=== PATIENT | female | born 1960 | race Caucasian/White ===

== ENCOUNTER 2022-07-13 14:00 | Outpatient (RCR) | payer BC, SELFPAY ==
[2022-07-12 10:08] VITALS: BP 169/78; PULSE 111; RESP 24; TEMP 36.3; BMI 44.0
--- NOTE | 2022-07-12 11:41 | HP.PCM_ITS ---
History of Present Illness Date of Service: 07/12/22 Chief Complaint: Bilateral leg ulcers History of Wound: 61 year old female presents to the wound healing center with ulcers on her right and left legs that started 5 months ago after being hospitalized for pneumonia and COPD exacerbation. She developed worsening edema and her legs have been weeping. She then bumped her right lateral leg and developed an ulcer that she covers during the day with non adherent dressings. She also has several ulcers that are superficial and weep clear drainage due to the amount of edema she is experiencing. She sleeps in a chair due to difficulty breathing. She typically does not elevate her legs. 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 She is being treated with Doxycycline from her PCP due to a cellulitis of her legs. Renewed notes from her PCP who saw her on 07/03/22 for cellulitis, ulcer right leg and shortness of breath. She denies fever, chills, nausea or vomiting. Progress of Wound: Right lateral leg ulcer with significant amount of thick, ch slough. It is painful with erythema surrounding the tissue. She also has superficial ulcers on her right anterior leg and right medial leg and her left posterior-medial leg and left lateral leg that have thick slough present. She has +4 pitting edema bilateral legs. [facility] Medical History (Updated 07/12/22 @ 13:39 by Blank Birmingham [employer]) Bilateral edema of lower extremity COPD (chronic obstructive pulmonary disease) Requires continuous at home supplemental oxygen Ulcer of left lower extremity, limited to breakdown of skin Ulcer of right lower extremity with fat layer exposed Medical History no medical history no medical history Home Medications B6 25 mg-L mefolate 3,500 mcg DFE-mecobalamin 1 mg-ALA 300 mg capsule 1 cap PO DAILY 07/12/22 [History Last Taken Unknown] ammonium lactate 12 % topical cream 1 applic topical DAILY 07/12/22 [History Last Taken Unknown] aspirin 325 mg tablet mg 07/12/22 [History Last Taken Unknown] baclofen 10 mg tablet 10 mg PO TID PRN Anxiety 07/12/22 [History Last Taken Unknown] budesonide-formoterol HFA 160 mcg-4.5 mcg/actuation aerosol inhaler (Symbicort) 2 puff inhalation Q12H 07/12/22 [History Last Taken Unknown] dicyclomine 20 mg tablet 20 mg PO TID 07/12/22 [History Last Taken Unknown] doxycycline hyclate 100 mg capsule 100 mg PO BID 07/12/22 [History Last Taken Unknown] fluticasone fur. 100 mcg-umeclid 62.5 mcg-vilant 25 mcg inhalat.powder (Trelegy Ellipta) 1 inh inhalation DAILY 07/12/22 [History Last Taken Unknown] furosemide 20 mg tablet 20 mg PO DAILY 07/12/22 [History Last Taken Unknown] glucosamine sulf dipot chlr,msm,chond 550 mg-C 30 mg-gonzalez 1 mg capsule (Glucosamine Chondroitin) cap PO DAILY 07/12/22 [History Last Taken Unknown] guaifenesin 1,200 mg tablet, extended release 12 hr (Mucinex) 1,200 mg PO BID 07/12/22 [History Last Taken Unknown] potassium 99 mg tablet mg BID 07/12/22 [History Last Taken Unknown] tiotropium bromide 18 mcg capsule with inhalation device (Spiriva with HandiHaler) 1 cap inhalation DAILY 07/12/22 [History Last Taken Unknown] vit X27-MQ-ixtlhzsmps-GL no.15 500 mcg-400 mcg-10 mg-400 mg capsule cap PO 07/12/22 [History Last Taken Unknown] vit C-chromium picolinate-brindall navarro 10 mg-25 mcg-500 mg capsule cap PO 07/12/22 [History Last Taken Unknown] zinc 50 mg capsule 50 mg PO DAILY 07/12/22 [History Last Taken Unknown] Allergy/AdvReac Type Severity Reaction Status Date / Time No Known Allergies Allergy Verified 07/12/22 10:40 Social History Smoking Status: Former smoker ROS Constitutional Constitutional: Denies fever(s) Eyes Eyes: Reports none ENT HEENT: Reports none Cardiovascular Cardiovascular: Reports dyspnea; Denies chest pain Respiratory/Chest Respiratory/Chest: Reports dyspnea, dyspnea on exertion and other Details: On 5 L home oxygen Gastrointestinal Gastrointestinal: Denies abdominal pain, dyspepsia, nausea or vomiting Musculoskeletal Musculoskeletal: Reports joint stiffness Integumentary Integumentary: Reports skin ulcer Neurologic Neurologic: Reports tingling Psychiatric Psychiatric: Reports abnormal sleep pattern Endocrine Endocrinology: Reports systems reviewed and no addt'l complaints, except as documented Vital Signs Vital Signs Vital Signs: 07/12/22 10:08 Temperature 97.3 F L Temperature Source Temporal Pulse Rate 111 H Respiratory Rate 24 H Blood Pressure 169/78 H Blood Pressure Mean 108 Blood Pressure Source Monitor Oxygen Delivery Method Nasal Cannula Oxygen Flow Rate (L/min) 5 Weight Weight: 248 lb 8.668 oz Body Mass Index (BMI) 44.0 Physical Exam Const alert and oriented x3 General Appearance: cooperative HEENT normocephalic Eyes General Eye: normal appearance of both eyes Neck full ROM Resp Effort and Inspection: able to speak in complete sentences, tachypneic and labored Auscultation: diminished lung sounds bilateral lower Cardio regular rate and regular rhythm GI soft to palpation and non-tender Back/Spine normal ROM Extremity normal capillary refill General Extremity: edema bilateral lower extremity Details: severe Peripheral Pulses: Yes dorsalis pedis pulses present bilateral 2+ Skin Wound Narrative: Right lateral leg ulcer with significant amount of thick, ch slough. It is painful with erythema surrounding the tissue. She also has superficial ulcers on her right anterior leg and right medial leg and her left posterior-medial leg and left lateral leg that have thick slough present. She has +4 pitting edema bilateral legs. Neuro oriented x3 Psych mental status grossly normal, thought process normal and cooperative Debridement Note Debridement Note Wound debrided: lateral leg ulcer (#1) Laterality: Right Wound Grade/Stage: Stage III Type of Debridement: Excisional debridement Anesthesia Used: 4% Lidocaine Solution, 5% Lidocaine Gel and Cetacaine Depth: Down to and including healthy tissue and in the subcutaneous layer Percentage of wound debrided: 100 Instrument Used: 7mm curette Tissue Removed: devitalized tissue and slough Severity: Fat Layer Exposed Amount of bleeding with debridement: Moderate Bleeding Controlled with: Pressure and Compression and gauze Patient tolerated procedure: Patient tolerated procedure well Debridement Free Text: Large amount of slough. The debridement was very painful Post-Debridement Measurements and Additional Note: Post-Debridement Measurements/Treatment WC - Nurse 1 - General Ulcer Assessment Start: 07/12/22 10:04 Freq: Status: Active Protocol: TROY Activity Type Activity Date Activity User E-sign Co-sign Detail Recorded Client Recorded Date Recorded By Document 07/12/22 10:08 DL [id number] 07/12/22 10:37 DL 07/12/22 10:08 WC - Today's Visit Information Type of service Initial Visit Arrival Mode Ambulatory Transfer Assistance None Patient Identification Verified (Name & Yes ) Patient Requires Transmission-Based No Precautions Height and Weight Height 5 ft 3 in Weight 248 lb 8.668 oz Weight in Pounds 248.5 lbs Body Mass Index (BMI) 44.0 BMI Classification Obese BSA - Alana 2.12 Vital Signs Temperature (97.8 F-99.1 F) 97.3 F L Temperature Source Temporal Pulse Rate (60-100) 111 H Pulse Location Monitor Respiratory Rate (12-18) 24 H Respiratory rate source Observation Oxygen Delivery Method Nasal Cannula O2 L/MIN 5 Blood Pressure (90/60-120/80) 169/78 H Blood Pressure Mean 108 Source Monitor Pain Scale: 0-10 Numeric Is Patient Pain Free? Yes Lower Extremity Assessment/ Foot Assessment/ Toe Nail Assessment Left -Posterior Tibial Palpable Yes -Dorsalis Pedis Palpable Yes -Extremity Color Hyperpigmented, Hemosiderin -Hair Growth on Legs No -Hair Growth on Toes No -Temperature of Extremity Warm -Capillary Refill Greater than 3 Seconds -Dependent Rubor No -Blanched when Elevated No -Lipodermatosclerosis No -Other Deformity No -Prior Foot Ulcer No -Charcot Joint No -Prior Amputation No -Thick Yes -Discolored Yes -Deformed Yes -Improper Length & Hygeine Yes Right -Posterior Tibial Palpable Yes -Dorsalis Pedis Palpable Yes -Extremity Color Hyperpigmented, Hemosiderin -Hair Growth on Legs No -Hair Growth on Toes No -Temperature of Extremity Warm -Capillary Refill Greater than 3 Seconds -Dependent Rubor Yes -Blanched when Elevated No -Lipodermatosclerosis No -Other Deformity No -Prior Foot Ulcer No -Charcot Joint No -Prior Amputation No -Thick Yes -Discolored Yes -Deformed Yes -Improper Length & Hygeine Yes Neuropathy Assessment Feet - Top Side and Bottom <Entered> (a) Communication Assessment Preferred language Upper Sorbian Able to Read Yes Able to Write No Right Hearing Abillity Normal Left Hearing Abillity Normal Visual Assistive Devices Glasses Teaching Assessment Preferences Verbal,Written, Demonstration Barriers to Learning None Readiness To Learn Fair Willingness to Engage in Self Management Low Activies Readiness to Engage in Self Management Low Activities Anxiety Level Calm Cooperation Cooperative Interest in Health Problem Asks Questions Does Patient Smoke tobacco or other No substances Smoking Status Former smoker Is Patient Diabetic No Functional Assessment Recent Decline in Ability to Perform Denies Any Declines, Ambulation, Bathing,Lower Body Dressing Culture/Catholic/Product Development Specialist Cultural/Catholic Needs that may affect No Treatment Plan Would you allow our hospital saw grinder to No meet you for the purpose of spiritual/ emotional support? Product Development Specialist to contact place of hoahaoism No Teaching: Wound Center Discharge Instructions -Person Taught Patient *Welcome to the Wound Center -Person Taught Patient (a) 1 - + WC - Nurse 1 - General Ulcer Measurement Start: 07/12/22 10:04 Freq: Status: Active Protocol: Activity Type Activity Date Activity User E-sign Co-sign Detail Recorded Client Recorded Date Recorded By Document 07/12/22 10:08 DL [id number] 07/12/22 10:37 DL 07/12/22 10:08 Wound Center Nurse 1 #4 LLE Lat -Current Size (cm) - Length 10 -Current Size (cm) - Width 6 -Current Size (cm) - Depth 0.1 -Total Square Cm 60 -Photo Taken Yes -Exudate Amt Large -Exudate Type Serous -Wound Margin Distinct, Outline Attached -Granulation Amt None Present (0 %) -Necrosis Amt Large (67-100%) -Necrotic Tissue Type Adherent Slough -Structure Exposed N/A -Texture (Ashley-wound Skin Appearance) Localized Edema ,Scarring -Moisture (Ashley-wound Skin Appearance) Weeping -Color (Ashley-wound Skin Appearance) Erythema, Hemosiderin Staining -Temperature (Ashley-wound Skin No Abnormality Appearance) (Pt Warm) -Tenderness on Palpation (Ashley-wound No Skin Appearance) -Ulcer Cleansing Soap and Water -Foul Odor after Cleansing No -Anesthetic Used 4% Lidocaine Solution #3 LLE MED -Current Size (cm) - Length 11.8 -Current Size (cm) - Width 7.8 -Current Size (cm) - Depth 0.1 -Total Square Cm 92.04 -Photo Taken Yes -Exudate Amt Large -Exudate Type Serosanguineous -Wound Margin Distinct, Outline Attached -Granulation Amt None Present (0 %) -Necrosis Amt Large (67-100%) -Necrotic Tissue Type Adherent Slough -Texture (Ashley-wound Skin Appearance) Localized Edema ,Scarring -Moisture (Ashley-wound Skin Appearance) Weeping -Color (Ashley-wound Skin Appearance) Erythema, Hemosiderin Staining -Temperature (Ashley-wound Skin No Abnormality Appearance) (Pt Warm) -Ulcer Cleansing Soap and Water -Foul Odor after Cleansing No -Anesthetic Used 4% Lidocaine Solution #2 RLE Med -Current Size (cm) - Length 2 -Current Size (cm) - Width 2 -Current Size (cm) - Depth 0.4 -Total Square Cm 4 -Photo Taken Yes -Exudate Amt Large -Exudate Type Serosanguineous -Wound Margin Distinct, Outline Attached -Granulation Amt None Present (0 %) -Necrosis Amt Large (67-100%) -Necrotic Tissue Type Adherent Slough -Texture (Ashley-wound Skin Appearance) Localized Edema ,Scarring -Color (Ashley-wound Skin Appearance) Erythema, Hemosiderin Staining -Temperature (Ashley-wound Skin No Abnormality Appearance) (Pt Warm) -Tenderness on Palpation (Ashley-wound No Skin Appearance) -Ulcer Cleansing Soap and Water -Foul Odor after Cleansing No -Anesthetic Used 4% Lidocaine Solution #1 RLE LAt Cluster -Current Size (cm) - Length 9 -Current Size (cm) - Width 8.5 -Current Size (cm) - Depth 0.6 -Total Square Cm 76.5 -Photo Taken Yes -Exudate Amt Large -Exudate Type Serosanguineous -Wound Margin Thickened -Granulation Amt None Present (0 %) -Necrosis Amt Large (67-100%) -Necrotic Tissue Type Adherent Slough -Structure Exposed N/A -Texture (Ashley-wound Skin Appearance) Localized Edema ,Scarring -Moisture (Ashley-wound Skin Appearance) Weeping -Color (Ashley-wound Skin Appearance) Erythema, Hemosiderin Staining -Temperature (Ashley-wound Skin No Abnormality Appearance) (Pt Warm) -Tenderness on Palpation (Ashley-wound No Skin Appearance) -Ulcer Cleansing Soap and Water -Foul Odor after Cleansing No -Anesthetic Used 4% Lidocaine Solution Right Calf (cm) 54 Right Ankle (cm) 30.5 Left Calf (cm) 53 Left Ankle (cm) 29 WC - Nurse 2 - General Ulcer CM Notes Start: 07/12/22 10:04 Freq: Status: Active Protocol: Activity Type Activity Date Activity User E-sign Co-sign Detail Recorded Client Recorded Date Recorded By Document 07/12/22 11:07 [id number] 07/12/22 11:25 JF 07/12/22 11:07 Wound Center Nurse 2 5-right garcia -Time 11: -Correct Patient Yes -Correct Side, Site, Position Yes -Correct Procedure Yes -Procedure Performed Yes -Type of Procedure Debridement -Clinical Debridement Subcutaneous -Tissue Removed Subcutaneous -Post Debridement (cm) - Length 1.7 -Post Debridement (cm) - Width 1 -Post Debridement (cm) - Depth 0.1 -Total Square (Post) (cm) 1.7 -Area of Debridement (cm) - Length 1.7 -Area of Debridement (cm) - Width 1.0 -Total Square (Area) (cm) 1.70 -Tunneling No -Undermining/Tunneling No -Circular Undermining No -Wound/Ulcer Outcome Not Healed -Ulcer Cleansing Rinsed/ Irrigated with Saline -Foul Odor after Cleansing No -Bioengineered Tissue No -Bleeding Controlled with Pressure -Treatment Response Procedure Tolerated Well -Offloading No -Debridement - Subq, 1st 20sq cm Yes -Debridement, SubQ, ea addt'l 20sq cm 8 or part thereof #4 LLE Lat -Time 11:07 -Correct Patient Yes -Correct Side, Site, Position Yes -Correct Procedure Yes -Procedure Performed Yes -Type of Procedure Debridement -Clinical Debridement Subcutaneous -Tissue Removed Subcutaneous -Post Debridement (cm) - Length 10.0 -Post Debridement (cm) - Width 5.4 -Post Debridement (cm) - Depth 0.1 -Total Square (Post) (cm) 54.00 -Area of Debridement (cm) - Length 10 -Area of Debridement (cm) - Width 5.4 -Total Square (Area) (cm) 54.0 -Tunneling No -Undermining/Tunneling No -Circular Undermining No -Wound/Ulcer Outcome Not Healed -Ulcer Cleansing Rinsed/ Irrigated with Saline -Foul Odor after Cleansing No -Bioengineered Tissue No -Bleeding Controlled with Pressure -Treatment Response Procedure Tolerated Well -Offloading No -Debridement - Subq, 1st 20sq cm No #3 LLE MED -Time 11:08 -Correct Patient Yes -Correct Side, Site, Position Yes -Correct Procedure Yes -Procedure Performed Yes -Type of Procedure Debridement -Clinical Debridement Subcutaneous -Tissue Removed Subcutaneous -Post Debridement (cm) - Length 11.5 -Post Debridement (cm) - Width 7.3 -Post Debridement (cm) - Depth 0.1 -Total Square (Post) (cm) 83.95 -Area of Debridement (cm) - Length 11.5 -Area of Debridement (cm) - Width 7.3 -Total Square (Area) (cm) 83.95 -Tunneling No -Undermining/Tunneling No -Circular Undermining No -Wound/Ulcer Outcome Not Healed -Ulcer Cleansing Rinsed/ Irrigated with Saline -Foul Odor after Cleansing No -Bioengineered Tissue No -Bleeding Controlled with Pressure -Treatment Response Procedure Tolerated Well -Offloading No -Debridement - Subq, 1st 20sq cm No #2 RLE Med -Time 11:08 -Correct Patient Yes -Correct Side, Site, Position Yes -Correct Procedure Yes -Procedure Performed Yes -Type of Procedure Debridement -Clinical Debridement Subcutaneous -Tissue Removed Subcutaneous -Post Debridement (cm) - Length 2.2 -Post Debridement (cm) - Width 1.8 -Post Debridement (cm) - Depth 0.3 -Total Square (Post) (cm) 3.96 -Area of Debridement (cm) - Length 2.2 -Area of Debridement (cm) - Width 1.8 -Total Square (Area) (cm) 3.96 -Tunneling No -Undermining/Tunneling No -Circular Undermining No -Wound/Ulcer Outcome Not Healed -Ulcer Cleansing Rinsed/ Irrigated with Saline -Foul Odor after Cleansing No -Bioengineered Tissue No -Bleeding Controlled with Pressure -Treatment Response Procedure Tolerated Well -Offloading No -Debridement - Subq, 1st 20sq cm No #1 RLE LAt Cluster -Time 11:09 -Correct Patient Yes -Correct Side, Site, Position Yes -Correct Procedure Yes -Procedure Performed Yes -Type of Procedure Debridement -Clinical Debridement Subcutaneous -Tissue Removed Subcutaneous -Post Debridement (cm) - Length 5.5 -Post Debridement (cm) - Width 6.4 -Post Debridement (cm) - Depth 0.7 -Total Square (Post) (cm) 35.20 -Area of Debridement (cm) - Length 5.5 -Area of Debridement (cm) - Width 6.4 -Total Square (Area) (cm) 35.20 -Tunneling No -Undermining/Tunneling No -Circular Undermining No -Wound/Ulcer Outcome Not Healed -Ulcer Cleansing Rinsed/ Irrigated with Saline -Foul Odor after Cleansing No -Bioengineered Tissue No -Bleeding Controlled with Pressure -Treatment Response Procedure Tolerated Well -Offloading No -Debridement - Subq, 1st 20sq cm No Pain Scale: 0-10 Numeric Is Patient Pain Free? Yes Additional Wound Wound debrided: medial leg ulcer (#2) Laterality: Right Wound Grade/Stage: Stage II Type of Debridement: Excisional debridement Anesthesia Used: 4% Lidocaine Solution and 5% Lidocaine Gel Depth: Down to and including healthy tissue and in the subcutaneous layer Percentage of wound debrided: 100 Instrument Used: 7mm curette Tissue Removed: Devitalized tissue and slough Severity: Limited To Skin Breakdown Amount of bleeding with debridement: Mild Bleeding Controlled with: Pressure and Compression and gauze Patient tolerated procedure: Patient tolerated procedure well Additional Wound Wound debrided: anterior leg ulcer (#5) Laterality: Right Wound Grade/Stage: Stage II Type of Debridement: Excisional debridement Anesthesia Used: 4% Lidocaine Solution and 5% Lidocaine Gel Depth: Down to and including healthy tissue and in the subcutaneous layer Percentage of wound debrided: 100 Instrument Used: 7mm curette Tissue Removed: Devitalized tissue and slough Severity: Limited To Skin Breakdown Amount of bleeding with debridement: Mild Bleeding Controlled with: Pressure and Compression and gauze Patient tolerated procedure: Patient tolerated procedure well Additional Wound Wound debrided: Posterior/medial leg ulcer (#3) Laterality: Left Wound Grade/Stage: Stage II Type of Debridement: Excisional debridement Anesthesia Used: 4% Lidocaine Solution and 5% Lidocaine Gel Depth: Down to and including healthy tissue and in the subcutaneous layer Percentage of wound debrided: 100 Instrument Used: 7mm curette Tissue Removed: Devitalized tissue and slough Severity: Limited To Skin Breakdown Amount of bleeding with debridement: Mild Bleeding Controlled with: Pressure and Compression and gauze Patient tolerated procedure: Patient tolerated procedure well Additional Wound Wound debrided: Lateral leg ulcer (#4) Laterality: Left Wound Grade/Stage: Stage II Type of Debridement: Excisional debridement Anesthesia Used: 4% Lidocaine Solution and 5% Lidocaine Gel Depth: Down to and including healthy tissue and in the subcutaneous layer Percentage of wound debrided: 100 Instrument Used: 7mm curette Tissue Removed: Devitalized tissue and slough Severity: Limited To Skin Breakdown Amount of bleeding with debridement: Mild Bleeding Controlled with: Pressure and Compression and gauze Patient tolerated procedure: Patient tolerated procedure well Charges/Coding Visit Charges Office Visits / Consults: 50982 OV L3 New (25 modifier) Procedures Integumentary [id number]: [id number] Eboni subq tissue 20 sq cm/< Add On Codes: 05098 Eboni subq tissue add-on (x8) Assessment/Plan Assessment/Plan (1) Ulcer of right lower extremity with fat layer exposed: CODE(S): L97.912 - Non-pressure chronic ulcer of unspecified part of right lower leg with fat layer exposed (2) Ulcer of left lower extremity, limited to breakdown of skin: CODE(S): L97.921 - Non-pressure chronic ulcer of unspecified part of left lower leg limited to breakdown of skin (3) Bilateral edema of lower extremity: CODE(S): R60.0 - Localized edema (4) COPD (chronic obstructive pulmonary disease): CODE(S): J44.9 - Chronic obstructive pulmonary disease, unspecified (5) Requires continuous at home supplemental oxygen: CODE(S): Z99.81 - Dependence on supplemental oxygen (6) Former smoker: CODE(S): Z87.891 - Personal history of nicotine dependence PLAN: Plan Patient evaluated at the wound healing center today. Wound care - Right lateral ulcer Dakin's 0.25% moistened gauze topped with ABD pad or superabsorber daily. Right anterior leg ulcer, right medial leg ulcer, left posterior/medial leg ulcer and left latera leg ulcer place Silvercel/silver alginate cover with ABD/ super absorber daily after washing all ulcer with soap and water and patting dry. Compression - Single layer tubigrip. Encouraged to elevate legs when sitting. Discussed low sodium diet that is high in protein to help with edema management and wound healing. Encouraged patient not to sleep in chair but if she has to because of her COPD/difficult breathing she needs to be propped up. Encouraged leg elevation. A wound culture was obtained today on the right lateral leg.? A positive culture will necessitate a change in antibiotic therapy. She is currently taking Doxycycline prescribed by her PCP for cellulits. She is on Lasix for her edema as prescribed by either her PCP or her pulonologist. Ordered venous and arterial studies due to the size/number of ulcers and her severe edema. Once we know the results of her vascular studies we should be able to increase her compression. Follow up one week. Greater than 35 minutes spent with patient evaluating, plan of care, reviewing previous charts, placing orders and documenting.
--- NOTE | 2022-07-13 13:30 | ART_ITS ---
Reason For Study: Wound Procedure A bilateral lower extremity continuous wave Doppler with analog waveform analysis,segmental pressures,and ankle brachial indexes without exercise. Left Segmental Pressures Left brachial= 162mmHg. Left posterior tibial artery = 202mmHg. Left dorsalis pedis artery = 176mmHg. Left digit = 110 mmHg. The left dorsalis pedis waveforms are triphasic. The left posterior tibial artery waveforms are triphasic. Right Segmental Pressures Right brachial= 167mmHg. Right posterior tibial artery = 212mmHg. Right dorsalis pedis artery = 194mmHg. Right digit = 126 mmHg. The right dorsalis pedis waveforms are triphasic. The right posterior tibial artery waveforms are triphasic. Indices The right ankle brachial index by the dorsalis pedis is 1.16. The right ankle brachial index by the posterior tibial artery is 1.27. The right digital-brachial index is 0.75. The left ankle brachial index by the dorsalis pedis is 1.05. The left ankle brachial index by the posterior tibial artery is 1.21. The left digital-brachial index is 0.66. VL/Lower Ext Art Exam w/o Exercis Interpretation Summary Triphasic Doppler waveforms are noted at ankle level bilaterally. Pulse-volume recordings appear diminished at digital level on the right, but satisfactory at all other levels bilaterally. Resting ankle-brachial indices are normal bilaterally. The right digital-brachial index is normal. The left digital-brachial index is mildly diminished. Arterial flow appears normal at ankle level bilaterally, and at digital level o n the right. There is evidence of mild arterial occlusive disease at digital level on the left. Ordering Physician: Blank [place] Referring Physician: Oralia Hartman Performed By: Tata Huitron RVT
--- NOTE | 2022-07-13 13:30 | VDLE_ITS ---
Reason For Study: Edema RIGHT LEFT CFV is compressible, spontaneous, phasic, CFV is compressible, spontaneous, phasic, competent and demonstrates normal competent, and demonstrates normal augmentation. augmentation. FV is compressible, spontaneous, phasic, FV is compressible, spontaneous, phasic, competent and demonstrates normal competent and demonstrates normal augmentation. augmentation. POP V is compressible, spontaneous, phasic, POP V is compressible, spontaneous, phasic, competent and demonstrates normal competent and demonstrates normal augmentation. augmentation. T/P Trunk is compressible. T/P Trunk is compressible. PTV is compressible. PTV is compressible. RT PerV is compressible. LT PerV is compressible. SFJ is competent and measures 0.66 x 0.66 cm. SFJ is INCOMPETENT and measures 0.93 x 0.81 GSV proximal thigh measures 0.55 x 0.56 cm. cm. GSV at knee measures 0.46 x 0.44 cm. GSV proximal thigh measures 0.27 x 0.30 cm. GSV INCOMPETENT throughout for greater than GSV at knee measures 0.32 x 0.32 cm. 0.5 seconds. GSV is competent throughout. ASV from junction is INCOPETENT for greater ASV from junction is INCOPETENT for greater than 0.5 seconds and measures 0.65 x 0.61 cm. than 0.5 seconds and measures 0.75 x 0.72 cm. SSV proximal calf is competent and measures SSV proximal calf is competent and measures 0.14 x 0.15 cm. 0.20 x 0.20 cm. Procedure This is a venous duplex using B-mode, color flow and spectral Doppler. Exam performed in department. Patient was scanned in reverse Trendelenburg position during reflux assessment. Technically difficult to visualize bilateral calf veins due to patient body habitus and bandages from mid calf to ankle. A preliminary report was called and/or faxed to . VL/Venous Duplex US - Darinel Extrem Interpretation Summary Deep veins of the lower extremities are bilaterally patent and compressible seg mentally. There is no evidence of deep vein thrombosis on either side. Valvular competence appears in tact within the proximal deep venous systems bilaterally. The great saphenous veins appear bila terally patent and compressible segmentally. The right sapheno-femoral junction is competent . The left sapheno-femoral junction is incompetent . The right great saphenous vein appears segmentally in competent. The left great saphenous vein appears segmentally competent. Small saphenous veins are p atent and competent bilaterally. The right anterior accessory saphenous vein is incompetent. The le ft anterior accessory saphenous vein is incompetent. Ordering Physician: Blank [place] Referring Physician: Oralia Hartman Performed By: Tata Huitron RVT
--- NOTE | 2022-07-14 12:20 | WC ---
Received orders from Blank that patient's wound culture were positive and will call Levaquin into [facility]. Patient is to stop taking Doxycycline since it isn't sensitive to wound culture bacteria. Spoke to Dagoberto, of patient since patient was at work. He wrote down the changes on medications and will let patient know too that she in not to take Levaquin 2 hours before/after taking calcium, Iron and Magnesium. He verbalized understanding.
--- NOTE | 2022-07-17 16:32 | WC ---
Blank called letting me know that patient will need an additional ATB for her anaerobic culture. She called in Flagyl TID for 10 days to [facility]. Patient was made aware of this but concerned about the side effects that are listed for Levaquin that was called in last week for her positive aerobic cultures. She's concerned with the possible breathing issues since she already had difficulty breathing. Also, side effect of seizures. Waiting to hear back from Blank on plan of action.
== END 2022-07-16 23:59 | disposition home or self-care (01) ==
LOC: WC 14:00
PROVIDERS: PCP Family Medicine; Referring Provider Family Medicine; Visit Provider Nurse Practitioner Family
DX: L97.811 Non-pressure chronic ulcer of other part of right lower leg limited to breakdown of skin (principal); L97.821 Non-pressure chronic ulcer of other part of left lower leg limited to breakdown of skin; J44.9 Chronic obstructive pulmonary disease, unspecified; R60.0 Localized edema; L03.115 Cellulitis of right lower limb; L03.116 Cellulitis of left lower limb; Z99.81 Dependence on supplemental oxygen; Z79.51 Long term (current) use of inhaled steroids; Z79.82 Long term (current) use of aspirin; Z87.891 Personal history of nicotine dependence
CPT/HCPCS: 11042; 11045; 87070; 87075; 87077; 87186; 87205; 93923; 93970; 99204; G0463

== ENCOUNTER 2022-08-16 08:30 | Outpatient (RCR) | payer BC, SELFPAY ==
[2022-07-18 00:07] VITALS: BP 169/78; PULSE 111; RESP 24; TEMP 36.3; BMI 44.0
[2022-07-19 08:34] VITALS: BP 164/93; PULSE 117; RESP 18; TEMP 36.4; BMI 44.0
--- NOTE | 2022-07-19 10:50 | PN.PCM_ITS ---
History of Present Illness Date of Service: 07/19/22 Chief Complaint: Bilateral leg ulcers History of Wound: 61 year old female presents to the wound healing center with ulcers on her right and left legs that started 5 months ago after being hospitalized for pneumonia and COPD exacerbation. She developed worsening edema and her legs have been weeping. She then bumped her right lateral leg and developed an ulcer that she covers during the day with non adherent dressings. She also has several ulcers that are superficial and weep clear drainage due to the amount of edema she is experiencing. She sleeps in a chair due to difficulty breathing. She typically does not elevate her legs. 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 She is being treated with Doxycycline from her PCP due to a cellulitis of her legs. Reviewed notes from her PCP who saw her on 07/03/22 for cellulitis, ulcer right leg and shortness of breath. Wound culture obtained on 07/12/22 which was positive for Serratia marcescens and Anaerobic cocci. She has been started on Bactrim and Metronidazole. Arterial studies performed on 07/13/22 - Right CRISTINA - 1.27 and Left CRISTINA - 1.21. Triphasic Doppler waveforms are noted at ankle level bilaterally. Pulse-volume recordings appear diminished at digital level on the right, but satisfactory at all other levels bilaterally. Resting ankle-brachial indices are normal bilaterally. The right digital-brachial index is normal. The left digital-brachial index is mildly diminished. Arterial flow appears normal at ankle level bilaterally, and at digital level on the right. There is evidence of mild arterial occlusive disease at digital level on the left. 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 The right great saphenous vein appears segmentally incompetent. The right anterior accessory saphenous vein is incompetent. The left anterior accessory saphenous vein is incompetent. She denies fever, chills, nausea or vomiting. Progress of Wound: Right lateral leg ulcer is stable. It has thick ch non viable tissue present. It is painful. She also has superficial ulcers on her right anterior leg and right medial leg and her left posterior-medial leg and left lateral leg that have thick slough present. She has +4 pitting edema bilateral legs. Objective Data Objective Data Vital Signs: Vital Signs Temp Pulse Resp BP O2 Del Method O2 Flow Rate 97.5 F L 117 H 18 164/93 H Nasal Cannula 4 07/19/22 08:34 07/19/22 08:34 07/19/22 08:34 07/19/22 08:34 07/19/22 08:34 07/19/22 08:34 Oxygen Flow Rate (L/min) 4 Oxygen Delivery Method Nasal Cannula Weight: 248 lb 8.668 oz Body Mass Index (BMI) 44.0 Charges/Coding Procedures Integumentary 111xxx-113xx: [id number] Eboni subq tissue 20 sq cm/< Add On Codes: 04880 Eboni subq tissue add-on (x10) Debridement Note Debridement Note Wound debrided: lateral leg ulcer (#1) Laterality: Right Wound Grade/Stage: Stage III Type of Debridement: Excisional debridement Anesthesia Used: 4% Lidocaine Solution and 5% Lidocaine Gel Depth: Down to and including healthy tissue and in the subcutaneous layer Percentage of wound debrided: 100 Instrument Used: 7mm curette Tissue Removed: devitalized tissue and slough Severity: Fat Layer Exposed Amount of bleeding with debridement: Mild Bleeding Controlled with: Pressure and Compression and gauze Patient tolerated procedure: Patient tolerated procedure well Debridement Free Text: Moderate amount of thick, ch slough. Post-Debridement Measurements and Additional Note: Post-Debridement Measurements/Treatment - Nurse 1 - General Ulcer Assessment Start: 07/19/22 08:34 Freq: Status: Active Protocol: NINO.VAHE Activity Type Activity Date Activity User E-sign Co-sign Detail Recorded Client Recorded Date Recorded By Document 07/19/22 08:34 [id number] 07/19/22 08:42 07/19/22 08:34 - Today's Visit Information Type of service Follow-up Visit (Physician/[employer]ICLE [employer]PERVISOR ) Arrival Mode Ambulatory Patient Identification Verified (Name & Yes ) Patient Requires Transmission-Based No Precautions Height and Weight Body Mass Index (BMI) 44.0 BMI Classification Obese Vital Signs Temperature (97.8 F-99.1 F) 97.5 F L Temperature Source Temporal Pulse Rate (60-100) 117 H Pulse Location Monitor Respiratory Rate (12-18) 18 Respiratory rate source Observation Oxygen Delivery Method Nasal Cannula O2 L/MIN (L/min) 4 Blood Pressure (90/60-120/80) 164/93 H Blood Pressure Mean (mm Hg) 116 Source Monitor Position Semi-Fowlers Blood Pressure Location Left Arm History Since Last Visit- (Skip if this is Patient's initial visit) Have you changed medications since your No last visit? Any new allergies or adverse reactions No Had a fall/change in ADL's that may No increase risk of falls Signs or symptoms of abuse and/or No neglect since last visit Have you been in the hospital since your No last visit? Has dressing in place as prescribed Yes Has compression in place as prescribed Yes Has offloadiing in place as prescribed N/A Experienced any changes in pain level or No management Left Footwear Regular Shoe Right Footwear Regular Shoe Pain Scale: 0-10 Numeric Is Patient Pain Free? No right leg -Description Burning -Intensity 8 -Duration (hours) Chronic -Pain Behavior Withdrawal from Touch -Pain Aggravating Factors Walking -Alleviating Factors/Interventions Medication -Effectiveness of Alleviating Factor/ Minimally Intervention effective -Comments Aspirin PRN WC - Nurse 1 - General Ulcer Measurement Start: 07/19/22 08:34 Freq: Status: Active Protocol: Activity Type Activity Date Activity User E-sign Co-sign Detail Recorded Client Recorded Date Recorded By Document 07/19/22 08:34 [id number] 07/19/22 08:42 GIN 07/19/22 08:34 Wound Center Nurse 1 5-right garcia -Combined with other wound No -Current Size (cm) - Length 0.1 -Current Size (cm) - Width 0.1 -Current Size (cm) - Depth 0.1 -Total Square Cm 0.01 -Photo Taken No -Epithelialization Large 67-100% -Tunneling No -Undermining/Tunneling No -Circular Undermining No -Exudate Amt Medium -Exudate Type Serosanguineous -Wound Margin Flat & Intact -Granulation Amt Medium (34-66%) -Granulation Quality Red -Slough/Fibrin Yes -Necrosis Amt Small (1-33%) -Necrotic Tissue Type Adherent Slough -Structure Exposed N/A -Texture (Ashley-wound Skin Appearance) Assessed -Moisture (Ashley-wound Skin Appearance) Assessed -Color (Ashley-wound Skin Appearance) Assessed, Hemosiderin Staining -Temperature (Ashley-wound Skin No Abnormality Appearance) (Pt Warm) -Tenderness on Palpation (Ashley-wound No Skin Appearance) -Ulcer Cleansing Wound Cleanser -Foul Odor after Cleansing No -Anesthetic Used 4% Lidocaine Solution #4 LLE Lat -Combined with other wound No -Current Size (cm) - Length 8.5 -Current Size (cm) - Width 5.2 -Current Size (cm) - Depth 0.1 -Total Square Cm 44.20 -Photo Taken No -Epithelialization Small 1-33% -Tunneling No -Undermining/Tunneling No -Circular Undermining No -Exudate Amt Medium -Exudate Type Sanguineous -Wound Margin Flat & Intact -Granulation Amt Medium (34-66%) -Granulation Quality Red -Slough/Fibrin Yes -Necrosis Amt Medium (34-66%) -Necrotic Tissue Type Adherent Slough -Structure Exposed N/A -Texture (Ashley-wound Skin Appearance) Assessed, Localized Edema -Moisture (Ashley-wound Skin Appearance) Assessed -Color (Ashley-wound Skin Appearance) Assessed -Temperature (Ashley-wound Skin No Abnormality Appearance) (Pt Warm) -Tenderness on Palpation (Ashley-wound No Skin Appearance) -Ulcer Cleansing Wound Cleanser -Foul Odor after Cleansing No -Anesthetic Used 4% Lidocaine Solution,5% Lidocaine Gel #3 LLE MED -Combined with other wound No -Current Size (cm) - Length 10.2 -Current Size (cm) - Width 7.5 -Current Size (cm) - Depth 0.1 -Total Square Cm 76.50 -Photo Taken No -Epithelialization Medium 34-66% -Tunneling No -Undermining/Tunneling No -Circular Undermining No -Exudate Amt Medium -Exudate Type Serosanguineous -Wound Margin Flat & Intact -Granulation Amt Medium (34-66%) -Granulation Quality [place] -Slough/Fibrin Yes -Necrosis Amt Medium (34-66%) -Necrotic Tissue Type Adherent Slough -Structure Exposed N/A -Texture (Ashley-wound Skin Appearance) Assessed, Localized Edema -Moisture (Ashley-wound Skin Appearance) Assessed,Dry/ Scaly -Color (Ashley-wound Skin Appearance) Assessed, Hemosiderin Staining -Temperature (Ashley-wound Skin No Abnormality Appearance) (Pt Warm) -Tenderness on Palpation (Ashley-wound No Skin Appearance) -Ulcer Cleansing Wound Cleanser -Foul Odor after Cleansing No -Anesthetic Used 4% Lidocaine Solution #2 RLE Med -Combined with other wound No -Current Size (cm) - Length 2.0 -Current Size (cm) - Width 1.9 -Current Size (cm) - Depth 0.2 -Total Square Cm 3.80 -Photo Taken No -Epithelialization Medium 34-66% -Tunneling No -Undermining/Tunneling No -Circular Undermining No -Exudate Amt Medium -Exudate Type Serosanguineous -Wound Margin Flat & Intact -Granulation Amt Medium (34-66%) -Granulation Quality [place] -Slough/Fibrin Yes -Necrosis Amt Medium (34-66%) -Necrotic Tissue Type Adherent Slough -Structure Exposed N/A -Texture (Ashley-wound Skin Appearance) Assessed, Localized Edema -Moisture (Ashley-wound Skin Appearance) Assessed,Dry/ Scaly -Color (Ashley-wound Skin Appearance) Assessed -Temperature (Ashley-wound Skin No Abnormality Appearance) (Pt Warm) -Tenderness on Palpation (Ashley-wound No Skin Appearance) -Ulcer Cleansing Wound Cleanser -Foul Odor after Cleansing No -Anesthetic Used 4% Lidocaine Solution #1 RLE LAt Cluster -Combined with other wound No -Current Size (cm) - Length 6.0 -Current Size (cm) - Width 7.2 -Current Size (cm) - Depth 0.6 -Total Square Cm 43.20 -Photo Taken No -Epithelialization Medium 34-66% -Tunneling No -Undermining/Tunneling No -Circular Undermining No -Exudate Amt Medium -Exudate Type Serosanguineous -Wound Margin Flat & Intact -Granulation Amt Medium (34-66%) -Granulation Quality Red -Slough/Fibrin Yes -Necrosis Amt Medium (34-66%) -Necrotic Tissue Type Adherent Slough -Structure Exposed N/A -Texture (Ashley-wound Skin Appearance) Assessed, Localized Edema -Moisture (Ashley-wound Skin Appearance) Assessed,Dry/ Scaly -Color (Ashley-wound Skin Appearance) Assessed -Temperature (Ashley-wound Skin No Abnormality Appearance) (Pt Warm) -Tenderness on Palpation (Ashley-wound No Skin Appearance) -Ulcer Cleansing Wound Cleanser -Foul Odor after Cleansing No -Anesthetic Used 4% Lidocaine Solution Lower Limb Edema Present Yes Right Calf (cm) 50.6 Right Ankle (cm) 28.5 Left Calf (cm) 50.2 Left Ankle (cm) 28.4 WC - Nurse 2 - General Ulcer CM Notes Start: 07/19/22 08:34 Freq: Status: Active Protocol: Activity Type Activity Date Activity User E-sign Co-sign Detail Recorded Client Recorded Date Recorded By Document 07/19/22 09:00 GIN [id number] 07/19/22 09:14 GIN 07/19/22 09:00 Wound Center Nurse 2 5-right garcia -Time 09:10 -Correct Patient Yes -Correct Side, Site, Position Yes -Correct Procedure Yes -Procedure Performed Yes -Type of Procedure Debridement -Clinical Debridement Subcutaneous -Tissue Removed Subcutaneous -Post Debridement (cm) - Length 1.5 -Post Debridement (cm) - Width 2.2 -Post Debridement (cm) - Depth 0.1 -Total Square (Post) (cm) 3.30 -Area of Debridement (cm) - Length 1.5 -Area of Debridement (cm) - Width 2.2 -Total Square (Area) (cm) 3.30 -Tunneling No -Undermining/Tunneling No -Circular Undermining No -Wound/Ulcer Outcome Not Healed -Ulcer Cleansing Rinsed/ Irrigated with Saline -Foul Odor after Cleansing No -Bioengineered Tissue No -Bleeding Controlled with Pressure -Treatment Response Procedure Tolerated Well -Offloading No -Debridement - Subq, 1st 20sq cm No #4 LLE Lat -Time 09:00 -Correct Patient Yes -Correct Side, Site, Position Yes -Correct Procedure Yes -Procedure Performed Yes -Type of Procedure Debridement -Clinical Debridement Subcutaneous -Tissue Removed Subcutaneous -Post Debridement (cm) - Length 9.5 -Post Debridement (cm) - Width 5.4 -Post Debridement (cm) - Depth 0.1 -Total Square (Post) (cm) 51.30 -Area of Debridement (cm) - Length 9.5 -Area of Debridement (cm) - Width 5.4 -Total Square (Area) (cm) 51.30 -Tunneling No -Undermining/Tunneling No -Circular Undermining No -Wound/Ulcer Outcome Not Healed -Ulcer Cleansing Rinsed/ Irrigated with Saline -Foul Odor after Cleansing No -Bioengineered Tissue No -Bleeding Controlled with Pressure -Offloading No -Debridement - Subq, 1st 20sq cm No #3 LLE MED -Time 09:01 -Correct Patient Yes -Correct Side, Site, Position Yes -Correct Procedure Yes -Procedure Performed Yes -Type of Procedure Debridement -Clinical Debridement Subcutaneous -Tissue Removed Subcutaneous -Post Debridement (cm) - Length 11.0 -Post Debridement (cm) - Width 7.5 -Post Debridement (cm) - Depth 0.1 -Total Square (Post) (cm) 82.50 -Area of Debridement (cm) - Length 11 -Area of Debridement (cm) - Width 7.5 -Total Square (Area) (cm) 82.5 -Tunneling No -Undermining/Tunneling No -Circular Undermining No -Wound/Ulcer Outcome Not Healed -Ulcer Cleansing Rinsed/ Irrigated with Saline -Foul Odor after Cleansing No -Bioengineered Tissue No -Bleeding Controlled with Pressure -Treatment Response Procedure Tolerated Well -Offloading No -Debridement - Subq, 1st 20sq cm No #2 RLE Med -Time 09:11 -Correct Patient Yes -Correct Side, Site, Position Yes -Correct Procedure Yes -Procedure Performed Yes -Type of Procedure Debridement -Clinical Debridement Subcutaneous -Tissue Removed Subcutaneous -Post Debridement (cm) - Length 2.0 -Post Debridement (cm) - Width 2.0 -Post Debridement (cm) - Depth 0.3 -Total Square (Post) (cm) 4.00 -Area of Debridement (cm) - Length 2.0 -Area of Debridement (cm) - Width 2.0 -Total Square (Area) (cm) 4.00 -Tunneling No -Undermining/Tunneling No -Circular Undermining No -Wound/Ulcer Outcome Not Healed -Ulcer Cleansing Rinsed/ Irrigated with Saline -Foul Odor after Cleansing No -Bioengineered Tissue No -Bleeding Controlled with Pressure -Treatment Response Procedure Tolerated Well -Offloading No -Debridement - Subq, 1st 20sq cm No #1 RLE LAt Cluster -Time 09:11 -Correct Patient Yes -Correct Side, Site, Position Yes -Correct Procedure Yes -Procedure Performed Yes -Type of Procedure Debridement -Clinical Debridement Subcutaneous -Tissue Removed Subcutaneous -Post Debridement (cm) - Length 8.8 -Post Debridement (cm) - Width 7.3 -Post Debridement (cm) - Depth 0.5 -Total Square (Post) (cm) 64.24 -Area of Debridement (cm) - Length 8.8 -Area of Debridement (cm) - Width 7.3 -Total Square (Area) (cm) 64.24 -Tunneling No -Undermining/Tunneling No -Circular Undermining No -Wound/Ulcer Outcome Not Healed -Ulcer Cleansing Rinsed/ Irrigated with Saline -Foul Odor after Cleansing No -Bioengineered Tissue No -Bleeding Controlled with Pressure -Treatment Response Procedure Tolerated Well -Offloading No -Debridement - Subq, 1st 20sq cm Yes -Debridement, SubQ, ea addt'l 20sq cm 10 or part thereof Pain Scale: 0-10 Numeric Is Patient Pain Free? Yes Additional Wound Wound debrided: medial leg ulcer (#2) Laterality: Right Wound Grade/Stage: Stage II Type of Debridement: Excisional debridement Anesthesia Used: 4% Lidocaine Solution and 5% Lidocaine Gel Depth: Down to and including healthy tissue and in the subcutaneous layer Percentage of wound debrided: 100 Instrument Used: 7mm curette Tissue Removed: Devitalized tissue and slough Severity: Limited To Skin Breakdown Amount of bleeding with debridement: Mild Bleeding Controlled with: Pressure and Compression and gauze Patient tolerated procedure: Patient tolerated procedure well Additional Wound Wound debrided: anterior leg ulcer (#5) Laterality: Right Wound Grade/Stage: Stage II Type of Debridement: Excisional debridement Anesthesia Used: 4% Lidocaine Solution and 5% Lidocaine Gel Depth: Down to and including healthy tissue and in the subcutaneous layer Percentage of wound debrided: 100 Instrument Used: 7mm curette Tissue Removed: Devitalized tissue and slough Severity: Limited To Skin Breakdown Amount of bleeding with debridement: Mild Bleeding Controlled with: Pressure and Compression and gauze Patient tolerated procedure: Patient tolerated procedure well Additional Wound Wound debrided: Posterior/medial leg ulcer (#3) Laterality: Left Wound Grade/Stage: Stage II Type of Debridement: Excisional debridement Anesthesia Used: 4% Lidocaine Solution and 5% Lidocaine Gel Depth: Down to and including healthy tissue and in the subcutaneous layer Percentage of wound debrided: 100 Instrument Used: 7mm curette Tissue Removed: Devitalized tissue and slough Severity: Limited To Skin Breakdown Amount of bleeding with debridement: Mild Bleeding Controlled with: Pressure and Compression and gauze Patient tolerated procedure: Patient tolerated procedure well Additional Wound Wound debrided: Lateral leg ulcer (#4) Laterality: Left Wound Grade/Stage: Stage II Type of Debridement: Excisional debridement Anesthesia Used: 4% Lidocaine Solution and 5% Lidocaine Gel Depth: Down to and including healthy tissue and in the subcutaneous layer Percentage of wound debrided: 100 Instrument Used: 7mm curette Tissue Removed: Devitalized tissue and slough Severity: Limited To Skin Breakdown Amount of bleeding with debridement: Mild Bleeding Controlled with: Pressure and Compression and gauze Patient tolerated procedure: Patient tolerated procedure well Assessment/Plan Assessment/Plan (1) Ulcer of right lower extremity with fat layer exposed: CODE(S): L97.912 - Non-pressure chronic ulcer of unspecified part of right lower leg with fat layer exposed (2) Ulcer of left lower extremity, limited to breakdown of skin: CODE(S): L97.921 - Non-pressure chronic ulcer of unspecified part of left lower leg limited to breakdown of skin (3) Bilateral edema of lower extremity: CODE(S): R60.0 - Localized edema (4) COPD (chronic obstructive pulmonary disease): CODE(S): J44.9 - Chronic obstructive pulmonary disease, unspecified (5) Requires continuous at home supplemental oxygen: CODE(S): Z99.81 - Dependence on supplemental oxygen (6) Former smoker: CODE(S): Z87.891 - Personal history of nicotine dependence PLAN: Plan Patient evaluated at the wound healing center today. Wound care - Place Silvercel/silver alginate cover with ABD/ super absorber to all the ulcers after washing the ulcers with soap and water three times per week. Compression - 3M 2 layer wraps that are initially light compression and will gradually increase amount of compression with each wrap change, 3 times per week. Encouraged to elevate legs when sitting. Discussed low sodium diet that is high in protein to help with edema management and wound healing. Encouraged patient not to sleep in chair but if she has to because of her COPD/difficult breathing she needs to be propped up. Encouraged leg elevation. Wound culture obtained on 07/12/22 which was positive for Serratia marcescens and Anaerobic cocci. It is resistant to the Doxycycline her PCP placed her on. Instructed her to stop the Doxycycline. Initially ordered Levaquin but patient read all the side effects and she states her father had a seizure while on Levaquin. Changed Levaquin to Bactrim and then added Metronidazole when the Anaerobic culture came back. She is on Lasix for her edema as prescribed by either her PCP or her accounts receivable collector. Ordered venous and arterial studies due to the size/number of ulcers and her severe edema. Once we know the results of her vascular studies we should be able to increase her compression. Follow up one week.
[2022-07-24 15:25] VITALS: BP 159/60; PULSE 109; RESP 18; TEMP 36.4; BMI 44.0
[2022-07-26 08:40] VITALS: BP 144/74; PULSE 104; RESP 24; TEMP 36.6; BMI 44.0
--- NOTE | 2022-07-26 12:39 | PCM.WC.PN ---
History of Present Illness Date of Service: 07/26/22 Chief Complaint: Bilateral leg ulcers History of Wound: 61 year old female presents to the wound healing center with ulcers on her right and left legs that started 5 months ago after being hospitalized for pneumonia and COPD exacerbation. She developed worsening edema and her legs have been weeping. She then bumped her right lateral leg and developed an ulcer that she covers during the day with non adherent dressings. She also has several ulcers that are superficial and weep clear drainage due to the amount of edema she is experiencing. She sleeps in a chair due to difficulty breathing. She typically does not elevate her legs. 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 She is being treated with Doxycycline from her PCP due to a cellulitis of her legs. Reviewed notes from her PCP who saw her on 07/03/22 for cellulitis, ulcer right leg and shortness of breath. Wound culture obtained on 07/12/22 which was positive for Serratia marcescens and Anaerobic cocci. She has been started on Bactrim and Metronidazole. Arterial studies performed on 07/13/22 - Right CRISTINA - 1.27 and Left CRISTINA - 1.21. Triphasic Doppler waveforms are noted at ankle level bilaterally. Pulse-volume recordings appear diminished at digital level on the right, but satisfactory at all other levels bilaterally. Resting ankle-brachial indices are normal bilaterally. The right digital-brachial index is normal. The left digital-brachial index is mildly diminished. Arterial flow appears normal at ankle level bilaterally, and at digital level on the right. There is evidence of mild arterial occlusive disease at digital level on the left. 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 The right great saphenous vein appears segmentally incompetent. The right anterior accessory saphenous vein is incompetent. The left anterior accessory saphenous vein is incompetent. She denies fever, chills, nausea or vomiting. Progress of Wound: Right anterior leg ulcer is healed. Right lateral leg and right medial leg ulcers are slightly improved. Left medial and left lateral leg ulcers are stable. She continues to have moderate to large amount of drainage. She has very thick, callouses on the entire plantar surface of her feet. She would benefit from seeing a automatic spinning lathe operator for improved foot and nail care. She is tolerating the 3M 2layer wraps and there is mild amount of improvement in her edema. She is tolerating the antibiotics that she was placed on for her positive wound cultures. Objective Data Objective Data Vital Signs: Vital Signs Temp Pulse Resp BP O2 Del Method O2 Flow Rate 98 F 104 H 24 H 144/74 H Nasal Cannula 5 07/26/22 08:40 07/26/22 08:40 07/26/22 08:40 07/26/22 08:40 07/24/22 15:25 07/26/22 08:40 Oxygen Flow Rate (L/min) 5 Oxygen Delivery Method Nasal Cannula Weight: 248 lb 8.668 oz Body Mass Index (BMI) 44.0 Charges/Coding Procedures Integumentary 111xxx-113xx: 19007 Eboni subq tissue 20 sq cm/< Add On Codes: 69575 Eboni subq tissue add-on (x9) Debridement Note Debridement Note Wound debrided: lateral leg ulcer (#1) and medial leg ulcer (#2) Laterality: Right Type of Debridement: Excisional debridement Anesthesia Used: 4% Lidocaine Solution and 5% Lidocaine Gel Depth: Down to and including healthy tissue and in the subcutaneous layer Percentage of wound debrided: 100 Instrument Used: 7mm curette Tissue Removed: devitalized tissue and slough Severity: Fat Layer Exposed Amount of bleeding with debridement: Mild Bleeding Controlled with: Pressure and Compression and gauze Patient tolerated procedure: Patient tolerated procedure well Debridement Free Text: Moderate amount of thick, ch slough. Post-Debridement Measurements and Additional Note: Post-Debridement Measurements/Treatment - Nurse 1 - General Ulcer Assessment Start: 07/19/22 08:34 Freq: Status: Active Protocol: TROY Activity Type Activity Date Activity User E-sign Co-sign Detail Recorded Client Recorded Date Recorded By Document 07/19/22 08:34 [id number] 07/19/22 08:42 Document 07/24/22 15:25 [facility] [id number] 07/24/22 15:28 BM Document 07/26/22 08:40 DL [id number] 07/26/22 08:53 DL 07/19/22 07/24/22 07/26/22 08:34 15:25 08:40 - Today's Visit Information Type of service Follow-up Visit Nurse-only Follow-up Visit (Physician/NURSING HOME ADMISSIONS DIRECTOR Visit (Physician/NURSING HOME ADMISSIONS DIRECTOR ) ) Arrival Mode Ambulatory Ambulatory Ambulatory Transfer Assistance None None Accompanied by Patient Identification Verified (Name & Yes Yes Yes ) Patient Requires Transmission-Based No No No Precautions Height and Weight Body Mass Index (BMI) 44.0 44.0 44.0 BMI Classification Obese Obese Obese Vital Signs Temperature (97.8 F-99.1 F) 97.5 F L 97.5 F L 98 F Temperature Source Temporal Temporal Temporal Pulse Rate (60-100) 117 H 109 H 104 H Pulse Location Monitor Monitor Monitor Respiratory Rate (12-18) 18 18 24 H Respiratory rate source Observation Observation Observation Oxygen Delivery Method Nasal Cannula Nasal Cannula O2 L/MIN (L/min) 4 5 Blood Pressure (90/60-120/80) 164/93 H 159/60 H 144/74 H Blood Pressure Mean (mm Hg) 116 93 97 Source Monitor Monitor Monitor Position Semi-Fowlers Sitting Blood Pressure Location Left Arm Right Forearm History Since Last Visit- (Skip if this is Patient's initial visit) Have you changed medications since your No No last visit? Any new allergies or adverse reactions No No Had a fall/change in ADL's that may No No increase risk of falls Signs or symptoms of abuse and/or No No neglect since last visit Have you been in the hospital since your No No last visit? Has dressing in place as prescribed Yes Yes Has compression in place as prescribed Yes No Has offloadiing in place as prescribed N/A N/A Experienced any changes in pain level or No No management Left Footwear Regular Shoe Regular Shoe Right Footwear Regular Shoe Regular Shoe Pain Scale: 0-10 Numeric Is Patient Pain Free? No Yes Yes right leg -Description Burning -Intensity 8 -Duration (hours) Chronic -Pain Behavior Withdrawal from Touch -Pain Aggravating Factors Walking -Alleviating Factors/Interventions Medication -Effectiveness of Alleviating Factor/ Minimally Intervention effective -Comments Aspirin PRN WC - Nurse 1 - General Ulcer Measurement Start: 07/19/22 08:34 Freq: Status: Active Protocol: Activity Type Activity Date Activity User E-sign Co-sign Detail Recorded Client Recorded Date Recorded By Document 07/19/22 08:34 GIN [id number] 07/19/22 08:42 JF Document 07/24/22 15:25 [facility] [id number] 07/24/22 15:28 BMF Document 07/26/22 08:40 DL [id number] 07/26/22 08:53 DL 07/19/22 07/24/22 07/26/22 08:34 15:25 08:40 Wound Center Nurse 1 5-right garcia -Combined with other wound No -Current Size (cm) - Length 0.1 0.1 -Current Size (cm) - Width 0.1 0.1 -Current Size (cm) - Depth 0.1 0.1 -Total Square Cm 0.01 0.01 -Photo Taken No Yes -Epithelialization Large 67-100% -Tunneling No -Undermining/Tunneling No -Circular Undermining No -Exudate Amt Medium -Exudate Type Serosanguineous -Wound Margin Flat & Intact Thickened -Granulation Amt Medium (34-66%) None Present (0 %) -Granulation Quality Red -Slough/Fibrin Yes -Necrosis Amt Small (1-33%) Small (1-33%) -Necrotic Tissue Type Adherent Slough Eschar -Structure Exposed N/A N/A -Texture (Ashley-wound Skin Appearance) Assessed Scarring -Moisture (Ashley-wound Skin Appearance) Assessed Weeping -Color (Ashley-wound Skin Appearance) Assessed, Hemosiderin Hemosiderin Staining Staining -Temperature (Ashley-wound Skin No Abnormality No Abnormality Appearance) (Pt Warm) (Pt Warm) -Tenderness on Palpation (Ashley-wound No Skin Appearance) -Ulcer Cleansing Wound Cleanser Soap and Water -Foul Odor after Cleansing No No -Anesthetic Used 4% Lidocaine 4% Lidocaine Solution Solution #4 LLE Lat -Combined with other wound No -Current Size (cm) - Length 8.5 9.2 -Current Size (cm) - Width 5.2 4.5 -Current Size (cm) - Depth 0.1 0.1 -Total Square Cm 44.20 41.40 -Photo Taken No Yes -Epithelialization Small 1-33% -Tunneling No -Undermining/Tunneling No -Circular Undermining No -Exudate Amt Medium Large -Exudate Type Sanguineous Serosanguineous -Wound Margin Flat & Intact Distinct, Outline Attached -Granulation Amt Medium (34-66%) Medium (34-66%) -Granulation Quality Red [place] -Slough/Fibrin Yes -Necrosis Amt Medium (34-66%) Medium (34-66%) -Necrotic Tissue Type Adherent Slough Adherent Slough -Structure Exposed N/A N/A -Texture (Ashley-wound Skin Appearance) Assessed, Scarring Localized Edema -Moisture (Ashley-wound Skin Appearance) Assessed Weeping -Color (Ashley-wound Skin Appearance) Assessed Hemosiderin Staining -Temperature (Ashley-wound Skin No Abnormality No Abnormality Appearance) (Pt Warm) (Pt Warm) -Tenderness on Palpation (Ashley-wound No No Skin Appearance) -Ulcer Cleansing Wound Cleanser Soap and Water -Foul Odor after Cleansing No No -Anesthetic Used 4% Lidocaine 4% Lidocaine Solution,5% Solution Lidocaine Gel #3 LLE MED -Combined with other wound No -Current Size (cm) - Length 10.2 10.3 -Current Size (cm) - Width 7.5 6.1 -Current Size (cm) - Depth 0.1 0.1 -Total Square Cm 76.50 62.83 -Photo Taken No Yes -Epithelialization Medium 34-66% -Tunneling No -Undermining/Tunneling No -Circular Undermining No -Exudate Amt Medium Large -Exudate Type Serosanguineous Serosanguineous -Wound Margin Flat & Intact Distinct, Outline Attached -Granulation Amt Medium (34-66%) Medium (34-66%) -Granulation Quality Imlay Imlay -Slough/Fibrin Yes -Necrosis Amt Medium (34-66%) Medium (34-66%) -Necrotic Tissue Type Adherent Slough Adherent Slough -Structure Exposed N/A N/A -Texture (Ashley-wound Skin Appearance) Assessed, Scarring Localized Edema -Moisture (Ashley-wound Skin Appearance) Assessed,Dry/ Weeping Scaly -Color (Ashley-wound Skin Appearance) Assessed, Hemosiderin Hemosiderin Staining Staining -Temperature (Ashley-wound Skin No Abnormality No Abnormality Appearance) (Pt Warm) (Pt Warm) -Tenderness on Palpation (Ashley-wound No No Skin Appearance) -Ulcer Cleansing Wound Cleanser Soap and Water -Foul Odor after Cleansing No No -Anesthetic Used 4% Lidocaine 4% Lidocaine Solution Solution #2 RLE Med -Combined with other wound No -Current Size (cm) - Length 2.0 1.8 -Current Size (cm) - Width 1.9 2 -Current Size (cm) - Depth 0.2 0.2 -Total Square Cm 3.80 3.6 -Photo Taken No Yes -Epithelialization Medium 34-66% -Tunneling No -Undermining/Tunneling No -Circular Undermining No -Exudate Amt Medium Medium -Exudate Type Serosanguineous Serosanguineous -Wound Margin Flat & Intact Distinct, Outline Attached -Granulation Amt Medium (34-66%) Medium (34-66%) -Granulation Quality [place] Red -Slough/Fibrin Yes -Necrosis Amt Medium (34-66%) Medium (34-66%) -Necrotic Tissue Type Adherent Slough Adherent Slough -Structure Exposed N/A N/A -Texture (Ashley-wound Skin Appearance) Assessed, Localized Edema -Moisture (Ashley-wound Skin Appearance) Assessed,Dry/ Maceration, Scaly Weeping -Color (Ashley-wound Skin Appearance) Assessed Hemosiderin Staining -Temperature (Ashley-wound Skin No Abnormality No Abnormality Appearance) (Pt Warm) (Pt Warm) -Tenderness on Palpation (Ashley-wound No No Skin Appearance) -Ulcer Cleansing Wound Cleanser Soap and Water -Foul Odor after Cleansing No No -Anesthetic Used 4% Lidocaine 4% Lidocaine Solution Solution #1 RLE LAt Cluster -Combined with other wound No -Current Size (cm) - Length 6.0 5.8 -Current Size (cm) - Width 7.2 6.8 -Current Size (cm) - Depth 0.6 0.5 -Total Square Cm 43.20 39.44 -Photo Taken No Yes -Epithelialization Medium 34-66% -Tunneling No -Undermining/Tunneling No -Circular Undermining No -Exudate Amt Medium Large -Exudate Type Serosanguineous Serosanguineous -Wound Margin Flat & Intact Distinct, Outline Attached -Granulation Amt Medium (34-66%) Medium (34-66%) -Granulation Quality Red Red -Slough/Fibrin Yes -Necrosis Amt Medium (34-66%) Medium (34-66%) -Necrotic Tissue Type Adherent Slough Adherent Slough -Structure Exposed N/A N/A -Texture (Ashley-wound Skin Appearance) Assessed, Scarring Localized Edema -Moisture (Ashley-wound Skin Appearance) Assessed,Dry/ Maceration, Scaly Weeping -Color (Ashley-wound Skin Appearance) Assessed Hemosiderin Staining -Temperature (Ashley-wound Skin No Abnormality No Abnormality Appearance) (Pt Warm) (Pt Warm) -Tenderness on Palpation (Ashley-wound No No Skin Appearance) -Ulcer Cleansing Wound Cleanser Soap and Water -Foul Odor after Cleansing No No -Anesthetic Used 4% Lidocaine 4% Lidocaine Solution Solution Lower Limb Edema Present Yes Yes Right Calf (cm) 50.6 52.5 47 Right Ankle (cm) 28.5 29.5 28.2 Left Calf (cm) 50.2 53 46 Left Ankle (cm) 28.4 27.9 28.2 WC - Nurse 2 - General Ulcer CM Notes Start: 07/19/22 08:34 Freq: Status: Active Protocol: Activity Type Activity Date Activity User E-sign Co-sign Detail Recorded Client Recorded Date Recorded By Document 07/19/22 09:00 [id number] 07/19/22 09:14 JF Document 07/26/22 09:07 Desktop 07/26/22 09:15 07/19/22 07/26/22 09:00 09:07 Wound Center Nurse 2 5-right garcia -Time 09:10 09:07 -Correct Patient Yes No -Correct Side, Site, Position Yes No -Correct Procedure Yes No -Procedure Performed Yes No -Type of Procedure Debridement -Clinical Debridement Subcutaneous -Tissue Removed Subcutaneous -Post Debridement (cm) - Length 1.5 0 -Post Debridement (cm) - Width 2.2 0 -Post Debridement (cm) - Depth 0.1 0 -Total Square (Post) (cm) 3.30 0 -Area of Debridement (cm) - Length 1.5 0 -Area of Debridement (cm) - Width 2.2 0 -Total Square (Area) (cm) 3.30 0 -Tunneling No No -Undermining/Tunneling No No -Circular Undermining No No -Wound/Ulcer Outcome Not Healed Healed- Epithelialized -Ulcer Cleansing Rinsed/ Rinsed/ Irrigated with Irrigated with Saline Saline -Foul Odor after Cleansing No No -Bioengineered Tissue No No -Bleeding Controlled with Pressure Pressure -Treatment Response Procedure Procedure Tolerated Well Tolerated Well -Offloading No No -Debridement - Subq, 1st 20sq cm No No #4 LLE Lat -Time 09:00 09:07 -Correct Patient Yes Yes -Correct Side, Site, Position Yes Yes -Correct Procedure Yes Yes -Procedure Performed Yes Yes -Type of Procedure Debridement Debridement -Clinical Debridement Subcutaneous Subcutaneous -Tissue Removed Subcutaneous Subcutaneous -Post Debridement (cm) - Length 9.5 9.5 -Post Debridement (cm) - Width 5.4 6.0 -Post Debridement (cm) - Depth 0.1 0.1 -Total Square (Post) (cm) 51.30 57.00 -Area of Debridement (cm) - Length 9.5 9.5 -Area of Debridement (cm) - Width 5.4 6 -Total Square (Area) (cm) 51.30 57.0 -Tunneling No No -Undermining/Tunneling No No -Circular Undermining No No -Wound/Ulcer Outcome Not Healed Not Healed -Ulcer Cleansing Rinsed/ Rinsed/ Irrigated with Irrigated with Saline Saline -Foul Odor after Cleansing No No -Bioengineered Tissue No No -Bleeding Controlled with Pressure Pressure -Treatment Response Procedure Tolerated Well -Offloading No No -Debridement - Subq, 1st 20sq cm No No #3 LLE MED -Time 09:01 09:09 -Correct Patient Yes Yes -Correct Side, Site, Position Yes Yes -Correct Procedure Yes Yes -Procedure Performed Yes Yes -Type of Procedure Debridement Debridement -Clinical Debridement Subcutaneous Subcutaneous -Tissue Removed Subcutaneous Subcutaneous -Post Debridement (cm) - Length 11.0 12 -Post Debridement (cm) - Width 7.5 7 -Post Debridement (cm) - Depth 0.1 0.1 -Total Square (Post) (cm) 82.50 84 -Area of Debridement (cm) - Length 11 12 -Area of Debridement (cm) - Width 7.5 7 -Total Square (Area) (cm) 82.5 84 -Tunneling No No -Undermining/Tunneling No No -Circular Undermining No No -Wound/Ulcer Outcome Not Healed Not Healed -Ulcer Cleansing Rinsed/ Rinsed/ Irrigated with Irrigated with Saline Saline -Foul Odor after Cleansing No No -Bioengineered Tissue No No -Bleeding Controlled with Pressure Pressure -Treatment Response Procedure Procedure Tolerated Well Tolerated Well -Offloading No No -Debridement - Subq, 1st 20sq cm No No #2 RLE Med -Time 09:11 09:09 -Correct Patient Yes Yes -Correct Side, Site, Position Yes Yes -Correct Procedure Yes Yes -Procedure Performed Yes Yes -Type of Procedure Debridement Debridement -Clinical Debridement Subcutaneous Subcutaneous -Tissue Removed Subcutaneous Subcutaneous -Post Debridement (cm) - Length 2.0 2.1 -Post Debridement (cm) - Width 2.0 2 -Post Debridement (cm) - Depth 0.3 0.3 -Total Square (Post) (cm) 4.00 4.2 -Area of Debridement (cm) - Length 2.0 2.1 -Area of Debridement (cm) - Width 2.0 2.0 -Total Square (Area) (cm) 4.00 4.20 -Tunneling No No -Undermining/Tunneling No No -Circular Undermining No No -Wound/Ulcer Outcome Not Healed Not Healed -Ulcer Cleansing Rinsed/ Rinsed/ Irrigated with Irrigated with Saline Saline -Foul Odor after Cleansing No No -Bioengineered Tissue No No -Bleeding Controlled with Pressure Pressure -Treatment Response Procedure Procedure Tolerated Well Tolerated Well -Offloading No No -Debridement - Subq, 1st 20sq cm No No #1 RLE LAt Cluster -Time 09:11 09:10 -Correct Patient Yes Yes -Correct Side, Site, Position Yes Yes -Correct Procedure Yes Yes -Procedure Performed Yes Yes -Type of Procedure Debridement Debridement -Clinical Debridement Subcutaneous Subcutaneous -Tissue Removed Subcutaneous Subcutaneous -Post Debridement (cm) - Length 8.8 5.7 -Post Debridement (cm) - Width 7.3 6.8 -Post Debridement (cm) - Depth 0.5 0.6 -Total Square (Post) (cm) 64.24 38.76 -Area of Debridement (cm) - Length 8.8 5.7 -Area of Debridement (cm) - Width 7.3 6.8 -Total Square (Area) (cm) 64.24 38.76 -Tunneling No No -Undermining/Tunneling No No -Circular Undermining No No -Wound/Ulcer Outcome Not Healed Not Healed -Ulcer Cleansing Rinsed/ Rinsed/ Irrigated with Irrigated with Saline Saline -Foul Odor after Cleansing No No -Bioengineered Tissue No No -Bleeding Controlled with Pressure Pressure -Treatment Response Procedure Procedure Tolerated Well Tolerated Well -Offloading No No -Debridement - Subq, 1st 20sq cm Yes Yes -Debridement, SubQ, ea addt'l 20sq cm 10 9 or part thereof Pain Scale: 0-10 Numeric Is Patient Pain Free? Yes Yes WC - Nurse 3 - General Ulcer D/C NN Start: 07/19/22 08:34 Freq: Status: Active Protocol: Activity Type Activity Date Activity User E-sign Co-sign Detail Recorded Client Recorded Date Recorded By Document 07/19/22 11:51 DL [id number] 07/19/22 11:56 DL Edit Result 07/19/22 11:51 DL (1) [id number] 07/20/22 07:00 PL Document 07/24/22 15:25 BM [id number] 07/24/22 15:28 BMF Document 07/26/22 09:45 DL [id number] 07/26/22 09:47 DL (1) Bilateral - Multi-Layered Wrap Application => Multi-Layer Comp - => Bilat ($) 07/19/22 07/24/22 07/26/22 11:51 15:25 09:45 Wound Care Center Nurse 3 5-right garcia -Ulcer Cleansing Rinsed/ Soap and Water Irrigated with Saline -Foul Odor after Cleansing No No -Primary Dressing Applied Silvercel Optilok 8x12, Silvercel -Other Dressing silvercel -Primary Dressing Covered/Secured with Dry Gauze & Dry Gauze & Roll Gauze, Roll Gauze, Secured with Secured with Tape Tape -Optilok 8x12 4 -Silvercel 1 1 #4 LLE Lat -Ulcer Cleansing Rinsed/ Soap and Water Soap and Water Irrigated with Saline -Foul Odor after Cleansing No No No -Primary Dressing Applied Silvercel, Optilok 8x12, Optilok 6.5x10 Mepilex Border Silvercel -Other Dressing silvercell -Primary Dressing Covered/Secured with Dry Gauze & Dry Gauze & Roll Gauze, Roll Gauze, Secured with Secured with Tape Tape -Mepilex Border 1 -Optilok 6.5x10 1 -Optilok 8x12 0 -Silvercel 1 0 #3 LLE MED -Ulcer Cleansing Rinsed/ Soap and Water Soap and Water Irrigated with Saline -Foul Odor after Cleansing No No No -Primary Dressing Applied Mepilex Border Optilok 8x12, Optilok 6.5x10 Silvercel -Other Dressing SILVERCELL silvercell -Primary Dressing Covered/Secured with Dry Gauze & Dry Gauze & Dry Gauze & Roll Gauze, Roll Gauze, Roll Gauze, Secured with Secured with Secured with Tape Tape Tape -Mepilex Border 1 -Optilok 6.5x10 1 -Optilok 8x12 0 -Silvercel 0 #2 RLE Med -Ulcer Cleansing Rinsed/ Soap and Water Soap and Water Irrigated with Saline -Foul Odor after Cleansing No No No -Primary Dressing Applied Optilok 8x12, Silvercel -Other Dressing SILVERCELL silvercell -Primary Dressing Covered/Secured with Dry Gauze & Dry Gauze & Dry Gauze & Roll Gauze, Roll Gauze, Roll Gauze, Secured with Secured with Secured with Tape Tape Tape -Optilok 8x12 0 -Silvercel 0 #1 RLE LAt Cluster -Ulcer Cleansing Rinsed/ Soap and Water Soap and Water Irrigated with Saline -Foul Odor after Cleansing No No No -Primary Dressing Applied Optilok 6.5x10 Optilok 8x12, Optilok 6.5x10 Silvercel -Other Dressing SILVERCELL silvercell -Primary Dressing Covered/Secured with Dry Gauze & Dry Gauze & Dry Gauze & Roll Gauze, Roll Gauze, Roll Gauze, Secured with Secured with Secured with Tape Tape Tape -Optilok 6.5x10 1 1 -Optilok 8x12 0 -Silvercel 0 Ashley-Wound Care Lotion Bilateral -Multi-Layered Wrap Application Multi-Layer Multi-Layer Multi-Layer Comp - Bilat ($ Comp - Bilat ($ Comp - Bilat ($ ) ) ) Treatment Response Procedure Procedure Procedure Tolerated Well Tolerated Well Tolerated Well Vital Signs Temperature (97.8 F-99.1 F) 97.5 F L Temperature Source Temporal Pulse Rate (60-100) 109 H Pulse Location Monitor Respiratory Rate (12-18) 18 Respiratory rate source Observation Oxygen Delivery Method Nasal Cannula Blood Pressure (90/60-120/80) 159/60 H Blood Pressure Mean (mm Hg) 93 Source Monitor Position Sitting Blood Pressure Location Right Forearm Pain Scale: 0-10 Numeric Is Patient Pain Free? Yes Yes Yes WC - Visit Discharge Discharge Condition Stable Stable Stable Ambulatory Status Ambulatory Ambulatory Ambulatory Transportation Private Auto Private Auto Private Auto Accompanied by [facility] Facility Type Home Health Orders Sent Yes Additional Wound Wound debrided: Posterior/medial leg ulcer (#3) and Lateral leg ulcer (#4) Laterality: Left Type of Debridement: Excisional debridement Anesthesia Used: 4% Lidocaine Solution and 5% Lidocaine Gel Depth: Down to and including healthy tissue and in the subcutaneous layer Percentage of wound debrided: 100 Instrument Used: 7mm curette Tissue Removed: Devitalized tissue and slough Severity: Limited To Skin Breakdown Amount of bleeding with debridement: Mild Bleeding Controlled with: Pressure and Compression and gauze Patient tolerated procedure: Patient tolerated procedure well Assessment/Plan Assessment/Plan (1) Ulcer of right lower extremity with fat layer exposed: CODE(S): L97.912 - Non-pressure chronic ulcer of unspecified part of right lower leg with fat layer exposed (2) Ulcer of left lower extremity, limited to breakdown of skin: CODE(S): L97.921 - Non-pressure chronic ulcer of unspecified part of left lower leg limited to breakdown of skin (3) Bilateral edema of lower extremity: CODE(S): R60.0 - Localized edema (4) COPD (chronic obstructive pulmonary disease): CODE(S): J44.9 - Chronic obstructive pulmonary disease, unspecified (5) Requires continuous at home supplemental oxygen: CODE(S): Z99.81 - Dependence on supplemental oxygen (6) Former smoker: CODE(S): Z87.891 - Personal history of nicotine dependence PLAN: Plan Patient evaluated at the wound healing center today. Wound care - Place Silvercel/silver alginate cover with ABD/ super absorber/Kerlix to all the ulcers after washing the ulcers with soap and water three times per week. Place Lac hytrin lotion to non ulcer areas before wrapping ulcers. Compression - 3M 2 layer wraps that are initially light compression and will gradually increase amount of compression with each wrap change, 3 times per week. Encouraged to elevate legs when sitting. Discussed low sodium diet that is high in protein to help with edema management and wound healing. Encouraged patient not to sleep in chair but if she has to because of her COPD/difficult breathing she needs to be propped up. Encouraged leg elevation. Wound culture obtained on 07/12/22 which was positive for Serratia marcescens and Anaerobic cocci. It is resistant to the Doxycycline her PCP placed her on. Instructed her to stop the Doxycycline. Initially ordered Levaquin but patient read all the side effects and she states her father had a seizure while on Levaquin. Changed Levaquin to Bactrim and then added Metronidazole when the Anaerobic culture came back. 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 Will refer to Dr. Abreu, automatic spinning lathe operator for foot and toe nail care, due to the amount of callousing she has on the plantar surfaces of bilateral feet. Follow up one week.
[2022-07-31 15:36] VITALS: BP 119/80; PULSE 107; RESP 16; TEMP 37.2; BMI 44.0
[2022-08-02 08:33] VITALS: BP 155/85; PULSE 102; RESP 22; TEMP 36.6; BMI 44.0
--- NOTE | 2022-08-02 11:00 | PCM.WC.PN ---
History of Present Illness Date of Service: 08/02/22 Chief Complaint: Bilateral leg ulcers History of Wound: 61 year old female presents to the wound healing center with ulcers on her right and left legs that started 5 months ago after being hospitalized for pneumonia and COPD exacerbation. She developed worsening edema and her legs have been weeping. She then bumped her right lateral leg and developed an ulcer that she covers during the day with non adherent dressings. She also has several ulcers that are superficial and weep clear drainage due to the amount of edema she is experiencing. She sleeps in a chair due to difficulty breathing. She typically does not elevate her legs. 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 She was being treated with Doxycycline from her PCP due to a cellulitis of her legs. Reviewed notes from her PCP who saw her on 07/03/22 for cellulitis, ulcer right leg and shortness of breath. Wound culture obtained on 07/12/22 which was positive for Serratia marcescens and Anaerobic cocci. She has been started on Bactrim and Metronidazole. Arterial studies performed on 07/13/22 - Right CRISTINA - 1.27 and Left CRISTINA - 1.21. Triphasic Doppler waveforms are noted at ankle level bilaterally. Pulse-volume recordings appear diminished at digital level on the right, but satisfactory at all other levels bilaterally. Resting ankle-brachial indices are normal bilaterally. The right digital-brachial index is normal. The left digital-brachial index is mildly diminished. Arterial flow appears normal at ankle level bilaterally, and at digital level on the right. There is evidence of mild arterial occlusive disease at digital level on the left. 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 The right great saphenous vein appears segmentally incompetent. The right anterior accessory saphenous vein is incompetent. The left anterior accessory saphenous vein is incompetent. She denies fever, chills, nausea or vomiting. Progress of Wound: Right lateral leg and right medial leg ulcers are slightly improved. Left medial leg ulcer is healed and left lateral leg ulcer is smaller. She continues to have moderate to large amount of drainage. Her overall lower extremity edema is much improved. She is still +3 pitting edema but she states that she has lost almost 15 lbs since starting the compression wraps. She states that she is able to walk easier with the decrease in her swelling. She is tolerating the 3M 2layer wraps. She is tolerating the antibiotics that she was placed on for her positive wound cultures. Objective Data Objective Data Vital Signs: Vital Signs Temp Pulse Resp BP O2 Del Method O2 Flow Rate 97.8 F 102 H 22 H 155/85 H Room Air 5 08/02/22 08:33 08/02/22 08:33 08/02/22 08:33 08/02/22 08:33 07/31/22 15:36 07/26/22 08:40 Oxygen Flow Rate (L/min) 5 Oxygen Delivery Method Room Air Weight: 248 lb 8.668 oz Body Mass Index (BMI) 44.0 Charges/Coding Procedures Integumentary 111xxx-113xx: [id number] E[place] subq tissue 20 sq cm/< Debridement Note Debridement Note Wound debrided: lateral leg ulcer (#1) and medial leg ulcer (#2) Laterality: Right Type of Debridement: Excisional debridement Anesthesia Used: 4% Lidocaine Solution and 5% Lidocaine Gel Depth: Down to and including healthy tissue and in the subcutaneous layer Percentage of wound debrided: 100 Instrument Used: 7mm curette Tissue Removed: devitalized tissue and slough Severity: Fat Layer Exposed Amount of bleeding with debridement: Mild Bleeding Controlled with: Pressure and Compression and gauze Patient tolerated procedure: Patient tolerated procedure well Debridement Free Text: Moderate amount of thick, ch slough. Post-Debridement Measurements and Additional Note: Post-Debridement Measurements/Treatment NINO - Nurse 1 - General Ulcer Assessment Start: 07/19/22 08:34 Freq: Status: Active Protocol: TROY Activity Type Activity Date Activity User E-sign Co-sign Detail Recorded Client Recorded Date Recorded By Document 07/19/22 08:34 [id number] 07/19/22 08:42 Document 07/24/22 15:25 BMF [id number] 07/24/22 15:28 BM Document 07/26/22 08:40 DL [id number] 07/26/22 08:53 DL Document 07/31/22 15:36 BM [id number] 07/31/22 15:42 BM Document 08/02/22 08:33 DL [id number] 08/02/22 08:43 DL 07/19/22 07/24/22 07/26/22 08:34 15:25 08:40 WC - Today's Visit Information Type of service Follow-up Visit Nurse-only Follow-up Visit (Physician/EVENT PLANNING INTERN Visit (Physician/EVENT PLANNING INTERN ) ) Arrival Mode Ambulatory Ambulatory Ambulatory Transfer Assistance None None Accompanied by Patient Identification Verified (Name & Yes Yes Yes ) Patient Requires Transmission-Based No No No Precautions Height and Weight Body Mass Index (BMI) 44.0 44.0 44.0 BMI Classification Obese Obese Obese Vital Signs Temperature (97.8 F-99.1 F) 97.5 F L 97.5 F L 98 F Temperature Source Temporal Temporal Temporal Pulse Rate (60-100) 117 H 109 H 104 H Pulse Location Monitor Monitor Monitor Respiratory Rate (12-18) 18 18 24 H Respiratory rate source Observation Observation Observation Oxygen Delivery Method Nasal Cannula Nasal Cannula O2 L/MIN (L/min) 4 5 Blood Pressure (90/60-120/80) 164/93 H 159/60 H 144/74 H Blood Pressure Mean (mm Hg) 116 93 97 Source Monitor Monitor Monitor Position Semi-Fowlers Sitting Blood Pressure Location Left Arm Right Forearm History Since Last Visit- (Skip if this is Patient's initial visit) Have you changed medications since your No No last visit? Any new allergies or adverse reactions No No Had a fall/change in ADL's that may No No increase risk of falls Signs or symptoms of abuse and/or No No neglect since last visit Have you been in the hospital since your No No last visit? Has dressing in place as prescribed Yes Yes Has compression in place as prescribed Yes No Has offloadiing in place as prescribed N/A N/A Experienced any changes in pain level or No No management Left Footwear Regular Shoe Regular Shoe Right Footwear Regular Shoe Regular Shoe Pain Scale: 0-10 Numeric Is Patient Pain Free? No Yes Yes right leg -Description Burning -Intensity 8 -Duration (hours) Chronic -Pain Behavior Withdrawal from Touch -Pain Aggravating Factors Walking -Alleviating Factors/Interventions Medication -Effectiveness of Alleviating Factor/ Minimally Intervention effective -Comments Aspirin PRN 07/31/22 08/02/22 15:36 08:33 WC - Today's Visit Information Type of service Nurse-only Follow-up Visit Visit (Physician/EVENT PLANNING INTERN ) Arrival Mode Ambulatory Ambulatory Transfer Assistance None None Accompanied by Patient Identification Verified (Name & Yes Yes ) Patient Requires Transmission-Based No No Precautions Height and Weight Body Mass Index (BMI) 44.0 44.0 BMI Classification Obese Obese Vital Signs Temperature (97.8 F-99.1 F) 98.9 F 97.8 F Temperature Source Temporal Temporal Pulse Rate (60-100) 107 H 102 H Pulse Location Monitor Monitor Respiratory Rate (12-18) 16 22 H Respiratory rate source Observation Observation Oxygen Delivery Method Room Air O2 L/MIN (L/min) Blood Pressure (90/60-120/80) 119/80 155/85 H Blood Pressure Mean (mm Hg) 93 108 Source Monitor Monitor Position Sitting Blood Pressure Location Left Arm History Since Last Visit- (Skip if this is Patient's initial visit) Have you changed medications since your No last visit? Any new allergies or adverse reactions No Had a fall/change in ADL's that may No increase risk of falls Signs or symptoms of abuse and/or No neglect since last visit Have you been in the hospital since your No last visit? Has dressing in place as prescribed Yes Has compression in place as prescribed Yes Has offloadiing in place as prescribed N/A Experienced any changes in pain level or No management Left Footwear Regular Shoe Right Footwear Regular Shoe Pain Scale: 0-10 Numeric Is Patient Pain Free? Yes Yes right leg -Description -Intensity -Duration (hours) -Pain Behavior -Pain Aggravating Factors -Alleviating Factors/Interventions -Effectiveness of Alleviating Factor/ Intervention -Comments WC - Nurse 1 - General Ulcer Measurement Start: 07/19/22 08:34 Freq: Status: Active Protocol: Activity Type Activity Date Activity User E-sign Co-sign Detail Recorded Client Recorded Date Recorded By Document 07/19/22 08:34 [id number] 07/19/22 08:42 JF Document 07/24/22 15:25 BM [id number] 07/24/22 15:28 BM Document 07/26/22 08:40 DL [id number] 07/26/22 08:53 DL Document 07/31/22 15:36 BM [id number] 07/31/22 15:42 [facility] Document 08/02/22 08:33 DL [id number] 08/02/22 08:43 DL 07/19/22 07/24/22 07/26/22 08:34 15:25 08:40 Wound Center Nurse 1 5-right garcia -Combined with other wound No -Current Size (cm) - Length 0.1 0.1 -Current Size (cm) - Width 0.1 0.1 -Current Size (cm) - Depth 0.1 0.1 -Total Square Cm 0.01 0.01 -Photo Taken No Yes -Epithelialization Large 67-100% -Tunneling No -Undermining/Tunneling No -Circular Undermining No -Exudate Amt Medium -Exudate Type Serosanguineous -Wound Margin Flat & Intact Thickened -Granulation Amt Medium (34-66%) None Present (0 %) -Granulation Quality Red -Slough/Fibrin Yes -Necrosis Amt Small (1-33%) Small (1-33%) -Necrotic Tissue Type Adherent Slough Eschar -Structure Exposed N/A N/A -Texture (Ashley-wound Skin Appearance) Assessed Scarring -Moisture (Ashley-wound Skin Appearance) Assessed Weeping -Color (Ashley-wound Skin Appearance) Assessed, Hemosiderin Hemosiderin Staining Staining -Temperature (Ashley-wound Skin No Abnormality No Abnormality Appearance) (Pt Warm) (Pt Warm) -Tenderness on Palpation (Ashley-wound No Skin Appearance) -Ulcer Cleansing Wound Cleanser Soap and Water -Foul Odor after Cleansing No No -Anesthetic Used 4% Lidocaine 4% Lidocaine Solution Solution #3 LLE MED -Combined with other wound No -Current Size (cm) - Length 10.2 10.3 -Current Size (cm) - Width 7.5 6.1 -Current Size (cm) - Depth 0.1 0.1 -Total Square Cm 76.50 62.83 -Photo Taken No Yes -Epithelialization Medium 34-66% -Tunneling No -Undermining/Tunneling No -Circular Undermining No -Exudate Amt Medium Large -Exudate Type Serosanguineous Serosanguineous -Wound Margin Flat & Intact Distinct, Outline Attached -Granulation Amt Medium (34-66%) Medium (34-66%) -Granulation Quality [place] -Slough/Fibrin Yes -Necrosis Amt Medium (34-66%) Medium (34-66%) -Necrotic Tissue Type Adherent Slough Adherent Slough -Structure Exposed N/A N/A -Texture (Ashley-wound Skin Appearance) Assessed, Scarring Localized Edema -Moisture (Ashley-wound Skin Appearance) Assessed,Dry/ Weeping Scaly -Color (Ashley-wound Skin Appearance) Assessed, Hemosiderin Hemosiderin Staining Staining -Temperature (Ashley-wound Skin No Abnormality No Abnormality Appearance) (Pt Warm) (Pt Warm) -Tenderness on Palpation (Ashley-wound No No Skin Appearance) -Ulcer Cleansing Wound Cleanser Soap and Water -Foul Odor after Cleansing No No -Anesthetic Used 4% Lidocaine 4% Lidocaine Solution Solution #4 LLE Lat -Combined with other wound No -Current Size (cm) - Length 8.5 9.2 -Current Size (cm) - Width 5.2 4.5 -Current Size (cm) - Depth 0.1 0.1 -Total Square Cm 44.20 41.40 -Photo Taken No Yes -Epithelialization Small 1-33% -Tunneling No -Undermining/Tunneling No -Circular Undermining No -Exudate Amt Medium Large -Exudate Type Sanguineous Serosanguineous -Wound Margin Flat & Intact Distinct, Outline Attached -Granulation Amt Medium (34-66%) Medium (34-66%) -Granulation Quality [place] -Slough/Fibrin Yes -Necrosis Amt Medium (34-66%) Medium (34-66%) -Necrotic Tissue Type Adherent Slough Adherent Slough -Structure Exposed N/A N/A -Texture (Ashley-wound Skin Appearance) Assessed, Scarring Localized Edema -Moisture (Ashley-wound Skin Appearance) Assessed Weeping -Color (Ashley-wound Skin Appearance) Assessed Hemosiderin Staining -Temperature (Ashley-wound Skin No Abnormality No Abnormality Appearance) (Pt Warm) (Pt Warm) -Tenderness on Palpation (Ashley-wound No No Skin Appearance) -Ulcer Cleansing Wound Cleanser Soap and Water -Foul Odor after Cleansing No No -Anesthetic Used 4% Lidocaine 4% Lidocaine Solution,5% Solution Lidocaine Gel #2 RLE Med -Combined with other wound No -Current Size (cm) - Length 2.0 1.8 -Current Size (cm) - Width 1.9 2 -Current Size (cm) - Depth 0.2 0.2 -Total Square Cm 3.80 3.6 -Photo Taken No Yes -Epithelialization Medium 34-66% -Tunneling No -Undermining/Tunneling No -Circular Undermining No -Exudate Amt Medium Medium -Exudate Type Serosanguineous Serosanguineous -Wound Margin Flat & Intact Distinct, Outline Attached -Granulation Amt Medium (34-66%) Medium (34-66%) -Granulation Quality [place] Red -Slough/Fibrin Yes -Necrosis Amt Medium (34-66%) Medium (34-66%) -Necrotic Tissue Type Adherent Slough Adherent Slough -Structure Exposed N/A N/A -Texture (Ashley-wound Skin Appearance) Assessed, Localized Edema -Moisture (Ashley-wound Skin Appearance) Assessed,Dry/ Maceration, Scaly Weeping -Color (Ashley-wound Skin Appearance) Assessed Hemosiderin Staining -Temperature (Ashley-wound Skin No Abnormality No Abnormality Appearance) (Pt Warm) (Pt Warm) -Tenderness on Palpation (Ashley-wound No No Skin Appearance) -Ulcer Cleansing Wound Cleanser Soap and Water -Foul Odor after Cleansing No No -Anesthetic Used 4% Lidocaine 4% Lidocaine Solution Solution #1 RLE LAt Cluster -Combined with other wound No -Current Size (cm) - Length 6.0 5.8 -Current Size (cm) - Width 7.2 6.8 -Current Size (cm) - Depth 0.6 0.5 -Total Square Cm 43.20 39.44 -Photo Taken No Yes -Epithelialization Medium 34-66% -Tunneling No -Undermining/Tunneling No -Circular Undermining No -Exudate Amt Medium Large -Exudate Type Serosanguineous Serosanguineous -Wound Margin Flat & Intact Distinct, Outline Attached -Granulation Amt Medium (34-66%) Medium (34-66%) -Granulation Quality Red Red -Slough/Fibrin Yes -Necrosis Amt Medium (34-66%) Medium (34-66%) -Necrotic Tissue Type Adherent Slough Adherent Slough -Structure Exposed N/A N/A -Texture (Ashley-wound Skin Appearance) Assessed, Scarring Localized Edema -Moisture (Ashley-wound Skin Appearance) Assessed,Dry/ Maceration, Scaly Weeping -Color (Ashley-wound Skin Appearance) Assessed Hemosiderin Staining -Temperature (Ashley-wound Skin No Abnormality No Abnormality Appearance) (Pt Warm) (Pt Warm) -Tenderness on Palpation (Ashley-wound No No Skin Appearance) -Ulcer Cleansing Wound Cleanser Soap and Water -Foul Odor after Cleansing No No -Anesthetic Used 4% Lidocaine 4% Lidocaine Solution Solution Lower Limb Edema Present Yes Yes Right Calf (cm) 50.6 52.5 47 Right Ankle (cm) 28.5 29.5 28.2 Left Calf (cm) 50.2 53 46 Left Ankle (cm) 28.4 27.9 28.2 07/31/22 08/02/22 15:36 08:33 Wound Center Nurse 1 5-right garcia -Combined with other wound -Current Size (cm) - Length -Current Size (cm) - Width -Current Size (cm) - Depth -Total Square Cm -Photo Taken -Epithelialization -Tunneling -Undermining/Tunneling -Circular Undermining -Exudate Amt -Exudate Type -Wound Margin -Granulation Amt -Granulation Quality -Slough/Fibrin -Necrosis Amt -Necrotic Tissue Type -Structure Exposed -Texture (Ashley-wound Skin Appearance) -Moisture (Ashley-wound Skin Appearance) -Color (Ashley-wound Skin Appearance) -Temperature (Ashley-wound Skin Appearance) -Tenderness on Palpation (Ashley-wound Skin Appearance) -Ulcer Cleansing -Foul Odor after Cleansing -Anesthetic Used #3 LLE MED -Combined with other wound -Current Size (cm) - Length 0.1 -Current Size (cm) - Width 0.1 -Current Size (cm) - Depth 0.1 -Total Square Cm 0.01 -Photo Taken Yes -Epithelialization -Tunneling -Undermining/Tunneling -Circular Undermining -Exudate Amt None Present -Exudate Type -Wound Margin Indistinct, Non -Visible -Granulation Amt Large (67-100%) -Granulation Quality [place] -Slough/Fibrin -Necrosis Amt None Present (0 %) -Necrotic Tissue Type -Structure Exposed N/A -Texture (Ashley-wound Skin Appearance) Scarring -Moisture (Ashley-wound Skin Appearance) Dry/Scaly -Color (Ashley-wound Skin Appearance) Hemosiderin Staining -Temperature (Ashley-wound Skin No Abnormality Appearance) (Pt Warm) -Tenderness on Palpation (Ashley-wound No Skin Appearance) -Ulcer Cleansing Soap and Water -Foul Odor after Cleansing No -Anesthetic Used 4% Lidocaine Solution #4 LLE Lat -Combined with other wound -Current Size (cm) - Length 0.1 -Current Size (cm) - Width 0.1 -Current Size (cm) - Depth 0.1 -Total Square Cm 0.01 -Photo Taken Yes -Epithelialization -Tunneling -Undermining/Tunneling -Circular Undermining -Exudate Amt None Present -Exudate Type -Wound Margin Indistinct, Non -Visible -Granulation Amt Large (67-100%) -Granulation Quality [place] -Slough/Fibrin No -Necrosis Amt None Present (0 %) -Necrotic Tissue Type -Structure Exposed N/A -Texture (Ashley-wound Skin Appearance) Scarring -Moisture (Ashley-wound Skin Appearance) Dry/Scaly -Color (Ashley-wound Skin Appearance) Hemosiderin Staining -Temperature (Ashley-wound Skin No Abnormality Appearance) (Pt Warm) -Tenderness on Palpation (Ashley-wound Yes Skin Appearance) -Ulcer Cleansing Soap and Water -Foul Odor after Cleansing No -Anesthetic Used 4% Lidocaine Solution #2 RLE Med -Combined with other wound -Current Size (cm) - Length 2 -Current Size (cm) - Width 1 -Current Size (cm) - Depth 0.2 -Total Square Cm 2 -Photo Taken Yes -Epithelialization -Tunneling -Undermining/Tunneling -Circular Undermining -Exudate Amt Medium -Exudate Type Serosanguineous -Wound Margin Distinct, Outline Attached -Granulation Amt Medium (34-66%) -Granulation Quality Red -Slough/Fibrin -Necrosis Amt Medium (34-66%) -Necrotic Tissue Type Adherent Slough -Structure Exposed N/A -Texture (Ashley-wound Skin Appearance) Scarring -Moisture (Ashley-wound Skin Appearance) Dry/Scaly -Color (Ashley-wound Skin Appearance) Hemosiderin Staining -Temperature (Ashley-wound Skin No Abnormality Appearance) (Pt Warm) -Tenderness on Palpation (Ashley-wound No Skin Appearance) -Ulcer Cleansing Soap and Water -Foul Odor after Cleansing No -Anesthetic Used 4% Lidocaine Solution #1 RLE LAt Cluster -Combined with other wound -Current Size (cm) - Length 5.6 -Current Size (cm) - Width 3.2 -Current Size (cm) - Depth 0.2 -Total Square Cm 17.92 -Photo Taken Yes -Epithelialization -Tunneling -Undermining/Tunneling -Circular Undermining -Exudate Amt Medium -Exudate Type Serosanguineous -Wound Margin Distinct, Outline Attached -Granulation Amt Medium (34-66%) -Granulation Quality Red -Slough/Fibrin -Necrosis Amt Medium (34-66%) -Necrotic Tissue Type Adherent Slough -Structure Exposed N/A -Texture (Ashley-wound Skin Appearance) Scarring -Moisture (Ashley-wound Skin Appearance) Dry/Scaly -Color (Ashley-wound Skin Appearance) Hemosiderin Staining -Temperature (Ashley-wound Skin No Abnormality Appearance) (Pt Warm) -Tenderness on Palpation (Ashley-wound No Skin Appearance) -Ulcer Cleansing Soap and Water -Foul Odor after Cleansing No -Anesthetic Used 4% Lidocaine Solution Lower Limb Edema Present Yes Right Calf (cm) 46.5 45.6 Right Ankle (cm) 27.7 27.3 Left Calf (cm) 46.5 46 Left Ankle (cm) 29 27.5 WC - Nurse 2 - General Ulcer CM Notes Start: 07/19/22 08:34 Freq: Status: Active Protocol: Activity Type Activity Date Activity User E-sign Co-sign Detail Recorded Client Recorded Date Recorded By Document 07/19/22 09:00 [id number] 07/19/22 09:14 Document 07/26/22 09:07 Desktop 07/26/22 09:15 Document 08/02/22 08:50 [id number] 08/02/22 09:04 07/19/22 07/26/22 08/02/22 09:00 09:07 08:50 Wound Center Nurse 2 5-right garcia -Time 09:10 09:07 -Correct Patient Yes No -Correct Side, Site, Position Yes No -Correct Procedure Yes No -Procedure Performed Yes No -Type of Procedure Debridement -Clinical Debridement Subcutaneous -Tissue Removed Subcutaneous -Post Debridement (cm) - Length 1.5 0 -Post Debridement (cm) - Width 2.2 0 -Post Debridement (cm) - Depth 0.1 0 -Total Square (Post) (cm) 3.30 0 -Area of Debridement (cm) - Length 1.5 0 -Area of Debridement (cm) - Width 2.2 0 -Total Square (Area) (cm) 3.30 0 -Tunneling No No -Undermining/Tunneling No No -Circular Undermining No No -Wound/Ulcer Outcome Not Healed Healed- Epithelialized -Ulcer Cleansing Rinsed/ Rinsed/ Irrigated with Irrigated with Saline Saline -Foul Odor after Cleansing No No -Bioengineered Tissue No No -Bleeding Controlled with Pressure Pressure -Treatment Response Procedure Procedure Tolerated Well Tolerated Well -Offloading No No -Debridement - Subq, 1st 20sq cm No No #3 LLE MED -Time 09:01 09:09 08:51 -Correct Patient Yes Yes No -Correct Side, Site, Position Yes Yes No -Correct Procedure Yes Yes No -Procedure Performed Yes Yes No -Type of Procedure Debridement Debridement -Clinical Debridement Subcutaneous Subcutaneous -Tissue Removed Subcutaneous Subcutaneous -Post Debridement (cm) - Length 11.0 12 0 -Post Debridement (cm) - Width 7.5 7 0 -Post Debridement (cm) - Depth 0.1 0.1 0 -Total Square (Post) (cm) 82.50 84 0 -Area of Debridement (cm) - Length 11 12 0 -Area of Debridement (cm) - Width 7.5 7 0 -Total Square (Area) (cm) 82.5 84 0 -Tunneling No No No -Undermining/Tunneling No No No -Circular Undermining No No No -Wound/Ulcer Outcome Not Healed Not Healed Healed- Epithelialized -Ulcer Cleansing Rinsed/ Rinsed/ Rinsed/ Irrigated with Irrigated with Irrigated with Saline Saline Saline -Foul Odor after Cleansing No No No -Bioengineered Tissue No No No -Bleeding Controlled with Pressure Pressure Pressure -Treatment Response Procedure Procedure Procedure Tolerated Well Tolerated Well Tolerated Well -Offloading No No No -Debridement - Subq, 1st 20sq cm No No No #4 LLE Lat -Time 09:00 09:07 08:50 -Correct Patient Yes Yes Yes -Correct Side, Site, Position Yes Yes Yes -Correct Procedure Yes Yes Yes -Procedure Performed Yes Yes Yes -Type of Procedure Debridement Debridement Debridement -Clinical Debridement Subcutaneous Subcutaneous Subcutaneous -Tissue Removed Subcutaneous Subcutaneous Subcutaneous -Post Debridement (cm) - Length 9.5 9.5 4 -Post Debridement (cm) - Width 5.4 6.0 3 -Post Debridement (cm) - Depth 0.1 0.1 0.1 -Total Square (Post) (cm) 51.30 57.00 12 -Area of Debridement (cm) - Length 9.5 9.5 4 -Area of Debridement (cm) - Width 5.4 6 3 -Total Square (Area) (cm) 51.30 57.0 12 -Tunneling No No No -Undermining/Tunneling No No No -Circular Undermining No No No -Wound/Ulcer Outcome Not Healed Not Healed Not Healed -Ulcer Cleansing Rinsed/ Rinsed/ Rinsed/ Irrigated with Irrigated with Irrigated with Saline Saline Saline -Foul Odor after Cleansing No No No -Bioengineered Tissue No No No -Bleeding Controlled with Pressure Pressure Pressure -Treatment Response Procedure Procedure Tolerated Well Tolerated Well -Offloading No No No -Debridement - Subq, 1st 20sq cm No No No #2 RLE Med -Time : 09:09 08:51 -Correct Patient Yes Yes Yes -Correct Side, Site, Position Yes Yes Yes -Correct Procedure Yes Yes Yes -Procedure Performed Yes Yes Yes -Type of Procedure Debridement Debridement Debridement -Clinical Debridement Subcutaneous Subcutaneous Subcutaneous -Tissue Removed Subcutaneous Subcutaneous Subcutaneous -Post Debridement (cm) - Length 2.0 2.1 2.5 -Post Debridement (cm) - Width 2.0 2 1.8 -Post Debridement (cm) - Depth 0.3 0.3 0.1 -Total Square (Post) (cm) 4.00 4.2 4.50 -Area of Debridement (cm) - Length 2.0 2.1 2.5 -Area of Debridement (cm) - Width 2.0 2.0 1.8 -Total Square (Area) (cm) 4.00 4.20 4.50 -Tunneling No No No -Undermining/Tunneling No No No -Circular Undermining No No No -Wound/Ulcer Outcome Not Healed Not Healed Not Healed -Ulcer Cleansing Rinsed/ Rinsed/ Rinsed/ Irrigated with Irrigated with Irrigated with Saline Saline Saline -Foul Odor after Cleansing No No No -Bioengineered Tissue No No No -Bleeding Controlled with Pressure Pressure Pressure -Treatment Response Procedure Procedure Procedure Tolerated Well Tolerated Well Tolerated Well -Offloading No No No -Debridement - Subq, 1st 20sq cm No No No #1 RLE LAt Cluster -Time 09: 09:10 08:52 -Correct Patient Yes Yes Yes -Correct Side, Site, Position Yes Yes Yes -Correct Procedure Yes Yes Yes -Procedure Performed Yes Yes Yes -Type of Procedure Debridement Debridement Debridement -Clinical Debridement Subcutaneous Subcutaneous Subcutaneous -Tissue Removed Subcutaneous Subcutaneous Subcutaneous -Post Debridement (cm) - Length 8.8 5.7 5.7 -Post Debridement (cm) - Width 7.3 6.8 6.3 -Post Debridement (cm) - Depth 0.5 0.6 0.3 -Total Square (Post) (cm) 64.24 38.76 35.91 -Area of Debridement (cm) - Length 8.8 5.7 5.7 -Area of Debridement (cm) - Width 7.3 6.8 6.3 -Total Square (Area) (cm) 64.24 38.76 35.91 -Tunneling No No No -Undermining/Tunneling No No No -Circular Undermining No No No -Wound/Ulcer Outcome Not Healed Not Healed Not Healed -Ulcer Cleansing Rinsed/ Rinsed/ Rinsed/ Irrigated with Irrigated with Irrigated with Saline Saline Saline -Foul Odor after Cleansing No No No -Bioengineered Tissue No No No -Bleeding Controlled with Pressure Pressure Pressure -Treatment Response Procedure Procedure Procedure Tolerated Well Tolerated Well Tolerated Well -Offloading No No No -Debridement - Subq, 1st 20sq cm Yes Yes Yes -Debridement, SubQ, ea addt'l 20sq cm 10 9 2 or part thereof Pain Scale: 0-10 Numeric Is Patient Pain Free? Yes Yes Yes WC - Nurse 3 - General Ulcer D/C NN Start: 07/19/22 08:34 Freq: Status: Active Protocol: Activity Type Activity Date Activity User E-sign Co-sign Detail Recorded Client Recorded Date Recorded By Document 07/19/22 11:51 DL [id number] 07/19/22 11:56 DL Edit Result 07/19/22 11:51 DL (1) [id number] 07/20/22 07:00 PL Document 07/24/22 15:25 BMF [id number] 07/24/22 15:28 BMF Document 07/26/22 09:45 DL [id number] 07/26/22 09:47 DL Document 07/31/22 15:36 BMF [id number] 07/31/22 15:42 BMF (1) Bilateral - Multi-Layered Wrap Application => Multi-Layer Comp - => Bilat ($) 07/19/22 07/24/22 07/26/22 11:51 15:25 09:45 Wound Care Center Nurse 3 5-right garcia -Ulcer Cleansing Rinsed/ Soap and Water Irrigated with Saline -Foul Odor after Cleansing No No -Primary Dressing Applied Silvercel Optilok 8x12, Silvercel -Other Dressing silvercel -Primary Dressing Covered/Secured with Dry Gauze & Dry Gauze & Roll Gauze, Roll Gauze, Secured with Secured with Tape Tape -Optilok 8x12 4 -Silvercel 1 1 #3 LLE MED -Ulcer Cleansing Rinsed/ Soap and Water Soap and Water Irrigated with Saline -Foul Odor after Cleansing No No No -Primary Dressing Applied Mepilex Border Optilok 8x12, Optilok 6.5x10 Silvercel -Other Dressing SILVERCELL silvercell -Primary Dressing Covered/Secured with Dry Gauze & Dry Gauze & Dry Gauze & Roll Gauze, Roll Gauze, Roll Gauze, Secured with Secured with Secured with Tape Tape Tape -Mepilex Border 1 -Optilok 6.5x10 1 -Optilok 8x12 0 -Silvercel 0 #4 LLE Lat -Ulcer Cleansing Rinsed/ Soap and Water Soap and Water Irrigated with Saline -Foul Odor after Cleansing No No No -Primary Dressing Applied Silvercel, Optilok 8x12, Optilok 6.5x10 Mepilex Border Silvercel -Other Dressing silvercell -Primary Dressing Covered/Secured with Dry Gauze & Dry Gauze & Roll Gauze, Roll Gauze, Secured with Secured with Tape Tape -Mepilex Border 1 -Optilok 6.5x10 1 -Optilok 8x12 0 -Silvercel 1 0 #2 RLE Med -Ulcer Cleansing Rinsed/ Soap and Water Soap and Water Irrigated with Saline -Foul Odor after Cleansing No No No -Primary Dressing Applied Optilok 8x12, Silvercel -Other Dressing SILVERCELL silvercell -Primary Dressing Covered/Secured with Dry Gauze & Dry Gauze & Dry Gauze & Roll Gauze, Roll Gauze, Roll Gauze, Secured with Secured with Secured with Tape Tape Tape -Optilok 6.5x10 -Optilok 8x12 0 -Silvercel 0 #1 RLE LAt Cluster -Ulcer Cleansing Rinsed/ Soap and Water Soap and Water Irrigated with Saline -Foul Odor after Cleansing No No No -Primary Dressing Applied Optilok 6.5x10 Optilok 8x12, Optilok 6.5x10 Silvercel -Other Dressing SILVERCELL silvercell -Primary Dressing Covered/Secured with Dry Gauze & Dry Gauze & Dry Gauze & Roll Gauze, Roll Gauze, Roll Gauze, Secured with Secured with Secured with Tape Tape Tape -Optilok 6.5x10 1 1 -Optilok 8x12 0 -Silvercel 0 Ashley-Wound Care Lotion Bilateral -Multi-Layered Wrap Application Multi-Layer Multi-Layer Multi-Layer Comp - Bilat ($ Comp - Bilat ($ Comp - Bilat ($ ) ) ) -Other Treatment Response Procedure Procedure Procedure Tolerated Well Tolerated Well Tolerated Well Vital Signs Temperature (97.8 F-99.1 F) 97.5 F L Temperature Source Temporal Pulse Rate (60-100) 109 H Pulse Location Monitor Respiratory Rate (12-18) 18 Respiratory rate source Observation Oxygen Delivery Method Nasal Cannula Blood Pressure (90/60-120/80) 159/60 H Blood Pressure Mean (mm Hg) 93 Source Monitor Position Sitting Blood Pressure Location Right Forearm Pain Scale: 0-10 Numeric Is Patient Pain Free? Yes Yes Yes WC - Visit Discharge Discharge Condition Stable Stable Stable Ambulatory Status Ambulatory Ambulatory Ambulatory Transportation Private Auto Private Auto Private Auto Accompanied by [facility] Facility Type Home Health Orders Sent Yes 07/31/22 15:36 Wound Care Center Nurse 3 5-right garcia -Ulcer Cleansing -Foul Odor after Cleansing -Primary Dressing Applied -Other Dressing -Primary Dressing Covered/Secured with -Optilok 8x12 -Silvercel #3 LLE MED -Ulcer Cleansing Soap and Water -Foul Odor after Cleansing No -Primary Dressing Applied Optilok 6.5x10, Silvercel -Other Dressing PER DL MEDICAL SURGICAL TECH -Primary Dressing Covered/Secured with Dry Gauze & Roll Gauze, Secured with Tape -Mepilex Border -Optilok 6.5x10 0 -Optilok 8x12 -Silvercel 0 #4 LLE Lat -Ulcer Cleansing Soap and Water -Foul Odor after Cleansing No -Primary Dressing Applied Optilok 6.5x10, Silvercel -Other Dressing PER DL MEDICAL SURGICAL TECH -Primary Dressing Covered/Secured with Dry Gauze & Roll Gauze, Secured with Tape -Mepilex Border -Optilok 6.5x10 1 -Optilok 8x12 -Silvercel 1 #2 RLE Med -Ulcer Cleansing Soap and Water -Foul Odor after Cleansing No -Primary Dressing Applied Optilok 6.5x10, Silvercel -Other Dressing PER DL MEDICAL SURGICAL TECH -Primary Dressing Covered/Secured with Dry Gauze & Roll Gauze, Secured with Tape -Optilok 6.5x10 1 -Optilok 8x12 -Silvercel 0 #1 RLE LAt Cluster -Ulcer Cleansing Soap and Water -Foul Odor after Cleansing No -Primary Dressing Applied Optilok 6.5x10, Silvercel -Other Dressing PER DL MEDICAL SURGICAL TECH -Primary Dressing Covered/Secured with Dry Gauze & Roll Gauze, Secured with Tape -Optilok 6.5x10 0 -Optilok 8x12 -Silvercel 0 Ashley-Wound Care Bilateral -Multi-Layered Wrap Application Multi-Layer Comp - Bilat ($ ) -Other PER DL MEDICAL SURGICAL TECH Treatment Response Procedure Tolerated Well Vital Signs Temperature (97.8 F-99.1 F) 98.9 F Temperature Source Temporal Pulse Rate (60-100) 107 H Pulse Location Monitor Respiratory Rate (12-18) 16 Respiratory rate source Observation Oxygen Delivery Method Room Air Blood Pressure (90/60-120/80) 119/80 Blood Pressure Mean (mm Hg) 93 Source Monitor Position Sitting Blood Pressure Location Left Arm Pain Scale: 0-10 Numeric Is Patient Pain Free? Yes WC - Visit Discharge Discharge Condition Stable Ambulatory Status Ambulatory Transportation Private Auto Accompanied by Facility Type Orders Sent Additional Wound Wound debrided: Lateral leg ulcer (#4) Laterality: Left Type of Debridement: Excisional debridement Anesthesia Used: 4% Lidocaine Solution and 5% Lidocaine Gel Depth: Down to and including healthy tissue and in the subcutaneous layer Percentage of wound debrided: 100 Instrument Used: 5mm curette Tissue Removed: Devitalized tissue and slough Severity: Limited To Skin Breakdown Amount of bleeding with debridement: Mild Bleeding Controlled with: Pressure and Compression and gauze Patient tolerated procedure: Patient tolerated procedure well Assessment/Plan Assessment/Plan (1) Ulcer of right lower extremity with fat layer exposed: CODE(S): L97.912 - Non-pressure chronic ulcer of unspecified part of right lower leg with fat layer exposed (2) Ulcer of left lower extremity, limited to breakdown of skin: CODE(S): L97.921 - Non-pressure chronic ulcer of unspecified part of left lower leg limited to breakdown of skin (3) Bilateral edema of lower extremity: CODE(S): R60.0 - Localized edema (4) COPD (chronic obstructive pulmonary disease): CODE(S): J44.9 - Chronic obstructive pulmonary disease, unspecified (5) Requires continuous at home supplemental oxygen: CODE(S): Z99.81 - Dependence on supplemental oxygen (6) Former smoker: CODE(S): Z87.891 - Personal history of nicotine dependence PLAN: Plan Patient evaluated at the wound healing center today. Wound care - Place Silvercel/silver alginate cover with ABD/ super absorber/Kerlix to all the ulcers after washing the ulcers with soap and water three times per week. Place Lac hytrin lotion to non ulcer areas before wrapping ulcers. Compression - 3M 2 layer wraps 3 times per week. Encouraged to elevate legs when sitting. Discussed low sodium diet that is high in protein to help with edema management and wound healing. Encouraged patient not to sleep in chair but if she has to because of her COPD/difficult breathing she needs to be propped up. Encouraged leg elevation. Wound culture obtained on 07/12/22 which was positive for Serratia marcescens and Anaerobic cocci. It is resistant to the Doxycycline her PCP placed her on. Instructed her to stop the Doxycycline. Initially ordered Levaquin but patient read all the side effects and she states her father had a seizure while on Levaquin. Changed Levaquin to Bactrim and then added Metronidazole when the Anaerobic culture came back. 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 Referred to Dr. Abreu, linting machine operator for foot and toe nail care, due to the amount of callousing she has on the plantar surfaces of bilateral feet. Follow up one week.
[2022-08-07 16:20] VITALS: BP 132/59; PULSE 69; TEMP 36.2; BMI 44.0
[2022-08-09 08:43] VITALS: BP 160/92; PULSE 67; TEMP 35.9; BMI 44.0
--- NOTE | 2022-08-09 09:45 | PN.PCM_ITS ---
History of Present Illness Date of Service: 08/09/22 Chief Complaint: Bilateral leg ulcers History of Wound: 61 year old female presents to the wound healing center with ulcers on her right and left legs that started 5 months ago after being hospitalized for pneumonia and COPD exacerbation. She developed worsening edema and her legs have been weeping. She then bumped her right lateral leg and developed an ulcer that she covers during the day with non adherent dressings. She also has several ulcers that are superficial and weep clear drainage due to the amount of edema she is experiencing. She sleeps in a chair due to difficulty breathing. She typically does not elevate her legs. 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 She was being treated with Doxycycline from her PCP due to a cellulitis of her legs. Reviewed notes from her PCP who saw her on 07/03/22 for cellulitis, ulcer right leg and shortness of breath. Wound culture obtained on 07/12/22 which was positive for Serratia marcescens and Anaerobic cocci. She has been started on Bactrim and Metronidazole. Arterial studies performed on 07/13/22 - Right CRISTINA - 1.27 and Left CRISTINA - 1.21. Triphasic Doppler waveforms are noted at ankle level bilaterally. Pulse-volume recordings appear diminished at digital level on the right, but satisfactory at all other levels bilaterally. Resting ankle-brachial indices are normal bilaterally. The right digital-brachial index is normal. The left digital-brachial index is mildly diminished. Arterial flow appears normal at ankle level bilaterally, and at digital level on the right. There is evidence of mild arterial occlusive disease at digital level on the left. 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 The right great saphenous vein appears segmentally incompetent. The right anterior accessory saphenous vein is incompetent. The left anterior accessory saphenous vein is incompetent. She denies fever, chills, nausea or vomiting. Progress of Wound: Right lateral leg and right medial leg ulcers have improved. Left medial leg ulcer remains healed and left lateral leg ulcer is healed this week. She has an excoriated area on her right lateral ankle and her left medial ankle where the 3 M 2 layer wraps are rubbing against her skin. She continues to have moderate to large amount of drainage. Her overall lower extremity edema/lymphedema is improv ing. She is still +3 pitting edema but she states that she is walking better since her edema/lymphedema is improving. She is tolerating the 3M 2layer wraps. She is tolerating the antibiotics that she was placed on for her positive wound cultures. She would benefit from compression hose that she could wear on a daily basis. She has lymphedema/edema of her bilateral lower extremities and now that she is having good compression on her lower legs, she is getting increased swelling in her thighs. Objective Data Objective Data Vital Signs: Vital Signs Temp Pulse Resp BP O2 Del Method O2 Flow Rate 96.7 F L 67 22 H 160/92 H Room Air 5 08/09/22 08:43 08/09/22 08:43 08/02/22 08:33 08/09/22 08:43 07/31/22 15:36 07/26/22 08:40 Oxygen Flow Rate (L/min) 5 Oxygen Delivery Method Room Air Weight: 248 lb 8.668 oz Body Mass Index (BMI) 44.0 Charges/Coding Procedures Integumentary 111xxx-113xx: 32913 Eboni subq tissue 20 sq cm/< Add On Codes: 05388 Eboni subq tissue add-on Debridement Note Debridement Note Wound debrided: lateral leg ulcer (#1) and medial leg ulcer (#2) Laterality: Right Type of Debridement: Excisional debridement Anesthesia Used: 4% Lidocaine Solution and 5% Lidocaine Gel Depth: Down to and including healthy tissue and in the subcutaneous layer Percentage of wound debrided: 100 Instrument Used: 7mm curette Tissue Removed: devitalized tissue and slough Severity: Fat Layer Exposed Amount of bleeding with debridement: Mild Bleeding Controlled with: Pressure and Compression and gauze Patient tolerated procedure: Patient tolerated procedure well Debridement Free Text: Moderate amount of thick, ch slough on the lateral leg ulcer. Post-Debridement Measurements and Additional Note: Post-Debridement Measurements/Treatment NINO - Nurse 1 - General Ulcer Assessment Start: 07/19/22 08:34 Freq: Status: Active Protocol: TROY Activity Type Activity Date Activity User E-sign Co-sign Detail Recorded Client Recorded Date Recorded By Document 07/19/22 08:34 GIN [id number] 07/19/22 08:42 JF Document 07/24/22 15:25 [facility] [id number] 07/24/22 15:28 BMF Document 07/26/22 08:40 DL [id number] 07/26/22 08:53 DL Document 07/31/22 15:36 BMF [id number] 07/31/22 15:42 BMF Document 08/02/22 08:33 DL [id number] 08/02/22 08:43 DL Document 08/07/22 16:20 AK [id number] 08/07/22 16:23 AK Document 08/09/22 08:43 AK [id number] 08/09/22 08:48 AK 07/19/22 07/24/22 07/26/22 08:34 15:25 08:40 WC - Today's Visit Information Type of service Follow-up Visit Nurse-only Follow-up Visit (Physician/CORE WINDING OPERATOR Visit (Physician/CORE WINDING OPERATOR ) ) Arrival Mode Ambulatory Ambulatory Ambulatory Transfer Assistance None None Accompanied by Patient Identification Verified (Name & Yes Yes Yes ) Patient Requires Transmission-Based No No No Precautions Height and Weight Body Mass Index (BMI) 44.0 44.0 44.0 BMI Classification Obese Obese Obese Vital Signs Temperature (97.8 F-99.1 F) 97.5 F L 97.5 F L 98 F Temperature Source Temporal Temporal Temporal Pulse Rate (60-100) 117 H 109 H 104 H Pulse Location Monitor Monitor Monitor Respiratory Rate (12-18) 18 18 24 H Respiratory rate source Observation Observation Observation Oxygen Delivery Method Nasal Cannula Nasal Cannula O2 L/MIN (L/min) 4 5 Blood Pressure (90/60-120/80) 164/93 H 159/60 H 144/74 H Blood Pressure Mean (mm Hg) 116 93 97 Source Monitor Monitor Monitor Position Semi-Fowlers Sitting Blood Pressure Location Left Arm Right Forearm History Since Last Visit- (Skip if this is Patient's initial visit) Have you changed medications since your No No last visit? Any new allergies or adverse reactions No No Had a fall/change in ADL's that may No No increase risk of falls Signs or symptoms of abuse and/or No No neglect since last visit Have you been in the hospital since your No No last visit? Has dressing in place as prescribed Yes Yes Has compression in place as prescribed Yes No Has offloadiing in place as prescribed N/A N/A Experienced any changes in pain level or No No management Left Footwear Regular Shoe Regular Shoe Right Footwear Regular Shoe Regular Shoe Pain Scale: 0-10 Numeric Is Patient Pain Free? No Yes Yes right leg -Description Burning -Intensity 8 -Duration (hours) Chronic -Pain Behavior Withdrawal from Touch -Pain Aggravating Factors Walking -Alleviating Factors/Interventions Medication -Effectiveness of Alleviating Factor/ Minimally Intervention effective -Comments Aspirin PRN 07/31/22 08/02/22 08/07/22 15:36 08:33 16:20 WC - Today's Visit Information Type of service Nurse-only Follow-up Visit Nurse-only Visit (Physician/CORE WINDING OPERATOR Visit ) Arrival Mode Ambulatory Ambulatory Ambulatory Transfer Assistance None None Accompanied by Patient Identification Verified (Name & Yes Yes Yes ) Patient Requires Transmission-Based No No No Precautions Height and Weight Body Mass Index (BMI) 44.0 44.0 44.0 BMI Classification Obese Obese Obese Vital Signs Temperature (97.8 F-99.1 F) 98.9 F 97.8 F 97.1 F L Temperature Source Temporal Temporal Temporal Pulse Rate (60-100) 107 H 102 H 69 Pulse Location Monitor Monitor Monitor Respiratory Rate (12-18) 16 22 H Respiratory rate source Observation Observation Oxygen Delivery Method Room Air O2 L/MIN (L/min) Blood Pressure (90/60-120/80) 119/80 155/85 H 132/59 H Blood Pressure Mean (mm Hg) 93 108 83 Source Monitor Monitor Monitor Position Sitting Blood Pressure Location Left Arm History Since Last Visit- (Skip if this is Patient's initial visit) Have you changed medications since your No No last visit? Any new allergies or adverse reactions No No Had a fall/change in ADL's that may No No increase risk of falls Signs or symptoms of abuse and/or No No neglect since last visit Have you been in the hospital since your No No last visit? Has dressing in place as prescribed Yes Yes Has compression in place as prescribed Yes Yes Has offloadiing in place as prescribed N/A N/A Experienced any changes in pain level or No No management Left Footwear Regular Shoe Regular Shoe Right Footwear Regular Shoe Regular Shoe Pain Scale: 0-10 Numeric Is Patient Pain Free? Yes Yes Yes right leg -Description -Intensity -Duration (hours) -Pain Behavior -Pain Aggravating Factors -Alleviating Factors/Interventions -Effectiveness of Alleviating Factor/ Intervention -Comments 08/09/22 08:43 - Today's Visit Information Type of service Follow-up Visit (Physician/CORE WINDING OPERATOR ) Arrival Mode Ambulatory Transfer Assistance Accompanied by Patient Identification Verified (Name & Yes ) Patient Requires Transmission-Based No Precautions Height and Weight Body Mass Index (BMI) 44.0 BMI Classification Obese Vital Signs Temperature (97.8 F-99.1 F) 96.7 F L Temperature Source Temporal Pulse Rate (60-100) 67 Pulse Location Monitor Respiratory Rate (12-18) Respiratory rate source Oxygen Delivery Method O2 L/MIN (L/min) Blood Pressure (90/60-120/80) 160/92 H Blood Pressure Mean (mm Hg) 114 Source Monitor Position Blood Pressure Location History Since Last Visit- (Skip if this is Patient's initial visit) Have you changed medications since your No last visit? Any new allergies or adverse reactions No Had a fall/change in ADL's that may No increase risk of falls Signs or symptoms of abuse and/or No neglect since last visit Have you been in the hospital since your No last visit? Has dressing in place as prescribed Yes Has compression in place as prescribed Yes Has offloadiing in place as prescribed N/A Experienced any changes in pain level or No management Left Footwear Regular Shoe Right Footwear Regular Shoe Pain Scale: 0-10 Numeric Is Patient Pain Free? Yes right leg -Description -Intensity -Duration (hours) -Pain Behavior -Pain Aggravating Factors -Alleviating Factors/Interventions -Effectiveness of Alleviating Factor/ Intervention -Comments - Nurse 1 - General Ulcer Measurement Start: 07/19/22 08:34 Freq: Status: Active Protocol: Activity Type Activity Date Activity User E-sign Co-sign Detail Recorded Client Recorded Date Recorded By Document 07/19/22 08:34 [id number] 07/19/22 08:42 JF Document 07/24/22 15:25 BM [id number] 07/24/22 15:28 BM Document 07/26/22 08:40 DL [id number] 07/26/22 08:53 DL Document 07/31/22 15:36 [facility] [id number] 07/31/22 15:42 [facility] Document 08/02/22 08:33 DL [id number] 08/02/22 08:43 DL Document 08/09/22 08:43 AK [id number] 08/09/22 08:48 AK 07/19/22 07/24/22 07/26/22 08:34 15:25 08:40 Wound Center Nurse 1 5-right garcia -Combined with other wound No -Current Size (cm) - Length 0.1 0.1 -Current Size (cm) - Width 0.1 0.1 -Current Size (cm) - Depth 0.1 0.1 -Total Square Cm 0.01 0.01 -Photo Taken No Yes -Epithelialization Large 67-100% -Tunneling No -Undermining/Tunneling No -Circular Undermining No -Exudate Amt Medium -Exudate Type Serosanguineous -Wound Margin Flat & Intact Thickened -Granulation Amt Medium (34-66%) None Present (0 %) -Granulation Quality Red -Slough/Fibrin Yes -Necrosis Amt Small (1-33%) Small (1-33%) -Necrotic Tissue Type Adherent Slough Eschar -Structure Exposed N/A N/A -Texture (Ashley-wound Skin Appearance) Assessed Scarring -Moisture (Ashley-wound Skin Appearance) Assessed Weeping -Color (Ashley-wound Skin Appearance) Assessed, Hemosiderin Hemosiderin Staining Staining -Temperature (Ashley-wound Skin No Abnormality No Abnormality Appearance) (Pt Warm) (Pt Warm) -Tenderness on Palpation (Ashley-wound No Skin Appearance) -Ulcer Cleansing Wound Cleanser Soap and Water -Foul Odor after Cleansing No No -Anesthetic Used 4% Lidocaine 4% Lidocaine Solution Solution #4 LLE -Combined with other wound No -Current Size (cm) - Length 8.5 9.2 -Current Size (cm) - Width 5.2 4.5 -Current Size (cm) - Depth 0.1 0.1 -Total Square Cm 44.20 41.40 -Photo Taken No Yes -Epithelialization Small 1-33% -Tunneling No -Undermining/Tunneling No -Circular Undermining No -Change in Wound Grade/Stage -Exudate Amt Medium Large -Exudate Type Sanguineous Serosanguineous -Wound Margin Flat & Intact Distinct, Outline Attached -Granulation Amt Medium (34-66%) Medium (34-66%) -Granulation Quality Red [place] -Slough/Fibrin Yes -Necrosis Amt Medium (34-66%) Medium (34-66%) -Necrotic Tissue Type Adherent Slough Adherent Slough -Structure Exposed N/A N/A -Texture (Ashley-wound Skin Appearance) Assessed, Scarring Localized Edema -Moisture (Ashley-wound Skin Appearance) Assessed Weeping -Color (Ashley-wound Skin Appearance) Assessed Hemosiderin Staining -Temperature (Ashley-wound Skin No Abnormality No Abnormality Appearance) (Pt Warm) (Pt Warm) -Tenderness on Palpation (Ashley-wound No No Skin Appearance) -Ulcer Cleansing Wound Cleanser Soap and Water -Foul Odor after Cleansing No No -Anesthetic Used 4% Lidocaine 4% Lidocaine Solution,5% Solution Lidocaine Gel #3 LLE MED -Combined with other wound No -Current Size (cm) - Length 10.2 10.3 -Current Size (cm) - Width 7.5 6.1 -Current Size (cm) - Depth 0.1 0.1 -Total Square Cm 76.50 62.83 -Photo Taken No Yes -Epithelialization Medium 34-66% -Tunneling No -Undermining/Tunneling No -Circular Undermining No -Exudate Amt Medium Large -Exudate Type Serosanguineous Serosanguineous -Wound Margin Flat & Intact Distinct, Outline Attached -Granulation Amt Medium (34-66%) Medium (34-66%) -Granulation Quality [place] -Slough/Fibrin Yes -Necrosis Amt Medium (34-66%) Medium (34-66%) -Necrotic Tissue Type Adherent Slough Adherent Slough -Structure Exposed N/A N/A -Texture (Ashley-wound Skin Appearance) Assessed, Scarring Localized Edema -Moisture (Ashley-wound Skin Appearance) Assessed,Dry/ Weeping Scaly -Color (Ashley-wound Skin Appearance) Assessed, Hemosiderin Hemosiderin Staining Staining -Temperature (Ashley-wound Skin No Abnormality No Abnormality Appearance) (Pt Warm) (Pt Warm) -Tenderness on Palpation (Ashley-wound No No Skin Appearance) -Ulcer Cleansing Wound Cleanser Soap and Water -Foul Odor after Cleansing No No -Anesthetic Used 4% Lidocaine 4% Lidocaine Solution Solution #2 RLE Med -Combined with other wound No -Current Size (cm) - Length 2.0 1.8 -Current Size (cm) - Width 1.9 2 -Current Size (cm) - Depth 0.2 0.2 -Total Square Cm 3.80 3.6 -Photo Taken No Yes -Epithelialization Medium 34-66% -Tunneling No -Undermining/Tunneling No -Circular Undermining No -Change in Wound Grade/Stage -Exudate Amt Medium Medium -Exudate Type Serosanguineous Serosanguineous -Wound Margin Flat & Intact Distinct, Outline Attached -Granulation Amt Medium (34-66%) Medium (34-66%) -Granulation Quality [place] Red -Slough/Fibrin Yes -Necrosis Amt Medium (34-66%) Medium (34-66%) -Necrotic Tissue Type Adherent Slough Adherent Slough -Structure Exposed N/A N/A -Texture (Ashley-wound Skin Appearance) Assessed, Localized Edema -Moisture (Ashley-wound Skin Appearance) Assessed,Dry/ Maceration, Scaly Weeping -Color (Ashley-wound Skin Appearance) Assessed Hemosiderin Staining -Temperature (Ashley-wound Skin No Abnormality No Abnormality Appearance) (Pt Warm) (Pt Warm) -Tenderness on Palpation (Ashley-wound No No Skin Appearance) -Ulcer Cleansing Wound Cleanser Soap and Water -Foul Odor after Cleansing No No -Anesthetic Used 4% Lidocaine 4% Lidocaine Solution Solution #1 RLE LAt Cluster -Combined with other wound No -Current Size (cm) - Length 6.0 5.8 -Current Size (cm) - Width 7.2 6.8 -Current Size (cm) - Depth 0.6 0.5 -Total Square Cm 43.20 39.44 -Photo Taken No Yes -Epithelialization Medium 34-66% -Tunneling No -Undermining/Tunneling No -Circular Undermining No -Change in Wound Grade/Stage -Exudate Amt Medium Large -Exudate Type Serosanguineous Serosanguineous -Wound Margin Flat & Intact Distinct, Outline Attached -Granulation Amt Medium (34-66%) Medium (34-66%) -Granulation Quality Red Red -Slough/Fibrin Yes -Necrosis Amt Medium (34-66%) Medium (34-66%) -Necrotic Tissue Type Adherent Slough Adherent Slough -Structure Exposed N/A N/A -Texture (Ashley-wound Skin Appearance) Assessed, Scarring Localized Edema -Moisture (Ashley-wound Skin Appearance) Assessed,Dry/ Maceration, Scaly Weeping -Color (Ashley-wound Skin Appearance) Assessed Hemosiderin Staining -Temperature (Ashley-wound Skin No Abnormality No Abnormality Appearance) (Pt Warm) (Pt Warm) -Tenderness on Palpation (Ashley-wound No No Skin Appearance) -Ulcer Cleansing Wound Cleanser Soap and Water -Foul Odor after Cleansing No No -Anesthetic Used 4% Lidocaine 4% Lidocaine Solution Solution Lower Limb Edema Present Yes Yes Right Calf (cm) 50.6 52.5 47 Right Ankle (cm) 28.5 29.5 28.2 Left Calf (cm) 50.2 53 46 Left Ankle (cm) 28.4 27.9 28.2 07/31/22 08/02/22 08/09/22 15:36 08:33 08:43 Wound Center Nurse 1 5-right garcia -Combined with other wound -Current Size (cm) - Length -Current Size (cm) - Width -Current Size (cm) - Depth -Total Square Cm -Photo Taken -Epithelialization -Tunneling -Undermining/Tunneling -Circular Undermining -Exudate Amt -Exudate Type -Wound Margin -Granulation Amt -Granulation Quality -Slough/Fibrin -Necrosis Amt -Necrotic Tissue Type -Structure Exposed -Texture (Ashley-wound Skin Appearance) -Moisture (Ashley-wound Skin Appearance) -Color (Ashley-wound Skin Appearance) -Temperature (Ashley-wound Skin Appearance) -Tenderness on Palpation (Ashley-wound Skin Appearance) -Ulcer Cleansing -Foul Odor after Cleansing -Anesthetic Used #4 LLE -Combined with other wound No -Current Size (cm) - Length 0.1 2.4 -Current Size (cm) - Width 0.1 1.5 -Current Size (cm) - Depth 0.1 0.1 -Total Square Cm 0.01 3.60 -Photo Taken Yes No -Epithelialization -Tunneling No -Undermining/Tunneling No -Circular Undermining No -Change in Wound Grade/Stage No -Exudate Amt None Present Medium -Exudate Type Serosanguineous -Wound Margin Indistinct, Non Distinct, -Visible Outline Attached -Granulation Amt Large (67-100%) Large (67-100%) -Granulation Quality [place] -Slough/Fibrin No No -Necrosis Amt None Present (0 None Present (0 %) %) -Necrotic Tissue Type -Structure Exposed N/A N/A -Texture (Ashley-wound Skin Appearance) Scarring No Abnormality, Assessed -Moisture (Ashley-wound Skin Appearance) Dry/Scaly Assessed, Maceration -Color (Ashley-wound Skin Appearance) Hemosiderin No Abnormality, Staining Assessed -Temperature (Ashley-wound Skin No Abnormality No Abnormality Appearance) (Pt Warm) (Pt Warm) -Tenderness on Palpation (Ashley-wound Yes No Skin Appearance) -Ulcer Cleansing Soap and Water Soap and Water -Foul Odor after Cleansing No No -Anesthetic Used 4% Lidocaine 4% Lidocaine Solution Solution #3 LLE MED -Combined with other wound -Current Size (cm) - Length 0.1 -Current Size (cm) - Width 0.1 -Current Size (cm) - Depth 0.1 -Total Square Cm 0.01 -Photo Taken Yes -Epithelialization -Tunneling -Undermining/Tunneling -Circular Undermining -Exudate Amt None Present -Exudate Type -Wound Margin Indistinct, Non -Visible -Granulation Amt Large (67-100%) -Granulation Quality [place] -Slough/Fibrin -Necrosis Amt None Present (0 %) -Necrotic Tissue Type -Structure Exposed N/A -Texture (Ashley-wound Skin Appearance) Scarring -Moisture (Ashley-wound Skin Appearance) Dry/Scaly -Color (Ashley-wound Skin Appearance) Hemosiderin Staining -Temperature (Ashley-wound Skin No Abnormality Appearance) (Pt Warm) -Tenderness on Palpation (Ashley-wound No Skin Appearance) -Ulcer Cleansing Soap and Water -Foul Odor after Cleansing No -Anesthetic Used 4% Lidocaine Solution #2 RLE Med -Combined with other wound No -Current Size (cm) - Length 2 1.8 -Current Size (cm) - Width 1 1.2 -Current Size (cm) - Depth 0.2 0.1 -Total Square Cm 2 2.16 -Photo Taken Yes No -Epithelialization -Tunneling No -Undermining/Tunneling No -Circular Undermining No -Change in Wound Grade/Stage No -Exudate Amt Medium None Present -Exudate Type Serosanguineous -Wound Margin Distinct, Distinct, Outline Outline Attached Attached -Granulation Amt Medium (34-66%) None Present (0 %) -Granulation Quality Red N/A -Slough/Fibrin Yes -Necrosis Amt Medium (34-66%) Large (67-100%) -Necrotic Tissue Type Adherent Slough Adherent Slough -Structure Exposed N/A N/A -Texture (Ashley-wound Skin Appearance) Scarring No Abnormality, Assessed -Moisture (Ashley-wound Skin Appearance) Dry/Scaly No Abnormality, Assessed -Color (Ashley-wound Skin Appearance) Hemosiderin No Abnormality, Staining Assessed -Temperature (Ashley-wound Skin No Abnormality No Abnormality Appearance) (Pt Warm) (Pt Warm) -Tenderness on Palpation (Ashley-wound No No Skin Appearance) -Ulcer Cleansing Soap and Water Soap and Water -Foul Odor after Cleansing No No -Anesthetic Used 4% Lidocaine 4% Lidocaine Solution Solution,5% Lidocaine Gel #1 RLE LAt Cluster -Combined with other wound No -Current Size (cm) - Length 5.6 5.3 -Current Size (cm) - Width 3.2 5.8 -Current Size (cm) - Depth 0.2 0.1 -Total Square Cm 17.92 30.74 -Photo Taken Yes No -Epithelialization -Tunneling No -Undermining/Tunneling No -Circular Undermining No -Change in Wound Grade/Stage No -Exudate Amt Medium Medium -Exudate Type Serosanguineous Serosanguineous -Wound Margin Distinct, Distinct, Outline Outline Attached Attached -Granulation Amt Medium (34-66%) None Present (0 %) -Granulation Quality Red N/A -Slough/Fibrin Yes -Necrosis Amt Medium (34-66%) Large (67-100%) -Necrotic Tissue Type Adherent Slough Adherent Slough -Structure Exposed N/A N/A -Texture (Ashley-wound Skin Appearance) Scarring Assessed, Excoriation -Moisture (Ashley-wound Skin Appearance) Dry/Scaly Assessed, Maceration, Weeping -Color (Ashley-wound Skin Appearance) Hemosiderin No Abnormality, Staining Assessed -Temperature (Ashley-wound Skin No Abnormality No Abnormality Appearance) (Pt Warm) (Pt Warm) -Tenderness on Palpation (Ashley-wound No No Skin Appearance) -Ulcer Cleansing Soap and Water Soap and Water -Foul Odor after Cleansing No No -Anesthetic Used 4% Lidocaine 4% Lidocaine Solution Solution Lower Limb Edema Present Yes Right Calf (cm) 46.5 45.6 48 Right Ankle (cm) 27.7 27.3 28 Left Calf (cm) 46.5 46 46 Left Ankle (cm) 29 27.5 29 WC - Nurse 2 - General Ulcer CM Notes Start: 07/19/22 08:34 Freq: Status: Active Protocol: Activity Type Activity Date Activity User E-sign Co-sign Detail Recorded Client Recorded Date Recorded By Document 07/19/22 09:00 [id number] 07/19/22 09:14 Document 07/26/22 09:07 Desktop 07/26/22 09:15 Document 08/02/22 08:50 [id number] 08/02/22 09:04 Document 08/09/22 08:50 [id number] 08/09/22 08:59 07/19/22 07/26/22 08/02/22 09:00 09:07 08:50 Wound Center Nurse 2 5-right garcia -Time 09:10 09:07 -Correct Patient Yes No -Correct Side, Site, Position Yes No -Correct Procedure Yes No -Procedure Performed Yes No -Type of Procedure Debridement -Clinical Debridement Subcutaneous -Tissue Removed Subcutaneous -Post Debridement (cm) - Length 1.5 0 -Post Debridement (cm) - Width 2.2 0 -Post Debridement (cm) - Depth 0.1 0 -Total Square (Post) (cm) 3.30 0 -Area of Debridement (cm) - Length 1.5 0 -Area of Debridement (cm) - Width 2.2 0 -Total Square (Area) (cm) 3.30 0 -Tunneling No No -Undermining/Tunneling No No -Circular Undermining No No -Wound/Ulcer Outcome Not Healed Healed- Epithelialized -Ulcer Cleansing Rinsed/ Rinsed/ Irrigated with Irrigated with Saline Saline -Foul Odor after Cleansing No No -Bioengineered Tissue No No -Bleeding Controlled with Pressure Pressure -Treatment Response Procedure Procedure Tolerated Well Tolerated Well -Offloading No No -Debridement - Subq, 1st 20sq cm No No #4 LLE -Time 09:00 09:07 08:50 -Correct Patient Yes Yes Yes -Correct Side, Site, Position Yes Yes Yes -Correct Procedure Yes Yes Yes -Procedure Performed Yes Yes Yes -Type of Procedure Debridement Debridement Debridement -Clinical Debridement Subcutaneous Subcutaneous Subcutaneous -Tissue Removed Subcutaneous Subcutaneous Subcutaneous -Post Debridement (cm) - Length 9.5 9.5 4 -Post Debridement (cm) - Width 5.4 6.0 3 -Post Debridement (cm) - Depth 0.1 0.1 0.1 -Total Square (Post) (cm) 51.30 57.00 12 -Area of Debridement (cm) - Length 9.5 9.5 4 -Area of Debridement (cm) - Width 5.4 6 3 -Total Square (Area) (cm) 51.30 57.0 12 -Tunneling No No No -Undermining/Tunneling No No No -Circular Undermining No No No -Wound/Ulcer Outcome Not Healed Not Healed Not Healed -Ulcer Cleansing Rinsed/ Rinsed/ Rinsed/ Irrigated with Irrigated with Irrigated with Saline Saline Saline -Foul Odor after Cleansing No No No -Bioengineered Tissue No No No -Bleeding Controlled with Pressure Pressure Pressure -Treatment Response Procedure Procedure Tolerated Well Tolerated Well -Offloading No No No -Debridement - Subq, 1st 20sq cm No No No #3 LLE MED -Time 09: 09:09 08:51 -Correct Patient Yes Yes No -Correct Side, Site, Position Yes Yes No -Correct Procedure Yes Yes No -Procedure Performed Yes Yes No -Type of Procedure Debridement Debridement -Clinical Debridement Subcutaneous Subcutaneous -Tissue Removed Subcutaneous Subcutaneous -Post Debridement (cm) - Length 11.0 12 0 -Post Debridement (cm) - Width 7.5 7 0 -Post Debridement (cm) - Depth 0.1 0.1 0 -Total Square (Post) (cm) 82.50 84 0 -Area of Debridement (cm) - Length 11 12 0 -Area of Debridement (cm) - Width 7.5 7 0 -Total Square (Area) (cm) 82.5 84 0 -Tunneling No No No -Undermining/Tunneling No No No -Circular Undermining No No No -Wound/Ulcer Outcome Not Healed Not Healed Healed- Epithelialized -Ulcer Cleansing Rinsed/ Rinsed/ Rinsed/ Irrigated with Irrigated with Irrigated with Saline Saline Saline -Foul Odor after Cleansing No No No -Bioengineered Tissue No No No -Bleeding Controlled with Pressure Pressure Pressure -Treatment Response Procedure Procedure Procedure Tolerated Well Tolerated Well Tolerated Well -Offloading No No No -Debridement - Subq, 1st 20sq cm No No No #2 RLE Med -Time 09: 09:09 08:51 -Correct Patient Yes Yes Yes -Correct Side, Site, Position Yes Yes Yes -Correct Procedure Yes Yes Yes -Procedure Performed Yes Yes Yes -Type of Procedure Debridement Debridement Debridement -Clinical Debridement Subcutaneous Subcutaneous Subcutaneous -Tissue Removed Subcutaneous Subcutaneous Subcutaneous -Post Debridement (cm) - Length 2.0 2.1 2.5 -Post Debridement (cm) - Width 2.0 2 1.8 -Post Debridement (cm) - Depth 0.3 0.3 0.1 -Total Square (Post) (cm) 4.00 4.2 4.50 -Area of Debridement (cm) - Length 2.0 2.1 2.5 -Area of Debridement (cm) - Width 2.0 2.0 1.8 -Total Square (Area) (cm) 4.00 4.20 4.50 -Tunneling No No No -Undermining/Tunneling No No No -Circular Undermining No No No -Wound/Ulcer Outcome Not Healed Not Healed Not Healed -Ulcer Cleansing Rinsed/ Rinsed/ Rinsed/ Irrigated with Irrigated with Irrigated with Saline Saline Saline -Foul Odor after Cleansing No No No -Bioengineered Tissue No No No -Bleeding Controlled with Pressure Pressure Pressure -Treatment Response Procedure Procedure Procedure Tolerated Well Tolerated Well Tolerated Well -Offloading No No No -Debridement - Subq, 1st 20sq cm No No No #1 RLE LAt Cluster -Time 09:11 09:10 08:52 -Correct Patient Yes Yes Yes -Correct Side, Site, Position Yes Yes Yes -Correct Procedure Yes Yes Yes -Procedure Performed Yes Yes Yes -Type of Procedure Debridement Debridement Debridement -Clinical Debridement Subcutaneous Subcutaneous Subcutaneous -Tissue Removed Subcutaneous Subcutaneous Subcutaneous -Post Debridement (cm) - Length 8.8 5.7 5.7 -Post Debridement (cm) - Width 7.3 6.8 6.3 -Post Debridement (cm) - Depth 0.5 0.6 0.3 -Total Square (Post) (cm) 64.24 38.76 35.91 -Area of Debridement (cm) - Length 8.8 5.7 5.7 -Area of Debridement (cm) - Width 7.3 6.8 6.3 -Total Square (Area) (cm) 64.24 38.76 35.91 -Tunneling No No No -Undermining/Tunneling No No No -Circular Undermining No No No -Wound/Ulcer Outcome Not Healed Not Healed Not Healed -Ulcer Cleansing Rinsed/ Rinsed/ Rinsed/ Irrigated with Irrigated with Irrigated with Saline Saline Saline -Foul Odor after Cleansing No No No -Bioengineered Tissue No No No -Bleeding Controlled with Pressure Pressure Pressure -Treatment Response Procedure Procedure Procedure Tolerated Well Tolerated Well Tolerated Well -Offloading No No No -Debridement - Subq, 1st 20sq cm Yes Yes Yes -Debridement, SubQ, ea addt'l 20sq cm 10 9 2 or part thereof Pain Scale: 0-10 Numeric Is Patient Pain Free? Yes Yes Yes 08/09/22 08:50 Wound Center Nurse 2 5-right garcia -Time -Correct Patient -Correct Side, Site, Position -Correct Procedure -Procedure Performed -Type of Procedure -Clinical Debridement -Tissue Removed -Post Debridement (cm) - Length -Post Debridement (cm) - Width -Post Debridement (cm) - Depth -Total Square (Post) (cm) -Area of Debridement (cm) - Length -Area of Debridement (cm) - Width -Total Square (Area) (cm) -Tunneling -Undermining/Tunneling -Circular Undermining -Wound/Ulcer Outcome -Ulcer Cleansing -Foul Odor after Cleansing -Bioengineered Tissue -Bleeding Controlled with -Treatment Response -Offloading -Debridement - Subq, 20sq cm #4 LLE -Time 08:51 -Correct Patient No -Correct Side, Site, Position No -Correct Procedure No -Procedure Performed No -Type of Procedure -Clinical Debridement -Tissue Removed -Post Debridement (cm) - Length 0 -Post Debridement (cm) - Width 0 -Post Debridement (cm) - Depth 0 -Total Square (Post) (cm) 0 -Area of Debridement (cm) - Length 0 -Area of Debridement (cm) - Width 0 -Total Square (Area) (cm) 0 -Tunneling -Undermining/Tunneling -Circular Undermining -Wound/Ulcer Outcome Healed- Epithelialized -Ulcer Cleansing -Foul Odor after Cleansing -Bioengineered Tissue -Bleeding Controlled with -Treatment Response -Offloading -Debridement - Subq, 1st 20sq cm #3 LLE MED -Time -Correct Patient -Correct Side, Site, Position -Correct Procedure -Procedure Performed -Type of Procedure -Clinical Debridement -Tissue Removed -Post Debridement (cm) - Length -Post Debridement (cm) - Width -Post Debridement (cm) - Depth -Total Square (Post) (cm) -Area of Debridement (cm) - Length -Area of Debridement (cm) - Width -Total Square (Area) (cm) -Tunneling -Undermining/Tunneling -Circular Undermining -Wound/Ulcer Outcome -Ulcer Cleansing -Foul Odor after Cleansing -Bioengineered Tissue -Bleeding Controlled with -Treatment Response -Offloading -Debridement - Subq, 1st 20sq cm #2 RLE Med -Time 08:55 -Correct Patient Yes -Correct Side, Site, Position Yes -Correct Procedure Yes -Procedure Performed Yes -Type of Procedure Debridement -Clinical Debridement Subcutaneous -Tissue Removed Subcutaneous -Post Debridement (cm) - Length 1.3 -Post Debridement (cm) - Width 1.2 -Post Debridement (cm) - Depth 0.1 -Total Square (Post) (cm) 1.56 -Area of Debridement (cm) - Length 1.3 -Area of Debridement (cm) - Width 1.2 -Total Square (Area) (cm) 1.56 -Tunneling No -Undermining/Tunneling No -Circular Undermining No -Wound/Ulcer Outcome Not Healed -Ulcer Cleansing Rinsed/ Irrigated with Saline -Foul Odor after Cleansing No -Bioengineered Tissue No -Bleeding Controlled with Pressure -Treatment Response Procedure Tolerated Well -Offloading No -Debridement - Subq, 1st 20sq cm No #1 RLE LAt Cluster -Time 08:52 -Correct Patient Yes -Correct Side, Site, Position Yes -Correct Procedure Yes -Procedure Performed Yes -Type of Procedure Debridement -Clinical Debridement Subcutaneous -Tissue Removed Subcutaneous -Post Debridement (cm) - Length 5.6 -Post Debridement (cm) - Width 6.3 -Post Debridement (cm) - Depth 0.2 -Total Square (Post) (cm) 35.28 -Area of Debridement (cm) - Length 5.6 -Area of Debridement (cm) - Width 6.3 -Total Square (Area) (cm) 35.28 -Tunneling No -Undermining/Tunneling No -Circular Undermining No -Wound/Ulcer Outcome Not Healed -Ulcer Cleansing Rinsed/ Irrigated with Saline -Foul Odor after Cleansing No -Bioengineered Tissue No -Bleeding Controlled with Pressure -Treatment Response Procedure Tolerated Well -Offloading No -Debridement - Subq, 1st 20sq cm Yes -Debridement, SubQ, ea addt'l 20sq cm 1 or part thereof Pain Scale: 0-10 Numeric Is Patient Pain Free? Yes WC - Nurse 3 - General Ulcer D/C NN Start: 07/19/22 08:34 Freq: Status: Active Protocol: Activity Type Activity Date Activity User E-sign Co-sign Detail Recorded Client Recorded Date Recorded By Document 07/19/22 11:51 DL [id number] 07/19/22 11:56 DL Edit Result 07/19/22 11:51 DL (1) [id number] 07/20/22 07:00 PL Document 07/24/22 15:25 BMF [id number] 07/24/22 15:28 BMF Document 07/26/22 09:45 DL [id number] 07/26/22 09:47 DL Document 07/31/22 15:36 BMF [id number] 07/31/22 15:42 BMF Document 08/02/22 11:24 DL [id number] 08/02/22 11:25 DL Document 08/07/22 16:20 AK [id number] 08/07/22 16:23 AK Document 08/09/22 09:24 DL [id number] 08/09/22 09:26 DL (1) Bilateral - Multi-Layered Wrap Application => Multi-Layer Comp - => Bilat ($) 07/19/22 07/24/22 07/26/22 11:51 15:25 09:45 Wound Care Center Nurse 3 5-right garcia -Ulcer Cleansing Rinsed/ Soap and Water Irrigated with Saline -Foul Odor after Cleansing No No -Primary Dressing Applied Silvercel Optilok 8x12, Silvercel -Other Dressing silvercel -Primary Dressing Covered/Secured with Dry Gauze & Dry Gauze & Roll Gauze, Roll Gauze, Secured with Secured with Tape Tape -Optilok 8x12 4 -Silvercel 1 1 #4 LLE -Ulcer Cleansing Rinsed/ Soap and Water Soap and Water Irrigated with Saline -Foul Odor after Cleansing No No No -Negative Pressure Wound Therapy -Primary Dressing Applied Silvercel, Optilok 8x12, Optilok 6.5x10 Mepilex Border Silvercel -Other Dressing silvercell -Primary Dressing Covered/Secured with Dry Gauze & Dry Gauze & Roll Gauze, Roll Gauze, Secured with Secured with Tape Tape -Mepilex Border 1 -Optilok 6.5x10 1 -Optilok 8x12 0 -Silvercel 1 0 #3 LLE MED -Ulcer Cleansing Rinsed/ Soap and Water Soap and Water Irrigated with Saline -Foul Odor after Cleansing No No No -Primary Dressing Applied Mepilex Border Optilok 8x12, Optilok 6.5x10 Silvercel -Other Dressing SILVERCELL silvercell -Primary Dressing Covered/Secured with Dry Gauze & Dry Gauze & Dry Gauze & Roll Gauze, Roll Gauze, Roll Gauze, Secured with Secured with Secured with Tape Tape Tape -Mepilex Border 1 -Optilok 6.5x10 1 -Optilok 8x12 0 -Silvercel 0 #2 RLE Med -Ulcer Cleansing Rinsed/ Soap and Water Soap and Water Irrigated with Saline -Foul Odor after Cleansing No No No -Negative Pressure Wound Therapy -Primary Dressing Applied Optilok 8x12, Silvercel -Other Dressing SILVERCELL silvercell -Primary Dressing Covered/Secured with Dry Gauze & Dry Gauze & Dry Gauze & Roll Gauze, Roll Gauze, Roll Gauze, Secured with Secured with Secured with Tape Tape Tape -Other Covering -Optilok 6.5x10 -Optilok 8x12 0 -Silvercel 0 #1 RLE LAt Cluster -Ulcer Cleansing Rinsed/ Soap and Water Soap and Water Irrigated with Saline -Foul Odor after Cleansing No No No -Negative Pressure Wound Therapy -Primary Dressing Applied Optilok 6.5x10 Optilok 8x12, Optilok 6.5x10 Silvercel -Other Dressing SILVERCELL silvercell -Primary Dressing Covered/Secured with Dry Gauze & Dry Gauze & Dry Gauze & Roll Gauze, Roll Gauze, Roll Gauze, Secured with Secured with Secured with Tape Tape Tape -Other Covering -Optilok 6.5x10 1 1 -Optilok 8x12 0 -Silvercel 0 Ashley-Wound Care Lotion Bilateral -Multi-Layered Wrap Application Multi-Layer Multi-Layer Multi-Layer Comp - Bilat ($ Comp - Bilat ($ Comp - Bilat ($ ) ) ) -Other Treatment Response Procedure Procedure Procedure Tolerated Well Tolerated Well Tolerated Well Vital Signs Temperature (97.8 F-99.1 F) 97.5 F L Temperature Source Temporal Pulse Rate (60-100) 109 H Pulse Location Monitor Respiratory Rate (12-18) 18 Respiratory rate source Observation Oxygen Delivery Method Nasal Cannula Blood Pressure (90/60-120/80) 159/60 H Blood Pressure Mean (mm Hg) 93 Source Monitor Position Sitting Blood Pressure Location Right Forearm Pain Scale: 0-10 Numeric Is Patient Pain Free? Yes Yes Yes WC - Visit Discharge Discharge Condition Stable Stable Stable Ambulatory Status Ambulatory Ambulatory Ambulatory Transportation Private Auto Private Auto Private Auto Accompanied by fabrizio Medication Reconcilliation completed & provided to patient/care provider Clinical Summary of Care Provided Facility Type Home Health Orders Sent Yes 07/31/22 08/02/22 08/07/22 15:36 11:24 16:20 Wound Care Center Nurse 3 5-right garcia -Ulcer Cleansing -Foul Odor after Cleansing -Primary Dressing Applied -Other Dressing -Primary Dressing Covered/Secured with -Optilok 8x12 -Silvercel #4 LLE -Ulcer Cleansing Soap and Water Soap and Water Soap and Water -Foul Odor after Cleansing No No No -Negative Pressure Wound Therapy N/A -Primary Dressing Applied Optilok 6.5x10, Optilok 6.5x10, Silvercel Silvercel -Other Dressing PER DL RN CLINICAL APPEALS silvercel -Primary Dressing Covered/Secured with Dry Gauze & Dry Gauze,Dry Roll Gauze, Gauze & Roll Secured with Gauze Tape -Mepilex Border -Optilok 6.5x10 1 1 -Optilok 8x12 -Silvercel 1 0 #3 LLE MED -Ulcer Cleansing Soap and Water -Foul Odor after Cleansing No -Primary Dressing Applied Optilok 6.5x10, Silvercel -Other Dressing PER DL RN CLINICAL APPEALS -Primary Dressing Covered/Secured with Dry Gauze & Roll Gauze, Secured with Tape -Mepilex Border -Optilok 6.5x10 0 -Optilok 8x12 -Silvercel 0 #2 RLE Med -Ulcer Cleansing Soap and Water Soap and Water Soap and Water -Foul Odor after Cleansing No No No -Negative Pressure Wound Therapy N/A -Primary Dressing Applied Optilok 6.5x10, Silvercel -Other Dressing PER DL RN CLINICAL APPEALS silvercell silvercel -Primary Dressing Covered/Secured with Dry Gauze & Dry Gauze & Roll Gauze, Roll Gauze, Secured with Secured with Tape Tape -Other Covering ABD -Optilok 6.5x10 1 -Optilok 8x12 -Silvercel 0 #1 RLE LAt Cluster -Ulcer Cleansing Soap and Water Soap and Water Soap and Water -Foul Odor after Cleansing No No No -Negative Pressure Wound Therapy N/A -Primary Dressing Applied Optilok 6.5x10, Silvercel -Other Dressing PER DL RN CLINICAL APPEALS silvercell silvercel -Primary Dressing Covered/Secured with Dry Gauze & Dry Gauze & Dry Gauze & Roll Gauze, Roll Gauze, Roll Gauze, Secured with Secured with Secured with Tape Tape Tape -Other Covering ABD -Optilok 6.5x10 0 -Optilok 8x12 -Silvercel 0 Ashley-Wound Care Bilateral -Multi-Layered Wrap Application Multi-Layer Multi-Layer Multi-Layer Comp - Bilat ($ Comp - Bilat ($ Comp - Bilat ($ ) ) ) -Other PER DL RN CLINICAL APPEALS Treatment Response Procedure Procedure Tolerated Well Tolerated Well Vital Signs Temperature (97.8 F-99.1 F) 98.9 F 97.1 F L Temperature Source Temporal Temporal Pulse Rate (60-100) 107 H 69 Pulse Location Monitor Monitor Respiratory Rate (12-18) 16 Respiratory rate source Observation Oxygen Delivery Method Room Air Blood Pressure (90/60-120/80) 119/80 132/59 H Blood Pressure Mean (mm Hg) 93 83 Source Monitor Monitor Position Sitting Blood Pressure Location Left Arm Pain Scale: 0-10 Numeric Is Patient Pain Free? Yes Yes Yes WC - Visit Discharge Discharge Condition Stable Stable Stable Ambulatory Status Ambulatory Ambulatory Ambulatory Transportation Private Auto Private Auto Private Auto Accompanied by Medication Reconcilliation completed & Yes provided to patient/care provider Clinical Summary of Care Provided Yes Facility Type Orders Sent 08/09/22 09:24 Wound Care Center Nurse 3 5-right garcia -Ulcer Cleansing -Foul Odor after Cleansing -Primary Dressing Applied -Other Dressing -Primary Dressing Covered/Secured with -Optilok 8x12 -Silvercel #4 LLE -Ulcer Cleansing -Foul Odor after Cleansing -Negative Pressure Wound Therapy -Primary Dressing Applied -Other Dressing -Primary Dressing Covered/Secured with -Mepilex Border -Optilok 6.5x10 -Optilok 8x12 -Silvercel #3 LLE MED -Ulcer Cleansing -Foul Odor after Cleansing -Primary Dressing Applied -Other Dressing -Primary Dressing Covered/Secured with -Mepilex Border -Optilok 6.5x10 -Optilok 8x12 -Silvercel #2 RLE Med -Ulcer Cleansing Rinsed/ Irrigated with Saline -Foul Odor after Cleansing No -Negative Pressure Wound Therapy -Primary Dressing Applied -Other Dressing silvercell -Primary Dressing Covered/Secured with Dry Gauze, Secured with Tape -Other Covering -Optilok 6.5x10 -Optilok 8x12 -Silvercel #1 RLE LAt Cluster -Ulcer Cleansing Rinsed/ Irrigated with Saline -Foul Odor after Cleansing No -Negative Pressure Wound Therapy -Primary Dressing Applied Optilok 6.5x10 -Other Dressing silvercell -Primary Dressing Covered/Secured with Dry Gauze & Roll Gauze, Secured with Tape -Other Covering -Optilok 6.5x10 1 -Optilok 8x12 -Silvercel Ashley-Wound Care Bilateral -Multi-Layered Wrap Application Multi-Layer Comp - Bilat ($ ) -Other Treatment Response Procedure Tolerated Well Vital Signs Temperature (97.8 F-99.1 F) Temperature Source Pulse Rate (60-100) Pulse Location Respiratory Rate (12-18) Respiratory rate source Oxygen Delivery Method Blood Pressure (90/60-120/80) Blood Pressure Mean (mm Hg) Source Position Blood Pressure Location Pain Scale: 0-10 Numeric Is Patient Pain Free? Yes WC - Visit Discharge Discharge Condition Stable Ambulatory Status Ambulatory Transportation Private Auto Accompanied by Medication Reconcilliation completed & provided to patient/care provider Clinical Summary of Care Provided Facility Type Orders Sent Assessment/Plan Assessment/Plan (1) Ulcer of right lower extremity with fat layer exposed: CODE(S): L97.912 - Non-pressure chronic ulcer of unspecified part of right lower leg with fat layer exposed (2) Ulcer of left lower extremity, limited to breakdown of skin: CODE(S): L97.921 - Non-pressure chronic ulcer of unspecified part of left lower leg limited to breakdown of skin (3) Bilateral edema of lower extremity: CODE(S): R60.0 - Localized edema (4) Lymphedema of both lower extremities: CODE(S): I89.0 - Lymphedema, not elsewhere classified (5) COPD (chronic obstructive pulmonary disease): CODE(S): J44.9 - Chronic obstructive pulmonary disease, unspecified (6) Requires continuous at home supplemental oxygen: CODE(S): Z99.81 - Dependence on supplemental oxygen (7) Former smoker: CODE(S): Z87.891 - Personal history of nicotine dependence PLAN: Plan Patient evaluated at the wound healing center today. Wound care - Place Silvercel/silver alginate cover with ABD/ super absorber/Kerlix to all the ulcers after washing the ulcers with soap and water at the time of the 3M [address]. [address] extra padding over the excoriated area on her left medial ankle and her right lateral ankle. Place Lac hytrin lotion to non ulcer areas before wrapping ulcers. Compression - 3M 2 layer wraps. She isn't able to have her wraps changed before her next visit due to the holiday and staffing issues. She will try to leave her 3M 2 layer wraps on until next week. IF the wraps start to drop due to getting too loose, will have her remove the 3M 2layer wraps and apply a double tubigrip with YAZMIN wrap for compression until she can have the 3M wraps put back on. Encouraged to elevate legs when sitting. Discussed low sodium diet that is high in protein to help with edema management and wound healing. She would benefit from home compression stockings to help with her lymphedema/edema of her bilateral lower extremities. Now that she is consistently wearing good compression, her thighs are starting to get more edematous. If she gets approved for the compression pumps, I would start her slowly due to her significant COPD history. Encouraged patient not to sleep in chair but if she has to because of her COPD/difficult breathing she needs to be propped up. Encouraged leg elevation. Wound culture obtained on 07/12/22 which was positive for Serratia marcescens and Anaerobic cocci. It is resistant to the Doxycycline her PCP placed her on. Instructed her to stop the Doxycycline. Initially ordered Levaquin but patient read all the side effects and she states her father had a seizure while on Levaquin. Changed Levaquin to Bactrim and then added Metronidazole when the Anaerobic culture came back. She is on Lasix for her edema as prescribed by either her PCP or her pulmonologi st. Referred to Dr. Abreu, bridge ironworker helper for foot and toe nail care, due to the amount of callousing she has on the plantar surfaces of bilateral feet. Follow up one week.
[2022-08-16 08:38] VITALS: BP 157/79; PULSE 95; RESP 22; TEMP 36.4; BMI 44.0
--- NOTE | 2022-08-16 10:24 | PCM.WC.PN ---
History of Present Illness Date of Service: 08/16/22 Chief Complaint: Bilateral leg ulcers History of Wound: 61 year old female presents to the wound healing center with ulcers on her right and left legs that started 5 months ago after being hospitalized for pneumonia and COPD exacerbation. She developed worsening edema and her legs have been weeping. She then bumped her right lateral leg and developed an ulcer that she covers during the day with non adherent dressings. She also has several ulcers that are superficial and weep clear drainage due to the amount of edema she is experiencing. She sleeps in a chair due to difficulty breathing. She typically does not elevate her legs. 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 She was being treated with Doxycycline from her PCP due to a cellulitis of her legs. Reviewed notes from her PCP who saw her on 07/03/22 for cellulitis, ulcer right leg and shortness of breath. Wound culture obtained on 07/12/22 which was positive for Serratia marcescens and Anaerobic cocci. She has been started on Bactrim and Metronidazole. Arterial studies performed on 07/13/22 - Right CRISTINA - 1.27 and Left CRISTINA - 1.21. Triphasic Doppler waveforms are noted at ankle level bilaterally. Pulse-volume recordings appear diminished at digital level on the right, but satisfactory at all other levels bilaterally. Resting ankle-brachial indices are normal bilaterally. The right digital-brachial index is normal. The left digital-brachial index is mildly diminished. Arterial flow appears normal at ankle level bilaterally, and at digital level on the right. There is evidence of mild arterial occlusive disease at digital level on the left. 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 The right great saphenous vein appears segmentally incompetent. The right anterior accessory saphenous vein is incompetent. The left anterior accessory saphenous vein is incompetent. She denies fever, chills, nausea or vomiting. Progress of Wound: Right lateral leg and right medial leg ulcers have improved. She has an excoriated area on her right lateral ankle and her left medial ankle where the 3 M 2 layer wraps are rubbing against her skin. She continues to have moderate to large amount of drainage. Her overall lower extremity edema/lymphedema is improving. She has +3 pitting edema but she states that she is walking better since her edema/lymphedema is improving. She is tolerating the 3M 2layer wraps. She is tolerating the antibiotics that she was placed on for her positive wound cultures. She would benefit from compression hose that she could wear on a daily basis. She would also benefit from home compression pumps to help with her lymphedema. She has lymphedema/edema of her bilateral lower extremities and now that she is having good compression on her lower legs, she is getting increased swelling in her thighs. Objective Data Objective Data Vital Signs: Vital Signs Temp Pulse Resp BP O2 Del Method O2 Flow Rate 97.5 F L 95 22 H 157/79 H Room Air 5 08/16/22 08:38 08/16/22 08:38 08/16/22 08:38 08/16/22 08:38 07/31/22 15:36 07/26/22 08:40 Oxygen Flow Rate (L/min) 5 Oxygen Delivery Method Room Air Weight: 248 lb 8.668 oz Body Mass Index (BMI) 44.0 Charges/Coding Procedures Integumentary 111xxx-113xx: 50440 Eboni subq tissue 20 sq cm/< Add On Codes: 16287 Eboni subq tissue add-on Debridement Note Debridement Note Wound debrided: lateral leg ulcer (#1) and medial leg ulcer (#2) Laterality: Right Type of Debridement: Excisional debridement Anesthesia Used: 4% Lidocaine Solution and 5% Lidocaine Gel Depth: Down to and including healthy tissue and in the subcutaneous layer Percentage of wound debrided: 100 Instrument Used: 7mm curette Tissue Removed: devitalized tissue and slough Severity: Fat Layer Exposed Amount of bleeding with debridement: Mild Bleeding Controlled with: Pressure and Compression and gauze Patient tolerated procedure: Patient tolerated procedure well Debridement Free Text: Moderate amount of thick, ch slough on the lateral leg ulcer. Post-Debridement Measurements and Additional Note: Post-Debridement Measurements/Treatment - Nurse 1 - General Ulcer Assessment Start: 07/19/22 08:34 Freq: Status: Active Protocol: TROY Activity Type Activity Date Activity User E-sign Co-sign Detail Recorded Client Recorded Date Recorded By Document 07/19/22 08:34 [id number] 07/19/22 08:42 Document 07/24/22 15:25 [facility] [id number] 07/24/22 15:28 BMF Document 07/26/22 08:40 DL [id number] 07/26/22 08:53 DL Document 07/31/22 15:36 BMF [id number] 07/31/22 15:42 BMF Document 08/02/22 08:33 DL [id number] 08/02/22 08:43 DL Document 08/07/22 16:20 AK [id number] 08/07/22 16:23 AK Document 08/09/22 08:43 AK [id number] 08/09/22 08:48 AK Document 08/16/22 08:38 DL [id number] 08/16/22 08:47 DL 07/19/22 07/24/22 07/26/22 08:34 15:25 08:40 WC - Today's Visit Information Type of service Follow-up Visit Nurse-only Follow-up Visit (Physician/CYCLE LIAISON Visit (Physician/CYCLE LIAISON ) ) Arrival Mode Ambulatory Ambulatory Ambulatory Transfer Assistance None None Accompanied by Patient Identification Verified (Name & Yes Yes Yes ) Patient Requires Transmission-Based No No No Precautions Height and Weight Body Mass Index (BMI) 44.0 44.0 44.0 BMI Classification Obese Obese Obese Vital Signs Temperature (97.8 F-99.1 F) 97.5 F L 97.5 F L 98 F Temperature Source Temporal Temporal Temporal Pulse Rate (60-100) 117 H 109 H 104 H Pulse Location Monitor Monitor Monitor Respiratory Rate (12-18) 18 18 24 H Respiratory rate source Observation Observation Observation Oxygen Delivery Method Nasal Cannula Nasal Cannula O2 L/MIN (L/min) 4 5 Blood Pressure (90/60-120/80) 164/93 H 159/60 H 144/74 H Blood Pressure Mean (mm Hg) 116 93 97 Source Monitor Monitor Monitor Position Semi-Fowlers Sitting Blood Pressure Location Left Arm Right Forearm History Since Last Visit- (Skip if this is Patient's initial visit) Have you changed medications since your No No last visit? Any new allergies or adverse reactions No No Had a fall/change in ADL's that may No No increase risk of falls Signs or symptoms of abuse and/or No No neglect since last visit Have you been in the hospital since your No No last visit? Has dressing in place as prescribed Yes Yes Has compression in place as prescribed Yes No Has offloadiing in place as prescribed N/A N/A Experienced any changes in pain level or No No management Left Footwear Regular Shoe Regular Shoe Right Footwear Regular Shoe Regular Shoe Pain Scale: 0-10 Numeric Is Patient Pain Free? No Yes Yes right leg -Description Burning -Intensity 8 -Duration (hours) Chronic -Pain Behavior Withdrawal from Touch -Pain Aggravating Factors Walking -Alleviating Factors/Interventions Medication -Effectiveness of Alleviating Factor/ Minimally Intervention effective -Comments Aspirin PRN 07/31/22 08/02/22 08/07/22 15:36 08:33 16:20 WC - Today's Visit Information Type of service Nurse-only Follow-up Visit Nurse-only Visit (Physician/CYCLE LIAISON Visit ) Arrival Mode Ambulatory Ambulatory Ambulatory Transfer Assistance None None Accompanied by Patient Identification Verified (Name & Yes Yes Yes ) Patient Requires Transmission-Based No No No Precautions Height and Weight Body Mass Index (BMI) 44.0 44.0 44.0 BMI Classification Obese Obese Obese Vital Signs Temperature (97.8 F-99.1 F) 98.9 F 97.8 F 97.1 F L Temperature Source Temporal Temporal Temporal Pulse Rate (60-100) 107 H 102 H 69 Pulse Location Monitor Monitor Monitor Respiratory Rate (12-18) 16 22 H Respiratory rate source Observation Observation Oxygen Delivery Method Room Air O2 L/MIN (L/min) Blood Pressure (90/60-120/80) 119/80 155/85 H 132/59 H Blood Pressure Mean (mm Hg) 93 108 83 Source Monitor Monitor Monitor Position Sitting Blood Pressure Location Left Arm History Since Last Visit- (Skip if this is Patient's initial visit) Have you changed medications since your No No last visit? Any new allergies or adverse reactions No No Had a fall/change in ADL's that may No No increase risk of falls Signs or symptoms of abuse and/or No No neglect since last visit Have you been in the hospital since your No No last visit? Has dressing in place as prescribed Yes Yes Has compression in place as prescribed Yes Yes Has offloadiing in place as prescribed N/A N/A Experienced any changes in pain level or No No management Left Footwear Regular Shoe Regular Shoe Right Footwear Regular Shoe Regular Shoe Pain Scale: 0-10 Numeric Is Patient Pain Free? Yes Yes Yes right leg -Description -Intensity -Duration (hours) -Pain Behavior -Pain Aggravating Factors -Alleviating Factors/Interventions -Effectiveness of Alleviating Factor/ Intervention -Comments 08/09/22 08/16/22 08:43 08:38 - Today's Visit Information Type of service Follow-up Visit Follow-up Visit (Physician/CYCLE LIAISON (Physician/CYCLE LIAISON ) ) Arrival Mode Ambulatory Ambulatory Transfer Assistance None Accompanied by Patient Identification Verified (Name & Yes Yes ) Patient Requires Transmission-Based No No Precautions Height and Weight Body Mass Index (BMI) 44.0 44.0 BMI Classification Obese Obese Vital Signs Temperature (97.8 F-99.1 F) 96.7 F L 97.5 F L Temperature Source Temporal Temporal Pulse Rate (60-100) 67 95 Pulse Location Monitor Monitor Respiratory Rate (12-18) 22 H Respiratory rate source Observation Oxygen Delivery Method O2 L/MIN (L/min) Blood Pressure (90/60-120/80) 160/92 H 157/79 H Blood Pressure Mean (mm Hg) 114 105 Source Monitor Monitor Position Blood Pressure Location History Since Last Visit- (Skip if this is Patient's initial visit) Have you changed medications since your No No last visit? Any new allergies or adverse reactions No No Had a fall/change in ADL's that may No No increase risk of falls Signs or symptoms of abuse and/or No No neglect since last visit Have you been in the hospital since your No No last visit? Has dressing in place as prescribed Yes Yes Has compression in place as prescribed Yes Yes Has offloadiing in place as prescribed N/A N/A Experienced any changes in pain level or No No management Left Footwear Regular Shoe Right Footwear Regular Shoe Pain Scale: 0-10 Numeric Is Patient Pain Free? Yes Yes right leg -Description -Intensity -Duration (hours) -Pain Behavior -Pain Aggravating Factors -Alleviating Factors/Interventions -Effectiveness of Alleviating Factor/ Intervention -Comments - Nurse 1 - General Ulcer Measurement Start: 07/19/22 08:34 Freq: Status: Active Protocol: Activity Type Activity Date Activity User E-sign Co-sign Detail Recorded Client Recorded Date Recorded By Document 07/19/22 08:34 [id number] 07/19/22 08:42 Document 07/24/22 15:25 [facility] [id number] 07/24/22 15:28 BMF Document 07/26/22 08:40 DL [id number] 07/26/22 08:53 DL Document 07/31/22 15:36 [facility] [id number] 07/31/22 15:42 [facility] Document 08/02/22 08:33 DL [id number] 08/02/22 08:43 DL Document 08/09/22 08:43 AK [id number] 08/09/22 08:48 AK Document 08/16/22 08:38 DL [id number] 08/16/22 08:47 DL 07/19/22 07/24/22 07/26/22 08:34 15:25 08:40 Wound Center Nurse 1 5-right garcia -Combined with other wound No -Current Size (cm) - Length 0.1 0.1 -Current Size (cm) - Width 0.1 0.1 -Current Size (cm) - Depth 0.1 0.1 -Total Square Cm 0.01 0.01 -Photo Taken No Yes -Epithelialization Large 67-100% -Tunneling No -Undermining/Tunneling No -Circular Undermining No -Exudate Amt Medium -Exudate Type Serosanguineous -Wound Margin Flat & Intact Thickened -Granulation Amt Medium (34-66%) None Present (0 %) -Granulation Quality Red -Slough/Fibrin Yes -Necrosis Amt Small (1-33%) Small (1-33%) -Necrotic Tissue Type Adherent Slough Eschar -Structure Exposed N/A N/A -Texture (Ashley-wound Skin Appearance) Assessed Scarring -Moisture (Ashley-wound Skin Appearance) Assessed Weeping -Color (Ashley-wound Skin Appearance) Assessed, Hemosiderin Hemosiderin Staining Staining -Temperature (Ashley-wound Skin No Abnormality No Abnormality Appearance) (Pt Warm) (Pt Warm) -Tenderness on Palpation (Ashley-wound No Skin Appearance) -Ulcer Cleansing Wound Cleanser Soap and Water -Foul Odor after Cleansing No No -Anesthetic Used 4% Lidocaine 4% Lidocaine Solution Solution #4 LLE -Combined with other wound No -Current Size (cm) - Length 8.5 9.2 -Current Size (cm) - Width 5.2 4.5 -Current Size (cm) - Depth 0.1 0.1 -Total Square Cm 44.20 41.40 -Photo Taken No Yes -Epithelialization Small 1-33% -Tunneling No -Undermining/Tunneling No -Circular Undermining No -Change in Wound Grade/Stage -Exudate Amt Medium Large -Exudate Type Sanguineous Serosanguineous -Wound Margin Flat & Intact Distinct, Outline Attached -Granulation Amt Medium (34-66%) Medium (34-66%) -Granulation Quality Red [place] -Slough/Fibrin Yes -Necrosis Amt Medium (34-66%) Medium (34-66%) -Necrotic Tissue Type Adherent Slough Adherent Slough -Structure Exposed N/A N/A -Texture (Ashley-wound Skin Appearance) Assessed, Scarring Localized Edema -Moisture (Ashley-wound Skin Appearance) Assessed Weeping -Color (Ashley-wound Skin Appearance) Assessed Hemosiderin Staining -Temperature (Ashley-wound Skin No Abnormality No Abnormality Appearance) (Pt Warm) (Pt Warm) -Tenderness on Palpation (Ashley-wound No No Skin Appearance) -Ulcer Cleansing Wound Cleanser Soap and Water -Foul Odor after Cleansing No No -Anesthetic Used 4% Lidocaine 4% Lidocaine Solution,5% Solution Lidocaine Gel #3 LLE MED -Combined with other wound No -Current Size (cm) - Length 10.2 10.3 -Current Size (cm) - Width 7.5 6.1 -Current Size (cm) - Depth 0.1 0.1 -Total Square Cm 76.50 62.83 -Photo Taken No Yes -Epithelialization Medium 34-66% -Tunneling No -Undermining/Tunneling No -Circular Undermining No -Exudate Amt Medium Large -Exudate Type Serosanguineous Serosanguineous -Wound Margin Flat & Intact Distinct, Outline Attached -Granulation Amt Medium (34-66%) Medium (34-66%) -Granulation Quality [place] -Slough/Fibrin Yes -Necrosis Amt Medium (34-66%) Medium (34-66%) -Necrotic Tissue Type Adherent Slough Adherent Slough -Structure Exposed N/A N/A -Texture (Ashley-wound Skin Appearance) Assessed, Scarring Localized Edema -Moisture (Ashley-wound Skin Appearance) Assessed,Dry/ Weeping Scaly -Color (Ashley-wound Skin Appearance) Assessed, Hemosiderin Hemosiderin Staining Staining -Temperature (Ashley-wound Skin No Abnormality No Abnormality Appearance) (Pt Warm) (Pt Warm) -Tenderness on Palpation (Ashley-wound No No Skin Appearance) -Ulcer Cleansing Wound Cleanser Soap and Water -Foul Odor after Cleansing No No -Anesthetic Used 4% Lidocaine 4% Lidocaine Solution Solution #2 RLE Med -Combined with other wound No -Current Size (cm) - Length 2.0 1.8 -Current Size (cm) - Width 1.9 2 -Current Size (cm) - Depth 0.2 0.2 -Total Square Cm 3.80 3.6 -Photo Taken No Yes -Epithelialization Medium 34-66% -Tunneling No -Undermining/Tunneling No -Circular Undermining No -Change in Wound Grade/Stage -Exudate Amt Medium Medium -Exudate Type Serosanguineous Serosanguineous -Wound Margin Flat & Intact Distinct, Outline Attached -Granulation Amt Medium (34-66%) Medium (34-66%) -Granulation Quality [place] Red -Slough/Fibrin Yes -Necrosis Amt Medium (34-66%) Medium (34-66%) -Necrotic Tissue Type Adherent Slough Adherent Slough -Structure Exposed N/A N/A -Texture (Ashley-wound Skin Appearance) Assessed, Localized Edema -Moisture (Ashley-wound Skin Appearance) Assessed,Dry/ Maceration, Scaly Weeping -Color (Ashley-wound Skin Appearance) Assessed Hemosiderin Staining -Temperature (Ashley-wound Skin No Abnormality No Abnormality Appearance) (Pt Warm) (Pt Warm) -Tenderness on Palpation (Ashley-wound No No Skin Appearance) -Ulcer Cleansing Wound Cleanser Soap and Water -Foul Odor after Cleansing No No -Anesthetic Used 4% Lidocaine 4% Lidocaine Solution Solution #1 RLE LAt Cluster -Combined with other wound No -Current Size (cm) - Length 6.0 5.8 -Current Size (cm) - Width 7.2 6.8 -Current Size (cm) - Depth 0.6 0.5 -Total Square Cm 43.20 39.44 -Photo Taken No Yes -Epithelialization Medium 34-66% -Tunneling No -Undermining/Tunneling No -Circular Undermining No -Change in Wound Grade/Stage -Exudate Amt Medium Large -Exudate Type Serosanguineous Serosanguineous -Wound Margin Flat & Intact Distinct, Outline Attached -Granulation Amt Medium (34-66%) Medium (34-66%) -Granulation Quality Red Red -Slough/Fibrin Yes -Necrosis Amt Medium (34-66%) Medium (34-66%) -Necrotic Tissue Type Adherent Slough Adherent Slough -Structure Exposed N/A N/A -Texture (Ashley-wound Skin Appearance) Assessed, Scarring Localized Edema -Moisture (Ashley-wound Skin Appearance) Assessed,Dry/ Maceration, Scaly Weeping -Color (Ashley-wound Skin Appearance) Assessed Hemosiderin Staining -Temperature (Ashley-wound Skin No Abnormality No Abnormality Appearance) (Pt Warm) (Pt Warm) -Tenderness on Palpation (Ashley-wound No No Skin Appearance) -Ulcer Cleansing Wound Cleanser Soap and Water -Foul Odor after Cleansing No No -Anesthetic Used 4% Lidocaine 4% Lidocaine Solution Solution Lower Limb Edema Present Yes Yes Right Calf (cm) 50.6 52.5 47 Right Ankle (cm) 28.5 29.5 28.2 Left Calf (cm) 50.2 53 46 Left Ankle (cm) 28.4 27.9 28.2 07/31/22 08/02/22 08/09/22 15:36 08:33 08:43 Wound Center Nurse 1 5-right garcia -Combined with other wound -Current Size (cm) - Length -Current Size (cm) - Width -Current Size (cm) - Depth -Total Square Cm -Photo Taken -Epithelialization -Tunneling -Undermining/Tunneling -Circular Undermining -Exudate Amt -Exudate Type -Wound Margin -Granulation Amt -Granulation Quality -Slough/Fibrin -Necrosis Amt -Necrotic Tissue Type -Structure Exposed -Texture (Ashley-wound Skin Appearance) -Moisture (Ashley-wound Skin Appearance) -Color (Ashley-wound Skin Appearance) -Temperature (Ashley-wound Skin Appearance) -Tenderness on Palpation (Ashley-wound Skin Appearance) -Ulcer Cleansing -Foul Odor after Cleansing -Anesthetic Used #4 LLE -Combined with other wound No -Current Size (cm) - Length 0.1 2.4 -Current Size (cm) - Width 0.1 1.5 -Current Size (cm) - Depth 0.1 0.1 -Total Square Cm 0.01 3.60 -Photo Taken Yes No -Epithelialization -Tunneling No -Undermining/Tunneling No -Circular Undermining No -Change in Wound Grade/Stage No -Exudate Amt None Present Medium -Exudate Type Serosanguineous -Wound Margin Indistinct, Non Distinct, -Visible Outline Attached -Granulation Amt Large (67-100%) Large (67-100%) -Granulation Quality [place] -Slough/Fibrin No No -Necrosis Amt None Present (0 None Present (0 %) %) -Necrotic Tissue Type -Structure Exposed N/A N/A -Texture (Ashley-wound Skin Appearance) Scarring No Abnormality, Assessed -Moisture (Ashley-wound Skin Appearance) Dry/Scaly Assessed, Maceration -Color (Ashley-wound Skin Appearance) Hemosiderin No Abnormality, Staining Assessed -Temperature (Ashley-wound Skin No Abnormality No Abnormality Appearance) (Pt Warm) (Pt Warm) -Tenderness on Palpation (Ashley-wound Yes No Skin Appearance) -Ulcer Cleansing Soap and Water Soap and Water -Foul Odor after Cleansing No No -Anesthetic Used 4% Lidocaine 4% Lidocaine Solution Solution #3 LLE MED -Combined with other wound -Current Size (cm) - Length 0.1 -Current Size (cm) - Width 0.1 -Current Size (cm) - Depth 0.1 -Total Square Cm 0.01 -Photo Taken Yes -Epithelialization -Tunneling -Undermining/Tunneling -Circular Undermining -Exudate Amt None Present -Exudate Type -Wound Margin Indistinct, Non -Visible -Granulation Amt Large (67-100%) -Granulation Quality [place] -Slough/Fibrin -Necrosis Amt None Present (0 %) -Necrotic Tissue Type -Structure Exposed N/A -Texture (Ashley-wound Skin Appearance) Scarring -Moisture (Ashley-wound Skin Appearance) Dry/Scaly -Color (Ashley-wound Skin Appearance) Hemosiderin Staining -Temperature (Ashley-wound Skin No Abnormality Appearance) (Pt Warm) -Tenderness on Palpation (Ashley-wound No Skin Appearance) -Ulcer Cleansing Soap and Water -Foul Odor after Cleansing No -Anesthetic Used 4% Lidocaine Solution #2 RLE Med -Combined with other wound No -Current Size (cm) - Length 2 1.8 -Current Size (cm) - Width 1 1.2 -Current Size (cm) - Depth 0.2 0.1 -Total Square Cm 2 2.16 -Photo Taken Yes No -Epithelialization -Tunneling No -Undermining/Tunneling No -Circular Undermining No -Change in Wound Grade/Stage No -Exudate Amt Medium None Present -Exudate Type Serosanguineous -Wound Margin Distinct, Distinct, Outline Outline Attached Attached -Granulation Amt Medium (34-66%) None Present (0 %) -Granulation Quality Red N/A -Slough/Fibrin Yes -Necrosis Amt Medium (34-66%) Large (67-100%) -Necrotic Tissue Type Adherent Slough Adherent Slough -Structure Exposed N/A N/A -Texture (Ashley-wound Skin Appearance) Scarring No Abnormality, Assessed -Moisture (Ashley-wound Skin Appearance) Dry/Scaly No Abnormality, Assessed -Color (Ashley-wound Skin Appearance) Hemosiderin No Abnormality, Staining Assessed -Temperature (Ashley-wound Skin No Abnormality No Abnormality Appearance) (Pt Warm) (Pt Warm) -Tenderness on Palpation (Ashley-wound No No Skin Appearance) -Ulcer Cleansing Soap and Water Soap and Water -Foul Odor after Cleansing No No -Anesthetic Used 4% Lidocaine 4% Lidocaine Solution Solution,5% Lidocaine Gel #1 RLE LAt Cluster -Combined with other wound No -Current Size (cm) - Length 5.6 5.3 -Current Size (cm) - Width 3.2 5.8 -Current Size (cm) - Depth 0.2 0.1 -Total Square Cm 17.92 30.74 -Photo Taken Yes No -Epithelialization -Tunneling No -Undermining/Tunneling No -Circular Undermining No -Change in Wound Grade/Stage No -Exudate Amt Medium Medium -Exudate Type Serosanguineous Serosanguineous -Wound Margin Distinct, Distinct, Outline Outline Attached Attached -Granulation Amt Medium (34-66%) None Present (0 %) -Granulation Quality Red N/A -Slough/Fibrin Yes -Necrosis Amt Medium (34-66%) Large (67-100%) -Necrotic Tissue Type Adherent Slough Adherent Slough -Structure Exposed N/A N/A -Texture (Ashley-wound Skin Appearance) Scarring Assessed, Excoriation -Moisture (Ashley-wound Skin Appearance) Dry/Scaly Assessed, Maceration, Weeping -Color (Ashley-wound Skin Appearance) Hemosiderin No Abnormality, Staining Assessed -Temperature (Ashley-wound Skin No Abnormality No Abnormality Appearance) (Pt Warm) (Pt Warm) -Tenderness on Palpation (Ashley-wound No No Skin Appearance) -Ulcer Cleansing Soap and Water Soap and Water -Foul Odor after Cleansing No No -Anesthetic Used 4% Lidocaine 4% Lidocaine Solution Solution Lower Limb Edema Present Yes Right Calf (cm) 46.5 45.6 48 Right Ankle (cm) 27.7 27.3 28 Left Calf (cm) 46.5 46 46 Left Ankle (cm) 29 27.5 29 08/16/22 08:38 Wound Center Nurse 1 5-right garcia -Combined with other wound -Current Size (cm) - Length -Current Size (cm) - Width -Current Size (cm) - Depth -Total Square Cm -Photo Taken -Epithelialization -Tunneling -Undermining/Tunneling -Circular Undermining -Exudate Amt -Exudate Type -Wound Margin -Granulation Amt -Granulation Quality -Slough/Fibrin -Necrosis Amt -Necrotic Tissue Type -Structure Exposed -Texture (Ashley-wound Skin Appearance) -Moisture (Ashley-wound Skin Appearance) -Color (Ashley-wound Skin Appearance) -Temperature (Ashley-wound Skin Appearance) -Tenderness on Palpation (Ashley-wound Skin Appearance) -Ulcer Cleansing -Foul Odor after Cleansing -Anesthetic Used #4 LLE -Combined with other wound -Current Size (cm) - Length -Current Size (cm) - Width -Current Size (cm) - Depth -Total Square Cm -Photo Taken -Epithelialization -Tunneling -Undermining/Tunneling -Circular Undermining -Change in Wound Grade/Stage -Exudate Amt -Exudate Type -Wound Margin -Granulation Amt -Granulation Quality -Slough/Fibrin -Necrosis Amt -Necrotic Tissue Type -Structure Exposed -Texture (Ashley-wound Skin Appearance) -Moisture (Ashley-wound Skin Appearance) -Color (Ashley-wound Skin Appearance) -Temperature (Ashley-wound Skin Appearance) -Tenderness on Palpation (Ashley-wound Skin Appearance) -Ulcer Cleansing -Foul Odor after Cleansing -Anesthetic Used #3 LLE MED -Combined with other wound -Current Size (cm) - Length -Current Size (cm) - Width -Current Size (cm) - Depth -Total Square Cm -Photo Taken -Epithelialization -Tunneling -Undermining/Tunneling -Circular Undermining -Exudate Amt -Exudate Type -Wound Margin -Granulation Amt -Granulation Quality -Slough/Fibrin -Necrosis Amt -Necrotic Tissue Type -Structure Exposed -Texture (Ashley-wound Skin Appearance) -Moisture (Ashley-wound Skin Appearance) -Color (Ashley-wound Skin Appearance) -Temperature (Ashley-wound Skin Appearance) -Tenderness on Palpation (Ashley-wound Skin Appearance) -Ulcer Cleansing -Foul Odor after Cleansing -Anesthetic Used #2 RLE Med -Combined with other wound -Current Size (cm) - Length 0.5 -Current Size (cm) - Width 0.5 -Current Size (cm) - Depth 0.1 -Total Square Cm 0.25 -Photo Taken No -Epithelialization -Tunneling -Undermining/Tunneling -Circular Undermining -Change in Wound Grade/Stage -Exudate Amt Medium -Exudate Type Serosanguineous -Wound Margin Distinct, Outline Attached -Granulation Amt Small (1-33%) -Granulation Quality Red -Slough/Fibrin -Necrosis Amt Small (1-33%) -Necrotic Tissue Type Adherent Slough -Structure Exposed N/A -Texture (Ashley-wound Skin Appearance) Scarring -Moisture (Ashley-wound Skin Appearance) Dry/Scaly -Color (Ashley-wound Skin Appearance) Hemosiderin Staining -Temperature (Ashley-wound Skin No Abnormality Appearance) (Pt Warm) -Tenderness on Palpation (Ashley-wound No Skin Appearance) -Ulcer Cleansing Soap and Water -Foul Odor after Cleansing No -Anesthetic Used 5% Lidocaine Gel #1 RLE LAt Cluster -Combined with other wound -Current Size (cm) - Length 5 -Current Size (cm) - Width 5.8 -Current Size (cm) - Depth 0.2 -Total Square Cm 29.0 -Photo Taken No -Epithelialization -Tunneling -Undermining/Tunneling -Circular Undermining -Change in Wound Grade/Stage -Exudate Amt Medium -Exudate Type Serosanguineous -Wound Margin Distinct, Outline Attached -Granulation Amt Large (67-100%) -Granulation Quality Red -Slough/Fibrin -Necrosis Amt Small (1-33%) -Necrotic Tissue Type Adherent Slough -Structure Exposed -Texture (Ashley-wound Skin Appearance) Scarring -Moisture (Ashley-wound Skin Appearance) Dry/Scaly -Color (Ashley-wound Skin Appearance) Hemosiderin Staining -Temperature (Ashley-wound Skin No Abnormality Appearance) (Pt Warm) -Tenderness on Palpation (Ashley-wound No Skin Appearance) -Ulcer Cleansing Soap and Water -Foul Odor after Cleansing No -Anesthetic Used 4% Lidocaine Solution Lower Limb Edema Present Right Calf (cm) 43 Right Ankle (cm) 27 Left Calf (cm) 42 Left Ankle (cm) 26.5 WC - Nurse 2 - General Ulcer CM Notes Start: 07/19/22 08:34 Freq: Status: Active Protocol: Activity Type Activity Date Activity User E-sign Co-sign Detail Recorded Client Recorded Date Recorded By Document 07/19/22 09:00 [id number] 07/19/22 09:14 Document 07/26/22 09:07 Desktop 07/26/22 09:15 Document 08/02/22 08:50 [id number] 08/02/22 09:04 Document 08/09/22 08:50 [id number] 08/09/22 08:59 Document 08/16/22 08:55 [id number] 08/16/22 08:58 07/19/22 07/26/22 08/02/22 09:00 09:07 08:50 Wound Center Nurse 2 5-right garcia -Time 09:10 09:07 -Correct Patient Yes No -Correct Side, Site, Position Yes No -Correct Procedure Yes No -Procedure Performed Yes No -Type of Procedure Debridement -Clinical Debridement Subcutaneous -Tissue Removed Subcutaneous -Post Debridement (cm) - Length 1.5 0 -Post Debridement (cm) - Width 2.2 0 -Post Debridement (cm) - Depth 0.1 0 -Total Square (Post) (cm) 3.30 0 -Area of Debridement (cm) - Length 1.5 0 -Area of Debridement (cm) - Width 2.2 0 -Total Square (Area) (cm) 3.30 0 -Tunneling No No -Undermining/Tunneling No No -Circular Undermining No No -Wound/Ulcer Outcome Not Healed Healed- Epithelialized -Ulcer Cleansing Rinsed/ Rinsed/ Irrigated with Irrigated with Saline Saline -Foul Odor after Cleansing No No -Bioengineered Tissue No No -Bleeding Controlled with Pressure Pressure -Treatment Response Procedure Procedure Tolerated Well Tolerated Well -Offloading No No -Debridement - Subq, 1st 20sq cm No No #4 LLE -Time 09:00 09:07 08:50 -Correct Patient Yes Yes Yes -Correct Side, Site, Position Yes Yes Yes -Correct Procedure Yes Yes Yes -Procedure Performed Yes Yes Yes -Type of Procedure Debridement Debridement Debridement -Clinical Debridement Subcutaneous Subcutaneous Subcutaneous -Tissue Removed Subcutaneous Subcutaneous Subcutaneous -Post Debridement (cm) - Length 9.5 9.5 4 -Post Debridement (cm) - Width 5.4 6.0 3 -Post Debridement (cm) - Depth 0.1 0.1 0.1 -Total Square (Post) (cm) 51.30 57.00 12 -Area of Debridement (cm) - Length 9.5 9.5 4 -Area of Debridement (cm) - Width 5.4 6 3 -Total Square (Area) (cm) 51.30 57.0 12 -Tunneling No No No -Undermining/Tunneling No No No -Circular Undermining No No No -Wound/Ulcer Outcome Not Healed Not Healed Not Healed -Ulcer Cleansing Rinsed/ Rinsed/ Rinsed/ Irrigated with Irrigated with Irrigated with Saline Saline Saline -Foul Odor after Cleansing No No No -Bioengineered Tissue No No No -Bleeding Controlled with Pressure Pressure Pressure -Treatment Response Procedure Procedure Tolerated Well Tolerated Well -Offloading No No No -Debridement - Subq, 1st 20sq cm No No No #3 LLE MED -Time 09:01 09:09 08:51 -Correct Patient Yes Yes No -Correct Side, Site, Position Yes Yes No -Correct Procedure Yes Yes No -Procedure Performed Yes Yes No -Type of Procedure Debridement Debridement -Clinical Debridement Subcutaneous Subcutaneous -Tissue Removed Subcutaneous Subcutaneous -Post Debridement (cm) - Length 11.0 12 0 -Post Debridement (cm) - Width 7.5 7 0 -Post Debridement (cm) - Depth 0.1 0.1 0 -Total Square (Post) (cm) 82.50 84 0 -Area of Debridement (cm) - Length 11 12 0 -Area of Debridement (cm) - Width 7.5 7 0 -Total Square (Area) (cm) 82.5 84 0 -Tunneling No No No -Undermining/Tunneling No No No -Circular Undermining No No No -Wound/Ulcer Outcome Not Healed Not Healed Healed- Epithelialized -Ulcer Cleansing Rinsed/ Rinsed/ Rinsed/ Irrigated with Irrigated with Irrigated with Saline Saline Saline -Foul Odor after Cleansing No No No -Bioengineered Tissue No No No -Bleeding Controlled with Pressure Pressure Pressure -Treatment Response Procedure Procedure Procedure Tolerated Well Tolerated Well Tolerated Well -Offloading No No No -Debridement - Subq, 1st 20sq cm No No No #2 RLE Med -Time : 09:09 08:51 -Correct Patient Yes Yes Yes -Correct Side, Site, Position Yes Yes Yes -Correct Procedure Yes Yes Yes -Procedure Performed Yes Yes Yes -Type of Procedure Debridement Debridement Debridement -Clinical Debridement Subcutaneous Subcutaneous Subcutaneous -Tissue Removed Subcutaneous Subcutaneous Subcutaneous -Post Debridement (cm) - Length 2.0 2.1 2.5 -Post Debridement (cm) - Width 2.0 2 1.8 -Post Debridement (cm) - Depth 0.3 0.3 0.1 -Total Square (Post) (cm) 4.00 4.2 4.50 -Area of Debridement (cm) - Length 2.0 2.1 2.5 -Area of Debridement (cm) - Width 2.0 2.0 1.8 -Total Square (Area) (cm) 4.00 4.20 4.50 -Tunneling No No No -Undermining/Tunneling No No No -Circular Undermining No No No -Wound/Ulcer Outcome Not Healed Not Healed Not Healed -Ulcer Cleansing Rinsed/ Rinsed/ Rinsed/ Irrigated with Irrigated with Irrigated with Saline Saline Saline -Foul Odor after Cleansing No No No -Bioengineered Tissue No No No -Bleeding Controlled with Pressure Pressure Pressure -Treatment Response Procedure Procedure Procedure Tolerated Well Tolerated Well Tolerated Well -Offloading No No No -Debridement - Subq, 1st 20sq cm No No No #1 RLE [facility] Cluster -Time : 09:10 08:52 -Correct Patient Yes Yes Yes -Correct Side, Site, Position Yes Yes Yes -Correct Procedure Yes Yes Yes -Procedure Performed Yes Yes Yes -Type of Procedure Debridement Debridement Debridement -Clinical Debridement Subcutaneous Subcutaneous Subcutaneous -Tissue Removed Subcutaneous Subcutaneous Subcutaneous -Post Debridement (cm) - Length 8.8 5.7 5.7 -Post Debridement (cm) - Width 7.3 6.8 6.3 -Post Debridement (cm) - Depth 0.5 0.6 0.3 -Total Square (Post) (cm) 64.24 38.76 35.91 -Area of Debridement (cm) - Length 8.8 5.7 5.7 -Area of Debridement (cm) - Width 7.3 6.8 6.3 -Total Square (Area) (cm) 64.24 38.76 35.91 -Tunneling No No No -Undermining/Tunneling No No No -Circular Undermining No No No -Wound/Ulcer Outcome Not Healed Not Healed Not Healed -Ulcer Cleansing Rinsed/ Rinsed/ Rinsed/ Irrigated with Irrigated with Irrigated with Saline Saline Saline -Foul Odor after Cleansing No No No -Bioengineered Tissue No No No -Bleeding Controlled with Pressure Pressure Pressure -Treatment Response Procedure Procedure Procedure Tolerated Well Tolerated Well Tolerated Well -Offloading No No No -Debridement - Subq, 1st 20sq cm Yes Yes Yes -Debridement, SubQ, ea addt'l 20sq cm 10 9 2 or part thereof Pain Scale: 0-10 Numeric Is Patient Pain Free? Yes Yes Yes 08/09/22 08/16/22 08:50 08:55 Wound Center Nurse 2 5-right garcia -Time -Correct Patient -Correct Side, Site, Position -Correct Procedure -Procedure Performed -Type of Procedure -Clinical Debridement -Tissue Removed -Post Debridement (cm) - Length -Post Debridement (cm) - Width -Post Debridement (cm) - Depth -Total Square (Post) (cm) -Area of Debridement (cm) - Length -Area of Debridement (cm) - Width -Total Square (Area) (cm) -Tunneling -Undermining/Tunneling -Circular Undermining -Wound/Ulcer Outcome -Ulcer Cleansing -Foul Odor after Cleansing -Bioengineered Tissue -Bleeding Controlled with -Treatment Response -Offloading -Debridement - Subq, 1st 20sq cm #4 LLE -Time 08:51 -Correct Patient No -Correct Side, Site, Position No -Correct Procedure No -Procedure Performed No -Type of Procedure -Clinical Debridement -Tissue Removed -Post Debridement (cm) - Length 0 -Post Debridement (cm) - Width 0 -Post Debridement (cm) - Depth 0 -Total Square (Post) (cm) 0 -Area of Debridement (cm) - Length 0 -Area of Debridement (cm) - Width 0 -Total Square (Area) (cm) 0 -Tunneling -Undermining/Tunneling -Circular Undermining -Wound/Ulcer Outcome Healed- Epithelialized -Ulcer Cleansing -Foul Odor after Cleansing -Bioengineered Tissue -Bleeding Controlled with -Treatment Response -Offloading -Debridement - Subq, 1st 20sq cm #3 LLE MED -Time -Correct Patient -Correct Side, Site, Position -Correct Procedure -Procedure Performed -Type of Procedure -Clinical Debridement -Tissue Removed -Post Debridement (cm) - Length -Post Debridement (cm) - Width -Post Debridement (cm) - Depth -Total Square (Post) (cm) -Area of Debridement (cm) - Length -Area of Debridement (cm) - Width -Total Square (Area) (cm) -Tunneling -Undermining/Tunneling -Circular Undermining -Wound/Ulcer Outcome -Ulcer Cleansing -Foul Odor after Cleansing -Bioengineered Tissue -Bleeding Controlled with -Treatment Response -Offloading -Debridement - Subq, 20sq cm #2 RLE Med -Time 08:55 08:55 -Correct Patient Yes Yes -Correct Side, Site, Position Yes Yes -Correct Procedure Yes Yes -Procedure Performed Yes Yes -Type of Procedure Debridement Debridement -Clinical Debridement Subcutaneous Subcutaneous -Tissue Removed Subcutaneous Subcutaneous -Post Debridement (cm) - Length 1.3 1.3 -Post Debridement (cm) - Width 1.2 1.0 -Post Debridement (cm) - Depth 0.1 0.1 -Total Square (Post) (cm) 1.56 1.30 -Area of Debridement (cm) - Length 1.3 1.3 -Area of Debridement (cm) - Width 1.2 1.0 -Total Square (Area) (cm) 1.56 1.30 -Tunneling No No -Undermining/Tunneling No No -Circular Undermining No No -Wound/Ulcer Outcome Not Healed Not Healed -Ulcer Cleansing Rinsed/ Rinsed/ Irrigated with Irrigated with Saline Saline -Foul Odor after Cleansing No No -Bioengineered Tissue No No -Bleeding Controlled with Pressure Pressure -Treatment Response Procedure Procedure Tolerated Well Tolerated Well -Offloading No No -Debridement - Subq, 1st 20sq cm No No #1 RLE LAt Cluster -Time 08:52 08:56 -Correct Patient Yes Yes -Correct Side, Site, Position Yes Yes -Correct Procedure Yes Yes -Procedure Performed Yes Yes -Type of Procedure Debridement Debridement -Clinical Debridement Subcutaneous Subcutaneous -Tissue Removed Subcutaneous Subcutaneous -Post Debridement (cm) - Length 5.6 5.3 -Post Debridement (cm) - Width 6.3 5.5 -Post Debridement (cm) - Depth 0.2 0.2 -Total Square (Post) (cm) 35.28 29.15 -Area of Debridement (cm) - Length 5.6 5.3 -Area of Debridement (cm) - Width 6.3 5.5 -Total Square (Area) (cm) 35.28 29.15 -Tunneling No No -Undermining/Tunneling No No -Circular Undermining No No -Wound/Ulcer Outcome Not Healed Not Healed -Ulcer Cleansing Rinsed/ Rinsed/ Irrigated with Irrigated with Saline Saline -Foul Odor after Cleansing No No -Bioengineered Tissue No No -Bleeding Controlled with Pressure Pressure -Treatment Response Procedure Procedure Tolerated Well Tolerated Well -Offloading No No -Debridement - Subq, 1st 20sq cm Yes Yes -Debridement, SubQ, ea addt'l 20sq cm 1 1 or part thereof Pain Scale: 0-10 Numeric Is Patient Pain Free? Yes Yes WC - Nurse 3 - General Ulcer D/C NN Start: 07/19/22 08:34 Freq: Status: Active Protocol: Activity Type Activity Date Activity User E-sign Co-sign Detail Recorded Client Recorded Date Recorded By Document 07/19/22 11:51 DL [id number] 07/19/22 11:56 DL Edit Result 07/19/22 11:51 DL (1) [id number] 07/20/22 07:00 PL Document 07/24/22 15:25 [facility] [id number] 07/24/22 15:28 [facility] Document 07/26/22 09:45 DL [id number] 07/26/22 09:47 DL Document 07/31/22 15:36 [facility] [id number] 07/31/22 15:42 [facility] Document 08/02/22 11:24 DL [id number] 08/02/22 11:25 DL Document 08/07/22 16:20 AK [id number] 08/07/22 16:23 [place] Document 08/09/22 09:24 DL [id number] 08/09/22 09:26 DL Document 08/16/22 09:10 DL [id number] 08/16/22 09:12 DL (1) Bilateral - Multi-Layered Wrap Application => Multi-Layer Comp - => Bilat ($) 07/19/22 07/24/22 07/26/22 11:51 15:25 09:45 Wound Care Center Nurse 3 5-right garcia -Ulcer Cleansing Rinsed/ Soap and Water Irrigated with Saline -Foul Odor after Cleansing No No -Primary Dressing Applied Silvercel Optilok 8x12, Silvercel -Other Dressing silvercel -Primary Dressing Covered/Secured with Dry Gauze & Dry Gauze & Roll Gauze, Roll Gauze, Secured with Secured with Tape Tape -Optilok 8x12 4 -Silvercel 1 1 #4 LLE -Ulcer Cleansing Rinsed/ Soap and Water Soap and Water Irrigated with Saline -Foul Odor after Cleansing No No No -Negative Pressure Wound Therapy -Primary Dressing Applied Silvercel, Optilok 8x12, Optilok 6.5x10 Mepilex Border Silvercel -Other Dressing silvercell -Primary Dressing Covered/Secured with Dry Gauze & Dry Gauze & Roll Gauze, Roll Gauze, Secured with Secured with Tape Tape -Mepilex Border 1 -Optilok 6.5x10 1 -Optilok 8x12 0 -Silvercel 1 0 #3 LLE MED -Ulcer Cleansing Rinsed/ Soap and Water Soap and Water Irrigated with Saline -Foul Odor after Cleansing No No No -Primary Dressing Applied Mepilex Border Optilok 8x12, Optilok 6.5x10 Silvercel -Other Dressing SILVERCELL silvercell -Primary Dressing Covered/Secured with Dry Gauze & Dry Gauze & Dry Gauze & Roll Gauze, Roll Gauze, Roll Gauze, Secured with Secured with Secured with Tape Tape Tape -Mepilex Border 1 -Optilok 6.5x10 1 -Optilok 8x12 0 -Silvercel 0 #2 RLE Med -Ulcer Cleansing Rinsed/ Soap and Water Soap and Water Irrigated with Saline -Foul Odor after Cleansing No No No -Negative Pressure Wound Therapy -Primary Dressing Applied Optilok 8x12, Silvercel -Other Dressing SILVERCELL silvercell -Primary Dressing Covered/Secured with Dry Gauze & Dry Gauze & Dry Gauze & Roll Gauze, Roll Gauze, Roll Gauze, Secured with Secured with Secured with Tape Tape Tape -Other Covering -Optilok 6.5x10 -Optilok 8x12 0 -Silvercel 0 #1 RLE LAt Cluster -Ulcer Cleansing Rinsed/ Soap and Water Soap and Water Irrigated with Saline -Foul Odor after Cleansing No No No -Negative Pressure Wound Therapy -Primary Dressing Applied Optilok 6.5x10 Optilok 8x12, Optilok 6.5x10 Silvercel -Other Dressing SILVERCELL silvercell -Primary Dressing Covered/Secured with Dry Gauze & Dry Gauze & Dry Gauze & Roll Gauze, Roll Gauze, Roll Gauze, Secured with Secured with Secured with Tape Tape Tape -Other Covering -Optilok 6.5x10 1 1 -Optilok 8x12 0 -Silvercel 0 Ashley-Wound Care Lotion Bilateral -Multi-Layered Wrap Application Multi-Layer Multi-Layer Multi-Layer Comp - Bilat ($ Comp - Bilat ($ Comp - Bilat ($ ) ) ) -Other Treatment Response Procedure Procedure Procedure Tolerated Well Tolerated Well Tolerated Well Vital Signs Temperature (97.8 F-99.1 F) 97.5 F L Temperature Source Temporal Pulse Rate (60-100) 109 H Pulse Location Monitor Respiratory Rate (12-18) 18 Respiratory rate source Observation Oxygen Delivery Method Nasal Cannula Blood Pressure (90/60-120/80) 159/60 H Blood Pressure Mean (mm Hg) 93 Source Monitor Position Sitting Blood Pressure Location Right Forearm Pain Scale: 0-10 Numeric Is Patient Pain Free? Yes Yes Yes WC - Visit Discharge Discharge Condition Stable Stable Stable Ambulatory Status Ambulatory Ambulatory Ambulatory Transportation Private Auto Private Auto Private Auto Accompanied by fabrizio Medication Reconcilliation completed & provided to patient/care provider Clinical Summary of Care Provided Facility Type Home Health Orders Sent Yes 07/31/22 08/02/22 08/07/22 15:36 11:24 16:20 Wound Care Center Nurse 3 5-right garcia -Ulcer Cleansing -Foul Odor after Cleansing -Primary Dressing Applied -Other Dressing -Primary Dressing Covered/Secured with -Optilok 8x12 -Silvercel #4 LLE -Ulcer Cleansing Soap and Water Soap and Water Soap and Water -Foul Odor after Cleansing No No No -Negative Pressure Wound Therapy N/A -Primary Dressing Applied Optilok 6.5x10, Optilok 6.5x10, Silvercel Silvercel -Other Dressing PER DL SAS ANALYST silvercel -Primary Dressing Covered/Secured with Dry Gauze & Dry Gauze,Dry Roll Gauze, Gauze & Roll Secured with Gauze Tape -Mepilex Border -Optilok 6.5x10 1 1 -Optilok 8x12 -Silvercel 1 0 #3 LLE MED -Ulcer Cleansing Soap and Water -Foul Odor after Cleansing No -Primary Dressing Applied Optilok 6.5x10, Silvercel -Other Dressing PER DL SAS ANALYST -Primary Dressing Covered/Secured with Dry Gauze & Roll Gauze, Secured with Tape -Mepilex Border -Optilok 6.5x10 0 -Optilok 8x12 -Silvercel 0 #2 RLE Med -Ulcer Cleansing Soap and Water Soap and Water Soap and Water -Foul Odor after Cleansing No No No -Negative Pressure Wound Therapy N/A -Primary Dressing Applied Optilok 6.5x10, Silvercel -Other Dressing PER DL SAS ANALYST silvercell silvercel -Primary Dressing Covered/Secured with Dry Gauze & Dry Gauze & Roll Gauze, Roll Gauze, Secured with Secured with Tape Tape -Other Covering ABD -Optilok 6.5x10 1 -Optilok 8x12 -Silvercel 0 #1 RLE LAt Cluster -Ulcer Cleansing Soap and Water Soap and Water Soap and Water -Foul Odor after Cleansing No No No -Negative Pressure Wound Therapy N/A -Primary Dressing Applied Optilok 6.5x10, Silvercel -Other Dressing PER DL SAS ANALYST silvercell silvercel -Primary Dressing Covered/Secured with Dry Gauze & Dry Gauze & Dry Gauze & Roll Gauze, Roll Gauze, Roll Gauze, Secured with Secured with Secured with Tape Tape Tape -Other Covering ABD -Optilok 6.5x10 0 -Optilok 8x12 -Silvercel 0 Ashley-Wound Care Bilateral -Multi-Layered Wrap Application Multi-Layer Multi-Layer Multi-Layer Comp - Bilat ($ Comp - Bilat ($ Comp - Bilat ($ ) ) ) -Other PER DL SAS ANALYST Treatment Response Procedure Procedure Tolerated Well Tolerated Well Vital Signs Temperature (97.8 F-99.1 F) 98.9 F 97.1 F L Temperature Source Temporal Temporal Pulse Rate (60-100) 107 H 69 Pulse Location Monitor Monitor Respiratory Rate (12-18) 16 Respiratory rate source Observation Oxygen Delivery Method Room Air Blood Pressure (90/60-120/80) 119/80 132/59 H Blood Pressure Mean (mm Hg) 93 83 Source Monitor Monitor Position Sitting Blood Pressure Location Left Arm Pain Scale: 0-10 Numeric Is Patient Pain Free? Yes Yes Yes WC - Visit Discharge Discharge Condition Stable Stable Stable Ambulatory Status Ambulatory Ambulatory Ambulatory Transportation Private Auto Private Auto Private Auto Accompanied by Medication Reconcilliation completed & Yes provided to patient/care provider Clinical Summary of Care Provided Yes Facility Type Orders Sent 08/09/22 08/16/22 09:24 09:10 Wound Care Center Nurse 3 5-right garcia -Ulcer Cleansing -Foul Odor after Cleansing -Primary Dressing Applied -Other Dressing -Primary Dressing Covered/Secured with -Optilok 8x12 -Silvercel #4 LLE -Ulcer Cleansing -Foul Odor after Cleansing -Negative Pressure Wound Therapy -Primary Dressing Applied -Other Dressing -Primary Dressing Covered/Secured with -Mepilex Border -Optilok 6.5x10 -Optilok 8x12 -Silvercel #3 LLE MED -Ulcer Cleansing -Foul Odor after Cleansing -Primary Dressing Applied -Other Dressing -Primary Dressing Covered/Secured with -Mepilex Border -Optilok 6.5x10 -Optilok 8x12 -Silvercel #2 RLE Med -Ulcer Cleansing Rinsed/ Rinsed/ Irrigated with Irrigated with Saline Saline -Foul Odor after Cleansing No No -Negative Pressure Wound Therapy -Primary Dressing Applied -Other Dressing silvercell ABD/ silvercell -Primary Dressing Covered/Secured with Dry Gauze, Dry Gauze & Secured with Roll Gauze, Tape Secured with Tape -Other Covering -Optilok 6.5x10 -Optilok 8x12 -Silvercel #1 RLE LAt Cluster -Ulcer Cleansing Rinsed/ Soap and Water Irrigated with Saline -Foul Odor after Cleansing No No -Negative Pressure Wound Therapy -Primary Dressing Applied Optilok 6.5x10 -Other Dressing silvercell silvercell/ABD -Primary Dressing Covered/Secured with Dry Gauze & Dry Gauze & Roll Gauze, Roll Gauze, Secured with Secured with Tape Tape -Other Covering -Optilok 6.5x10 1 -Optilok 8x12 -Silvercel Ashley-Wound Care Bilateral -Multi-Layered Wrap Application Multi-Layer Multi-Layer Comp - Bilat ($ Comp - Bilat ($ ) ) -Other Treatment Response Procedure Tolerated Well Vital Signs Temperature (97.8 F-99.1 F) Temperature Source Pulse Rate (60-100) Pulse Location Respiratory Rate (12-18) Respiratory rate source Oxygen Delivery Method Blood Pressure (90/60-120/80) Blood Pressure Mean (mm Hg) Source Position Blood Pressure Location Pain Scale: 0-10 Numeric Is Patient Pain Free? Yes Yes WC - Visit Discharge Discharge Condition Stable Stable Ambulatory Status Ambulatory Ambulatory Transportation Private Auto Private Auto Accompanied by Medication Reconcilliation completed & provided to patient/care provider Clinical Summary of Care Provided Facility Type Orders Sent Assessment/Plan Assessment/Plan (1) Ulcer of right lower extremity with fat layer exposed: CODE(S): L97.912 - Non-pressure chronic ulcer of unspecified part of right lower leg with fat layer exposed (2) Ulcer of left lower extremity, limited to breakdown of skin: CODE(S): L97.921 - Non-pressure chronic ulcer of unspecified part of left lower leg limited to breakdown of skin (3) Bilateral edema of lower extremity: CODE(S): R60.0 - Localized edema (4) Lymphedema of both lower extremities: CODE(S): I89.0 - Lymphedema, not elsewhere classified (5) COPD (chronic obstructive pulmonary disease): CODE(S): J44.9 - Chronic obstructive pulmonary disease, unspecified (6) Requires continuous at home supplemental oxygen: CODE(S): Z99.81 - Dependence on supplemental oxygen (7) Former smoker: CODE(S): Z87.891 - Personal history of nicotine dependence PLAN: Plan Patient evaluated at the wound healing center today. Wound care - Place Silvercel/silver alginate cover with ABD/ super absorber/Kerlix to all the ulcers after washing the ulcers with soap and water at the time of the 3M [address] extra padding over the excoriated area on her left medial ankle and her right lateral ankle. Place Lac hytrin lotion to non ulcer areas before wrapping ulcers. Compression - 3M 2 layer wraps. She will come in for a nurse's visit next Sunday to have the 3M 2 layer wraps applied. Encouraged to elevate legs when sitting. Discussed low sodium diet that is high in protein to help with edema management and wound healing. She would benefit from home compression stockings to help with her lymphedema/edema of her bilateral lower extremities. Now that she is consistently wearing good compression, her thighs are starting to get more edematous. If she gets approved for the compression pumps, I would start her slowly due to her significant COPD history. Encouraged patient not to sleep in chair but if she has to because of her COPD/difficult breathing she needs to be propped up. Encouraged leg elevation. Wound culture obtained on 07/12/22 which was positive for Serratia marcescens and Anaerobic cocci. It is resistant to the Doxycycline her PCP placed her on. Instructed her to stop the Doxycycline. Initially ordered Levaquin but patient read all the side effects and she states her father had a seizure while on Levaquin. Changed Levaquin to Bactrim and then added Metronidazole when the Anaerobic culture came back. She is on Lasix for her edema as prescribed by either her PCP or her engagement manager. Referred to Dr. Abreu, linen folder for foot and toe nail care, due to the amount of callousing she has on the plantar surfaces of bilateral feet. Follow up Sunday for a nurse's visit to have her compression wraps changed. Follow up one week to see me.
== END 2022-08-16 23:59 | disposition home or self-care (01) ==
LOC: WC 08:30
PROVIDERS: PCP Family Medicine; Referring Provider Family Medicine; Visit Provider Nurse Practitioner Family
DX: L97.812 Non-pressure chronic ulcer of other part of right lower leg with fat layer exposed (principal); L97.821 Non-pressure chronic ulcer of other part of left lower leg limited to breakdown of skin; J44.9 Chronic obstructive pulmonary disease, unspecified; L03.115 Cellulitis of right lower limb; L03.116 Cellulitis of left lower limb; I89.0 Lymphedema, not elsewhere classified; R60.0 Localized edema; Z99.81 Dependence on supplemental oxygen; Z79.82 Long term (current) use of aspirin; Z79.899 Other long term (current) drug therapy; Z87.891 Personal history of nicotine dependence
CPT/HCPCS: 11042; 11045; 29581

== ENCOUNTER 2022-09-13 08:30 | Outpatient (RCR) | payer BC, SELFPAY ==
[2022-08-17 00:43] VITALS: BP 157/79; PULSE 95; RESP 22; TEMP 36.4; BMI 44.0
[2022-08-21 15:53] VITALS: BP 157/78; PULSE 102; RESP 18; TEMP 36.6; BMI 44.0
[2022-08-23 08:29] VITALS: BP 173/79; PULSE 93; RESP 24; TEMP 36.5; BMI 44.0
--- NOTE | 2022-08-23 12:12 | PCM.WC.PN ---
History of Present Illness Date of Service: 08/23/22 Chief Complaint: Bilateral leg ulcers History of Wound: 62 year old female presents to the wound healing center with ulcers on her right and left legs that started 5 months ago after being hospitalized for pneumonia and COPD exacerbation. She developed worsening edema and her legs have been weeping. She then bumped her right lateral leg and developed an ulcer that she covers during the day with non adherent dressings. She also has several ulcers that are superficial and weep clear drainage due to the amount of edema she is experiencing. She sleeps in a chair due to difficulty breathing. She typically does not elevate her legs. 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 She was being treated with Doxycycline from her PCP due to a cellulitis of her legs. Reviewed notes from her PCP who saw her on 07/03/22 for cellulitis, ulcer right leg and shortness of breath. Wound culture obtained on 07/12/22 which was positive for Serratia marcescens and Anaerobic cocci. She has been started on Bactrim and Metronidazole. Arterial studies performed on 07/13/22 - Right CRISTINA - 1.27 and Left CRISTINA - 1.21. Triphasic Doppler waveforms are noted at ankle level bilaterally. Pulse-volume recordings appear diminished at digital level on the right, but satisfactory at all other levels bilaterally. Resting ankle-brachial indices are normal bilaterally. The right digital-brachial index is normal. The left digital-brachial index is mildly diminished. Arterial flow appears normal at ankle level bilaterally, and at digital level on the right. There is evidence of mild arterial occlusive disease at digital level on the left. 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 The right great saphenous vein appears segmentally incompetent. The right anterior accessory saphenous vein is incompetent. The left anterior accessory saphenous vein is incompetent. She denies fever, chills, nausea or vomiting. Progress of Wound: Right lateral leg and right medial leg ulcers have improved. She has an excoriated area on her right lateral ankle and her left medial ankle where the 3 M 2 layer wraps are rubbing against her skin. Her overall lower extremity edema/lymphedema is improving using the 3M 2 layer wraps. She states her legs have never been this thin, even when she was in her 20's. She states that she feels like she can walk easier because her legs are less heavy. The thick skin plaques are improving on the bottom of her feet with her using the Lac-hytrin lotion. Objective Data Objective Data Vital Signs: Vital Signs Temp Pulse Resp BP O2 Flow Rate 97.7 F L 93 24 H 173/79 H 5 08/23/22 08:29 08/23/22 08:29 08/23/22 08:29 08/23/22 08:29 08/17/22 00:43 Oxygen Flow Rate (L/min) 5 Weight: 248 lb 8.668 oz Body Mass Index (BMI) 44.0 Charges/Coding Procedures Integumentary 111xxx-113xx: 39537 Eboni subq tissue 20 sq cm/< Add On Codes: 59914 Eboni subq tissue add-on Debridement Note Debridement Note Wound debrided: lateral leg ulcer (#1) and medial leg ulcer (#2) Laterality: Right Type of Debridement: Excisional debridement Anesthesia Used: 4% Lidocaine Solution and 5% Lidocaine Gel Depth: Down to and including healthy tissue and in the subcutaneous layer Percentage of wound debrided: 100 Instrument Used: 7mm curette Tissue Removed: devitalized tissue and slough Severity: Fat Layer Exposed Amount of bleeding with debridement: Mild Bleeding Controlled with: Pressure and Compression and gauze Patient tolerated procedure: Patient tolerated procedure well Debridement Free Text: Moderate amount of thick, ch slough on the lateral leg ulcer. Post-Debridement Measurements and Additional Note: Post-Debridement Measurements/Treatment - Nurse 1 - General Ulcer Assessment Start: 08/21/22 15:53 Freq: Status: Active Protocol: TROY Activity Type Activity Date Activity User E-sign Co-sign Detail Recorded Client Recorded Date Recorded By Document 08/21/22 15:53 DL [id number] 08/21/22 15:56 DL Document 08/23/22 08:29 DL [id number] 08/23/22 08:35 DL 08/21/22 08/23/22 15:53 08:29 - Today's Visit Information Type of service Nurse-only Follow-up Visit Visit (Physician/[facility] [employer]ORER ) Arrival Mode Ambulatory Ambulatory Transfer Assistance None None Patient Identification Verified (Name & Yes Yes ) Patient Requires Transmission-Based No No Precautions Height and Weight Body Mass Index (BMI) 44.0 44.0 BMI Classification Obese Obese Vital Signs Temperature (97.8 F-99.1 F) 97.9 F 97.7 F L Temperature Source Temporal Temporal Pulse Rate (60-100) 102 H 93 Pulse Location Monitor Monitor Respiratory Rate (12-18) 18 24 H Respiratory rate source Observation Observation Blood Pressure (90/60-120/80) 157/78 H 173/79 H Blood Pressure Mean (mm Hg) 104 110 Source Monitor Monitor History Since Last Visit- (Skip if this is Patient's initial visit) Have you changed medications since your No No last visit? Any new allergies or adverse reactions No No Had a fall/change in ADL's that may No No increase risk of falls Signs or symptoms of abuse and/or No No neglect since last visit Have you been in the hospital since your No No last visit? Has dressing in place as prescribed Yes No Has compression in place as prescribed Yes No Has offloadiing in place as prescribed N/A N/A Experienced any changes in pain level or No No management Pain Scale: 0-10 Numeric Is Patient Pain Free? Yes Yes WC - Nurse 1 - General Ulcer Measurement Start: 08/21/22 15:53 Freq: Status: Active Protocol: Activity Type Activity Date Activity User E-sign Co-sign Detail Recorded Client Recorded Date Recorded By Document 08/21/22 15:53 DL [id number] 08/21/22 15:56 DL Document 08/23/22 08:29 [id number] 08/23/22 08:35 DL 08/21/22 08/23/22 15:53 08:29 Wound Center Nurse 1 #2 RLE Med -Current Size (cm) - Length 0.1 -Current Size (cm) - Width 0.1 -Current Size (cm) - Depth 0.1 -Total Square Cm 0.01 -Photo Taken Yes -Exudate Amt Medium None Present -Exudate Type Serosanguineous -Wound Margin Distinct, Flat & Intact Outline Attached -Granulation Amt Large (67-100%) -Granulation Quality Polk -Necrosis Amt None Present (0 %) -Structure Exposed N/A N/A -Texture (Ashley-wound Skin Appearance) Scarring Scarring -Moisture (Ashley-wound Skin Appearance) No Abnormality Dry/Scaly -Color (Ashley-wound Skin Appearance) Hemosiderin Hemosiderin Staining Staining -Temperature (Ashley-wound Skin No Abnormality No Abnormality Appearance) (Pt Warm) (Pt Warm) -Tenderness on Palpation (Ashley-wound No Skin Appearance) -Ulcer Cleansing Soap and Water Soap and Water -Foul Odor after Cleansing No No -Anesthetic Used 5% Lidocaine Gel #1 RLE LAt Cluster -Current Size (cm) - Length 4.8 -Current Size (cm) - Width 5 -Current Size (cm) - Depth 0.1 -Total Square Cm 24.0 -Photo Taken Yes -Exudate Amt Medium Medium -Exudate Type Serosanguineous Serosanguineous -Wound Margin Distinct, Distinct, Outline Outline Attached Attached -Granulation Amt Large (67-100%) -Granulation Quality Red -Necrosis Amt Small (1-33%) -Necrotic Tissue Type Adherent Slough -Structure Exposed N/A N/A -Texture (Ashley-wound Skin Appearance) Scarring Scarring -Moisture (Ashley-wound Skin Appearance) No Abnormality Dry/Scaly -Color (Ashley-wound Skin Appearance) Hemosiderin Hemosiderin Staining Staining -Temperature (Ashley-wound Skin No Abnormality No Abnormality Appearance) (Pt Warm) (Pt Warm) -Tenderness on Palpation (Ashley-wound No No Skin Appearance) -Ulcer Cleansing Soap and Water Soap and Water -Foul Odor after Cleansing No No -Anesthetic Used 5% Lidocaine Gel Right Calf (cm) 47.1 45 Right Ankle (cm) 26.9 27.5 Left Calf (cm) 43.9 46.5 Left Ankle (cm) 25.8 26.5 WC - Nurse 2 - General Ulcer CM Notes Start: 08/21/22 15:53 Freq: Status: Active Protocol: Activity Type Activity Date Activity User E-sign Co-sign Detail Recorded Client Recorded Date Recorded By Document 08/23/22 08:49 GIN [id number] 08/23/22 08:52 GIN 08/23/22 08:49 Wound Center Nurse 2 #2 RLE Med -Time 08:49 -Correct Patient Yes -Correct Side, Site, Position Yes -Correct Procedure Yes -Procedure Performed Yes -Type of Procedure Debridement -Clinical Debridement Subcutaneous -Tissue Removed Subcutaneous -Post Debridement (cm) - Length 0.4 -Post Debridement (cm) - Width 0.5 -Post Debridement (cm) - Depth 0.1 -Total Square (Post) (cm) 0.20 -Area of Debridement (cm) - Length 0.4 -Area of Debridement (cm) - Width 0.5 -Total Square (Area) (cm) 0.20 -Tunneling No -Undermining/Tunneling No -Circular Undermining No -Wound/Ulcer Outcome Not Healed -Ulcer Cleansing Rinsed/ Irrigated with Saline -Foul Odor after Cleansing No -Bioengineered Tissue No -Bleeding Controlled with Pressure -Treatment Response Procedure Tolerated Well -Offloading No -Debridement - Subq, 1st 20sq cm No #1 RLE LAt Cluster -Time 08:50 -Correct Patient Yes -Correct Side, Site, Position Yes -Correct Procedure Yes -Procedure Performed Yes -Type of Procedure Debridement -Clinical Debridement Subcutaneous -Tissue Removed Subcutaneous -Post Debridement (cm) - Length 5.0 -Post Debridement (cm) - Width 5.6 -Post Debridement (cm) - Depth 0.2 -Total Square (Post) (cm) 28.00 -Area of Debridement (cm) - Length 5.0 -Area of Debridement (cm) - Width 5.6 -Total Square (Area) (cm) 28.00 -Tunneling No -Undermining/Tunneling No -Circular Undermining No -Wound/Ulcer Outcome Not Healed -Ulcer Cleansing Rinsed/ Irrigated with Saline -Foul Odor after Cleansing No -Bioengineered Tissue No -Bleeding Controlled with Pressure -Treatment Response Procedure Tolerated Well -Offloading No -Debridement - Subq, 1st 20sq cm Yes -Debridement, SubQ, ea addt'l 20sq cm 1 or part thereof Pain Scale: 0-10 Numeric Is Patient Pain Free? Yes WC - Nurse 3 - General Ulcer D/C NN Start: 08/21/22 15:53 Freq: Status: Active Protocol: Activity Type Activity Date Activity User E-sign Co-sign Detail Recorded Client Recorded Date Recorded By Document 08/21/22 15:56 DL [id number] 08/21/22 15:59 DL Document 08/23/22 09:29 RB [id number] 08/23/22 09:32 RB 08/21/22 08/23/22 15:56 09:29 Wound Care Center Nurse 3 #2 RLE Med -Ulcer Cleansing Soap and Water Rinsed/ Irrigated with Saline -Foul Odor after Cleansing No -Primary Dressing Applied Optilok 6.5x10, Silvercel -Other Dressing silvercell -Primary Dressing Covered/Secured with Dry Gauze & Dry Gauze & Roll Gauze Roll Gauze, Secured with Tape -Optilok 6.5x10 1 -Silvercel 1 #1 RLE LAt Cluster -Ulcer Cleansing Soap and Water -Foul Odor after Cleansing No -Other Dressing silvercell silvrcell -Primary Dressing Covered/Secured with Dry Gauze Other/Comment pt own lachydrin to bilat LE mason -Multi-Layered Wrap Application Multi-Layer Multi-Layer Comp - Bilat ($ Comp - Bilat ($ ) ) Treatment Response Procedure Procedure Tolerated Well Tolerated Well Pain Scale: 0-10 Numeric Is Patient Pain Free? Yes Yes WC - Visit Discharge Discharge Condition Stable Stable Ambulatory Status Ambulatory Ambulatory Transportation Private Auto Private Auto Medication Reconcilliation completed & No provided to patient/care provider Clinical Summary of Care Provided Yes Notes: Dressing applied per Dennis Pabon today in clinic Assessment/Plan Assessment/Plan (1) Ulcer of right lower extremity with fat layer exposed: CODE(S): L97.912 - Non-pressure chronic ulcer of unspecified part of right lower leg with fat layer exposed (2) Ulcer of left lower extremity, limited to breakdown of skin: CODE(S): L97.921 - Non-pressure chronic ulcer of unspecified part of left lower leg limited to breakdown of skin (3) Bilateral edema of lower extremity: CODE(S): R60.0 - Localized edema (4) Lymphedema of both lower extremities: CODE(S): I89.0 - Lymphedema, not elsewhere classified (5) COPD (chronic obstructive pulmonary disease): CODE(S): J44.9 - Chronic obstructive pulmonary disease, unspecified (6) Requires continuous at home supplemental oxygen: CODE(S): Z99.81 - Dependence on supplemental oxygen (7) Former smoker: CODE(S): Z87.891 - Personal history of nicotine dependence PLAN: Plan Patient evaluated at the wound healing center today. Wound care - Place Silvercel/silver alginate cover with ABD/ super absorber/Kerlix to all the ulcers after washing the ulcers with soap and water at the time of the 3M [address]. [address] extra padding over the excoriated area on her left medial ankle and her right lateral ankle. Place Lac hytrin lotion to non ulcer areas before wrapping ulcers. Compression - 3M 2 layer wraps. She will come in for a nurse's visit next Sunday to have the 3M 2 layer wraps applied. Encouraged to elevate legs when sitting. Will order circaid compression stockings for her to use once we stop using the 3M 2 layer wraps. Discussed low sodium diet that is high in protein to help with edema management and wound healing. She would benefit from home compression stockings to help with her lymphedema/edema of her bilateral lower extremities. Now that she is consistently wearing good compression, her thighs are starting to get more edematous. If she gets approved for the compression pumps, I would start her slowly due to her significant COPD history. Encouraged increase activity/walking as tolerated to help with edema/lymphedema, along with foot pumping while sitting. Encouraged patient not to sleep in chair but if she has to because of her COPD/difficult breathing she needs to be propped up. Encouraged leg elevation. Wound culture obtained on 07/12/22 which was positive for Serratia marcescens and Anaerobic cocci. It is resistant to the Doxycycline her PCP placed her on. Instructed her to stop the Doxycycline. Initially ordered Levaquin but patient read all the side effects and she states her father had a seizure while on Levaquin. Changed Levaquin to Bactrim and then added Metronidazole when the Anaerobic culture came back. She has completed the antibiotics. 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 Referred to Dr. Abreu, electronic integrated systems mechanic for foot and toe nail care, due to the amount of callousing she has on the plantar surfaces of bilateral feet. Follow up Sunday for a nurse's visit to have her compression wraps changed. Follow up one week to see me.
--- NOTE | 2022-08-30 09:41 | PCM.WC.PN ---
History of Present Illness Date of Service: 08/30/22 Chief Complaint: Bilateral leg ulcers History of Wound: 62 year old female presents to the wound healing center with ulcers on her right and left legs that started 5 months ago after being hospitalized for pneumonia and COPD exacerbation. She developed worsening edema and her legs have been weeping. She then bumped her right lateral leg and developed an ulcer that she covers during the day with non adherent dressings. She also has several ulcers that are superficial and weep clear drainage due to the amount of edema she is experiencing. She sleeps in a chair due to difficulty breathing. She typically does not elevate her legs. 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 She was being treated with Doxycycline from her PCP due to a cellulitis of her legs. Reviewed notes from her PCP who saw her on 07/03/22 for cellulitis, ulcer right leg and shortness of breath. Wound culture obtained on 07/12/22 which was positive for Serratia marcescens and Anaerobic cocci. She has been started on Bactrim and Metronidazole. Arterial studies performed on 07/13/22 - Right CRISTINA - 1.27 and Left CRISTINA - 1.21. Triphasic Doppler waveforms are noted at ankle level bilaterally. Pulse-volume recordings appear diminished at digital level on the right, but satisfactory at all other levels bilaterally. Resting ankle-brachial indices are normal bilaterally. The right digital-brachial index is normal. The left digital-brachial index is mildly diminished. Arterial flow appears normal at ankle level bilaterally, and at digital level on the right. There is evidence of mild arterial occlusive disease at digital level on the left. 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 The right great saphenous vein appears segmentally incompetent. The right anterior accessory saphenous vein is incompetent. The left anterior accessory saphenous vein is incompetent. She denies fever, chills, nausea or vomiting. Progress of Wound: Right medial leg ulcer is healed today. The right lateral leg ulcer is smaller and starting to have several skin islands forming in the center of the ulcer. She has an excoriated area on her right lateral ankle and her left medial ankle where the 3 M 2 layer wraps are rubbing against her skin. Her overall lower extremity edema/lymphedema is improving using the 3M 2 layer wraps. She has received her Circaid compression stockings but only bought one. The thick skin plaques are improving on the bottom of her feet with her using the Lac-hytrin lotion. Objective Data Objective Data Vital Signs: Vital Signs Temp Pulse Resp BP O2 Flow Rate 97.7 F L 93 24 H 173/79 H 5 08/23/22 08:29 08/23/22 08:29 08/23/22 08:29 08/23/22 08:29 08/17/22 00:43 Oxygen Flow Rate (L/min) 5 Weight: 248 lb 8.668 oz Body Mass Index (BMI) 44.0 Charges/Coding Procedures Integumentary 111xxx-113xx: 82599 Eboni subq tissue 20 sq cm/< Add On Codes: 89953 Eboni subq tissue add-on Debridement Note Debridement Note Wound debrided: lateral leg ulcer (#1) Laterality: Right Type of Debridement: Excisional debridement Anesthesia Used: 4% Lidocaine Solution and 5% Lidocaine Gel Depth: Down to and including healthy tissue and in the subcutaneous layer Percentage of wound debrided: 100 Instrument Used: 7mm curette Tissue Removed: devitalized tissue and slough Severity: Fat Layer Exposed Amount of bleeding with debridement: Mild Bleeding Controlled with: Pressure and Compression and gauze Patient tolerated procedure: Patient tolerated procedure well Post-Debridement Measurements and Additional Note: Post-Debridement Measurements/Treatment - Nurse 1 - General Ulcer Assessment Start: 08/21/22 15:53 Freq: Status: Active Protocol: NINO.VAHE Activity Type Activity Date Activity User E-sign Co-sign Detail Recorded Client Recorded Date Recorded By Document 08/21/22 15:53 DL [id number] 08/21/22 15:56 DL Document 08/23/22 08:29 DL [id number] 08/23/22 08:35 DL 08/21/22 08/23/22 15:53 08:29 - Today's Visit Information Type of service Nurse-only Follow-up Visit Visit (Physician/BI DEVELOPER ) Arrival Mode Ambulatory Ambulatory Transfer Assistance None None Patient Identification Verified (Name & Yes Yes ) Patient Requires Transmission-Based No No Precautions Height and Weight Body Mass Index (BMI) 44.0 44.0 BMI Classification Obese Obese Vital Signs Temperature (97.8 F-99.1 F) 97.9 F 97.7 F L Temperature Source Temporal Temporal Pulse Rate (60-100) 102 H 93 Pulse Location Monitor Monitor Respiratory Rate (12-18) 18 24 H Respiratory rate source Observation Observation Blood Pressure (90/60-120/80) 157/78 H 173/79 H Blood Pressure Mean (mm Hg) 104 110 Source Monitor Monitor History Since Last Visit- (Skip if this is Patient's initial visit) Have you changed medications since your No No last visit? Any new allergies or adverse reactions No No Had a fall/change in ADL's that may No No increase risk of falls Signs or symptoms of abuse and/or No No neglect since last visit Have you been in the hospital since your No No last visit? Has dressing in place as prescribed Yes No Has compression in place as prescribed Yes No Has offloadiing in place as prescribed N/A N/A Experienced any changes in pain level or No No management Pain Scale: 0-10 Numeric Is Patient Pain Free? Yes Yes WC - Nurse 1 - General Ulcer Measurement Start: 08/21/22 15:53 Freq: Status: Active Protocol: Activity Type Activity Date Activity User E-sign Co-sign Detail Recorded Client Recorded Date Recorded By Document 08/21/22 15:53 DL [id number] 08/21/22 15:56 DL Document 08/23/22 08:29 DL [id number] 08/23/22 08:35 DL 08/21/22 08/23/22 15:53 08:29 Wound Center Nurse 1 #2 RLE Med -Current Size (cm) - Length 0.1 -Current Size (cm) - Width 0.1 -Current Size (cm) - Depth 0.1 -Total Square Cm 0.01 -Photo Taken Yes -Exudate Amt Medium None Present -Exudate Type Serosanguineous -Wound Margin Distinct, Flat & Intact Outline Attached -Granulation Amt Large (67-100%) -Granulation Quality [place] -Necrosis Amt None Present (0 %) -Structure Exposed N/A N/A -Texture (Ashley-wound Skin Appearance) Scarring Scarring -Moisture (Ashley-wound Skin Appearance) No Abnormality Dry/Scaly -Color (Ashley-wound Skin Appearance) Hemosiderin Hemosiderin Staining Staining -Temperature (Ashley-wound Skin No Abnormality No Abnormality Appearance) (Pt Warm) (Pt Warm) -Tenderness on Palpation (Ashley-wound No Skin Appearance) -Ulcer Cleansing Soap and Water Soap and Water -Foul Odor after Cleansing No No -Anesthetic Used 5% Lidocaine Gel #1 RLE LAt Cluster -Current Size (cm) - Length 4.8 -Current Size (cm) - Width 5 -Current Size (cm) - Depth 0.1 -Total Square Cm 24.0 -Photo Taken Yes -Exudate Amt Medium Medium -Exudate Type Serosanguineous Serosanguineous -Wound Margin Distinct, Distinct, Outline Outline Attached Attached -Granulation Amt Large (67-100%) -Granulation Quality Red -Necrosis Amt Small (1-33%) -Necrotic Tissue Type Adherent Slough -Structure Exposed N/A N/A -Texture (Ashley-wound Skin Appearance) Scarring Scarring -Moisture (Ashley-wound Skin Appearance) No Abnormality Dry/Scaly -Color (Ashley-wound Skin Appearance) Hemosiderin Hemosiderin Staining Staining -Temperature (Ashley-wound Skin No Abnormality No Abnormality Appearance) (Pt Warm) (Pt Warm) -Tenderness on Palpation (Ashley-wound No No Skin Appearance) -Ulcer Cleansing Soap and Water Soap and Water -Foul Odor after Cleansing No No -Anesthetic Used 5% Lidocaine Gel Right Calf (cm) 47.1 45 Right Ankle (cm) 26.9 27.5 Left Calf (cm) 43.9 46.5 Left Ankle (cm) 25.8 26.5 WC - Nurse 2 - General Ulcer CM Notes Start: 08/21/22 15:53 Freq: Status: Active Protocol: Activity Type Activity Date Activity User E-sign Co-sign Detail Recorded Client Recorded Date Recorded By Document 08/23/22 08:49 [id number] 08/23/22 08:52 Document 08/30/22 08:57 [id number] 08/30/22 09:02 08/23/22 08/30/22 08:49 08:57 Wound Center Nurse 2 #2 RLE Med -Time 08:49 -Correct Patient Yes No -Correct Side, Site, Position Yes No -Correct Procedure Yes No -Procedure Performed Yes No -Type of Procedure Debridement -Clinical Debridement Subcutaneous -Tissue Removed Subcutaneous -Post Debridement (cm) - Length 0.4 -Post Debridement (cm) - Width 0.5 -Post Debridement (cm) - Depth 0.1 -Total Square (Post) (cm) 0.20 -Area of Debridement (cm) - Length 0.4 -Area of Debridement (cm) - Width 0.5 -Total Square (Area) (cm) 0.20 -Tunneling No -Undermining/Tunneling No -Circular Undermining No -Wound/Ulcer Outcome Not Healed Healed- Epithelialized -Ulcer Cleansing Rinsed/ Irrigated with Saline -Foul Odor after Cleansing No -Bioengineered Tissue No -Bleeding Controlled with Pressure -Treatment Response Procedure Tolerated Well -Offloading No -Debridement - Subq, 1st 20sq cm No #1 RLE LAt Cluster -Time 08:50 08:58 -Correct Patient Yes Yes -Correct Side, Site, Position Yes Yes -Correct Procedure Yes Yes -Procedure Performed Yes Yes -Type of Procedure Debridement Debridement -Clinical Debridement Subcutaneous Subcutaneous -Tissue Removed Subcutaneous Subcutaneous -Post Debridement (cm) - Length 5.0 4.5 -Post Debridement (cm) - Width 5.6 4.8 -Post Debridement (cm) - Depth 0.2 0.1 -Total Square (Post) (cm) 28.00 21.60 -Area of Debridement (cm) - Length 5.0 4.5 -Area of Debridement (cm) - Width 5.6 4.8 -Total Square (Area) (cm) 28.00 21.60 -Tunneling No No -Undermining/Tunneling No No -Circular Undermining No No -Wound/Ulcer Outcome Not Healed Not Healed -Ulcer Cleansing Rinsed/ Rinsed/ Irrigated with Irrigated with Saline Saline -Foul Odor after Cleansing No No -Bioengineered Tissue No No -Bleeding Controlled with Pressure Pressure -Treatment Response Procedure Procedure Tolerated Well Tolerated Well -Offloading No No -Debridement - Subq, 1st 20sq cm Yes Yes -Debridement, SubQ, ea addt'l 20sq cm 1 1 or part thereof Pain Scale: 0-10 Numeric Is Patient Pain Free? Yes Yes WC - Nurse 3 - General Ulcer D/C NN Start: 08/21/22 15:53 Freq: Status: Active Protocol: Activity Type Activity Date Activity User E-sign Co-sign Detail Recorded Client Recorded Date Recorded By Document 08/21/22 15:56 DL [id number] 08/21/22 15:59 DL Document 08/23/22 09:29 RB [id number] 08/23/22 09:32 RB 08/21/22 08/23/22 15:56 09:29 Wound Care Center Nurse 3 #2 RLE Med -Ulcer Cleansing Soap and Water Rinsed/ Irrigated with Saline -Foul Odor after Cleansing No -Primary Dressing Applied Optilok 6.5x10, Silvercel -Other Dressing silvercell -Primary Dressing Covered/Secured with Dry Gauze & Dry Gauze & Roll Gauze Roll Gauze, Secured with Tape -Optilok 6.5x10 1 -Silvercel 1 #1 RLE LAt Cluster -Ulcer Cleansing Soap and Water -Foul Odor after Cleansing No -Other Dressing silvercell silvrcell -Primary Dressing Covered/Secured with Dry Gauze Other/Comment pt own lachydrin to bilat LE mason -Multi-Layered Wrap Application Multi-Layer Multi-Layer Comp - Bilat ($ Comp - Bilat ($ ) ) Treatment Response Procedure Procedure Tolerated Well Tolerated Well Pain Scale: 0-10 Numeric Is Patient Pain Free? Yes Yes WC - Visit Discharge Discharge Condition Stable Stable Ambulatory Status Ambulatory Ambulatory Transportation Private Auto Private Auto Medication Reconcilliation completed & No provided to patient/care provider Clinical Summary of Care Provided Yes Notes: Dressing applied per Dennis Pabon today in clinic Assessment/Plan Assessment/Plan (1) Ulcer of right lower extremity with fat layer exposed: CODE(S): L97.912 - Non-pressure chronic ulcer of unspecified part of right lower leg with fat layer exposed (2) Ulcer of left lower extremity, limited to breakdown of skin: CODE(S): L97.921 - Non-pressure chronic ulcer of unspecified part of left lower leg limited to breakdown of skin (3) Bilateral edema of lower extremity: CODE(S): R60.0 - Localized edema (4) Lymphedema of both lower extremities: CODE(S): I89.0 - Lymphedema, not elsewhere classified (5) COPD (chronic obstructive pulmonary disease): CODE(S): J44.9 - Chronic obstructive pulmonary disease, unspecified (6) Requires continuous at home supplemental oxygen: CODE(S): Z99.81 - Dependence on supplemental oxygen (7) Former smoker: CODE(S): Z87.891 - Personal history of nicotine dependence PLAN: Plan Patient evaluated at the wound healing center today. Wound care - Place Silvercel/silver alginate cover with ABD/ super absorber to the ulcer after washing the ulcers with soap and water at the time of the 3M [address]. [address] extra padding over the excoriated area on her left medial ankle and her right lateral ankle. Hopefully not using the 3 M 2layer wraps will help with the the ankle excoriated areas. Place Lac hytrin lotion to non ulcer areas before applying compression. She would benefit from an advanced wound healing product such as Epifix, to help expedite her wound healing progress. Will apply for insurance approval for application of Epifix. Compression - Circaid compression stockings to bilateral lower legs (since she only brought one in, will educate her and her how to place it and will place her left leg in double tubigrip with YAZMIN wrap until she can get the Circaid on the left leg). Discussed low sodium diet that is high in protein to help with edema management and wound healing. She has been approved for home compression pumps, she is waiting to receive them and be instructed on them. Encouraged increase activity/walking as tolerated to help with edema/lymphedema, along with foot pumping while sitting. Encouraged patient not to sleep in chair but if she has to because of her COPD/difficult breathing she needs to be propped up. Encouraged leg elevation. Wound culture obtained on 07/12/22 which was positive for Serratia marcescens and Anaerobic cocci. It is resistant to the Doxycycline her PCP placed her on. Instructed her to stop the Doxycycline. Initially ordered Levaquin but patient read all the side effects and she states her father had a seizure while on Levaquin. Changed Levaquin to Bactrim and then added Metronidazole when the Anaerobic culture came back. She has completed the antibiotics. Referred to Dr. Abreu, athletic trainer for foot and toe nail care, due to the amount of callousing she has on the plantar surfaces of bilateral feet. Her work schedule is changing at the beginning of September and she is going to need a Sunday appointment so she doesn't miss work. Follow up one week.
[2022-08-30 10:12] VITALS: BP 155/83; PULSE 95; TEMP 36.3; BMI 44.0
[2022-09-06 08:49] VITALS: BP 172/94; PULSE 99; TEMP 36.2; BMI 44.0
--- NOTE | 2022-09-06 09:29 | PCM.WC.PN ---
History of Present Illness Date of Service: 09/06/22 Chief Complaint: Bilateral leg ulcers History of Wound: 62 year old female presents to the wound healing center with ulcers on her right and left legs that started 5 months ago after being hospitalized for pneumonia and COPD exacerbation. She developed worsening edema and her legs have been weeping. She then bumped her right lateral leg and developed an ulcer that she covers during the day with non adherent dressings. She also has several ulcers that are superficial and weep clear drainage due to the amount of edema she is experiencing. She sleeps in a chair due to difficulty breathing. She typically does not elevate her legs. 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 She was being treated with Doxycycline from her PCP due to a cellulitis of her legs. Reviewed notes from her PCP who saw her on 07/03/22 for cellulitis, ulcer right leg and shortness of breath. Wound culture obtained on 07/12/22 which was positive for Serratia marcescens and Anaerobic cocci. She has been started on Bactrim and Metronidazole. Arterial studies performed on 07/13/22 - Right CRISTINA - 1.27 and Left CRISTINA - 1.21. Triphasic Doppler waveforms are noted at ankle level bilaterally. Pulse-volume recordings appear diminished at digital level on the right, but satisfactory at all other levels bilaterally. Resting ankle-brachial indices are normal bilaterally. The right digital-brachial index is normal. The left digital-brachial index is mildly diminished. Arterial flow appears normal at ankle level bilaterally, and at digital level on the right. There is evidence of mild arterial occlusive disease at digital level on the left. 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 The right great saphenous vein appears segmentally incompetent. The right anterior accessory saphenous vein is incompetent. The left anterior accessory saphenous vein is incompetent. She denies fever, chills, nausea or vomiting. Progress of Wound: Right lateral leg ulcer is smaller and starting to have several skin islands forming in the center of the ulcer. She has received her Circaid compression stockings and is tolerating them well. . The thick skin plaques are improving on the bottom of her feet with her using the Lac-hytrin lotion. Objective Data Objective Data Vital Signs: Vital Signs Temp Pulse Resp BP O2 Flow Rate 97.2 F L 99 24 H 172/94 H 5 09/06/22 08:49 09/06/22 08:49 08/23/22 08:29 09/06/22 08:49 08/17/22 00:43 Oxygen Flow Rate (L/min) 5 Weight: 248 lb 8.668 oz Body Mass Index (BMI) 44.0 Charges/Coding Procedures Integumentary 111xxx-113xx: 79020 Eboni subq tissue 20 sq cm/< Debridement Note Debridement Note Wound debrided: lateral leg ulcer (#1) Laterality: Right Type of Debridement: Excisional debridement Anesthesia Used: 4% Lidocaine Solution and 5% Lidocaine Gel Depth: Down to and including healthy tissue and in the subcutaneous layer Percentage of wound debrided: 100 Instrument Used: 5mm curette Tissue Removed: devitalized tissue and slough Severity: Fat Layer Exposed Amount of bleeding with debridement: Mild Bleeding Controlled with: Pressure and Compression and gauze Patient tolerated procedure: Patient tolerated procedure well Post-Debridement Measurements and Additional Note: Post-Debridement Measurements/Treatment - Nurse 1 - General Ulcer Assessment Start: 08/21/22 15:53 Freq: Status: Active Protocol: TROY Activity Type Activity Date Activity User E-sign Co-sign Detail Recorded Client Recorded Date Recorded By Document 08/21/22 15:53 DL [id number] 08/21/22 15:56 DL Document 08/23/22 08:29 DL [id number] 08/23/22 08:35 DL Document 08/30/22 10:12 UT [id number] 08/30/22 10:14 AK Document 09/06/22 08:49 AK [id number] 09/06/22 08:51 AK 08/21/22 08/23/22 08/30/22 15:53 08:29 10:12 - Today's Visit Information Type of service Nurse-only Follow-up Visit Follow-up Visit Visit (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/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 (Physician/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 ) ) Arrival Mode Ambulatory Ambulatory Ambulatory Transfer Assistance None None Patient Identification Verified (Name & Yes Yes Yes ) Patient Requires Transmission-Based No No No Precautions Safety Precautions Height and Weight Body Mass Index (BMI) 44.0 44.0 44.0 BMI Classification Obese Obese Obese Vital Signs Temperature (97.8 F-99.1 F) 97.9 F 97.7 F L 97.4 F L Temperature Source Temporal Temporal Temporal Pulse Rate (60-100) 102 H 93 95 Pulse Location Monitor Monitor Monitor Respiratory Rate (12-18) 18 24 H Respiratory rate source Observation Observation Blood Pressure (90/60-120/80) 157/78 H 173/79 H 155/83 H Blood Pressure Mean (mm Hg) 104 110 107 Source Monitor Monitor Monitor History Since Last Visit- (Skip if this is Patient's initial visit) Have you changed medications since your No No No last visit? Any new allergies or adverse reactions No No No Had a fall/change in ADL's that may No No No increase risk of falls Signs or symptoms of abuse and/or No No No neglect since last visit Have you been in the hospital since your No No No last visit? Has dressing in place as prescribed Yes No Yes Has compression in place as prescribed Yes No Yes Has offloadiing in place as prescribed N/A N/A N/A Experienced any changes in pain level or No No No management Left Footwear Regular Shoe Right Footwear Regular Shoe Pain Scale: 0-10 Numeric Is Patient Pain Free? Yes Yes Yes 09/06/22 08:49 WC - Today's Visit Information Type of service Follow-up Visit (Physician/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 ) Arrival Mode Ambulatory Transfer Assistance Patient Identification Verified (Name & Yes ) Patient Requires Transmission-Based No Precautions Safety Precautions NA Height and Weight Body Mass Index (BMI) 44.0 BMI Classification Obese Vital Signs Temperature (97.8 F-99.1 F) 97.2 F L Temperature Source Temporal Pulse Rate (60-100) 99 Pulse Location Monitor Respiratory Rate (12-18) Respiratory rate source Blood Pressure (90/60-120/80) 172/94 H Blood Pressure Mean (mm Hg) 120 Source Monitor History Since Last Visit- (Skip if this is Patient's initial visit) Have you changed medications since your No last visit? Any new allergies or adverse reactions No Had a fall/change in ADL's that may No increase risk of falls Signs or symptoms of abuse and/or No neglect since last visit Have you been in the hospital since your No last visit? Has dressing in place as prescribed Yes Has compression in place as prescribed N/A Has offloadiing in place as prescribed N/A Experienced any changes in pain level or No management Left Footwear Regular Shoe Right Footwear Regular Shoe Pain Scale: 0-10 Numeric Is Patient Pain Free? Yes WC - Nurse 1 - General Ulcer Measurement Start: 08/21/22 15:53 Freq: Status: Active Protocol: Activity Type Activity Date Activity User E-sign Co-sign Detail Recorded Client Recorded Date Recorded By Document 08/21/22 15:53 DL [id number] 08/21/22 15:56 DL Document 08/23/22 08:29 DL [id number] 08/23/22 08:35 DL Document 08/30/22 10:12 AK [id number] 08/30/22 10:14 AK Document 09/06/22 08:49 AK [id number] 09/06/22 08:51 AK 08/21/22 08/23/22 08/30/22 15:53 08:29 10:12 Wound Center Nurse 1 #2 RLE Med -Current Size (cm) - Length 0.1 -Current Size (cm) - Width 0.1 -Current Size (cm) - Depth 0.1 -Total Square Cm 0.01 -Photo Taken Yes -Exudate Amt Medium None Present -Exudate Type Serosanguineous -Wound Margin Distinct, Flat & Intact Outline Attached -Granulation Amt Large (67-100%) -Granulation Quality [place] -Necrosis Amt None Present (0 %) -Structure Exposed N/A N/A -Texture (Ashley-wound Skin Appearance) Scarring Scarring -Moisture (Ashley-wound Skin Appearance) No Abnormality Dry/Scaly -Color (Ashley-wound Skin Appearance) Hemosiderin Hemosiderin Staining Staining -Temperature (Ashley-wound Skin No Abnormality No Abnormality Appearance) (Pt Warm) (Pt Warm) -Tenderness on Palpation (Ashley-wound No Skin Appearance) -Ulcer Cleansing Soap and Water Soap and Water -Foul Odor after Cleansing No No -Anesthetic Used 5% Lidocaine Gel #1 RLE LAt Cluster -Combined with other wound -Current Size (cm) - Length 4.8 -Current Size (cm) - Width 5 -Current Size (cm) - Depth 0.1 -Total Square Cm 24.0 -Photo Taken Yes No -Tunneling No -Undermining/Tunneling No -Circular Undermining No -Change in Wound Grade/Stage No -Exudate Amt Medium Medium Medium -Exudate Type Serosanguineous Serosanguineous Serosanguineous -Wound Margin Distinct, Distinct, Distinct, Outline Outline Outline Attached Attached Attached -Granulation Amt Large (67-100%) Large (67-100%) -Granulation Quality Red Red -Slough/Fibrin No -Necrosis Amt Small (1-33%) None Present (0 %) -Necrotic Tissue Type Adherent Slough -Structure Exposed N/A N/A N/A -Texture (Ashley-wound Skin Appearance) Scarring Scarring No Abnormality, Assessed -Moisture (Ashley-wound Skin Appearance) No Abnormality Dry/Scaly No Abnormality, Assessed -Color (Ashley-wound Skin Appearance) Hemosiderin Hemosiderin No Abnormality, Staining Staining Assessed -Temperature (Ashley-wound Skin No Abnormality No Abnormality No Abnormality Appearance) (Pt Warm) (Pt Warm) (Pt Warm) -Tenderness on Palpation (Ashley-wound No No No Skin Appearance) -Ulcer Cleansing Soap and Water Soap and Water Rinsed/ Irrigated with Saline -Foul Odor after Cleansing No No No -Anesthetic Used 5% Lidocaine 4% Lidocaine Gel Solution Right Calf (cm) 47.1 45 Right Ankle (cm) 26.9 27.5 Left Calf (cm) 43.9 46.5 Left Ankle (cm) 25.8 26.5 09/06/22 08:49 Wound Center Nurse 1 #2 RLE Med -Current Size (cm) - Length -Current Size (cm) - Width -Current Size (cm) - Depth -Total Square Cm -Photo Taken -Exudate Amt -Exudate Type -Wound Margin -Granulation Amt -Granulation Quality -Necrosis Amt -Structure Exposed -Texture (Ashley-wound Skin Appearance) -Moisture (Ashley-wound Skin Appearance) -Color (Ashley-wound Skin Appearance) -Temperature (Ashley-wound Skin Appearance) -Tenderness on Palpation (Ashley-wound Skin Appearance) -Ulcer Cleansing -Foul Odor after Cleansing -Anesthetic Used #1 RLE LAt Cluster -Combined with other wound No -Current Size (cm) - Length 4.1 -Current Size (cm) - Width 4.3 -Current Size (cm) - Depth 0.5 -Total Square Cm 17.63 -Photo Taken Yes -Tunneling No -Undermining/Tunneling No -Circular Undermining No -Change in Wound Grade/Stage No -Exudate Amt Medium -Exudate Type Serosanguineous -Wound Margin Distinct, Outline Attached -Granulation Amt Medium (34-66%) -Granulation Quality [place] -Slough/Fibrin Yes -Necrosis Amt Medium (34-66%) -Necrotic Tissue Type Adherent Slough -Structure Exposed N/A -Texture (Ashley-wound Skin Appearance) No Abnormality, Assessed -Moisture (Ashley-wound Skin Appearance) No Abnormality, Assessed -Color (Ashley-wound Skin Appearance) Assessed, Hemosiderin Staining -Temperature (Ashley-wound Skin No Abnormality Appearance) (Pt Warm) -Tenderness on Palpation (Ashley-wound No Skin Appearance) -Ulcer Cleansing Rinsed/ Irrigated with Saline -Foul Odor after Cleansing No -Anesthetic Used 5% Lidocaine Gel Right Calf (cm) 48 Right Ankle (cm) 28.7 Left Calf (cm) 46 Left Ankle (cm) 26.5 WC - Nurse 2 - General Ulcer CM Notes Start: 08/21/22 15:53 Freq: Status: Active Protocol: Activity Type Activity Date Activity User E-sign Co-sign Detail Recorded Client Recorded Date Recorded By Document 08/23/22 08:49 [id number] 08/23/22 08:52 Document 08/30/22 08:57 [id number] 08/30/22 09:02 08/23/22 08/30/22 08:49 08:57 Wound Center Nurse 2 #2 RLE Med -Time 08:49 -Correct Patient Yes No -Correct Side, Site, Position Yes No -Correct Procedure Yes No -Procedure Performed Yes No -Type of Procedure Debridement -Clinical Debridement Subcutaneous -Tissue Removed Subcutaneous -Post Debridement (cm) - Length 0.4 -Post Debridement (cm) - Width 0.5 -Post Debridement (cm) - Depth 0.1 -Total Square (Post) (cm) 0.20 -Area of Debridement (cm) - Length 0.4 -Area of Debridement (cm) - Width 0.5 -Total Square (Area) (cm) 0.20 -Tunneling No -Undermining/Tunneling No -Circular Undermining No -Wound/Ulcer Outcome Not Healed Healed- Epithelialized -Ulcer Cleansing Rinsed/ Irrigated with Saline -Foul Odor after Cleansing No -Bioengineered Tissue No -Bleeding Controlled with Pressure -Treatment Response Procedure Tolerated Well -Offloading No -Debridement - Subq, 1st 20sq cm No #1 RLE LAt Cluster -Time 08:50 08:58 -Correct Patient Yes Yes -Correct Side, Site, Position Yes Yes -Correct Procedure Yes Yes -Procedure Performed Yes Yes -Type of Procedure Debridement Debridement -Clinical Debridement Subcutaneous Subcutaneous -Tissue Removed Subcutaneous Subcutaneous -Post Debridement (cm) - Length 5.0 4.5 -Post Debridement (cm) - Width 5.6 4.8 -Post Debridement (cm) - Depth 0.2 0.1 -Total Square (Post) (cm) 28.00 21.60 -Area of Debridement (cm) - Length 5.0 4.5 -Area of Debridement (cm) - Width 5.6 4.8 -Total Square (Area) (cm) 28.00 21.60 -Tunneling No No -Undermining/Tunneling No No -Circular Undermining No No -Wound/Ulcer Outcome Not Healed Not Healed -Ulcer Cleansing Rinsed/ Rinsed/ Irrigated with Irrigated with Saline Saline -Foul Odor after Cleansing No No -Bioengineered Tissue No No -Bleeding Controlled with Pressure Pressure -Treatment Response Procedure Procedure Tolerated Well Tolerated Well -Offloading No No -Debridement - Subq, 1st 20sq cm Yes Yes -Debridement, SubQ, ea addt'l 20sq cm 1 1 or part thereof Pain Scale: 0-10 Numeric Is Patient Pain Free? Yes Yes WC - Nurse 3 - General Ulcer D/C NN Start: 08/21/22 15:53 Freq: Status: Active Protocol: Activity Type Activity Date Activity User E-sign Co-sign Detail Recorded Client Recorded Date Recorded By Document 08/21/22 15:56 DL [id number] 08/21/22 15:59 DL Document 08/23/22 09:29 RB [id number] 08/23/22 09:32 RB Document 08/30/22 10:14 AK [id number] 08/30/22 10:15 AK Document 09/06/22 09:13 AK [id number] 09/06/22 09:14 AK 08/21/22 08/23/22 08/30/22 15:56 09:29 10:14 Wound Care Center Nurse 3 #2 RLE Med -Ulcer Cleansing Soap and Water Rinsed/ Irrigated with Saline -Foul Odor after Cleansing No -Primary Dressing Applied Optilok 6.5x10, Silvercel -Other Dressing silvercell -Primary Dressing Covered/Secured with Dry Gauze & Dry Gauze & Roll Gauze Roll Gauze, Secured with Tape -Optilok 6.5x10 1 -Silvercel 1 #1 RLE LAt Cluster -Ulcer Cleansing Soap and Water Rinsed/ Irrigated with Saline -Foul Odor after Cleansing No No -Negative Pressure Wound Therapy N/A -Other Dressing silvercell silvrcell own silvercel- circaid- hydralactin -Primary Dressing Covered/Secured with Dry Gauze Dry Gauze & Roll Gauze, Secured with Tape Other/Comment pt own lachydrin to bilat LE Left -Lotion applied to leg before Yes compression wrap -Compression Wrap Dwayne Wrap -Tubular Bandage Double Layer -Size of Tubigrip Used Size E -Size E ($) 2 mason -Multi-Layered Wrap Application Multi-Layer Multi-Layer Comp - Bilat ($ Comp - Bilat ($ ) ) Treatment Response Procedure Procedure Tolerated Well Tolerated Well Pain Scale: 0-10 Numeric Is Patient Pain Free? Yes Yes Yes WC - Visit Discharge Discharge Condition Stable Stable Stable Ambulatory Status Ambulatory Ambulatory Ambulatory Transportation Private Auto Private Auto Private Auto Accompanied by Medication Reconcilliation completed & No Yes provided to patient/care provider Clinical Summary of Care Provided Yes Yes Notes: Dressing applied per Dennis Pabon today in clinic 09/06/22 09:13 Wound Care Center Nurse 3 #2 RLE Med -Ulcer Cleansing -Foul Odor after Cleansing -Primary Dressing Applied -Other Dressing -Primary Dressing Covered/Secured with -Optilok 6.5x10 -Silvercel #1 RLE LAt Cluster -Ulcer Cleansing Rinsed/ Irrigated with Saline -Foul Odor after Cleansing No -Negative Pressure Wound Therapy N/A -Other Dressing own silvercell and own tubi and circaid -Primary Dressing Covered/Secured with Dry Gauze & Roll Gauze, Secured with Tape Other/Comment Left -Lotion applied to leg before compression wrap -Compression Wrap -Tubular Bandage -Size of Tubigrip Used -Size E ($) mason -Multi-Layered Wrap Application Treatment Response Pain Scale: 0-10 Numeric Is Patient Pain Free? Yes WC - Visit Discharge Discharge Condition Stable Ambulatory Status Ambulatory Transportation Private Auto Accompanied by Medication Reconcilliation completed & Yes provided to patient/care provider Clinical Summary of Care Provided Yes Notes: Assessment/Plan Assessment/Plan (1) Ulcer of right lower extremity with fat layer exposed: CODE(S): L97.912 - Non-pressure chronic ulcer of unspecified part of right lower leg with fat layer exposed (2) Ulcer of left lower extremity, limited to breakdown of skin: CODE(S): L97.921 - Non-pressure chronic ulcer of unspecified part of left lower leg limited to breakdown of skin (3) Bilateral edema of lower extremity: CODE(S): R60.0 - Localized edema (4) Lymphedema of both lower extremities: CODE(S): I89.0 - Lymphedema, not elsewhere classified (5) COPD (chronic obstructive pulmonary disease): CODE(S): J44.9 - Chronic obstructive pulmonary disease, unspecified (6) Requires continuous at home supplemental oxygen: CODE(S): Z99.81 - Dependence on supplemental oxygen (7) Former smoker: CODE(S): Z87.891 - Personal history of nicotine dependence PLAN: Plan Patient evaluated at the wound healing center today. Wound care - Place Silvercel/silver alginate cover with ABD/ super absorber daily to the ulcer after washing the ulcer with soap and water. Place Lac hytrin lotion to non ulcer areas before applying compression. She would benefit from an advanced wound healing product such as Epifix, to help expedite her wound healing progress. Will apply for insurance approval for application of Epifix. Compression - Circaid compression stockings to bilateral lower legs. Discussed low sodium diet that is high in protein to help with edema management and wound healing. She has been approved for home compression pumps, and is has started to use them an hour per day. Encouraged increase activity/walking as tolerated to help with edema/lymphedema, along with foot pumping while sitting. Encouraged patient not to sleep in chair but if she has to because of her COPD/difficult breathing she needs to be propped up. Encouraged leg elevation. Wound culture obtained on 07/12/22 which was positive for Serratia marcescens and Anaerobic cocci. It is resistant to the Doxycycline her PCP placed her on. Instructed her to stop the Doxycycline. Initially ordered Levaquin but patient read all the side effects and she states her father had a seizure while on Levaquin. Changed Levaquin to Bactrim and then added Metronidazole when the Anaerobic culture came back. She has completed the antibiotics. Referred to Dr. Abreu, warehouse packer for foot and toe nail care, due to the amount of callousing she has on the plantar surfaces of bilateral feet. Her work schedule is changing at the beginning of September and she is going to need a Sunday appointment so she doesn't miss work. Follow up one week.
[2022-09-13 08:35] VITALS: BP 167/89; PULSE 108; RESP 22; TEMP 36.6; BMI 44.0
--- NOTE | 2022-09-13 09:41 | PCM.WC.PN ---
History of Present Illness Date of Service: 09/13/22 Chief Complaint: Bilateral leg ulcers History of Wound: 62 year old female presents to the wound healing center with ulcers on her right and left legs that started 5 months ago after being hospitalized for pneumonia and COPD exacerbation. She developed worsening edema and her legs have been weeping. She then bumped her right lateral leg and developed an ulcer that she covers during the day with non adherent dressings. She also has several ulcers that are superficial and weep clear drainage due to the amount of edema she is experiencing. She sleeps in a chair due to difficulty breathing. She typically does not elevate her legs. 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 She was being treated with Doxycycline from her PCP due to a cellulitis of her legs. Reviewed notes from her PCP who saw her on 07/03/22 for cellulitis, ulcer right leg and shortness of breath. Wound culture obtained on 07/12/22 which was positive for Serratia marcescens and Anaerobic cocci. She has been started on Bactrim and Metronidazole. Arterial studies performed on 07/13/22 - Right CRISTINA - 1.27 and Left CRISTINA - 1.21. Triphasic Doppler waveforms are noted at ankle level bilaterally. Pulse-volume recordings appear diminished at digital level on the right, but satisfactory at all other levels bilaterally. Resting ankle-brachial indices are normal bilaterally. The right digital-brachial index is normal. The left digital-brachial index is mildly diminished. Arterial flow appears normal at ankle level bilaterally, and at digital level on the right. There is evidence of mild arterial occlusive disease at digital level on the left. 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 The right great saphenous vein appears segmentally incompetent. The right anterior accessory saphenous vein is incompetent. The left anterior accessory saphenous vein is incompetent. She denies fever, chills, nausea or vomiting. Progress of Wound: Right lateral leg ulcer is smaller and starting to have several skin islands forming in the center of the ulcer. She has received her Circaid compression stockings and is tolerating them well. She is tolerating her compression pumps at home also. The edema on her legs bilaterally have improved as has the dried skin. The thick skin plaques are improving on the bottom of her feet with her using the Lac-hytrin lotion. She has been approved for Epifix and her first application was applied today. Objective Data Objective Data Vital Signs: Vital Signs Temp Pulse Resp BP O2 Flow Rate 98 F 108 H 22 H 167/89 H 5 09/13/22 08:35 09/13/22 08:35 09/13/22 08:35 09/13/22 08:35 08/17/22 00:43 Oxygen Flow Rate (L/min) 5 Weight: 248 lb 8.668 oz Body Mass Index (BMI) 44.0 Charges/Coding Procedures Integumentary 150xxx-152xx: [id number] Skin sub graft trnk/arm/leg Debridement Note Debridement Note Wound debrided: lateral leg ulcer (#1) Laterality: Right Type of Debridement: Excisional debridement Anesthesia Used: 4% Lidocaine Solution and 5% Lidocaine Gel Depth: Down to and including healthy tissue and in the subcutaneous layer Percentage of wound debrided: 100 Instrument Used: 5mm curette Tissue Removed: devitalized tissue and slough Severity: Fat Layer Exposed Amount of bleeding with debridement: Mild Bleeding Controlled with: Pressure and Compression and gauze Patient tolerated procedure: Patient tolerated procedure well Post-Debridement Measurements and Additional Note: Post-Debridement Measurements/Treatment - Nurse 1 - General Ulcer Assessment Start: 08/21/22 15:53 Freq: Status: Active Protocol: TROY Activity Type Activity Date Activity User E-sign Co-sign Detail Recorded Client Recorded Date Recorded By Document 08/21/22 15:53 DL [id number] 08/21/22 15:56 DL Document 08/23/22 08:29 DL [id number] 08/23/22 08:35 DL Document 08/30/22 10:12 AK [id number] 08/30/22 10:14 AK Document 09/06/22 08:49 AK [id number] 09/06/22 08:51 AK Document 09/13/22 08:35 DL [id number] 09/13/22 08:37 DL 08/21/22 08/23/22 08/30/22 15:53 08:29 10:12 - Today's Visit Information Type of service Nurse-only Follow-up Visit Follow-up Visit Visit (Physician/YOUTH DEVELOPMENT SPECIALIST (Physician/YOUTH DEVELOPMENT SPECIALIST ) ) Arrival Mode Ambulatory Ambulatory Ambulatory Transfer Assistance None None Patient Identification Verified (Name & Yes Yes Yes ) Patient Requires Transmission-Based No No No Precautions Safety Precautions Height and Weight Body Mass Index (BMI) 44.0 44.0 44.0 BMI Classification Obese Obese Obese Vital Signs Temperature (97.8 F-99.1 F) 97.9 F 97.7 F L 97.4 F L Temperature Source Temporal Temporal Temporal Pulse Rate (60-100) 102 H 93 95 Pulse Location Monitor Monitor Monitor Respiratory Rate (12-18) 18 24 H Respiratory rate source Observation Observation Blood Pressure (90/60-120/80) 157/78 H 173/79 H 155/83 H Blood Pressure Mean (mm Hg) 104 110 107 Source Monitor Monitor Monitor History Since Last Visit- (Skip if this is Patient's initial visit) Have you changed medications since your No No No last visit? Any new allergies or adverse reactions No No No Had a fall/change in ADL's that may No No No increase risk of falls Signs or symptoms of abuse and/or No No No neglect since last visit Have you been in the hospital since your No No No last visit? Has dressing in place as prescribed Yes No Yes Has compression in place as prescribed Yes No Yes Has offloadiing in place as prescribed N/A N/A N/A Experienced any changes in pain level or No No No management Left Footwear Regular Shoe Right Footwear Regular Shoe Pain Scale: 0-10 Numeric Is Patient Pain Free? Yes Yes Yes 09/06/22 09/13/22 08:49 08:35 WC - Today's Visit Information Type of service Follow-up Visit Follow-up Visit (Physician/YOUTH DEVELOPMENT SPECIALIST (Physician/YOUTH DEVELOPMENT SPECIALIST ) ) Arrival Mode Ambulatory Ambulatory Transfer Assistance None Patient Identification Verified (Name & Yes Yes ) Patient Requires Transmission-Based No No Precautions Safety Precautions NA Height and Weight Body Mass Index (BMI) 44.0 44.0 BMI Classification Obese Obese Vital Signs Temperature (97.8 F-99.1 F) 97.2 F L 98 F Temperature Source Temporal Temporal Pulse Rate (60-100) 99 108 H Pulse Location Monitor Monitor Respiratory Rate (12-18) 22 H Respiratory rate source Observation Blood Pressure (90/60-120/80) 172/94 H 167/89 H Blood Pressure Mean (mm Hg) 120 115 Source Monitor Monitor History Since Last Visit- (Skip if this is Patient's initial visit) Have you changed medications since your No No last visit? Any new allergies or adverse reactions No No Had a fall/change in ADL's that may No No increase risk of falls Signs or symptoms of abuse and/or No No neglect since last visit Have you been in the hospital since your No No last visit? Has dressing in place as prescribed Yes Yes Has compression in place as prescribed N/A Yes Has offloadiing in place as prescribed N/A N/A Experienced any changes in pain level or No No management Left Footwear Regular Shoe Right Footwear Regular Shoe Pain Scale: 0-10 Numeric Is Patient Pain Free? Yes Yes WC - Nurse 1 - General Ulcer Measurement Start: 08/21/22 15:53 Freq: Status: Active Protocol: Activity Type Activity Date Activity User E-sign Co-sign Detail Recorded Client Recorded Date Recorded By Document 08/21/22 15:53 DL [id number] 08/21/22 15:56 DL Document 08/23/22 08:29 DL [id number] 08/23/22 08:35 DL Document 08/30/22 10:12 AK [id number] 08/30/22 10:14 AK Document 09/06/22 08:49 AK [id number] 09/06/22 08:51 AK Document 09/13/22 08:35 DL [id number] 09/13/22 08:37 DL 08/21/22 08/23/22 08/30/22 15:53 08:29 10:12 Wound Center Nurse 1 #2 RLE Med -Current Size (cm) - Length 0.1 -Current Size (cm) - Width 0.1 -Current Size (cm) - Depth 0.1 -Total Square Cm 0.01 -Photo Taken Yes -Exudate Amt Medium None Present -Exudate Type Serosanguineous -Wound Margin Distinct, Flat & Intact Outline Attached -Granulation Amt Large (67-100%) -Granulation Quality [place] -Necrosis Amt None Present (0 %) -Structure Exposed N/A N/A -Texture (Ashley-wound Skin Appearance) Scarring Scarring -Moisture (Ashley-wound Skin Appearance) No Abnormality Dry/Scaly -Color (Ashley-wound Skin Appearance) Hemosiderin Hemosiderin Staining Staining -Temperature (Ashley-wound Skin No Abnormality No Abnormality Appearance) (Pt Warm) (Pt Warm) -Tenderness on Palpation (Ashley-wound No Skin Appearance) -Ulcer Cleansing Soap and Water Soap and Water -Foul Odor after Cleansing No No -Anesthetic Used 5% Lidocaine Gel #1 RLE LAt Cluster -Combined with other wound -Current Size (cm) - Length 4.8 -Current Size (cm) - Width 5 -Current Size (cm) - Depth 0.1 -Total Square Cm 24.0 -Photo Taken Yes No -Tunneling No -Undermining/Tunneling No -Circular Undermining No -Change in Wound Grade/Stage No -Exudate Amt Medium Medium Medium -Exudate Type Serosanguineous Serosanguineous Serosanguineous -Wound Margin Distinct, Distinct, Distinct, Outline Outline Outline Attached Attached Attached -Granulation Amt Large (67-100%) Large (67-100%) -Granulation Quality Red Red -Slough/Fibrin No -Necrosis Amt Small (1-33%) None Present (0 %) -Necrotic Tissue Type Adherent Slough -Structure Exposed N/A N/A N/A -Texture (Ashley-wound Skin Appearance) Scarring Scarring No Abnormality, Assessed -Moisture (Ashley-wound Skin Appearance) No Abnormality Dry/Scaly No Abnormality, Assessed -Color (Ashley-wound Skin Appearance) Hemosiderin Hemosiderin No Abnormality, Staining Staining Assessed -Temperature (Ashley-wound Skin No Abnormality No Abnormality No Abnormality Appearance) (Pt Warm) (Pt Warm) (Pt Warm) -Tenderness on Palpation (Ashley-wound No No No Skin Appearance) -Ulcer Cleansing Soap and Water Soap and Water Rinsed/ Irrigated with Saline -Foul Odor after Cleansing No No No -Anesthetic Used 5% Lidocaine 4% Lidocaine Gel Solution Right Calf (cm) 47.1 45 Right Ankle (cm) 26.9 27.5 Left Calf (cm) 43.9 46.5 Left Ankle (cm) 25.8 26.5 09/06/22 09/13/22 08:49 08:35 Wound Center Nurse 1 #2 RLE Med -Current Size (cm) - Length -Current Size (cm) - Width -Current Size (cm) - Depth -Total Square Cm -Photo Taken -Exudate Amt -Exudate Type -Wound Margin -Granulation Amt -Granulation Quality -Necrosis Amt -Structure Exposed -Texture (Ashley-wound Skin Appearance) -Moisture (Ashley-wound Skin Appearance) -Color (Ashley-wound Skin Appearance) -Temperature (Ashley-wound Skin Appearance) -Tenderness on Palpation (Ashley-wound Skin Appearance) -Ulcer Cleansing -Foul Odor after Cleansing -Anesthetic Used #1 RLE LAt Cluster -Combined with other wound No -Current Size (cm) - Length 4.1 3.5 -Current Size (cm) - Width 4.3 3.7 -Current Size (cm) - Depth 0.5 0.1 -Total Square Cm 17.63 12.95 -Photo Taken Yes -Tunneling No -Undermining/Tunneling No -Circular Undermining No -Change in Wound Grade/Stage No -Exudate Amt Medium Small -Exudate Type Serosanguineous Serosanguineous -Wound Margin Distinct, Distinct, Outline Outline Attached Attached -Granulation Amt Medium (34-66%) Large (67-100%) -Granulation Quality [place] Red -Slough/Fibrin Yes -Necrosis Amt Medium (34-66%) Small (1-33%) -Necrotic Tissue Type Adherent Slough Adherent Slough -Structure Exposed N/A N/A -Texture (Ashley-wound Skin Appearance) No Abnormality, Scarring Assessed -Moisture (Ashley-wound Skin Appearance) No Abnormality, No Abnormality Assessed -Color (Ashley-wound Skin Appearance) Assessed, Hemosiderin Hemosiderin Staining Staining -Temperature (Ashley-wound Skin No Abnormality No Abnormality Appearance) (Pt Warm) (Pt Warm) -Tenderness on Palpation (Ashley-wound No Yes Skin Appearance) -Ulcer Cleansing Rinsed/ Soap and Water Irrigated with Saline -Foul Odor after Cleansing No No -Anesthetic Used 5% Lidocaine 5% Lidocaine Gel Gel Right Calf (cm) 48 446.7 Right Ankle (cm) 28.7 27.5 Left Calf (cm) 46 Left Ankle (cm) 26.5 WC - Nurse 2 - General Ulcer CM Notes Start: 08/21/22 15:53 Freq: Status: Active Protocol: Activity Type Activity Date Activity User E-sign Co-sign Detail Recorded Client Recorded Date Recorded By Document 08/23/22 08:49 GIN [id number] 08/23/22 08:52 GIN Document 08/30/22 08:57 GIN [id number] 08/30/22 09:02 JF Document 09/06/22 10:15 PL [id number] 09/06/22 10:16 PL Document 09/13/22 08:49 [id number] 09/13/22 08:56 08/23/22 08/30/22 09/06/22 08:49 08:57 10:15 Wound Center Nurse 2 #2 [facility] Med -Time 08:49 -Correct Patient Yes No -Correct Side, Site, Position Yes No -Correct Procedure Yes No -Procedure Performed Yes No -Type of Procedure Debridement -Clinical Debridement Subcutaneous -Tissue Removed Subcutaneous -Post Debridement (cm) - Length 0.4 -Post Debridement (cm) - Width 0.5 -Post Debridement (cm) - Depth 0.1 -Total Square (Post) (cm) 0.20 -Area of Debridement (cm) - Length 0.4 -Area of Debridement (cm) - Width 0.5 -Total Square (Area) (cm) 0.20 -Tunneling No -Undermining/Tunneling No -Circular Undermining No -Wound/Ulcer Outcome Not Healed Healed- Epithelialized -Ulcer Cleansing Rinsed/ Irrigated with Saline -Foul Odor after Cleansing No -Bioengineered Tissue No -Bleeding Controlled with Pressure -Treatment Response Procedure Tolerated Well -Offloading No -Debridement - Subq, 1st 20sq cm No #1 RLE LAt Cluster -Time 08:50 08:58 08:55 -Correct Patient Yes Yes Yes -Correct Side, Site, Position Yes Yes Yes -Correct Procedure Yes Yes Yes -Procedure Performed Yes Yes Yes -Type of Procedure Debridement Debridement Debridement -Clinical Debridement Subcutaneous Subcutaneous Subcutaneous -Tissue Removed Subcutaneous Subcutaneous Subcutaneous -Post Debridement (cm) - Length 5.0 4.5 4.3 -Post Debridement (cm) - Width 5.6 4.8 4.1 -Post Debridement (cm) - Depth 0.2 0.1 0.2 -Total Square (Post) (cm) 28.00 21.60 17.63 -Area of Debridement (cm) - Length 5.0 4.5 4.3 -Area of Debridement (cm) - Width 5.6 4.8 4.1 -Total Square (Area) (cm) 28.00 21.60 17.63 -Tunneling No No No -Undermining/Tunneling No No No -Circular Undermining No No No -Wound/Ulcer Outcome Not Healed Not Healed Not Healed -Ulcer Cleansing Rinsed/ Rinsed/ Rinsed/ Irrigated with Irrigated with Irrigated with Saline Saline Saline -Foul Odor after Cleansing No No No -Bioengineered Tissue No No No -Type of Bioengineered Tissue -Expiration Date -Product Lot Number -Percent Used -Lot number of Saline Used -Bleeding Controlled with Pressure Pressure Pressure -Treatment Response Procedure Procedure Procedure Tolerated Well Tolerated Well Tolerated Well -Offloading No No -Debridement - Subq, 1st 20sq cm Yes Yes Yes -Debridement, SubQ, ea addt'l 20sq cm 1 1 or part thereof -Apply Skin Sub - 1st 25 sq cm - Legs -Epifix Mesh (per sq cm) Pain Scale: 0-10 Numeric Is Patient Pain Free? Yes Yes Yes 09/13/22 08:49 Wound Center Nurse 2 #2 RLE Med -Time -Correct Patient -Correct Side, Site, Position -Correct Procedure -Procedure Performed -Type of Procedure -Clinical Debridement -Tissue Removed -Post Debridement (cm) - Length -Post Debridement (cm) - Width -Post Debridement (cm) - Depth -Total Square (Post) (cm) -Area of Debridement (cm) - Length -Area of Debridement (cm) - Width -Total Square (Area) (cm) -Tunneling -Undermining/Tunneling -Circular Undermining -Wound/Ulcer Outcome -Ulcer Cleansing -Foul Odor after Cleansing -Bioengineered Tissue -Bleeding Controlled with -Treatment Response -Offloading -Debridement - Subq, 1st 20sq cm #1 RLE LAt Cluster -Time 08:49 -Correct Patient Yes -Correct Side, Site, Position Yes -Correct Procedure Yes -Procedure Performed Yes -Type of Procedure Debridement -Clinical Debridement Subcutaneous -Tissue Removed Subcutaneous -Post Debridement (cm) - Length 4.0 -Post Debridement (cm) - Width 4.7 -Post Debridement (cm) - Depth 0.1 -Total Square (Post) (cm) 18.80 -Area of Debridement (cm) - Length 4.0 -Area of Debridement (cm) - Width 4.7 -Total Square (Area) (cm) 18.80 -Tunneling No -Undermining/Tunneling No -Circular Undermining No -Wound/Ulcer Outcome Not Healed -Ulcer Cleansing Rinsed/ Irrigated with Saline -Foul Odor after Cleansing No -Bioengineered Tissue Yes -Type of Bioengineered Tissue Epifix Mesh -Expiration Date 06/18/27 -Product Lot Number [id number] -Percent Used 100 -Lot number of Saline Used [id number] -Bleeding Controlled with Pressure -Treatment Response Procedure Tolerated Well -Offloading No -Debridement - Subq, 1st 20sq cm No -Debridement, SubQ, ea addt'l 20sq cm or part thereof -Apply Skin Sub - 1st 25 sq cm - Legs 1 -Epifix Mesh (per sq cm) 11 Pain Scale: 0-10 Numeric Is Patient Pain Free? Yes WC - Nurse 3 - General Ulcer D/C NN Start: 08/21/22 15:53 Freq: Status: Active Protocol: Activity Type Activity Date Activity User E-sign Co-sign Detail Recorded Client Recorded Date Recorded By Document 08/21/22 15:56 DL [id number] 08/21/22 15:59 DL Document 08/23/22 09:29 RB [id number] 08/23/22 09:32 RB Document 08/30/22 10:14 AK [id number] 08/30/22 10:15 AK Document 09/06/22 09:13 AK [id number] 09/06/22 09:14 AK Document 09/13/22 09:05 DL [id number] 09/13/22 09:12 DL 08/21/22 08/23/22 08/30/22 15:56 09:29 10:14 Wound Care Center Nurse 3 #2 RLE Med -Ulcer Cleansing Soap and Water Rinsed/ Irrigated with Saline -Foul Odor after Cleansing No -Primary Dressing Applied Optilok 6.5x10, Silvercel -Other Dressing silvercell -Primary Dressing Covered/Secured with Dry Gauze & Dry Gauze & Roll Gauze Roll Gauze, Secured with Tape -Optilok 6.5x10 1 -Silvercel 1 #1 RLE LAt Cluster -Ulcer Cleansing Soap and Water Rinsed/ Irrigated with Saline -Foul Odor after Cleansing No No -Negative Pressure Wound Therapy N/A -Primary Dressing Applied -Other Dressing silvercell silvrcell own silvercel- circaid- hydralactin -Primary Dressing Covered/Secured with Dry Gauze Dry Gauze & Roll Gauze, Secured with Tape -Mepilex Border Other/Comment pt own lachydrin to bilat LE Left -Lotion applied to leg before Yes compression wrap -Compression Wrap Dwayne Wrap -Tubular Bandage Double Layer -Size of Tubigrip Used Size E -Size E ($) 2 mason -Multi-Layered Wrap Application Multi-Layer Multi-Layer Comp - Bilat ($ Comp - Bilat ($ ) ) -Other Treatment Response Procedure Procedure Tolerated Well Tolerated Well Pain Scale: 0-10 Numeric Is Patient Pain Free? Yes Yes Yes WC - Visit Discharge Discharge Condition Stable Stable Stable Ambulatory Status Ambulatory Ambulatory Ambulatory Transportation Private Auto Private Auto Private Auto Accompanied by Medication Reconcilliation completed & No Yes provided to patient/care provider Clinical Summary of Care Provided Yes Yes Notes: Dressing applied per Dennis Pabon today in clinic 09/06/22 09/13/22 09:13 09:05 Wound Care Center Nurse 3 #2 RLE Med -Ulcer Cleansing -Foul Odor after Cleansing -Primary Dressing Applied -Other Dressing -Primary Dressing Covered/Secured with -Optilok 6.5x10 -Silvercel #1 RLE LAt Cluster -Ulcer Cleansing Rinsed/ Not Cleansed Irrigated with Saline -Foul Odor after Cleansing No -Negative Pressure Wound Therapy N/A -Primary Dressing Applied Mepilex Border -Other Dressing own silvercell epimesh and own tubi and circaid -Primary Dressing Covered/Secured with Dry Gauze & Dry Gauze Roll Gauze, Secured with Tape -Mepilex Border 1 Other/Comment Left -Lotion applied to leg before compression wrap -Compression Wrap -Tubular Bandage -Size of Tubigrip Used -Size E ($) mason -Multi-Layered Wrap Application -Other circaids Treatment Response Procedure Tolerated Well Pain Scale: 0-10 Numeric Is Patient Pain Free? Yes Yes WC - Visit Discharge Discharge Condition Stable Stable Ambulatory Status Ambulatory Ambulatory,Cane Transportation Private Auto Private Auto Accompanied by Medication Reconcilliation completed & Yes provided to patient/care provider Clinical Summary of Care Provided Yes Notes: Assessment/Plan Assessment/Plan (1) Ulcer of right lower extremity with fat layer exposed: CODE(S): L97.912 - Non-pressure chronic ulcer of unspecified part of right lower leg with fat layer exposed (2) Ulcer of left lower extremity, limited to breakdown of skin: CODE(S): L97.921 - Non-pressure chronic ulcer of unspecified part of left lower leg limited to breakdown of skin (3) Bilateral edema of lower extremity: CODE(S): R60.0 - Localized edema (4) Lymphedema of both lower extremities: CODE(S): I89.0 - Lymphedema, not elsewhere classified (5) COPD (chronic obstructive pulmonary disease): CODE(S): J44.9 - Chronic obstructive pulmonary disease, unspecified (6) Requires continuous at home supplemental oxygen: CODE(S): Z99.81 - Dependence on supplemental oxygen (7) Former smoker: CODE(S): Z87.891 - Personal history of nicotine dependence PLAN: Plan Patient evaluated at the wound healing center today. Wound care - Epifix #1 placed today. 100% of the product was used, skin prep was used around the ashley wound and a wound veil was placed with steri strips to keep in place. Topped with Willis SAP dressing. She was instructed to not get the ulcer wet. She may change the outer dressing as needed, depending on how much drainage she experiences. Place Lac hytrin lotion to non ulcer areas before applying compression. Compression - Circaid compression stockings to bilateral lower legs. Discussed low sodium diet that is high in protein to help with edema management and wound healing. She has been approved for home compression pumps, and is has started to use them an hour per day. Instructed her that she does not need to remove her Circaid stockings before using the compression pumps. Encouraged increase activity/walking as tolerated to help with edema/lymphedema, along with foot pumping while sitting. Encouraged patient not to sleep in chair but if she has to because of her COPD/difficult breathing she needs to be propped up. Encouraged leg elevation. Wound culture obtained on 07/12/22 which was positive for Serratia marcescens and Anaerobic cocci. It is resistant to the Doxycycline her PCP placed her on. Instructed her to stop the Doxycycline. Initially ordered Levaquin but patient read all the side effects and she states her father had a seizure while on Levaquin. Changed Levaquin to Bactrim and then added Metronidazole when the Anaerobic culture came back. She has completed the antibiotics. Referred to Dr. Abreu, lathe hand for foot and toe nail care, due to the amount of callousing she has on the plantar surfaces of bilateral feet. Her work schedule is changing at the beginning of September and she is going to need a Sunday appointment so she doesn't miss work. Follow up one week.
== END 2022-09-15 23:59 | disposition home or self-care (01) ==
LOC: WC 08:30
PROVIDERS: PCP Family Medicine; Referring Provider Family Medicine; Visit Provider Nurse Practitioner Family
DX: L97.812 Non-pressure chronic ulcer of other part of right lower leg with fat layer exposed (principal); J44.9 Chronic obstructive pulmonary disease, unspecified; R60.0 Localized edema; I89.0 Lymphedema, not elsewhere classified; Z99.81 Dependence on supplemental oxygen; Z87.891 Personal history of nicotine dependence; Z79.82 Long term (current) use of aspirin; Z79.899 Other long term (current) drug therapy
CPT/HCPCS: 11042; 11045; 15271; 29581; Q4186

== ENCOUNTER 2022-10-11 08:30 | Outpatient (RCR) | payer BC, SELFPAY ==
[2022-09-16 01:28] VITALS: BP 167/89; PULSE 108; RESP 22; TEMP 36.6; BMI 44.0
[2022-09-20 08:32] VITALS: RESP 18; TEMP 36.2; BMI 44.0
[2022-09-20 08:46] VITALS: BP 150/72; PULSE 98; RESP 18; TEMP 36.2; BMI 44.0
--- NOTE | 2022-09-20 09:15 | PCM.WC.PN ---
History of Present Illness Date of Service: 09/20/22 Chief Complaint: Right leg ulcer History of Wound: 62 year old female presents to the wound healing center with ulcers on her right and left legs that started 5 months ago after being hospitalized for pneumonia and COPD exacerbation. She developed worsening edema and her legs have been weeping. She then bumped her right lateral leg and developed an ulcer that she covers during the day with non adherent dressings. She also has several ulcers that are superficial and weep clear drainage due to the amount of edema she is experiencing. She sleeps in a chair due to difficulty breathing. She typically does not elevate her legs. 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 She was being treated with Doxycycline from her PCP due to a cellulitis of her legs. Reviewed notes from her PCP who saw her on 07/03/22 for cellulitis, ulcer right leg and shortness of breath. Wound culture obtained on 07/12/22 which was positive for Serratia marcescens and Anaerobic cocci. She has been started on Bactrim and Metronidazole. Arterial studies performed on 07/13/22 - Right CRISTINA - 1.27 and Left CRISTINA - 1.21. Triphasic Doppler waveforms are noted at ankle level bilaterally. Pulse-volume recordings appear diminished at digital level on the right, but satisfactory at all other levels bilaterally. Resting ankle-brachial indices are normal bilaterally. The right digital-brachial index is normal. The left digital-brachial index is mildly diminished. Arterial flow appears normal at ankle level bilaterally, and at digital level on the right. There is evidence of mild arterial occlusive disease at digital level on the left. 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 The right great saphenous vein appears segmentally incompetent. The right anterior accessory saphenous vein is incompetent. The left anterior accessory saphenous vein is incompetent. She denies fever, chills, nausea or vomiting. Progress of Wound: Right lateral leg ulcer is smaller and starting to have several skin islands forming in the center of the ulcer. She is consistently wearing her Circaid compression stockings. . She is tolerating her compression pumps at home also. The edema on her legs bilaterally have improved as has the dried skin. The thick skin plaques are improving on the bottom of her feet with her using the Lac-hytrin lotion. She has been approved for Epifix and her second application was applied today. Objective Data Objective Data Vital Signs: Vital Signs Temp Pulse Resp BP O2 Del Method O2 Flow Rate 97.1 F L 98 18 150/72 H Nasal Cannula 5 09/20/22 08:46 09/20/22 08:46 09/20/22 08:46 09/20/22 08:46 09/20/22 08:46 09/16/22 01:28 Oxygen Flow Rate (L/min) 5 Oxygen Delivery Method Nasal Cannula Weight: 248 lb 8.668 oz Body Mass Index (BMI) 44.0 Charges/Coding Procedures Integumentary 150xxx-152xx: 92742 Skin sub graft trnk/arm/leg Debridement Note Debridement Note Wound debrided: lateral leg ulcer (#1) Laterality: Right Type of Debridement: Excisional debridement Anesthesia Used: 4% Lidocaine Solution and 5% Lidocaine Gel Depth: Down to and including healthy tissue and in the subcutaneous layer Percentage of wound debrided: 100 Instrument Used: 7mm curette Tissue Removed: devitalized tissue and slough Severity: Fat Layer Exposed Amount of bleeding with debridement: Mild Bleeding Controlled with: Pressure and Compression and gauze Patient tolerated procedure: Patient tolerated procedure well Post-Debridement Measurements and Additional Note: Post-Debridement Measurements/Treatment - Nurse 1 - General Ulcer Assessment Start: 09/20/22 08:32 Freq: Status: Active Protocol: TROY Activity Type Activity Date Activity User E-sign Co-sign Detail Recorded Client Recorded Date Recorded By Document 09/20/22 08:32 [id number] 09/20/22 08:44 Document 09/20/22 08:46 [id number] 09/20/22 08:48 KW 09/20/22 09/20/22 08:32 08:46 - Today's Visit Information Type of service Follow-up Visit Follow-up Visit (Physician/KRAFT DIGESTER OPERATOR (Physician/KRAFT DIGESTER OPERATOR ) ) Arrival Mode Ambulatory Ambulatory Accompanied by Patient Identification Verified (Name & Yes Yes ) Patient Requires Transmission-Based No Precautions Safety Precautions NA Height and Weight Body Mass Index (BMI) 44.0 44.0 BMI Classification Obese Obese Vital Signs Temperature (97.8 F-99.1 F) 97.1 F L 97.1 F L Temperature Source Temporal Temporal Pulse Rate (60-100) 98 Pulse Location Monitor Monitor Respiratory Rate (12-18) 18 18 Respiratory rate source Observation Observation Oxygen Delivery Method Nasal Cannula Nasal Cannula Blood Pressure (90/60-120/80) 150/72 H Blood Pressure Mean (mm Hg) 98 Source Monitor Monitor Position Sitting Sitting Blood Pressure Location Right Arm Right Arm History Since Last Visit- (Skip if this is Patient's initial visit) Have you changed medications since your No No last visit? Any new allergies or adverse reactions No No Had a fall/change in ADL's that may No No increase risk of falls Signs or symptoms of abuse and/or No No neglect since last visit Have you been in the hospital since your No No last visit? Has dressing in place as prescribed Yes Yes Has compression in place as prescribed Yes Yes Has offloadiing in place as prescribed N/A No Experienced any changes in pain level or No No management Left Footwear Regular Shoe Regular Shoe Right Footwear Regular Shoe Regular Shoe Pain Scale: 0-10 Numeric Is Patient Pain Free? Yes Yes - Nurse 1 - General Ulcer Measurement Start: 09/20/22 08:32 Freq: Status: Active Protocol: Activity Type Activity Date Activity User E-sign Co-sign Detail Recorded Client Recorded Date Recorded By Document 09/20/22 08:32 [id number] 09/20/22 08:44 KW Document 09/20/22 08:46 [id number] 09/20/22 08:48 KW 09/20/22 09/20/22 08:32 08:46 Wound Center Nurse 1 #1 RLE LAt Cluster -Combined with other wound No -Current Size (cm) - Length 9.8 9.8 -Current Size (cm) - Width 4.6 4.5 -Current Size (cm) - Depth 0.1 0.1 -Total Square Cm 45.08 44.10 -Photo Taken No No -Epithelialization Medium 34-66% Medium 34-66% -Tunneling No No -Undermining/Tunneling No No -Circular Undermining No No -Exudate Amt Small Small -Exudate Type Serosanguineous Serosanguineous -Wound Margin Distinct, Distinct, Outline Outline Attached Attached -Granulation Amt Medium (34-66%) Medium (34-66%) -Granulation Quality Red Red -Slough/Fibrin Yes Yes -Necrosis Amt Small (1-33%) Small (1-33%) -Necrotic Tissue Type Adherent Slough Adherent Slough -Texture (Ashley-wound Skin Appearance) Assessed Assessed -Moisture (Ashley-wound Skin Appearance) Assessed,Dry/ Assessed,Dry/ Scaly Scaly -Color (Ashley-wound Skin Appearance) Assessed, Assessed, Erythema Erythema -Temperature (Ashley-wound Skin No Abnormality No Abnormality Appearance) (Pt Warm) (Pt Warm) -Ulcer Cleansing Soap and Water Soap and Water -Foul Odor after Cleansing No -Anesthetic Used 5% Lidocaine 5% Lidocaine Gel Gel Lower Limb Edema Present Yes Yes Right Calf (cm) 47.1 47.1 Right Ankle (cm) 28 28 WC - Nurse 2 - General Ulcer CM Notes Start: 09/20/22 08:32 Freq: Status: Active Protocol: Activity Type Activity Date Activity User E-sign Co-sign Detail Recorded Client Recorded Date Recorded By Document 09/20/22 09:01 GIN [id number] 09/20/22 09:05 GIN 09/20/22 09:01 Wound Center Nurse 2 #1 RLE LAt Cluster -Time 09:01 -Correct Patient Yes -Correct Side, Site, Position Yes -Correct Procedure Yes -Procedure Performed Yes -Type of Procedure Debridement -Clinical Debridement Subcutaneous -Tissue Removed Subcutaneous -Post Debridement (cm) - Length 2.8 -Post Debridement (cm) - Width 4.0 -Post Debridement (cm) - Depth 0.1 -Total Square (Post) (cm) 11.20 -Area of Debridement (cm) - Length 2.8 -Area of Debridement (cm) - Width 4.0 -Total Square (Area) (cm) 11.20 -Tunneling No -Undermining/Tunneling No -Circular Undermining No -Wound/Ulcer Outcome Not Healed -Ulcer Cleansing Rinsed/ Irrigated with Saline -Foul Odor after Cleansing No -Bioengineered Tissue Yes -Type of Bioengineered Tissue Epifix Mesh -Expiration Date 06/18/27 -Product Lot Number [id number] -Percent Used 100 -Lot number of Saline Used [id number] -Bleeding Controlled with Pressure -Treatment Response Procedure Tolerated Well -Offloading No -Debridement - Subq, 1st 20sq cm No -Apply Skin Sub - 1st 25 sq cm - Legs 1 -Epifix Mesh (per sq cm) 11 Pain Scale: 0-10 Numeric Is Patient Pain Free? Yes Assessment/Plan Assessment/Plan (1) Ulcer of right lower extremity with fat layer exposed: CODE(S): L97.912 - Non-pressure chronic ulcer of unspecified part of right lower leg with fat layer exposed (2) Ulcer of left lower extremity, limited to breakdown of skin: CODE(S): L97.921 - Non-pressure chronic ulcer of unspecified part of left lower leg limited to breakdown of skin (3) Bilateral edema of lower extremity: CODE(S): R60.0 - Localized edema (4) Lymphedema of both lower extremities: CODE(S): I89.0 - Lymphedema, not elsewhere classified (5) COPD (chronic obstructive pulmonary disease): CODE(S): J44.9 - Chronic obstructive pulmonary disease, unspecified (6) Requires continuous at home supplemental oxygen: CODE(S): Z99.81 - Dependence on supplemental oxygen (7) Former smoker: CODE(S): Z87.891 - Personal history of nicotine dependence PLAN: Plan Patient evaluated at the wound healing center today. Wound care - Epifix #2 placed today. 100% of the product was used, skin prep was used around the ashley wound and a wound veil was placed with steri strips to keep in place. Collagen hydrogel placed and then topped with ABD pad. She was instructed to not get the ulcer wet. She may change the outer dressing as needed, depending on how much drainage she experiences. Place Lac hytrin lotion to non ulcer areas before applying compression. Compression - Circaid compression stockings to bilateral lower legs. Discussed low sodium diet that is high in protein to help with edema management and wound healing. She has been approved for home compression pumps, and is has started to use them an hour per day. Instructed her that she does not need to remove her Circaid stockings before using the compression pumps. Encouraged increase activity/walking as tolerated to help with edema/lymphedema, along with foot pumping while sitting. Encouraged patient not to sleep in chair but if she has to because of her COPD/difficult breathing she needs to be propped up. Encouraged leg elevation. Wound culture obtained on 07/12/22 which was positive for Serratia marcescens and Anaerobic cocci. It is resistant to the Doxycycline her PCP placed her on. Instructed her to stop the Doxycycline. Initially ordered Levaquin but patient read all the side effects and she states her father had a seizure while on Levaquin. Changed Levaquin to Bactrim and then added Metronidazole when the Anaerobic culture came back. She has completed the antibiotics. Referred to Dr. Abreu, vehicle safety inspector for foot and toe nail care, due to the amount of callousing she has on the plantar surfaces of bilateral feet. Her work schedule is changing at the beginning of September and she is going to need a Sunday appointment so she doesn't miss work. Follow up one week.
[2022-09-27 08:26] VITALS: BP 164/76; PULSE 94; RESP 18; TEMP 36.6; BMI 44.0
--- NOTE | 2022-09-27 10:41 | PCM.WC.PN ---
History of Present Illness Date of Service: 09/27/22 Chief Complaint: Right leg ulcer History of Wound: 62 year old female presents to the wound healing center with ulcers on her right and left legs that started 5 months ago after being hospitalized for pneumonia and COPD exacerbation. She developed worsening edema and her legs have been weeping. She then bumped her right lateral leg and developed an ulcer that she covers during the day with non adherent dressings. She also has several ulcers that are superficial and weep clear drainage due to the amount of edema she is experiencing. She sleeps in a chair due to difficulty breathing. She typically does not elevate her legs. 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 She was being treated with Doxycycline from her PCP due to a cellulitis of her legs. Reviewed notes from her PCP who saw her on 07/03/22 for cellulitis, ulcer right leg and shortness of breath. Wound culture obtained on 07/12/22 which was positive for Serratia marcescens and Anaerobic cocci. She has been started on Bactrim and Metronidazole. Arterial studies performed on 07/13/22 - Right CRISTINA - 1.27 and Left CRISTINA - 1.21. Triphasic Doppler waveforms are noted at ankle level bilaterally. Pulse-volume recordings appear diminished at digital level on the right, but satisfactory at all other levels bilaterally. Resting ankle-brachial indices are normal bilaterally. The right digital-brachial index is normal. The left digital-brachial index is mildly diminished. Arterial flow appears normal at ankle level bilaterally, and at digital level on the right. There is evidence of mild arterial occlusive disease at digital level on the left. 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 The right great saphenous vein appears segmentally incompetent. The right anterior accessory saphenous vein is incompetent. The left anterior accessory saphenous vein is incompetent. She denies fever, chills, nausea or vomiting. Progress of Wound: Right lateral leg ulcer is smaller and now a cluster due to the skin islands forming in the center of the ulcer. She is consistently wearing her Circaid compression stockings. . She is tolerating her compression pumps at home also. The edema on her legs bilaterally have improved as has the dried skin. The thick skin plaques are improving on the bottom of her feet with her using the Lac-hytrin lotion. She has been approved for Epifix and her third application was applied today. Objective Data Objective Data Vital Signs: Vital Signs Temp Pulse Resp BP O2 Del Method O2 Flow Rate 97.8 F 94 18 164/76 H Nasal Cannula 5 09/27/22 08:26 09/27/22 08:26 09/27/22 08:26 09/27/22 08:26 09/20/22 08:46 09/16/22 01:28 Oxygen Flow Rate (L/min) 5 Oxygen Delivery Method Nasal Cannula Weight: 248 lb 8.668 oz Body Mass Index (BMI) 44.0 Charges/Coding Procedures Integumentary 150xxx-152xx: 90969 Skin sub graft trnk/arm/leg Debridement Note Debridement Note Wound debrided: lateral leg ulcer (#1) Laterality: Right Type of Debridement: Excisional debridement Anesthesia Used: 4% Lidocaine Solution and 5% Lidocaine Gel Depth: Down to and including healthy tissue and in the subcutaneous layer Percentage of wound debrided: 100 Instrument Used: 5mm curette Tissue Removed: devitalized tissue and slough Severity: Fat Layer Exposed Amount of bleeding with debridement: Mild Bleeding Controlled with: Pressure and Compression and gauze Patient tolerated procedure: Patient tolerated procedure well Post-Debridement Measurements and Additional Note: Post-Debridement Measurements/Treatment - Nurse 1 - General Ulcer Assessment Start: 09/20/22 08:32 Freq: Status: Active Protocol: TROY Activity Type Activity Date Activity User E-sign Co-sign Detail Recorded Client Recorded Date Recorded By Document 09/20/22 08:32 KW [id number] 09/20/22 08:44 KW Document 09/20/22 08:46 KW [id number] 09/20/22 08:48 KW Document 09/27/22 08:26 [address] [id number] 09/27/22 08:33 PL 09/20/22 09/20/22 09/27/22 08:32 08:46 08:26 - Today's Visit Information Type of service Follow-up Visit Follow-up Visit Follow-up Visit (Physician/MENTAL HEALTH SPECIALIST (Physician/MENTAL HEALTH SPECIALIST (Physician/MENTAL HEALTH SPECIALIST ) ) ) Arrival Mode Ambulatory Ambulatory Ambulatory Transfer Assistance None Accompanied by Patient Identification Verified (Name & Yes Yes Yes ) Patient Requires Transmission-Based No No Precautions Safety Precautions NA Height and Weight Body Mass Index (BMI) 44.0 44.0 44.0 BMI Classification Obese Obese Obese Vital Signs Temperature (97.8 F-99.1 F) 97.1 F L 97.1 F L 97.8 F Temperature Source Temporal Temporal Temporal Pulse Rate (60-100) 98 94 Pulse Location Monitor Monitor Respiratory Rate (12-18) 18 18 18 Respiratory rate source Observation Observation Oxygen Delivery Method Nasal Cannula Nasal Cannula Blood Pressure (90/60-120/80) 150/72 H 164/76 H Blood Pressure Mean (mm Hg) 98 105 Source Monitor Monitor Position Sitting Sitting Blood Pressure Location Right Arm Right Arm History Since Last Visit- (Skip if this is Patient's initial visit) Have you changed medications since your No No No last visit? Any new allergies or adverse reactions No No No Had a fall/change in ADL's that may No No No increase risk of falls Signs or symptoms of abuse and/or No No No neglect since last visit Have you been in the hospital since your No No No last visit? Has dressing in place as prescribed Yes Yes Yes Has compression in place as prescribed Yes Yes N/A Has offloadiing in place as prescribed N/A No N/A Experienced any changes in pain level or No No management Left Footwear Regular Shoe Regular Shoe Right Footwear Regular Shoe Regular Shoe Pain Scale: 0-10 Numeric Is Patient Pain Free? Yes Yes Yes WC - Nurse 1 - General Ulcer Measurement Start: 09/20/22 08:32 Freq: Status: Active Protocol: Activity Type Activity Date Activity User E-sign Co-sign Detail Recorded Client Recorded Date Recorded By Document 09/20/22 08:32 [id number] 09/20/22 08:44 KW Document 09/20/22 08:46 [id number] 09/20/22 08:48 KW 09/20/22 09/20/22 08:32 08:46 Wound Center Nurse 1 #1 RLE LAt Cluster -Combined with other wound No -Current Size (cm) - Length 9.8 9.8 -Current Size (cm) - Width 4.6 4.5 -Current Size (cm) - Depth 0.1 0.1 -Total Square Cm 45.08 44.10 -Photo Taken No No -Epithelialization Medium 34-66% Medium 34-66% -Tunneling No No -Undermining/Tunneling No No -Circular Undermining No No -Exudate Amt Small Small -Exudate Type Serosanguineous Serosanguineous -Wound Margin Distinct, Distinct, Outline Outline Attached Attached -Granulation Amt Medium (34-66%) Medium (34-66%) -Granulation Quality Red Red -Slough/Fibrin Yes Yes -Necrosis Amt Small (1-33%) Small (1-33%) -Necrotic Tissue Type Adherent Slough Adherent Slough -Texture (Fredo-wound Skin Appearance) Assessed Assessed -Moisture (Fredo-wound Skin Appearance) Assessed,Dry/ Assessed,Dry/ Scaly Scaly -Color (Fredo-wound Skin Appearance) Assessed, Assessed, Erythema Erythema -Temperature (Fredo-wound Skin No Abnormality No Abnormality Appearance) (Pt Warm) (Pt Warm) -Ulcer Cleansing Soap and Water Soap and Water -Foul Odor after Cleansing No -Anesthetic Used 5% Lidocaine 5% Lidocaine Gel Gel Lower Limb Edema Present Yes Yes Right Calf (cm) 47.1 47.1 Right Ankle (cm) 28 28 - Nurse 2 - General Ulcer CM Notes Start: 09/20/22 08:32 Freq: Status: Active Protocol: Activity Type Activity Date Activity User E-sign Co-sign Detail Recorded Client Recorded Date Recorded By Document 09/20/22 09:01 [id number] 09/20/22 09:05 Document 09/27/22 08:44 [id number] 09/27/22 08:52 09/20/22 09/27/22 09:01 08:44 Wound Center Nurse [address] [facility] Cluster -Time 09:01 08:44 -Correct Patient Yes Yes -Correct Side, Site, Position Yes Yes -Correct Procedure Yes Yes -Procedure Performed Yes Yes -Type of Procedure Debridement Debridement -Clinical Debridement Subcutaneous Subcutaneous -Tissue Removed Subcutaneous Subcutaneous -Post Debridement (cm) - Length 2.8 2.5 -Post Debridement (cm) - Width 4.0 2.5 -Post Debridement (cm) - Depth 0.1 0.1 -Total Square (Post) (cm) 11.20 6.25 -Area of Debridement (cm) - Length 2.8 2.5 -Area of Debridement (cm) - Width 4.0 2.5 -Total Square (Area) (cm) 11.20 6.25 -Tunneling No No -Undermining/Tunneling No No -Circular Undermining No No -Wound/Ulcer Outcome Not Healed Not Healed -Ulcer Cleansing Rinsed/ Rinsed/ Irrigated with Irrigated with Saline Saline -Foul Odor after Cleansing No No -Bioengineered Tissue Yes Yes -Type of Bioengineered Tissue Epifix Mesh Epifix -Expiration Date 06/18/27 01/17/27 -Product Lot Number [id number] -Percent Used 100 100 -Lot number of Saline Used [id number] -Bleeding Controlled with Pressure Pressure -Treatment Response Procedure Procedure Tolerated Well Tolerated Well -Offloading No No -Debridement - Subq, 1st 20sq cm No No -Apply Skin Sub - 1st 25 sq cm - Legs 1 1 -Epifix (per sq cm) 4 -Epifix Mesh (per sq cm) 11 Pain Scale: 0-10 Numeric Is Patient Pain Free? Yes Yes - Nurse 3 - General Ulcer D/C NN Start: 09/20/22 08:32 Freq: Status: Active Protocol: Activity Type Activity Date Activity User E-sign Co-sign Detail Recorded Client Recorded Date Recorded By Document 09/20/22 11:18 [id number] 09/20/22 11:19 Document 09/27/22 08:52 [id number] 09/27/22 08:53 09/20/22 09/27/22 11:18 08:52 Wound Care Center Nurse 3 #1 RLE LAt Cluster -Ulcer Cleansing Rinsed/ Rinsed/ Irrigated with Irrigated with Saline Saline -Foul Odor after Cleansing No No -Primary Dressing Applied Mepilex Border -Primary Dressing Covered/Secured with Dry Gauze & Roll Gauze, Secured with Tape -Mepilex Border 1 Right -Stockings Yes: circaid Pain Scale: 0-10 Numeric Is Patient Pain Free? Yes Yes - Visit Discharge Discharge Condition Stable Stable Ambulatory Status Ambulatory,Cane Ambulatory Transportation Private Auto Private Auto Medication Reconcilliation completed & Yes Yes provided to patient/care provider Clinical Summary of Care Provided Yes Yes Assessment/Plan Assessment/Plan (1) Ulcer of right lower extremity with fat layer exposed: CODE(S): L97.912 - Non-pressure chronic ulcer of unspecified part of right lower leg with fat layer exposed (2) Ulcer of left lower extremity, limited to breakdown of skin: CODE(S): L97.921 - Non-pressure chronic ulcer of unspecified part of left lower leg limited to breakdown of skin (3) Bilateral edema of lower extremity: CODE(S): R60.0 - Localized edema (4) Lymphedema of both lower extremities: CODE(S): I89.0 - Lymphedema, not elsewhere classified (5) COPD (chronic obstructive pulmonary disease): CODE(S): J44.9 - Chronic obstructive pulmonary disease, unspecified (6) Requires continuous at home supplemental oxygen: CODE(S): Z99.81 - Dependence on supplemental oxygen (7) Former smoker: CODE(S): Z87.891 - Personal history of nicotine dependence PLAN: Plan Patient evaluated at the wound healing center today. Wound care - Epifix #3 placed today. 100% of the product was used, skin prep was used around the fredo wound and a wound veil was placed with steri strips to keep in place. Collagen hydrogel placed and then topped with Mepilex. She was instructed to not get the ulcer wet. She may change the outer dressing as needed, depending on how much drainage she experiences. Place Lac hytrin lotion to non ulcer areas before applying compression. Compression - Circaid compression stockings to bilateral lower legs. Discussed low sodium diet that is high in protein to help with edema management and wound healing. She has been approved for home compression pumps, and is has started to use them an hour per day. Instructed her that she does not need to remove her Circaid stockings before using the compression pumps. Encouraged increase activity/walking as tolerated to help with edema/lymphedema, along with foot pumping while sitting. Encouraged patient not to sleep in chair but if she has to because of her COPD/difficult breathing she needs to be propped up. Encouraged leg elevation. Wound culture obtained on 07/12/22 which was positive for Serratia marcescens and Anaerobic cocci. It is resistant to the Doxycycline her PCP placed her on. Instructed her to stop the Doxycycline. Initially ordered Levaquin but patient read all the side effects and she states her father had a seizure while on Levaquin. Changed Levaquin to Bactrim and then added Metronidazole when the Anaerobic culture came back. She has completed the antibiotics. Referred to Dr. Abreu, regulatory auditor for foot and toe nail care, due to the amount of callousing she has on the plantar surfaces of bilateral feet. Follow up one week.
[2022-10-04 08:42] VITALS: BP 161/84; PULSE 98; RESP 22; TEMP 36.3; BMI 44.0
--- NOTE | 2022-10-04 09:34 | PCM.WC.HP ---
History of Present Illness Date of Service: 10/04/22 Chief Complaint: Right leg ulcer History of Wound: 62 year old female presents to the wound healing center with ulcers on her right and left legs that started 5 months ago after being hospitalized for pneumonia and COPD exacerbation. She developed worsening edema and her legs have been weeping. She then bumped her right lateral leg and developed an ulcer that she covers during the day with non adherent dressings. She also has several ulcers that are superficial and weep clear drainage due to the amount of edema she is experiencing. She sleeps in a chair due to difficulty breathing. She typically does not elevate her legs. 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 She was being treated with Doxycycline from her PCP due to a cellulitis of her legs. Reviewed notes from her PCP who saw her on 07/03/22 for cellulitis, ulcer right leg and shortness of breath. Wound culture obtained on 07/12/22 which was positive for Serratia marcescens and Anaerobic cocci. She has been started on Bactrim and Metronidazole. Arterial studies performed on 07/13/22 - Right CRISTINA - 1.27 and Left CRISTINA - 1.21. Triphasic Doppler waveforms are noted at ankle level bilaterally. Pulse-volume recordings appear diminished at digital level on the right, but satisfactory at all other levels bilaterally. Resting ankle-brachial indices are normal bilaterally. The right digital-brachial index is normal. The left digital-brachial index is mildly diminished. Arterial flow appears normal at ankle level bilaterally, and at digital level on the right. There is evidence of mild arterial occlusive disease at digital level on the left. 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 The right great saphenous vein appears segmentally incompetent. The right anterior accessory saphenous vein is incompetent. The left anterior accessory saphenous vein is incompetent. She denies fever, chills, nausea or vomiting. Progress of Wound: Right lateral leg ulcer is larger this week. She states that she did not need to change the dressing this week, so it could be related to the fact that the Dale SAP dressing kept too much moisture on the wound bed. She is consistently wearing her Circaid compression stockings. She is tolerating her compression pumps at home also. The edema on her legs bilaterally has improved with compression and is now stable. She has been approved for Epifix and her fourth application was applied today. [facility] Medical History (Updated 08/10/22 @ 22:33 by Blank Birmingham QUANTITATIVE MANAGER, QUANTITATIVE MANAGER-C) Bilateral edema of lower extremity COPD (chronic obstructive pulmonary disease) Requires continuous at home supplemental oxygen Ulcer of left lower extremity, limited to breakdown of skin Ulcer of right lower extremity with fat layer exposed Medical History no medical history Home Medications B6 25 mg-L mefolate 3,500 mcg DFE-mecobalamin 1 mg-ALA 300 mg capsule 1 cap PO DAILY 07/12/22 [History Last Taken Unknown] ammonium lactate 12 % topical cream 1 applic topical DAILY 07/12/22 [History Last Taken Unknown] aspirin 325 mg tablet mg 07/12/22 [History Last Taken Unknown] baclofen 10 mg tablet 10 mg PO TID PRN Anxiety 07/12/22 [History Last Taken Unknown] budesonide-formoterol HFA 160 mcg-4.5 mcg/actuation aerosol inhaler (Symbicort) 2 puff inhalation Q12H 07/12/22 [History Last Taken Unknown] dicyclomine 20 mg tablet 20 mg PO TID 07/12/22 [History Last Taken Unknown] doxycycline hyclate 100 mg capsule 100 mg PO BID 07/12/22 [History Last Taken Unknown] fluticasone fur. 100 mcg-umeclid 62.5 mcg-vilant 25 mcg inhalat.powder (Trelegy Ellipta) 1 inh inhalation DAILY 07/12/22 [History Last Taken Unknown] furosemide 20 mg tablet 20 mg PO DAILY 07/12/22 [History Last Taken Unknown] glucosamine sulf dipot chlr,msm,chond 550 mg-C 30 mg-gonzalez 1 mg capsule (Glucosamine Chondroitin) cap PO DAILY 07/12/22 [History Last Taken Unknown] guaifenesin 1,200 mg tablet, extended release 12 hr (Mucinex) 1,200 mg PO BID 07/12/22 [History Last Taken Unknown] potassium 99 mg tablet mg BID 07/12/22 [History Last Taken Unknown] tiotropium bromide 18 mcg capsule with inhalation device (Spiriva with HandiHaler) 1 cap inhalation DAILY 07/12/22 [History Last Taken Unknown] vit [id number]-WA no.15 500 mcg-400 mcg-10 mg-400 mg capsule cap PO 07/12/22 [History Last Taken Unknown] vit C-chromium picolinate-brindall navarro 10 mg-25 mcg-500 mg capsule cap PO 07/12/22 [History Last Taken Unknown] zinc 50 mg capsule 50 mg PO DAILY 07/12/22 [History Last Taken Unknown] levofloxacin 500 mg tablet 500 mg PO DAILY 14 days #14 tabs 07/14/22 [Rx Last Taken Unknown] metronidazole 500 mg tablet 500 mg PO TID 10 days #30 tabs 07/17/22 [Rx Last Taken Unknown] Allergy/AdvReac Type Severity Reaction Status Date / Time No Known Allergies Allergy Verified 07/12/22 10:40 Social History (Reviewed 07/12/22 @ 13:30 by Blank Birmingham QUANTITATIVE MANAGER, QUANTITATIVE MANAGER-C) Smoking Status: Former smoker Vital Signs Vital Signs Vital Signs: 10/04/22 08:42 Temperature 97.4 F L Temperature Source Temporal Pulse Rate 98 Respiratory Rate 22 H Blood Pressure 161/84 H Blood Pressure Mean 109 Blood Pressure Source Monitor Weight Weight: 248 lb 8.668 oz Body Mass Index (BMI) 44.0 Debridement Note Debridement Note Wound debrided: lateral leg ulcer (#1) Laterality: Right Type of Debridement: Excisional debridement Anesthesia Used: 4% Lidocaine Solution and 5% Lidocaine Gel Depth: Down to and including healthy tissue and in the subcutaneous layer Percentage of wound debrided: 100 Instrument Used: 5mm curette Tissue Removed: devitalized tissue and slough Severity: Fat Layer Exposed Amount of bleeding with debridement: Mild Bleeding Controlled with: Pressure and Compression and gauze Patient tolerated procedure: Patient tolerated procedure well Post-Debridement Measurements and Additional Note: Post-Debridement Measurements/Treatment WC - Nurse 1 - General Ulcer Assessment Start: 09/20/22 08:32 Freq: Status: Active Protocol: RTOY Activity Type Activity Date Activity User E-sign Co-sign Detail Recorded Client Recorded Date Recorded By Document 09/20/22 08:32 KW [id number] 09/20/22 08:44 KW Document 09/20/22 08:46 KW [id number] 09/20/22 08:48 KW Document 09/27/22 08:26 PL [id number] 09/27/22 08:33 PL Document 10/04/22 08:42 DL [id number] 10/04/22 08:45 DL 09/20/22 09/20/22 09/27/22 08:32 08:46 08:26 WC - Today's Visit Information Type of service Follow-up Visit Follow-up Visit Follow-up Visit (Physician/TIRE MOUNTER (Physician/TIRE MOUNTER (Physician/TIRE MOUNTER ) ) ) Arrival Mode Ambulatory Ambulatory Ambulatory Transfer Assistance None Accompanied by Patient Identification Verified (Name & Yes Yes Yes ) Patient Requires Transmission-Based No No Precautions Safety Precautions NA Height and Weight Body Mass Index (BMI) 44.0 44.0 44.0 BMI Classification Obese Obese Obese Vital Signs Temperature (97.8 F-99.1 F) 97.1 F L 97.1 F L 97.8 F Temperature Source Temporal Temporal Temporal Pulse Rate (60-100) 98 94 Pulse Location Monitor Monitor Respiratory Rate (12-18) 18 18 18 Respiratory rate source Observation Observation Oxygen Delivery Method Nasal Cannula Nasal Cannula Blood Pressure (90/60-120/80) 150/72 H 164/76 H Blood Pressure Mean 98 105 Source Monitor Monitor Position Sitting Sitting Blood Pressure Location Right Arm Right Arm History Since Last Visit- (Skip if this is Patient's initial visit) Have you changed medications since your No No No last visit? Any new allergies or adverse reactions No No No Had a fall/change in ADL's that may No No No increase risk of falls Signs or symptoms of abuse and/or No No No neglect since last visit Have you been in the hospital since your No No No last visit? Has dressing in place as prescribed Yes Yes Yes Has compression in place as prescribed Yes Yes N/A Has offloadiing in place as prescribed N/A No N/A Experienced any changes in pain level or No No management Left Footwear Regular Shoe Regular Shoe Right Footwear Regular Shoe Regular Shoe Pain Scale: 0-10 Numeric Is Patient Pain Free? Yes Yes Yes 10/04/22 08:42 WC - Today's Visit Information Type of service Follow-up Visit (Physician/TIRE MOUNTER ) Arrival Mode Ambulatory Transfer Assistance None Accompanied by Patient Identification Verified (Name & Yes ) Patient Requires Transmission-Based No Precautions Safety Precautions Height and Weight Body Mass Index (BMI) 44.0 BMI Classification Obese Vital Signs Temperature (97.8 F-99.1 F) 97.4 F L Temperature Source Temporal Pulse Rate (60-100) 98 Pulse Location Monitor Respiratory Rate (12-18) 22 H Respiratory rate source Observation Oxygen Delivery Method Blood Pressure (90/60-120/80) 161/84 H Blood Pressure Mean 109 Source Monitor Position Blood Pressure Location History Since Last Visit- (Skip if this is Patient's initial visit) Have you changed medications since your No last visit? Any new allergies or adverse reactions No Had a fall/change in ADL's that may No increase risk of falls Signs or symptoms of abuse and/or No neglect since last visit Have you been in the hospital since your No last visit? Has dressing in place as prescribed No Has compression in place as prescribed No Has offloadiing in place as prescribed N/A Experienced any changes in pain level or No management Left Footwear Right Footwear Pain Scale: 0-10 Numeric Is Patient Pain Free? Yes WC - Nurse 1 - General Ulcer Measurement Start: 09/20/22 08:32 Freq: Status: Active Protocol: Activity Type Activity Date Activity User E-sign Co-sign Detail Recorded Client Recorded Date Recorded By Document 09/20/22 08:32 KW [id number] 09/20/22 08:44 KW Document 09/20/22 08:46 KW [id number] 09/20/22 08:48 KW Document 10/04/22 08:42 DL [id number] 10/04/22 08:45 DL 09/20/22 09/20/22 10/04/22 08:32 08:46 08:42 Wound Center Nurse 1 #1 RLE LAt Cluster -Combined with other wound No -Current Size (cm) - Length 9.8 9.8 3.6 -Current Size (cm) - Width 4.6 4.5 3.6 -Current Size (cm) - Depth 0.1 0.1 0.1 -Total Square Cm 45.08 44.10 12.96 -Photo Taken No No -Epithelialization Medium 34-66% Medium 34-66% -Tunneling No No -Undermining/Tunneling No No -Circular Undermining No No -Exudate Amt Small Small Medium -Exudate Type Serosanguineous Serosanguineous Serosanguineous -Wound Margin Distinct, Distinct, Distinct, Outline Outline Outline Attached Attached Attached -Granulation Amt Medium (34-66%) Medium (34-66%) Medium (34-66%) -Granulation Quality Red Red Red -Slough/Fibrin Yes Yes -Necrosis Amt Small (1-33%) Small (1-33%) Medium (34-66%) -Necrotic Tissue Type Adherent Slough Adherent Slough Adherent Slough -Structure Exposed N/A -Texture (Ashley-wound Skin Appearance) Assessed Assessed Scarring -Moisture (Ashley-wound Skin Appearance) Assessed,Dry/ Assessed,Dry/ Dry/Scaly Scaly Scaly -Color (Ashley-wound Skin Appearance) Assessed, Assessed, Hemosiderin Erythema Erythema Staining -Temperature (Ashley-wound Skin No Abnormality No Abnormality No Abnormality Appearance) (Pt Warm) (Pt Warm) (Pt Warm) -Tenderness on Palpation (Ashley-wound No Skin Appearance) -Ulcer Cleansing Soap and Water Soap and Water Soap and Water -Foul Odor after Cleansing No No -Anesthetic Used 5% Lidocaine 5% Lidocaine 5% Lidocaine Gel Gel Gel Lower Limb Edema Present Yes Yes Right Calf (cm) 47.1 47.1 45.5 Right Ankle (cm) 28 28 27 Left Calf (cm) 45 Left Ankle (cm) 26.8 WC - Nurse 2 - General Ulcer CM Notes Start: 09/20/22 08:32 Freq: Status: Active Protocol: Activity Type Activity Date Activity User E-sign Co-sign Detail Recorded Client Recorded Date Recorded By Document 09/20/22 09:01 [id number] 09/20/22 09:05 Document 09/27/22 08:44 [id number] 09/27/22 08:52 Document 10/04/22 08:55 [id number] 10/04/22 08:59 09/20/22 09/27/22 10/04/22 09:01 08:44 08:55 Wound Center Nurse 2 #1 RLE LAt Cluster -Time 09:01 08:44 08:55 -Correct Patient Yes Yes Yes -Correct Side, Site, Position Yes Yes Yes -Correct Procedure Yes Yes Yes -Procedure Performed Yes Yes Yes -Type of Procedure Debridement Debridement Debridement -Clinical Debridement Subcutaneous Subcutaneous Subcutaneous -Tissue Removed Subcutaneous Subcutaneous Subcutaneous -Post Debridement (cm) - Length 2.8 2.5 4 -Post Debridement (cm) - Width 4.0 2.5 4 -Post Debridement (cm) - Depth 0.1 0.1 0.2 -Total Square (Post) (cm) 11.20 6.25 16 -Area of Debridement (cm) - Length 2.8 2.5 4 -Area of Debridement (cm) - Width 4.0 2.5 4 -Total Square (Area) (cm) 11.20 6.25 16 -Tunneling No No No -Undermining/Tunneling No No No -Circular Undermining No No No -Wound/Ulcer Outcome Not Healed Not Healed Not Healed -Ulcer Cleansing Rinsed/ Rinsed/ Rinsed/ Irrigated with Irrigated with Irrigated with Saline Saline Saline -Foul Odor after Cleansing No No No -Bioengineered Tissue Yes Yes Yes -Type of Bioengineered Tissue Epifix Mesh Epifix Epifix Mesh -Expiration Date 06/18/27 01/17/27 06/18/27 -Product Lot Number [id number] -Percent Used 100 100 100 -Lot number of Saline Used [id number] -Bleeding Controlled with Pressure Pressure Pressure -Treatment Response Procedure Procedure Procedure Tolerated Well Tolerated Well Tolerated Well -Offloading No No No -Debridement - Subq, 1st 20sq cm No No No -Apply Skin Sub - 1st 25 sq cm - Legs 1 1 1 -Epifix (per sq cm) 4 -Epifix Mesh (per sq cm) 11 11 Pain Scale: 0-10 Numeric Is Patient Pain Free? Yes Yes Yes WC - Nurse 3 - General Ulcer D/C NN Start: 09/20/22 08:32 Freq: Status: Active Protocol: Activity Type Activity Date Activity User E-sign Co-sign Detail Recorded Client Recorded Date Recorded By Document 09/20/22 11:18 [id number] 09/20/22 11:19 Document 09/27/22 08:52 JF [id number] 09/27/22 08:53 Document 10/04/22 09:27 PL [id number] 10/04/22 09:28 PL 09/20/22 09/27/22 10/04/22 11:18 08:52 09:27 Wound Care Center Nurse 3 #1 RLE LAt Cluster -Ulcer Cleansing Rinsed/ Rinsed/ Irrigated with Irrigated with Saline Saline -Foul Odor after Cleansing No No -Primary Dressing Applied Mepilex Border -Primary Dressing Covered/Secured with Dry Gauze & Dry Gauze & Roll Gauze, Roll Gauze, Secured with Secured with Tape Tape -Mepilex Border 1 Bilateral -Tubular Bandage Single Layer -Size of Tubigrip Used Size F -Size F ($) 2 Right -Stockings Yes: circaid Pain Scale: 0-10 Numeric Is Patient Pain Free? Yes Yes Yes WC - Visit Discharge Discharge Condition Stable Stable Ambulatory Status Ambulatory,Cane Ambulatory Transportation Private Auto Private Auto Medication Reconcilliation completed & Yes Yes provided to patient/care provider Clinical Summary of Care Provided Yes Yes Charges/Coding Procedures Integumentary [id number]: [id number] Skin sub graft trnk/arm/leg Assessment/Plan Assessment/Plan (1) Ulcer of right lower extremity with fat layer exposed: CODE(S): L97.912 - Non-pressure chronic ulcer of unspecified part of right lower leg with fat layer exposed (2) Ulcer of left lower extremity, limited to breakdown of skin: CODE(S): L97.921 - Non-pressure chronic ulcer of unspecified part of left lower leg limited to breakdown of skin (3) Bilateral edema of lower extremity: CODE(S): R60.0 - Localized edema (4) Lymphedema of both lower extremities: CODE(S): I89.0 - Lymphedema, not elsewhere classified (5) COPD (chronic obstructive pulmonary disease): CODE(S): J44.9 - Chronic obstructive pulmonary disease, unspecified (6) Requires continuous at home supplemental oxygen: CODE(S): Z99.81 - Dependence on supplemental oxygen (7) Former smoker: CODE(S): Z87.891 - Personal history of nicotine dependence PLAN: Plan Patient evaluated at the wound healing center today. Wound care - Epifix #4 placed today. 100% of the 4 x 4 mesh product was used, skin prep was used around the ashley wound and a wound veil was placed with steri strips to keep in place. Collagen hydrogel placed and then topped with gauze. She was instructed to not get the ulcer wet. She may change the outer dressing as needed, depending on how much drainage she experiences. Place Lac hytrin lotion to non ulcer areas before applying compression. Compression - Circaid compression stockings to bilateral lower legs. Discussed low sodium diet that is high in protein to help with edema management and wound healing. She has been approved for home compression pumps, and is has started to use them an hour per day. Instructed her that she does not need to remove her Circaid stockings before using the compression pumps. Encouraged increase activity/walking as tolerated to help with edema/lymphedema, along with foot pumping while sitting. Encouraged patient not to sleep in chair but if she has to because of her COPD/difficult breathing she needs to be propped up. Encouraged leg elevation. Wound culture obtained on 07/12/22 which was positive for Serratia marcescens and Anaerobic cocci. It is resistant to the Doxycycline her PCP placed her on. Instructed her to stop the Doxycycline. Initially ordered Levaquin but patient read all the side effects and she states her father had a seizure while on Levaquin. Changed Levaquin to Bactrim and then added Metronidazole when the Anaerobic culture came back. She has completed the antibiotics. Referred to Dr. Abreu, software test analyst for foot and toe nail care, due to the amount of callousing she has on the plantar surfaces of bilateral feet. Follow up one week.
[2022-10-11 08:33] VITALS: BP 152/91; PULSE 93; TEMP 36.5; BMI 44.0
--- NOTE | 2022-10-11 09:37 | PCM.WC.PN ---
History of Present Illness Date of Service: 10/11/22 Chief Complaint: Right leg ulcer History of Wound: 62 year old female presents to the wound healing center with ulcers on her right and left legs that started 5 months ago after being hospitalized for pneumonia and COPD exacerbation. She developed worsening edema and her legs have been weeping. She then bumped her right lateral leg and developed an ulcer that she covers during the day with non adherent dressings. She also has several ulcers that are superficial and weep clear drainage due to the amount of edema she is experiencing. She sleeps in a chair due to difficulty breathing. She typically does not elevate her legs. 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 She was being treated with Doxycycline from her PCP due to a cellulitis of her legs. Reviewed notes from her PCP who saw her on 07/03/22 for cellulitis, ulcer right leg and shortness of breath. Wound culture obtained on 07/12/22 which was positive for Serratia marcescens and Anaerobic cocci. She has been started on Bactrim and Metronidazole. Arterial studies performed on 07/13/22 - Right CRISTINA - 1.27 and Left CRISTNIA - 1.21. Triphasic Doppler waveforms are noted at ankle level bilaterally. Pulse-volume recordings appear diminished at digital level on the right, but satisfactory at all other levels bilaterally. Resting ankle-brachial indices are normal bilaterally. The right digital-brachial index is normal. The left digital-brachial index is mildly diminished. Arterial flow appears normal at ankle level bilaterally, and at digital level on the right. There is evidence of mild arterial occlusive disease at digital level on the left. 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 The right great saphenous vein appears segmentally incompetent. The right anterior accessory saphenous vein is incompetent. The left anterior accessory saphenous vein is incompetent. She denies fever, chills, nausea or vomiting. Progress of Wound: Right lateral leg ulcer is smaller. She is consistently wearing her Circaid compression stockings. She states that she has not worn her compression pumps this past week since it has been so hot outside. She has more edema this week than previously. She has been approved for Epifix and her fifth application was applied today. Objective Data Objective Data Vital Signs: Vital Signs Temp Pulse Resp BP O2 Del Method O2 Flow Rate 97.7 F L 93 22 H 152/91 H Nasal Cannula 5 10/11/22 08:33 10/11/22 08:33 10/04/22 08:42 10/11/22 08:33 10/11/22 08:33 09/16/22 01:28 Oxygen Flow Rate (L/min) 5 Oxygen Delivery Method Nasal Cannula Weight: 248 lb 8.668 oz Body Mass Index (BMI) 44.0 Charges/Coding Procedures Integumentary 150xxx-152xx: [id number] Skin sub graft trnk/arm/leg Debridement Note Debridement Note Wound debrided: lateral leg ulcer (#1) Laterality: Right Type of Debridement: Excisional debridement Anesthesia Used: 4% Lidocaine Solution and 5% Lidocaine Gel Depth: Down to and including healthy tissue and in the subcutaneous layer Percentage of wound debrided: 100 Instrument Used: 5mm curette Tissue Removed: devitalized tissue and slough Severity: Fat Layer Exposed Amount of bleeding with debridement: Mild Bleeding Controlled with: Pressure and Compression and gauze Patient tolerated procedure: Patient tolerated procedure well Post-Debridement Measurements and Additional Note: Post-Debridement Measurements/Treatment - Nurse 1 - General Ulcer Assessment Start: 09/20/22 08:32 Freq: Status: Active Protocol: TROY Activity Type Activity Date Activity User E-sign Co-sign Detail Recorded Client Recorded Date Recorded By Document 09/20/22 08:32 KW [id number] 09/20/22 08:44 KW Document 09/20/22 08:46 KW [id number] 09/20/22 08:48 KW Document 09/27/22 08:[address] [id number] 09/27/22 08:33 PL Document 10/04/22 08:42 DL [id number] 10/04/22 08:45 DL Document 10/11/22 08:33 BM [id number] 10/11/22 08:36 BMF 09/20/22 09/20/22 09/27/22 08:32 08:46 08:26 - Today's Visit Information Type of service Follow-up Visit Follow-up Visit Follow-up Visit (Physician/CAGE SUPERVISOR (Physician/CAGE SUPERVISOR (Physician/CAGE SUPERVISOR ) ) ) Arrival Mode Ambulatory Ambulatory Ambulatory Transfer Assistance None Accompanied by Patient Identification Verified (Name & Yes Yes Yes ) Patient Requires Transmission-Based No No Precautions Safety Precautions NA Height and Weight Body Mass Index (BMI) 44.0 44.0 44.0 BMI Classification Obese Obese Obese Vital Signs Temperature (97.8 F-99.1 F) 97.1 F L 97.1 F L 97.8 F Temperature Source Temporal Temporal Temporal Pulse Rate (60-100) 98 94 Pulse Location Monitor Monitor Respiratory Rate (12-18) 18 18 18 Respiratory rate source Observation Observation Oxygen Delivery Method Nasal Cannula Nasal Cannula Blood Pressure (90/60-120/80) 150/72 H 164/76 H Blood Pressure Mean (mm Hg) 98 105 Source Monitor Monitor Position Sitting Sitting Blood Pressure Location Right Arm Right Arm History Since Last Visit- (Skip if this is Patient's initial visit) Have you changed medications since your No No No last visit? Any new allergies or adverse reactions No No No Had a fall/change in ADL's that may No No No increase risk of falls Signs or symptoms of abuse and/or No No No neglect since last visit Have you been in the hospital since your No No No last visit? Has dressing in place as prescribed Yes Yes Yes Has compression in place as prescribed Yes Yes N/A Has offloadiing in place as prescribed N/A No N/A Experienced any changes in pain level or No No management Left Footwear Regular Shoe Regular Shoe Right Footwear Regular Shoe Regular Shoe Pain Scale: 0-10 Numeric Is Patient Pain Free? Yes Yes Yes 10/04/22 10/11/22 08:42 08:33 WC - Today's Visit Information Type of service Follow-up Visit Follow-up Visit (Physician/CAGE SUPERVISOR (Physician/CAGE SUPERVISOR ) ) Arrival Mode Ambulatory Ambulatory Transfer Assistance None None Accompanied by Patient Identification Verified (Name & Yes Yes ) Patient Requires Transmission-Based No No Precautions Safety Precautions Height and Weight Body Mass Index (BMI) 44.0 44.0 BMI Classification Obese Obese Vital Signs Temperature (97.8 F-99.1 F) 97.4 F L 97.7 F L Temperature Source Temporal Temporal Pulse Rate (60-100) 98 93 Pulse Location Monitor Monitor Respiratory Rate (12-18) 22 H Respiratory rate source Observation Observation Oxygen Delivery Method Nasal Cannula Blood Pressure (90/60-120/80) 161/84 H 152/91 H Blood Pressure Mean (mm Hg) 109 111 Source Monitor Monitor Position Sitting Blood Pressure Location Left Arm History Since Last Visit- (Skip if this is Patient's initial visit) Have you changed medications since your No No last visit? Any new allergies or adverse reactions No No Had a fall/change in ADL's that may No No increase risk of falls Signs or symptoms of abuse and/or No No neglect since last visit Have you been in the hospital since your No No last visit? Has dressing in place as prescribed No Yes Has compression in place as prescribed No Yes Has offloadiing in place as prescribed N/A N/A Experienced any changes in pain level or No No management Left Footwear Regular Shoe Right Footwear Regular Shoe Pain Scale: 0-10 Numeric Is Patient Pain Free? Yes Yes WC - Nurse 1 - General Ulcer Measurement Start: 09/20/22 08:32 Freq: Status: Active Protocol: Activity Type Activity Date Activity User E-sign Co-sign Detail Recorded Client Recorded Date Recorded By Document 09/20/22 08:32 KW [id number] 09/20/22 08:44 KW Document 09/20/22 08:46 KW [id number] 09/20/22 08:48 KW Document 10/04/22 08:42 DL [id number] 10/04/22 08:45 DL Document 10/11/22 08:33 BMF [id number] 10/11/22 08:36 BMF 09/20/22 09/20/22 10/04/22 08:32 08:46 08:42 Wound Center Nurse 1 #1 RLE LAt Cluster -Combined with other wound No -Current Size (cm) - Length 9.8 9.8 3.6 -Current Size (cm) - Width 4.6 4.5 3.6 -Current Size (cm) - Depth 0.1 0.1 0.1 -Total Square Cm 45.08 44.10 12.96 -Photo Taken No No -Epithelialization Medium 34-66% Medium 34-66% -Tunneling No No -Undermining/Tunneling No No -Circular Undermining No No -Exudate Amt Small Small Medium -Exudate Type Serosanguineous Serosanguineous Serosanguineous -Wound Margin Distinct, Distinct, Distinct, Outline Outline Outline Attached Attached Attached -Granulation Amt Medium (34-66%) Medium (34-66%) Medium (34-66%) -Granulation Quality Red Red Red -Slough/Fibrin Yes Yes -Necrosis Amt Small (1-33%) Small (1-33%) Medium (34-66%) -Necrotic Tissue Type Adherent Slough Adherent Slough Adherent Slough -Structure Exposed N/A -Texture (Fredo-wound Skin Appearance) Assessed Assessed Scarring -Moisture (Fredo-wound Skin Appearance) Assessed,Dry/ Assessed,Dry/ Dry/Scaly Scaly Scaly -Color (Fredo-wound Skin Appearance) Assessed, Assessed, Hemosiderin Erythema Erythema Staining -Temperature (Fredo-wound Skin No Abnormality No Abnormality No Abnormality Appearance) (Pt Warm) (Pt Warm) (Pt Warm) -Tenderness on Palpation (Fredo-wound No Skin Appearance) -Ulcer Cleansing Soap and Water Soap and Water Soap and Water -Foul Odor after Cleansing No No -Anesthetic Used 5% Lidocaine 5% Lidocaine 5% Lidocaine Gel Gel Gel Lower Limb Edema Present Yes Yes Right Calf (cm) 47.1 47.1 45.5 Right Ankle (cm) 28 28 27 Left Calf (cm) 45 Left Ankle (cm) 26.8 10/11/22 08:33 Wound Center Nurse 1 #1 RLE LAt Cluster -Combined with other wound No -Current Size (cm) - Length 2.5 -Current Size (cm) - Width 2.8 -Current Size (cm) - Depth 0.1 -Total Square Cm 7.00 -Photo Taken No -Epithelialization Small 1-33% -Tunneling No -Undermining/Tunneling No -Circular Undermining No -Exudate Amt -Exudate Type Serosanguineous -Wound Margin Flat & Intact -Granulation Amt Medium (34-66%) -Granulation Quality Red -Slough/Fibrin Yes -Necrosis Amt Medium (34-66%) -Necrotic Tissue Type Adherent Slough -Structure Exposed -Texture (Fredo-wound Skin Appearance) Assessed, Scarring -Moisture (Fredo-wound Skin Appearance) Assessed,Dry/ Scaly -Color (Fredo-wound Skin Appearance) Assessed -Temperature (Fredo-wound Skin No Abnormality Appearance) (Pt Warm) -Tenderness on Palpation (Fredo-wound No Skin Appearance) -Ulcer Cleansing Rinsed/ Irrigated with Saline -Foul Odor after Cleansing No -Anesthetic Used 5% Lidocaine Gel Lower Limb Edema Present Yes Right Calf (cm) Right Ankle (cm) Left Calf (cm) Left Ankle (cm) WC - Nurse 2 - General Ulcer CM Notes Start: 09/20/22 08:32 Freq: Status: Active Protocol: Activity Type Activity Date Activity User E-sign Co-sign Detail Recorded Client Recorded Date Recorded By Document 09/20/22 09:01 [id number] 09/20/22 09:05 Document 09/27/22 08:44 [id number] 09/27/22 08:52 Document 10/04/22 08:55 [id number] 10/04/22 08:59 09/20/22 09/27/22 10/04/22 09:01 08:44 08:55 Wound Center Nurse 2 #1 E LAt Cluster -Time 09:01 08:44 08:55 -Correct Patient Yes Yes Yes -Correct Side, Site, Position Yes Yes Yes -Correct Procedure Yes Yes Yes -Procedure Performed Yes Yes Yes -Type of Procedure Debridement Debridement Debridement -Clinical Debridement Subcutaneous Subcutaneous Subcutaneous -Tissue Removed Subcutaneous Subcutaneous Subcutaneous -Post Debridement (cm) - Length 2.8 2.5 4 -Post Debridement (cm) - Width 4.0 2.5 4 -Post Debridement (cm) - Depth 0.1 0.1 0.2 -Total Square (Post) (cm) 11.20 6.25 16 -Area of Debridement (cm) - Length 2.8 2.5 4 -Area of Debridement (cm) - Width 4.0 2.5 4 -Total Square (Area) (cm) 11.20 6.25 16 -Tunneling No No No -Undermining/Tunneling No No No -Circular Undermining No No No -Wound/Ulcer Outcome Not Healed Not Healed Not Healed -Ulcer Cleansing Rinsed/ Rinsed/ Rinsed/ Irrigated with Irrigated with Irrigated with Saline Saline Saline -Foul Odor after Cleansing No No No -Bioengineered Tissue Yes Yes Yes -Type of Bioengineered Tissue Epifix Mesh Epifix Epifix Mesh -Expiration Date 06/18/27 01/17/27 06/18/27 -Product Lot Number [id number] -Percent Used 100 100 100 -Lot number of Saline Used [id number] -Bleeding Controlled with Pressure Pressure Pressure -Treatment Response Procedure Procedure Procedure Tolerated Well Tolerated Well Tolerated Well -Offloading No No No -Debridement - Subq, 1st 20sq cm No No No -Apply Skin Sub - 1st 25 sq cm - Legs 1 1 1 -Epifix (per sq cm) 4 -Epifix Mesh (per sq cm) 11 11 Pain Scale: 0-10 Numeric Is Patient Pain Free? Yes Yes Yes - Nurse 3 - General Ulcer D/C NN Start: 09/20/22 08:32 Freq: Status: Active Protocol: Activity Type Activity Date Activity User E-sign Co-sign Detail Recorded Client Recorded Date Recorded By Document 09/20/22 11:18 [id number] 09/20/22 11:19 Document 09/27/22 08:52 JF [id number] 09/27/22 08:53 JF Document 10/04/22 09:27 PL [id number] 10/04/22 09:28 PL Document 10/11/22 09:10 DL [id number] 10/11/22 09:11 DL 09/20/22 09/27/22 10/04/22 11:18 08:52 09:27 Wound Care Center Nurse 3 #1 RLE LAt Cluster -Ulcer Cleansing Rinsed/ Rinsed/ Irrigated with Irrigated with Saline Saline -Foul Odor after Cleansing No No -Primary Dressing Applied Mepilex Border -Other Dressing -Primary Dressing Covered/Secured with Dry Gauze & Dry Gauze & Roll Gauze, Roll Gauze, Secured with Secured with Tape Tape -Other Covering -Mepilex Border 1 Bilateral -Tubular Bandage Single Layer -Size of Tubigrip Used Size F -Size F ($) 2 -Stockings Right -Stockings Yes: circaid Treatment Response Pain Scale: 0-10 Numeric Is Patient Pain Free? Yes Yes Yes - Visit Discharge Discharge Condition Stable Stable Ambulatory Status Ambulatory,Cane Ambulatory Transportation Private Auto Private Auto Medication Reconcilliation completed & Yes Yes provided to patient/care provider Clinical Summary of Care Provided Yes Yes 10/11/22 09:10 Wound Care Center Nurse 3 #1 RLE LAt Cluster -Ulcer Cleansing Not Cleansed -Foul Odor after Cleansing -Primary Dressing Applied -Other Dressing Epimesh -Primary Dressing Covered/Secured with Dry Gauze & Roll Gauze, Secured with Tape -Other Covering Circ Aids -Mepilex Border Bilateral -Tubular Bandage -Size of Tubigrip Used -Size F ($) -Stockings Yes Right -Stockings Treatment Response Procedure Tolerated Well Pain Scale: 0-10 Numeric Is Patient Pain Free? Yes WC - Visit Discharge Discharge Condition Stable Ambulatory Status Ambulatory Transportation Private Auto Medication Reconcilliation completed & provided to patient/care provider Clinical Summary of Care Provided Assessment/Plan Assessment/Plan (1) Ulcer of right lower extremity with fat layer exposed: CODE(S): L97.912 - Non-pressure chronic ulcer of unspecified part of right lower leg with fat layer exposed (2) Ulcer of left lower extremity, limited to breakdown of skin: CODE(S): L97.921 - Non-pressure chronic ulcer of unspecified part of left lower leg limited to breakdown of skin (3) Bilateral edema of lower extremity: CODE(S): R60.0 - Localized edema (4) Lymphedema of both lower extremities: CODE(S): I89.0 - Lymphedema, not elsewhere classified (5) COPD (chronic obstructive pulmonary disease): CODE(S): J44.9 - Chronic obstructive pulmonary disease, unspecified (6) Requires continuous at home supplemental oxygen: CODE(S): Z99.81 - Dependence on supplemental oxygen (7) Former smoker: CODE(S): Z87.891 - Personal history of nicotine dependence PLAN: Plan Patient evaluated at the wound healing center today. Wound care - Epifix #5 placed today. 100% of the 4 x 4 mesh product was used, skin prep was used around the fredo wound and a wound veil was placed with steri strips to keep in place. Collagen hydrogel placed and then topped with gauze. She was instructed to not get the ulcer wet. She may change the outer dressing as needed, depending on how much drainage she experiences. Place Lac hytrin lotion to non ulcer areas before applying compression. Compression - Circaid compression stockings to bilateral lower legs. Discussed low sodium diet that is high in protein to help with edema management and wound healing. Stressed the importance of using her home compression pumps at least for an hour per day, may use twice daily. Instructed her that she does not need to remove her Circaid stockings before using the compression pumps. Encouraged increase activity/walking as tolerated to help with edema/lymphedema, along with foot pumping while sitting. Encouraged patient not to sleep in chair but if she has to because of her COPD/difficult breathing she needs to be propped up. Encouraged leg elevation. Wound culture obtained on 07/12/22 which was positive for Serratia marcescens and Anaerobic cocci. It is resistant to the Doxycycline her PCP placed her on. Instructed her to stop the Doxycycline. Initially ordered Levaquin but patient read all the side effects and she states her father had a seizure while on Levaquin. Changed Levaquin to Bactrim and then added Metronidazole when the Anaerobic culture came back. She has completed the antibiotics. Referred to Dr. Abreu, metallurgical engineer for foot and toe nail care, due to the amount of callousing she has on the plantar surfaces of bilateral feet. Follow up one week.
== END 2022-10-16 23:59 | disposition home or self-care (01) ==
LOC: WC 08:30
PROVIDERS: PCP Family Medicine; Referring Provider Family Medicine; Visit Provider Nurse Practitioner Family
DX: L97.812 Non-pressure chronic ulcer of other part of right lower leg with fat layer exposed (principal); L97.921 Non-pressure chronic ulcer of unspecified part of left lower leg limited to breakdown of skin; J44.9 Chronic obstructive pulmonary disease, unspecified; R60.0 Localized edema; L84 Corns and callosities; Z79.51 Long term (current) use of inhaled steroids; I89.0 Lymphedema, not elsewhere classified; Z99.81 Dependence on supplemental oxygen; Z79.899 Other long term (current) drug therapy; Z87.891 Personal history of nicotine dependence
CPT/HCPCS: 15271; Q4186

== ENCOUNTER 2022-11-15 08:30 | Outpatient (RCR) | payer BC, SELFPAY ==
[2022-10-17 00:19] VITALS: BP 152/91; PULSE 93; RESP 22; TEMP 36.5; BMI 44.0
[2022-10-18 08:33] VITALS: BP 160/55; PULSE 88; RESP 22; TEMP 36.6; BMI 44.0
--- NOTE | 2022-10-18 09:55 | PCM.WC.PN ---
History of Present Illness Date of Service: 10/18/22 Chief Complaint: Right leg ulcer History of Wound: 62 year old female presents to the wound healing center with ulcers on her right and left legs that started 5 months ago after being hospitalized for pneumonia and COPD exacerbation. She developed worsening edema and her legs have been weeping. She then bumped her right lateral leg and developed an ulcer that she covers during the day with non adherent dressings. She also has several ulcers that are superficial and weep clear drainage due to the amount of edema she is experiencing. She sleeps in a chair due to difficulty breathing. She typically does not elevate her legs. 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 She was being treated with Doxycycline from her PCP due to a cellulitis of her legs. Reviewed notes from her PCP who saw her on 07/03/22 for cellulitis, ulcer right leg and shortness of breath. Wound culture obtained on 07/12/22 which was positive for Serratia marcescens and Anaerobic cocci. She has been started on Bactrim and Metronidazole. Arterial studies performed on 07/13/22 - Right CRISTINA - 1.27 and Left CRISTINA - 1.21. Triphasic Doppler waveforms are noted at ankle level bilaterally. Pulse-volume recordings appear diminished at digital level on the right, but satisfactory at all other levels bilaterally. Resting ankle-brachial indices are normal bilaterally. The right digital-brachial index is normal. The left digital-brachial index is mildly diminished. Arterial flow appears normal at ankle level bilaterally, and at digital level on the right. There is evidence of mild arterial occlusive disease at digital level on the left. 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 The right great saphenous vein appears segmentally incompetent. The right anterior accessory saphenous vein is incompetent. The left anterior accessory saphenous vein is incompetent. She denies fever, chills, nausea or vomiting. Progress of Wound: Right lateral leg ulcer is smaller. She is consistently wearing her Circaid compression stockings. She is wearing her compression pumps over the weekend. Edema is stable. She has been approved for Epifix and her 6th application was applied today. Objective Data Objective Data Vital Signs: Vital Signs Temp Pulse Resp BP O2 Del Method O2 Flow Rate 98 F 88 22 H 160/55 H Nasal Cannula 5 10/18/22 08:33 08/02/23 08:33 10/18/22 08:33 10/18/22 08:33 10/18/22 08:33 10/18/22 08:33 Oxygen Flow Rate (L/min) 5 Oxygen Delivery Method Nasal Cannula Weight: 248 lb 8.668 oz Body Mass Index (BMI) 44.0 Charges/Coding Procedures Integumentary 150xxx-152xx: 06146 Skin sub graft trnk/arm/leg Debridement Note Debridement Note Wound debrided: lateral leg ulcer (#1) Laterality: Right Type of Debridement: Excisional debridement Anesthesia Used: 4% Lidocaine Solution and 5% Lidocaine Gel Depth: Down to and including healthy tissue and in the subcutaneous layer Percentage of wound debrided: 100 Instrument Used: 5mm curette Tissue Removed: devitalized tissue and slough Severity: Fat Layer Exposed Amount of bleeding with debridement: Mild Bleeding Controlled with: Pressure and Compression and gauze Patient tolerated procedure: Patient tolerated procedure well Post-Debridement Measurements and Additional Note: Post-Debridement Measurements/Treatment - Nurse 1 - General Ulcer Assessment Start: 10/18/22 08:33 Freq: Status: Active Protocol: WC.LOWEXT Activity Type Activity Date Activity User E-sign Co-sign Detail Recorded Client Recorded Date Recorded By Document 10/18/22 08:33 DL [id number] 10/18/22 08:41 DL 10/18/22 08:33 - Today's Visit Information Type of service Follow-up Visit (Physician/DRIVER'S LICENSE REVIEWING OFFICER ) Arrival Mode Ambulatory Transfer Assistance None Patient Identification Verified (Name & Yes ) Patient Requires Transmission-Based No Precautions Height and Weight Body Mass Index (BMI) 44.0 BMI Classification Obese Vital Signs Temperature (97.8 F-99.1 F) 98 F Temperature Source Temporal Pulse Rate (60-100) 88 Pulse Location Monitor Respiratory Rate (12-18) 22 H Respiratory rate source Observation Oxygen Delivery Method Nasal Cannula O2 L/MIN (L/min) 5 Blood Pressure (90/60-120/80) 160/55 H Blood Pressure Mean (mm Hg) 90 Source Monitor History Since Last Visit- (Skip if this is Patient's initial visit) Have you changed medications since your No last visit? Any new allergies or adverse reactions No Had a fall/change in ADL's that may No increase risk of falls Signs or symptoms of abuse and/or No neglect since last visit Have you been in the hospital since your No last visit? Has dressing in place as prescribed Yes Has compression in place as prescribed Yes Has offloadiing in place as prescribed N/A Experienced any changes in pain level or No management Pain Scale: 0-10 Numeric Is Patient Pain Free? Yes NINO - Nurse 1 - General Ulcer Measurement Start: 10/18/22 08:33 Freq: Status: Active Protocol: Activity Type Activity Date Activity User E-sign Co-sign Detail Recorded Client Recorded Date Recorded By Document 10/18/22 08:33 DL [id number] 10/18/22 08:41 DL 10/18/22 08:33 Wound Center Nurse 1 #1 RLE LAt Cluster -Current Size (cm) - Length 2 -Current Size (cm) - Width 2.8 -Current Size (cm) - Depth 0.1 -Total Square Cm 5.6 -Photo Taken Yes -Exudate Amt Small -Exudate Type Serosanguineous -Wound Margin Distinct, Outline Attached -Granulation Amt Large (67-100%) -Granulation Quality Red -Necrosis Amt Small (1-33%) -Necrotic Tissue Type Adherent Slough -Structure Exposed N/A -Texture (Fredo-wound Skin Appearance) Scarring -Moisture (Fredo-wound Skin Appearance) Dry/Scaly -Color (Fredo-wound Skin Appearance) No Abnormality -Temperature (Fredo-wound Skin No Abnormality Appearance) (Pt Warm) -Ulcer Cleansing Soap and Water -Foul Odor after Cleansing No -Anesthetic Used 5% Lidocaine Gel Right Calf (cm) 45.6 Right Ankle (cm) 26.3 - Nurse 3 - General Ulcer D/C NN Start: 10/18/22 08:33 Freq: Status: Active Protocol: Activity Type Activity Date Activity User E-sign Co-sign Detail Recorded Client Recorded Date Recorded By Document 10/18/22 09:10 DL [id number] 10/18/22 09:11 DL 10/18/22 09:10 Wound Care Center Nurse 3 #1 RLE LAt Cluster -Foul Odor after Cleansing No -Primary Dressing Covered/Secured with Dry Gauze & Roll Gauze, Secured with Tape Right -Tubular Bandage Single Layer -Size of Tubigrip Used Size E -Size E ($) 1 -Other Circ Aid Treatment Response Procedure Tolerated Well Pain Scale: 0-10 Numeric Is Patient Pain Free? Yes WC - Visit Discharge Discharge Condition Stable Ambulatory Status Ambulatory Transportation Private Auto Facility Type Home Health Orders Sent Yes Assessment/Plan Assessment/Plan (1) Ulcer of right lower extremity with fat layer exposed: CODE(S): L97.912 - Non-pressure chronic ulcer of unspecified part of right lower leg with fat layer exposed (2) Ulcer of left lower extremity, limited to breakdown of skin: CODE(S): L97.921 - Non-pressure chronic ulcer of unspecified part of left lower leg limited to breakdown of skin (3) Bilateral edema of lower extremity: CODE(S): R60.0 - Localized edema (4) Lymphedema of both lower extremities: CODE(S): I89.0 - Lymphedema, not elsewhere classified (5) COPD (chronic obstructive pulmonary disease): CODE(S): J44.9 - Chronic obstructive pulmonary disease, unspecified (6) Requires continuous at home supplemental oxygen: CODE(S): Z99.81 - Dependence on supplemental oxygen (7) Former smoker: CODE(S): Z87.891 - Personal history of nicotine dependence PLAN: Plan Patient evaluated at the wound healing center today. Wound care - Epifix #6 placed today. 100% of the 4 x 4 mesh product was used, skin prep was used around the fredo wound and a wound veil was placed with steri strips to keep in place. Collagen hydrogel placed and then topped with gauze. She was instructed to not get the ulcer wet. She may change the outer dressing as needed, depending on how much drainage she experiences. Place Lac hytrin lotion to non ulcer areas before applying compression. Compression - Circaid compression stockings to bilateral lower legs. Discussed low sodium diet that is high in protein to help with edema management and wound healing. Stressed the importance of using her home compression pumps at least for an hour per day, may use twice daily. Instructed her that she does not need to remove her Circaid stockings before using the compression pumps. Encouraged increase activity/walking as tolerated to help with edema/lymphedema, along with foot pumping while sitting. Encouraged patient not to sleep in chair but if she has to because of her COPD/difficult breathing she needs to be propped up. Encouraged leg elevation. Wound culture obtained on 07/12/22 which was positive for Serratia marcescens and Anaerobic cocci. It is resistant to the Doxycycline her PCP placed her on. Instructed her to stop the Doxycycline. Initially ordered Levaquin but patient read all the side effects and she states her father had a seizure while on Levaquin. Changed Levaquin to Bactrim and then added Metronidazole when the Anaerobic culture came back. She has completed the antibiotics. Follow up one week.
[2022-10-25 08:35] VITALS: BP 155/97; PULSE 99; RESP 20; TEMP 36.6; BMI 44.0
--- NOTE | 2022-10-25 09:17 | PCM.WC.PN ---
History of Present Illness Date of Service: 10/25/22 Chief Complaint: Right leg ulcer History of Wound: 62 year old female presents to the wound healing center with ulcers on her right and left legs that started 5 months ago after being hospitalized for pneumonia and COPD exacerbation. She developed worsening edema and her legs have been weeping. She then bumped her right lateral leg and developed an ulcer that she covers during the day with non adherent dressings. She also has several ulcers that are superficial and weep clear drainage due to the amount of edema she is experiencing. She sleeps in a chair due to difficulty breathing. She typically does not elevate her legs. 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 She was being treated with Doxycycline from her PCP due to a cellulitis of her legs. Reviewed notes from her PCP who saw her on 07/03/22 for cellulitis, ulcer right leg and shortness of breath. Wound culture obtained on 07/12/22 which was positive for Serratia marcescens and Anaerobic cocci. She has been started on Bactrim and Metronidazole. Arterial studies performed on 07/13/22 - Right CRISTINA - 1.27 and Left CRISTINA - 1.21. Triphasic Doppler waveforms are noted at ankle level bilaterally. Pulse-volume recordings appear diminished at digital level on the right, but satisfactory at all other levels bilaterally. Resting ankle-brachial indices are normal bilaterally. The right digital-brachial index is normal. The left digital-brachial index is mildly diminished. Arterial flow appears normal at ankle level bilaterally, and at digital level on the right. There is evidence of mild arterial occlusive disease at digital level on the left. 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 The right great saphenous vein appears segmentally incompetent. The right anterior accessory saphenous vein is incompetent. The left anterior accessory saphenous vein is incompetent. She denies fever, chills, nausea or vomiting. Progress of Wound: Right lateral leg ulcer is smaller. She is consistently wearing her Circaid compression stockings. She is wearing her compression pumps several times a week. Edema is stable. She has been approved for Epifix and her 7 th application was applied today. Objective Data Objective Data Vital Signs: Vital Signs Temp Pulse Resp BP O2 Del Method O2 Flow Rate 97.8 F 99 20 H 155/97 H Nasal Cannula 5 10/25/22 08:35 10/25/22 08:35 10/25/22 08:35 10/25/22 08:35 10/18/22 08:33 10/18/22 08:33 Oxygen Flow Rate (L/min) 5 Oxygen Delivery Method Nasal Cannula Weight: 248 lb 8.668 oz Body Mass Index (BMI) 44.0 Charges/Coding Procedures Integumentary 150xxx-152xx: 24385 Skin sub graft trnk/arm/leg Debridement Note Debridement Note Wound debrided: lateral leg ulcer (#1) Laterality: Right Type of Debridement: Excisional debridement Anesthesia Used: 4% Lidocaine Solution and 5% Lidocaine Gel Depth: Down to and including healthy tissue and in the subcutaneous layer Percentage of wound debrided: 100 Instrument Used: 5mm curette Tissue Removed: devitalized tissue and slough Severity: Fat Layer Exposed Amount of bleeding with debridement: Mild Bleeding Controlled with: Pressure and Compression and gauze Patient tolerated procedure: Patient tolerated procedure well Post-Debridement Measurements and Additional Note: Post-Debridement Measurements/Treatment - Nurse 1 - General Ulcer Assessment Start: 10/18/22 08:33 Freq: Status: Active Protocol: NINO.VAHE Activity Type Activity Date Activity User E-sign Co-sign Detail Recorded Client Recorded Date Recorded By Document 10/18/22 08:33 DL [id number] 10/18/22 08:41 DL Document 10/25/22 08:35 PL [id number] 10/25/22 08:38 PL 10/18/22 10/25/22 08:33 08:35 - Today's Visit Information Type of service Follow-up Visit Follow-up Visit (Physician/DIRECTOR OF RADIO SERVICES (Physician/DIRECTOR OF RADIO SERVICES ) ) Arrival Mode Ambulatory Ambulatory Transfer Assistance None None Patient Identification Verified (Name & Yes Yes ) Patient Requires Transmission-Based No No Precautions Safety Precautions NA Height and Weight Body Mass Index (BMI) 44.0 44.0 BMI Classification Obese Obese Vital Signs Temperature (97.8 F-99.1 F) 98 F 97.8 F Temperature Source Temporal Temporal Pulse Rate (60-100) 88 99 Pulse Location Monitor Respiratory Rate (12-18) 22 H 20 H Respiratory rate source Observation Oxygen Delivery Method Nasal Cannula O2 L/MIN (L/min) 5 Blood Pressure (90/60-120/80) 160/55 H 155/97 H Blood Pressure Mean (mm Hg) 90 116 Source Monitor History Since Last Visit- (Skip if this is Patient's initial visit) Have you changed medications since your No No last visit? Any new allergies or adverse reactions No No Had a fall/change in ADL's that may No No increase risk of falls Signs or symptoms of abuse and/or No No neglect since last visit Have you been in the hospital since your No No last visit? Has dressing in place as prescribed Yes No Has compression in place as prescribed Yes No Has offloadiing in place as prescribed N/A N/A Experienced any changes in pain level or No No management Pain Scale: 0-10 Numeric Is Patient Pain Free? Yes Yes WC - Nurse 1 - General Ulcer Measurement Start: 10/18/22 08:33 Freq: Status: Active Protocol: Activity Type Activity Date Activity User E-sign Co-sign Detail Recorded Client Recorded Date Recorded By Document 10/18/22 08:33 DL [id number] 10/18/22 08:41 DL 10/18/22 08:33 Wound Center Nurse 1 #1 RLE LAt Cluster -Current Size (cm) - Length 2 -Current Size (cm) - Width 2.8 -Current Size (cm) - Depth 0.1 -Total Square Cm 5.6 -Photo Taken Yes -Exudate Amt Small -Exudate Type Serosanguineous -Wound Margin Distinct, Outline Attached -Granulation Amt Large (67-100%) -Granulation Quality Red -Necrosis Amt Small (1-33%) -Necrotic Tissue Type Adherent Slough -Structure Exposed N/A -Texture (Ashley-wound Skin Appearance) Scarring -Moisture (Ashley-wound Skin Appearance) Dry/Scaly -Color (Ashley-wound Skin Appearance) No Abnormality -Temperature (Ashley-wound Skin No Abnormality Appearance) (Pt Warm) -Ulcer Cleansing Soap and Water -Foul Odor after Cleansing No -Anesthetic Used 5% Lidocaine Gel Right Calf (cm) 45.6 Right Ankle (cm) 26.3 WC - Nurse 2 - General Ulcer CM Notes Start: 10/18/22 08:33 Freq: Status: Active Protocol: Activity Type Activity Date Activity User E-sign Co-sign Detail Recorded Client Recorded Date Recorded By Document 10/18/22 10:12 PL [id number] 10/18/22 10:18 PL Document 10/25/22 08:54 [id number] 10/25/22 08:56 JF 10/18/22 10/25/22 10:12 08:54 Wound Center Nurse [address] [facility] Cluster -Time 08:50 08:54 -Correct Patient Yes Yes -Correct Side, Site, Position Yes Yes -Correct Procedure Yes Yes -Procedure Performed Yes Yes -Type of Procedure Debridement Debridement -Clinical Debridement Subcutaneous Subcutaneous -Tissue Removed Subcutaneous Subcutaneous -Post Debridement (cm) - Length 2.4 2.2 -Post Debridement (cm) - Width 2.7 2.8 -Post Debridement (cm) - Depth 0.1 0.1 -Total Square (Post) (cm) 6.48 6.16 -Area of Debridement (cm) - Length 2.4 2.2 -Area of Debridement (cm) - Width 2.7 2.8 -Total Square (Area) (cm) 6.48 6.16 -Tunneling No No -Undermining/Tunneling No No -Circular Undermining No No -Wound/Ulcer Outcome Not Healed Not Healed -Ulcer Cleansing Rinsed/ Rinsed/ Irrigated with Irrigated with Saline Saline -Foul Odor after Cleansing No -Bioengineered Tissue Yes Yes -Type of Bioengineered Tissue Epifix Mesh Epifix -Expiration Date 06/18/27 06/18/27 -Product Lot Number [id number] -Percent Used 100 100 -Lot number of Saline Used [id number] -Bleeding Controlled with Pressure Pressure -Treatment Response Procedure Procedure Tolerated Well Tolerated Well -Offloading No -Debridement - Subq, 1st 20sq cm No No -Apply Skin Sub - 1st 25 sq cm - Legs 1 -Epifix (per sq cm) 4 -Epifix Mesh (per sq cm) 11 Pain Scale: 0-10 Numeric Is Patient Pain Free? Yes Yes WC - Nurse 3 - General Ulcer D/C NN Start: 10/18/22 08:33 Freq: Status: Active Protocol: Activity Type Activity Date Activity User E-sign Co-sign Detail Recorded Client Recorded Date Recorded By Document 10/18/22 09:10 DL [id number] 10/18/22 09:11 DL Document 10/25/22 09:07 PL [id number] 08/09/23 09:09 PL 10/18/22 10/25/22 09:10 09:07 Wound Care Center Nurse 3 #1 RLE LAt Cluster -Ulcer Cleansing Not Cleansed -Foul Odor after Cleansing No -Other Dressing ABD,conform -Primary Dressing Covered/Secured with Dry Gauze & Secured with Roll Gauze, Tape Secured with Tape Bilateral -Tubular Bandage Single Layer -Size of Tubigrip Used Size C -Size C ($) 2 Right -Tubular Bandage Single Layer -Size of Tubigrip Used Size E -Size E ($) 1 -Other Circ Aid Treatment Response Procedure Tolerated Well Pain Scale: 0-10 Numeric Is Patient Pain Free? Yes Yes WC - Visit Discharge Discharge Condition Stable Stable Ambulatory Status Ambulatory Ambulatory Transportation Private Auto Private Auto Facility Type Home Health Orders Sent Yes Assessment/Plan Assessment/Plan (1) Ulcer of right lower extremity with fat layer exposed: CODE(S): L97.912 - Non-pressure chronic ulcer of unspecified part of right lower leg with fat layer exposed (2) Ulcer of left lower extremity, limited to breakdown of skin: CODE(S): L97.921 - Non-pressure chronic ulcer of unspecified part of left lower leg limited to breakdown of skin (3) Bilateral edema of lower extremity: CODE(S): R60.0 - Localized edema (4) Lymphedema of both lower extremities: CODE(S): I89.0 - Lymphedema, not elsewhere classified (5) COPD (chronic obstructive pulmonary disease): CODE(S): J44.9 - Chronic obstructive pulmonary disease, unspecified (6) Requires continuous at home supplemental oxygen: CODE(S): Z99.81 - Dependence on supplemental oxygen (7) Former smoker: CODE(S): Z87.891 - Personal history of nicotine dependence PLAN: Plan Patient evaluated at the wound healing center today. Wound care - Epifix #7 placed today. 100% of the 2 x 2 product was used, skin prep was used around the ashley wound and a wound veil was placed with steri strips to keep in place. Collagen hydrogel placed and then topped with ABD. She was instructed to not get the ulcer wet. She may change the outer dressing as needed, depending on how much drainage she experiences. Place Lac hytrin lotion to non ulcer areas before applying compression. Compression - Circaid compression stockings to bilateral lower legs. Discussed low sodium diet that is high in protein to help with edema management and wound healing. Stressed the importance of using her home compression pumps at least for an hour per day, may use twice daily. Instructed her that she does not need to remove her Circaid stockings before using the compression pumps. Encouraged increase activity/walking as tolerated to help with edema/lymphedema, along with foot pumping while sitting. Encouraged patient not to sleep in chair but if she has to because of her COPD/difficult breathing she needs to be propped up. Encouraged leg elevation. Wound culture obtained on 07/12/22 which was positive for Serratia marcescens and Anaerobic cocci. It is resistant to the Doxycycline her PCP placed her on. Instructed her to stop the Doxycycline. Initially ordered Levaquin but patient read all the side effects and she states her father had a seizure while on Levaquin. Changed Levaquin to Bactrim and then added Metronidazole when the Anaerobic culture came back. She has completed the antibiotics. Follow up one week.
[2022-11-01 08:31] VITALS: BP 167/69; PULSE 90; RESP 20; TEMP 36.9; BMI 44.0
--- NOTE | 2022-11-01 14:50 | PCM.WC.PN ---
History of Present Illness Date of Service: 11/01/22 Chief Complaint: Right leg ulcer History of Wound: 62 year old female presents to the wound healing center with ulcers on her right and left legs that started 5 months ago after being hospitalized for pneumonia and COPD exacerbation. She developed worsening edema and her legs have been weeping. She then bumped her right lateral leg and developed an ulcer that she covers during the day with non adherent dressings. She also has several ulcers that are superficial and weep clear drainage due to the amount of edema she is experiencing. She sleeps in a chair due to difficulty breathing. She typically does not elevate her legs. 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 She was being treated with Doxycycline from her PCP due to a cellulitis of her legs. Reviewed notes from her PCP who saw her on 07/03/22 for cellulitis, ulcer right leg and shortness of breath. Wound culture obtained on 07/12/22 which was positive for Serratia marcescens and Anaerobic cocci. She has been started on Bactrim and Metronidazole. Arterial studies performed on 07/13/22 - Right CRISTINA - 1.27 and Left CRISTINA - 1.21. Triphasic Doppler waveforms are noted at ankle level bilaterally. Pulse-volume recordings appear diminished at digital level on the right, but satisfactory at all other levels bilaterally. Resting ankle-brachial indices are normal bilaterally. The right digital-brachial index is normal. The left digital-brachial index is mildly diminished. Arterial flow appears normal at ankle level bilaterally, and at digital level on the right. There is evidence of mild arterial occlusive disease at digital level on the left. 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 The right great saphenous vein appears segmentally incompetent. The right anterior accessory saphenous vein is incompetent. The left anterior accessory saphenous vein is incompetent. She denies fever, chills, nausea or vomiting. Progress of Wound: Right lateral leg ulcer is smaller. She is consistently wearing her Circaid compression stockings. She is wearing her compression pumps several times a week. Edema is stable. She has been approved for Epifix and her 7 th application was last week. She has hypergranulation present. Silver Nitrate used to help control the hypergranulation. Will take a break this week from the Epifix. Objective Data Objective Data Vital Signs: Vital Signs Temp Pulse Resp BP O2 Del Method O2 Flow Rate 98.5 F 90 20 H 167/69 H Nasal Cannula 5 11/01/22 08:31 11/01/22 08:31 11/01/22 08:31 11/01/22 08:31 10/18/22 08:33 10/18/22 08:33 Oxygen Flow Rate (L/min) 5 Oxygen Delivery Method Nasal Cannula Weight: 248 lb 8.668 oz Body Mass Index (BMI) 44.0 Charges/Coding Procedures Integumentary 111xxx-113xx: [id number] E[place]i subq tissue 20 sq cm/< Debridement Note Debridement Note Wound debrided: lateral leg ulcer (#1) Laterality: Right Type of Debridement: Excisional debridement Anesthesia Used: 4% Lidocaine Solution and 5% Lidocaine Gel Depth: Down to and including healthy tissue and in the subcutaneous layer Percentage of wound debrided: 100 Instrument Used: 5mm curette Tissue Removed: devitalized tissue and slough Severity: Fat Layer Exposed Amount of bleeding with debridement: Mild Bleeding Controlled with: Pressure, Compression and gauze and Silver Nitrate Patient tolerated procedure: Patient tolerated procedure well Debridement Free Text: Hypergranulation tissue present. Silver nitrate used to help with the hypergranulation. Post-Debridement Measurements and Additional Note: Post-Debridement Measurements/Treatment - Nurse 1 - General Ulcer Assessment Start: 10/18/22 08:33 Freq: Status: Active Protocol: NINO.VAHE Activity Type Activity Date Activity User E-sign Co-sign Detail Recorded Client Recorded Date Recorded By Document 10/18/22 08:33 DL [id number] 10/18/22 08:41 DL Document 10/25/22 08:35 PL [id number] 10/25/22 08:38 PL Document 11/01/22 08:31 PL [id number] 11/01/22 08:33 PL 10/18/22 10/25/22 11/01/22 08:33 08:35 08:31 - Today's Visit Information Type of service Follow-up Visit Follow-up Visit Follow-up Visit (Physician/[employer] (Physician/[employer] (Physician/[employer] ) ) ) Arrival Mode Ambulatory Ambulatory Ambulatory Transfer Assistance None None None Patient Identification Verified (Name & Yes Yes Yes ) Patient Requires Transmission-Based No No No Precautions Safety Precautions NA NA Height and Weight Body Mass Index (BMI) 44.0 44.0 44.0 BMI Classification Obese Obese Obese Vital Signs Temperature (97.8 F-99.1 F) 98 F 97.8 F 98.5 F Temperature Source Temporal Temporal Temporal Pulse Rate (60-100) 88 99 90 Pulse Location Monitor Respiratory Rate (12-18) 22 H 20 H 20 H Respiratory rate source Observation Oxygen Delivery Method Nasal Cannula O2 L/MIN (L/min) 5 Blood Pressure (90/60-120/80) 160/55 H 155/97 H 167/69 H Blood Pressure Mean (mm Hg) 90 116 101 Source Monitor History Since Last Visit- (Skip if this is Patient's initial visit) Have you changed medications since your No No No last visit? Any new allergies or adverse reactions No No No Had a fall/change in ADL's that may No No No increase risk of falls Signs or symptoms of abuse and/or No No No neglect since last visit Have you been in the hospital since your No No No last visit? Has dressing in place as prescribed Yes No No Has compression in place as prescribed Yes No No Has offloadiing in place as prescribed N/A N/A No Experienced any changes in pain level or No No No management Pain Scale: 0-10 Numeric Is Patient Pain Free? Yes Yes Yes WC - Nurse 1 - General Ulcer Measurement Start: 10/18/22 08:33 Freq: Status: Active Protocol: Activity Type Activity Date Activity User E-sign Co-sign Detail Recorded Client Recorded Date Recorded By Document 10/18/22 08:33 DL [id number] 10/18/22 08:41 DL 10/18/22 08:33 Wound Center Nurse 1 #1 RLE LAt Cluster -Current Size (cm) - Length 2 -Current Size (cm) - Width 2.8 -Current Size (cm) - Depth 0.1 -Total Square Cm 5.6 -Photo Taken Yes -Exudate Amt Small -Exudate Type Serosanguineous -Wound Margin Distinct, Outline Attached -Granulation Amt Large (67-100%) -Granulation Quality Red -Necrosis Amt Small (1-33%) -Necrotic Tissue Type Adherent Slough -Structure Exposed N/A -Texture (Ashley-wound Skin Appearance) Scarring -Moisture (Ashley-wound Skin Appearance) Dry/Scaly -Color (Ashley-wound Skin Appearance) No Abnormality -Temperature (Ashley-wound Skin No Abnormality Appearance) (Pt Warm) -Ulcer Cleansing Soap and Water -Foul Odor after Cleansing No -Anesthetic Used 5% Lidocaine Gel Right Calf (cm) 45.6 Right Ankle (cm) 26.3 WC - Nurse 2 - General Ulcer CM Notes Start: 10/18/22 08:33 Freq: Status: Active Protocol: Activity Type Activity Date Activity User E-sign Co-sign Detail Recorded Client Recorded Date Recorded By Document 10/18/22 10:12 PL [id number] 10/18/22 10:18 PL Document 10/25/22 08:54 JF [id number] 10/25/22 08:56 JF Edit Result 10/25/22 08:54 JF (1) [id number] 10/26/22 08:07 PL Document 11/01/22 08:59 JF [id number] 11/01/22 09:03 JF (1) #1 RLE LAt Cluster - Apply Skin Sub - 1st 25 sq cm - Legs => 1 10/18/22 10/25/22 11/01/22 10:12 08:54 08:59 Wound Center Nurse 2 #1 RLE LAt Cluster -Time 08:50 08:54 08:59 -Correct Patient Yes Yes Yes -Correct Side, Site, Position Yes Yes Yes -Correct Procedure Yes Yes Yes -Procedure Performed Yes Yes Yes -Type of Procedure Debridement Debridement Debridement -Clinical Debridement Subcutaneous Subcutaneous Subcutaneous -Tissue Removed Subcutaneous Subcutaneous Subcutaneous -Post Debridement (cm) - Length 2.4 2.2 2.3 -Post Debridement (cm) - Width 2.7 2.8 2.1 -Post Debridement (cm) - Depth 0.1 0.1 0.2 -Total Square (Post) (cm) 6.48 6.16 4.83 -Area of Debridement (cm) - Length 2.4 2.2 2.3 -Area of Debridement (cm) - Width 2.7 2.8 2.1 -Total Square (Area) (cm) 6.48 6.16 4.83 -Tunneling No No No -Undermining/Tunneling No No No -Circular Undermining No No No -Wound/Ulcer Outcome Not Healed Not Healed Not Healed -Ulcer Cleansing Rinsed/ Rinsed/ Rinsed/ Irrigated with Irrigated with Irrigated with Saline Saline Saline -Foul Odor after Cleansing No No -Bioengineered Tissue Yes Yes No -Type of Bioengineered Tissue Epifix Mesh Epifix -Expiration Date 06/18/27 06/18/27 -Product Lot Number [id number] -Percent Used 100 100 -Lot number of Saline Used [id number] -Bleeding Controlled with Pressure Pressure Pressure,Silver Nitrate -Treatment Response Procedure Procedure Procedure Tolerated Well Tolerated Well Tolerated Well -Offloading No No -Debridement - Subq, 1st 20sq cm No No Yes -Apply Skin Sub - 1st 25 sq cm - Legs 1 1 -Epifix (per sq cm) 4 -Epifix Mesh (per sq cm) 11 Pain Scale: 0-10 Numeric Is Patient Pain Free? Yes Yes Yes - Nurse 3 - General Ulcer D/C NN Start: 10/18/22 08:33 Freq: Status: Active Protocol: Activity Type Activity Date Activity User E-sign Co-sign Detail Recorded Client Recorded Date Recorded By Document 10/18/22 09:10 DL [id number] 10/18/22 09:11 DL Document 10/25/22 09:07 PL [id number] 10/25/22 09:09 PL Document 11/01/22 09:15 DL [id number] 11/01/22 09:17 DL 10/18/22 10/25/22 11/01/22 09:10 09:07 09:15 Wound Care Center Nurse 3 #1 RLE LAt Cluster -Ulcer Cleansing Not Cleansed Rinsed/ Irrigated with Saline -Foul Odor after Cleansing No No -Primary Dressing Applied Aquacel AG 2x2 -Other Dressing ABD,conform -Primary Dressing Covered/Secured with Dry Gauze & Secured with Dry Gauze & Roll Gauze, Tape Roll Gauze Secured with Tape -Aquacel AG 2x2 1 Bilateral -Tubular Bandage Single Layer -Size of Tubigrip Used Size C -Size C ($) 2 -Other tubigrip/circ aids Right -Tubular Bandage Single Layer -Size of Tubigrip Used Size E -Size E ($) 1 -Other Circ Aid Treatment Response Procedure Procedure Tolerated Well Tolerated Well Pain Scale: 0-10 Numeric Is Patient Pain Free? Yes Yes Yes - Visit Discharge Discharge Condition Stable Stable Stable Ambulatory Status Ambulatory Ambulatory Ambulatory Transportation Private Auto Private Auto Private Auto Facility Type Home Health Orders Sent Yes Assessment/Plan Assessment/Plan (1) Ulcer of right lower extremity with fat layer exposed: CODE(S): L97.912 - Non-pressure chronic ulcer of unspecified part of right lower leg with fat layer exposed (2) Ulcer of left lower extremity, limited to breakdown of skin: CODE(S): L97.921 - Non-pressure chronic ulcer of unspecified part of left lower leg limited to breakdown of skin (3) Bilateral edema of lower extremity: CODE(S): R60.0 - Localized edema (4) Lymphedema of both lower extremities: CODE(S): I89.0 - Lymphedema, not elsewhere classified (5) COPD (chronic obstructive pulmonary disease): CODE(S): J44.9 - Chronic obstructive pulmonary disease, unspecified (6) Requires continuous at home supplemental oxygen: CODE(S): Z99.81 - Dependence on supplemental oxygen (7) Former smoker: CODE(S): Z87.891 - Personal history of nicotine dependence PLAN: Plan Patient evaluated at the wound healing center today. Wound care - Epifix #7 placed last week. Due to her hypergranulation, will take a break from the Epifix and use Silvercel daily covered with gauze after washing the ulcer with soap and water daily. Place Lac hytrin lotion to non ulcer areas before applying compression. Compression - Circaid compression stockings to bilateral lower legs. Discussed low sodium diet that is high in protein to help with edema management and wound healing. Stressed the importance of using her home compression pumps at least for an hour per day, may use twice daily. Instructed her that she does not need to remove her Circaid stockings before using the compression pumps. Encouraged increase activity/walking as tolerated to help with edema/lymphedema, along with foot pumping while sitting. Encouraged patient not to sleep in chair but if she has to because of her COPD/difficult breathing she needs to be propped up. Encouraged leg elevation. Wound culture obtained on 07/12/22 which was positive for Serratia marcescens and Anaerobic cocci. It is resistant to the Doxycycline her PCP placed her on. Instructed her to stop the Doxycycline. Initially ordered Levaquin but patient read all the side effects and she states her father had a seizure while on Levaquin. Changed Levaquin to Bactrim and then added Metronidazole when the Anaerobic culture came back. She has completed the antibiotics. Follow up one week.
[2022-11-08 08:35] VITALS: BP 145/74; PULSE 84; RESP 22; TEMP 36.1; BMI 44.0
--- NOTE | 2022-11-08 10:09 | PN.PCM_ITS ---
History of Present Illness Date of Service: 11/08/22 Chief Complaint: Right leg ulcer History of Wound: 62 year old female presents to the wound healing center with ulcers on her right and left legs that started 5 months ago after being hospitalized for pneumonia and COPD exacerbation. She developed worsening edema and her legs have been weeping. She then bumped her right lateral leg and developed an ulcer that she covers during the day with non adherent dressings. She also has several ulcers that are superficial and weep clear drainage due to the amount of edema she is experiencing. She sleeps in a chair due to difficulty breathing. She typically does not elevate her legs. 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 She was being treated with Doxycycline from her PCP due to a cellulitis of her legs. Reviewed notes from her PCP who saw her on 07/03/22 for cellulitis, ulcer right leg and shortness of breath. Wound culture obtained on 07/12/22 which was positive for Serratia marcescens and Anaerobic cocci. She has been started on Bactrim and Metronidazole. Arterial studies performed on 07/13/22 - Right CRISTINA - 1.27 and Left CRISTINA - 1.21. Triphasic Doppler waveforms are noted at ankle level bilaterally. Pulse-volume recordings appear diminished at digital level on the right, but satisfactory at all other levels bilaterally. Resting ankle-brachial indices are normal bilaterally. The right digital-brachial index is normal. The left digital-brachial index is mildly diminished. Arterial flow appears normal at ankle level bilaterally, and at digital level on the right. There is evidence of mild arterial occlusive disease at digital level on the left. 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 The right great saphenous vein appears segmentally incompetent. The right anterior accessory saphenous vein is incompetent. The left anterior accessory saphenous vein is incompetent. She denies fever, chills, nausea or vomiting. Progress of Wound: Right lateral leg ulcer is stable. She is consistently wearing her Circaid compression stockings. She is wearing her compression pumps several times a week. Edema is stable. She has been approved for Epifix and her 8 th application applied today. Objective Data Objective Data Vital Signs: Vital Signs Temp Pulse Resp BP O2 Del Method O2 Flow Rate 97 F L 84 22 H 145/74 H Nasal Cannula 4 11/08/22 08:35 11/08/22 08:35 11/08/22 08:35 11/08/22 08:35 10/18/22 08:33 11/08/22 08:35 Oxygen Flow Rate (L/min) 4 Oxygen Delivery Method Nasal Cannula Weight: 248 lb 8.668 oz Body Mass Index (BMI) 44.0 Charges/Coding Procedures Integumentary 150xxx-152xx: 24336 Skin sub graft trnk/arm/leg Debridement Note Debridement Note Wound debrided: lateral leg ulcer (#1) Laterality: Right Type of Debridement: Excisional debridement Anesthesia Used: 4% Lidocaine Solution and 5% Lidocaine Gel Depth: Down to and including healthy tissue and in the subcutaneous layer Percentage of wound debrided: 100 Instrument Used: 5mm curette Tissue Removed: devitalized tissue and slough Severity: Fat Layer Exposed Amount of bleeding with debridement: Mild Bleeding Controlled with: Pressure and Compression and gauze Patient tolerated procedure: Patient tolerated procedure well Post-Debridement Measurements and Additional Note: Post-Debridement Measurements/Treatment - Nurse 1 - General Ulcer Assessment Start: 10/18/22 08:33 Freq: Status: Active Protocol: TROY Activity Type Activity Date Activity User E-sign Co-sign Detail Recorded Client Recorded Date Recorded By Document 10/18/22 08:33 DL [id number] 10/18/22 08:41 DL Document 10/25/22 08:35 PL [id number] 10/25/22 08:38 PL Document 11/01/22 08:31 PL [id number] 11/01/22 08:33 PL Document 11/08/22 08:35 DL Desktop 11/08/22 08:39 DL 10/18/22 10/25/22 11/01/22 08:33 08:35 08:31 - Today's Visit Information Type of service Follow-up Visit Follow-up Visit Follow-up Visit (Physician/WATER QUALITY ASSISTANT (Physician/WATER QUALITY ASSISTANT (Physician/WATER QUALITY ASSISTANT ) ) ) Arrival Mode Ambulatory Ambulatory Ambulatory Transfer Assistance None None None Patient Identification Verified (Name & Yes Yes Yes ) Patient Requires Transmission-Based No No No Precautions Safety Precautions NA NA Height and Weight Body Mass Index (BMI) 44.0 44.0 44.0 BMI Classification Obese Obese Obese Vital Signs Temperature (97.8 F-99.1 F) 98 F 97.8 F 98.5 F Temperature Source Temporal Temporal Temporal Pulse Rate (60-100) 88 99 90 Pulse Location Monitor Respiratory Rate (12-18) 22 H 20 H 20 H Respiratory rate source Observation Oxygen Delivery Method Nasal Cannula O2 L/MIN (L/min) 5 Blood Pressure (90/60-120/80) 160/55 H 155/97 H 167/69 H Blood Pressure Mean (mm Hg) 90 116 101 Source Monitor History Since Last Visit- (Skip if this is Patient's initial visit) Have you changed medications since your No No No last visit? Any new allergies or adverse reactions No No No Had a fall/change in ADL's that may No No No increase risk of falls Signs or symptoms of abuse and/or No No No neglect since last visit Have you been in the hospital since your No No No last visit? Has dressing in place as prescribed Yes No No Has compression in place as prescribed Yes No No Has offloadiing in place as prescribed N/A N/A No Experienced any changes in pain level or No No No management Pain Scale: 0-10 Numeric Is Patient Pain Free? Yes Yes Yes 11/08/22 08:35 - Today's Visit Information Type of service Follow-up Visit (Physician/WATER QUALITY ASSISTANT ) Arrival Mode Ambulatory Transfer Assistance None Patient Identification Verified (Name & Yes ) Patient Requires Transmission-Based No Precautions Safety Precautions Height and Weight Body Mass Index (BMI) 44.0 BMI Classification Obese Vital Signs Temperature (97.8 F-99.1 F) 97 F L Temperature Source Temporal Pulse Rate (60-100) 84 Pulse Location Monitor Respiratory Rate (12-18) 22 H Respiratory rate source Observation Oxygen Delivery Method O2 L/MIN (L/min) 4 Blood Pressure (90/60-120/80) 145/74 H Blood Pressure Mean (mm Hg) 97 Source Monitor History Since Last Visit- (Skip if this is Patient's initial visit) Have you changed medications since your No last visit? Any new allergies or adverse reactions No Had a fall/change in ADL's that may No increase risk of falls Signs or symptoms of abuse and/or No neglect since last visit Have you been in the hospital since your No last visit? Has dressing in place as prescribed Yes Has compression in place as prescribed Yes Has offloadiing in place as prescribed N/A Experienced any changes in pain level or No management Pain Scale: 0-10 Numeric Is Patient Pain Free? Yes WC - Nurse 1 - General Ulcer Measurement Start: 10/18/22 08:33 Freq: Status: Active Protocol: Activity Type Activity Date Activity User E-sign Co-sign Detail Recorded Client Recorded Date Recorded By Document 10/18/22 08:33 DL [id number] 10/18/22 08:41 DL Document 11/08/22 08:35 DL Desktop 11/08/22 08:39 DL 10/18/22 11/08/22 08:33 08:35 Wound Center Nurse 1 #1 RLE LAt Cluster -Current Size (cm) - Length 2 2 -Current Size (cm) - Width 2.8 2.4 -Current Size (cm) - Depth 0.1 0.1 -Total Square Cm 5.6 4.8 -Photo Taken Yes No -Exudate Amt Small Small -Exudate Type Serosanguineous Serosanguineous -Wound Margin Distinct, Distinct, Outline Outline Attached Attached -Granulation Amt Large (67-100%) Large (67-100%) -Granulation Quality Red Zaleski -Necrosis Amt Small (1-33%) Small (1-33%) -Necrotic Tissue Type Adherent Slough Adherent Slough -Structure Exposed N/A N/A -Texture (Fredo-wound Skin Appearance) Scarring Scarring -Moisture (Fredo-wound Skin Appearance) Dry/Scaly No Abnormality -Color (Fredo-wound Skin Appearance) No Abnormality Hemosiderin Staining -Temperature (Fredo-wound Skin No Abnormality No Abnormality Appearance) (Pt Warm) (Pt Warm) -Tenderness on Palpation (Fredo-wound No Skin Appearance) -Ulcer Cleansing Soap and Water Soap and Water -Foul Odor after Cleansing No No -Anesthetic Used 5% Lidocaine 5% Lidocaine Gel Gel Right Calf (cm) 45.6 46 Right Ankle (cm) 26.3 27 WC - Nurse 2 - General Ulcer CM Notes Start: 10/18/22 08:33 Freq: Status: Active Protocol: Activity Type Activity Date Activity User E-sign Co-sign Detail Recorded Client Recorded Date Recorded By Document 10/18/22 10:12 PL [id number] 10/18/22 10:18 PL Document 10/25/22 08:54 JF [id number] 10/25/22 08:56 JF Edit Result 10/25/22 08:54 JF (1) [id number] 10/26/22 08:07 PL Document 11/01/22 08:59 JF [id number] 11/01/22 09:03 JF Document 11/08/22 08:57 JF [id number] 11/08/22 08:59 JF (1) #1 RLE LAt Cluster - Apply Skin Sub - 1st 25 sq cm - Legs => 1 10/18/22 10/25/22 11/01/22 10:12 08:54 08:59 Wound Center Nurse 2 #1 RLE LAt Cluster -Time 08:50 08:54 08:59 -Correct Patient Yes Yes Yes -Correct Side, Site, Position Yes Yes Yes -Correct Procedure Yes Yes Yes -Procedure Performed Yes Yes Yes -Type of Procedure Debridement Debridement Debridement -Clinical Debridement Subcutaneous Subcutaneous Subcutaneous -Tissue Removed Subcutaneous Subcutaneous Subcutaneous -Post Debridement (cm) - Length 2.4 2.2 2.3 -Post Debridement (cm) - Width 2.7 2.8 2.1 -Post Debridement (cm) - Depth 0.1 0.1 0.2 -Total Square (Post) (cm) 6.48 6.16 4.83 -Area of Debridement (cm) - Length 2.4 2.2 2.3 -Area of Debridement (cm) - Width 2.7 2.8 2.1 -Total Square (Area) (cm) 6.48 6.16 4.83 -Tunneling No No No -Undermining/Tunneling No No No -Circular Undermining No No No -Wound/Ulcer Outcome Not Healed Not Healed Not Healed -Ulcer Cleansing Rinsed/ Rinsed/ Rinsed/ Irrigated with Irrigated with Irrigated with Saline Saline Saline -Foul Odor after Cleansing No No -Bioengineered Tissue Yes Yes No -Type of Bioengineered Tissue Epifix Mesh Epifix -Expiration Date 06/18/27 06/18/27 -Product Lot Number [id number] -Percent Used 100 100 -Lot number of Saline Used [id number] -Bleeding Controlled with Pressure Pressure Pressure,Silver Nitrate -Treatment Response Procedure Procedure Procedure Tolerated Well Tolerated Well Tolerated Well -Offloading No No -Debridement - Subq, 1st 20sq cm No No Yes -Apply Skin Sub - 1st 25 sq cm - Legs 1 1 -Epifix (per sq cm) 4 -Epifix Mesh (per sq cm) 11 Pain Scale: 0-10 Numeric Is Patient Pain Free? Yes Yes Yes 11/08/22 08:57 Wound Center Nurse 2 #1 RLE LAt Cluster -Time 08:57 -Correct Patient Yes -Correct Side, Site, Position Yes -Correct Procedure Yes -Procedure Performed Yes -Type of Procedure Debridement -Clinical Debridement Subcutaneous -Tissue Removed Subcutaneous -Post Debridement (cm) - Length 2.4 -Post Debridement (cm) - Width 2.2 -Post Debridement (cm) - Depth 0.2 -Total Square (Post) (cm) 5.28 -Area of Debridement (cm) - Length 2.4 -Area of Debridement (cm) - Width 2.2 -Total Square (Area) (cm) 5.28 -Tunneling No -Undermining/Tunneling No -Circular Undermining No -Wound/Ulcer Outcome Not Healed -Ulcer Cleansing Rinsed/ Irrigated with Saline -Foul Odor after Cleansing No -Bioengineered Tissue Yes -Type of Bioengineered Tissue Epifix -Expiration Date 07/18/27 -Product Lot Number [id number] -Percent Used 100 -Lot number of Saline Used [id number] -Bleeding Controlled with Pressure -Treatment Response Procedure Tolerated Well -Offloading No -Debridement - Subq, 1st 20sq cm No -Apply Skin Sub - 1st 25 sq cm - Legs 1 -Epifix (per sq cm) 4 -Epifix Mesh (per sq cm) Pain Scale: 0-10 Numeric Is Patient Pain Free? Yes - Nurse 3 - General Ulcer D/C NN Start: 10/18/22 08:33 Freq: Status: Active Protocol: Activity Type Activity Date Activity User E-sign Co-sign Detail Recorded Client Recorded Date Recorded By Document 10/18/22 09:10 DL [id number] 10/18/22 09:11 DL Document 10/25/22 09:07 PL [id number] 10/25/22 09:09 PL Document 11/01/22 09:15 DL [id number] 11/01/22 09:17 DL Document 11/08/22 10:03 PL [id number] 11/08/22 10:03 PL 08/0210/25/22 11/01/22 09:10 09:07 09:15 Wound Care Center Nurse 3 #1 RLE LAt Cluster -Ulcer Cleansing Not Cleansed Rinsed/ Irrigated with Saline -Foul Odor after Cleansing No No -Primary Dressing Applied Aquacel AG 2x2 -Other Dressing ABD,conform -Primary Dressing Covered/Secured with Dry Gauze & Secured with Dry Gauze & Roll Gauze, Tape Roll Gauze Secured with Tape -Aquacel AG 2x2 1 Bilateral -Tubular Bandage Single Layer -Size of Tubigrip Used Size C -Size C ($) 2 -Other tubigrip/circ aids Right -Tubular Bandage Single Layer -Size of Tubigrip Used Size E -Size E ($) 1 -Other Circ Aid Treatment Response Procedure Procedure Tolerated Well Tolerated Well Pain Scale: 0-10 Numeric Is Patient Pain Free? Yes Yes Yes WC - Visit Discharge Discharge Condition Stable Stable Stable Ambulatory Status Ambulatory Ambulatory Ambulatory Transportation [email or web address] Facility Type Home Health Orders Sent Yes 11/08/22 10:03 Wound Care Center Nurse 3 #1 RLE LAt Cluster -Ulcer Cleansing Not Cleansed -Foul Odor after Cleansing -Primary Dressing Applied -Other Dressing -Primary Dressing Covered/Secured with Dry Gauze & Roll Gauze, Secured with Tape -Aquacel AG 2x2 Bilateral -Tubular Bandage -Size of Tubigrip Used -Size C ($) -Other Right -Tubular Bandage -Size of Tubigrip Used -Size E ($) -Other Treatment Response Pain Scale: 0-10 Numeric Is Patient Pain Free? Yes WC - Visit Discharge Discharge Condition Stable Ambulatory Status Ambulatory Transportation Facility Type Orders Sent Assessment/Plan Assessment/Plan (1) Ulcer of right lower extremity with fat layer exposed: CODE(S): L97.912 - Non-pressure chronic ulcer of unspecified part of right lower leg with fat layer exposed (2) Ulcer of left lower extremity, limited to breakdown of skin: CODE(S): L97.921 - Non-pressure chronic ulcer of unspecified part of left lower leg limited to breakdown of skin (3) Bilateral edema of lower extremity: CODE(S): R60.0 - Localized edema (4) Lymphedema of both lower extremities: CODE(S): I89.0 - Lymphedema, not elsewhere classified (5) COPD (chronic obstructive pulmonary disease): CODE(S): J44.9 - Chronic obstructive pulmonary disease, unspecified (6) Requires continuous at home supplemental oxygen: CODE(S): Z99.81 - Dependence on supplemental oxygen (7) Former smoker: CODE(S): Z87.891 - Personal history of nicotine dependence PLAN: Plan Patient evaluated at the wound healing center today. Wound care - Epifix #8 placed this week. 100% of the 2 x 2 product was used, skin prep was used around the fredo wound and a wound veil was placed with steri strips to keep in place. Collagen hydrogel placed and then topped with ABD. She was instructed to not get the ulcer wet. She may change the outer dressing as needed, depending on how much drainage she experiences. Place Lac hytrin lotion to non ulcer areas before applying compression. Compression - Circaid compression stockings to bilateral lower legs. Discussed low sodium diet that is high in protein to help with edema management and wound healing. Stressed the importance of using her home compression pumps at least for an hour per day, may use twice daily. Instructed her that she does not need to remove her Circaid stockings before using the compression pumps. Encouraged increase activity/walking as tolerated to help with edema/lymphedema, along with foot pumping while sitting. Encouraged patient not to sleep in chair but if she has to because of her COPD/difficult breathing she needs to be propped up. Encouraged leg elevation. Wound culture obtained on 07/12/22 which was positive for Serratia marcescens and Anaerobic cocci. It is resistant to the Doxycycline her PCP placed her on. Instructed her to stop the Doxycycline. Initially ordered Levaquin but patient read all the side effects and she states her father had a seizure while on Levaquin. Changed Levaquin to Bactrim and then added Metronidazole when the Anaerobic culture came back. She has completed the antibiotics. Follow up one week.
[2022-11-15 08:31] VITALS: BP 144/72; PULSE 85; RESP 18; TEMP 36.6; BMI 44.0
--- NOTE | 2022-11-15 10:29 | PN.PCM_ITS ---
History of Present Illness Date of Service: 11/15/22 Chief Complaint: Right leg ulcer History of Wound: 62 year old female presents to the wound healing center with ulcers on her right and left legs that started 5 months ago after being hospitalized for pneumonia and COPD exacerbation. She developed worsening edema and her legs have been weeping. She then bumped her right lateral leg and developed an ulcer that she covers during the day with non adherent dressings. She also has several ulcers that are superficial and weep clear drainage due to the amount of edema she is experiencing. She sleeps in a chair due to difficulty breathing. She typically does not elevate her legs. 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 She was being treated with Doxycycline from her PCP due to a cellulitis of her legs. Reviewed notes from her PCP who saw her on 07/03/22 for cellulitis, ulcer right leg and shortness of breath. Wound culture obtained on 07/12/22 which was positive for Serratia marcescens and Anaerobic cocci. She has been started on Bactrim and Metronidazole. Arterial studies performed on 07/13/22 - Right CRISTINA - 1.27 and Left CRISTINA - 1.21. Triphasic Doppler waveforms are noted at ankle level bilaterally. Pulse-volume recordings appear diminished at digital level on the right, but satisfactory at all other levels bilaterally. Resting ankle-brachial indices are normal bilaterally. The right digital-brachial index is normal. The left digital-brachial index is mildly diminished. Arterial flow appears normal at ankle level bilaterally, and at digital level on the right. There is evidence of mild arterial occlusive disease at digital level on the left. 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 The right great saphenous vein appears segmentally incompetent. The right anterior accessory saphenous vein is incompetent. The left anterior accessory saphenous vein is incompetent. She denies fever, chills, nausea or vomiting. Progress of Wound: Right lateral leg ulcer is stable. She is consistently wearing her Circaid compression stockings. She is wearing her compression pumps several times a week. Edema is stable. She has been approved for Epifix and her 9 th application applied today. Objective Data Objective Data Vital Signs: Vital Signs Temp Pulse Resp BP O2 Del Method O2 Flow Rate 97.9 F 85 18 144/72 H Nasal Cannula 3 11/15/22 08:31 11/15/22 08:31 11/15/22 08:31 11/15/22 08:31 11/15/22 08:31 11/15/22 08:31 Oxygen Flow Rate (L/min) 3 Oxygen Delivery Method Nasal Cannula Weight: 248 lb 8.668 oz Body Mass Index (BMI) 44.0 Charges/Coding Procedures Integumentary 150xxx-152xx: 35164 Skin sub graft trnk/arm/leg Debridement Note Debridement Note Wound debrided: lateral leg ulcer (#1) Laterality: Right Type of Debridement: Excisional debridement Anesthesia Used: 4% Lidocaine Solution and 5% Lidocaine Gel Depth: Down to and including healthy tissue and in the subcutaneous layer Percentage of wound debrided: 100 Instrument Used: 5mm curette Tissue Removed: devitalized tissue and slough Severity: Fat Layer Exposed Amount of bleeding with debridement: Mild Bleeding Controlled with: Pressure and Compression and gauze Patient tolerated procedure: Patient tolerated procedure well Post-Debridement Measurements and Additional Note: Post-Debridement Measurements/Treatment - Nurse 1 - General Ulcer Assessment Start: 10/18/22 08:33 Freq: Status: Active Protocol: NINO.VAHE Activity Type Activity Date Activity User E-sign Co-sign Detail Recorded Client Recorded Date Recorded By Document 10/18/22 08:33 DL [id number] 10/18/22 08:41 DL Document 10/25/22 08:35 PL [id number] 10/25/22 08:38 PL Document 11/01/22 08:31 PL [id number] 11/01/22 08:33 PL Document 11/08/22 08:35 DL Desktop 11/08/22 08:39 DL Document 11/15/22 08:31 [facility] [id number] 11/15/22 08:38 BMF 10/18/22 10/25/22 11/01/22 08:33 08:35 08:31 - Today's Visit Information Type of service Follow-up Visit Follow-up Visit Follow-up Visit (Physician/ARROW POINT ATTACHER (Physician/ARROW POINT ATTACHER (Physician/ARROW POINT ATTACHER ) ) ) Arrival Mode Ambulatory Ambulatory Ambulatory Transfer Assistance None None None Accompanied by Patient Identification Verified (Name & Yes Yes Yes ) Patient Requires Transmission-Based No No No Precautions Safety Precautions NA NA Height and Weight Body Mass Index (BMI) 44.0 44.0 44.0 BMI Classification Obese Obese Obese Vital Signs Temperature (97.8 F-99.1 F) 98 F 97.8 F 98.5 F Temperature Source Temporal Temporal Temporal Pulse Rate (60-100) 88 99 90 Pulse Location Monitor Respiratory Rate (12-18) 22 H 20 H 20 H Respiratory rate source Observation Oxygen Delivery Method Nasal Cannula O2 L/MIN (L/min) 5 Blood Pressure (90/60-120/80) 160/55 H 155/97 H 167/69 H Blood Pressure Mean (mm Hg) 90 116 101 Source Monitor Position Blood Pressure Location History Since Last Visit- (Skip if this is Patient's initial visit) Have you changed medications since your No No No last visit? Any new allergies or adverse reactions No No No Had a fall/change in ADL's that may No No No increase risk of falls Signs or symptoms of abuse and/or No No No neglect since last visit Have you been in the hospital since your No No No last visit? Has dressing in place as prescribed Yes No No Has compression in place as prescribed Yes No No Has offloadiing in place as prescribed N/A N/A No Experienced any changes in pain level or No No No management Left Footwear Right Footwear Pain Scale: 0-10 Numeric Is Patient Pain Free? Yes Yes Yes 11/08/22 11/15/22 08:35 08:31 WC - Today's Visit Information Type of service Follow-up Visit Follow-up Visit (Physician/ARROW POINT ATTACHER (Physician/ARROW POINT ATTACHER ) ) Arrival Mode Ambulatory Ambulatory Transfer Assistance None None Accompanied by Patient Identification Verified (Name & Yes Yes ) Patient Requires Transmission-Based No No Precautions Safety Precautions Height and Weight Body Mass Index (BMI) 44.0 44.0 BMI Classification Obese Obese Vital Signs Temperature (97.8 F-99.1 F) 97 F L 97.9 F Temperature Source Temporal Temporal Pulse Rate (60-100) 84 85 Pulse Location Monitor Monitor Respiratory Rate (12-18) 22 H 18 Respiratory rate source Observation Observation Oxygen Delivery Method Nasal Cannula O2 L/MIN (L/min) 4 3 Blood Pressure (90/60-120/80) 145/74 H 144/72 H Blood Pressure Mean (mm Hg) 97 96 Source Monitor Monitor Position Sitting Blood Pressure Location Left Arm History Since Last Visit- (Skip if this is Patient's initial visit) Have you changed medications since your No No last visit? Any new allergies or adverse reactions No No Had a fall/change in ADL's that may No No increase risk of falls Signs or symptoms of abuse and/or No No neglect since last visit Have you been in the hospital since your No No last visit? Has dressing in place as prescribed Yes Yes Has compression in place as prescribed Yes No Has offloadiing in place as prescribed N/A N/A Experienced any changes in pain level or No No management Left Footwear Regular Shoe Right Footwear Regular Shoe Pain Scale: 0-10 Numeric Is Patient Pain Free? Yes Yes WC - Nurse 1 - General Ulcer Measurement Start: 10/18/22 08:33 Freq: Status: Active Protocol: Activity Type Activity Date Activity User E-sign Co-sign Detail Recorded Client Recorded Date Recorded By Document 10/18/22 08:33 DL [id number] 10/18/22 08:41 DL Document 11/08/22 08:35 DL Desktop 11/08/22 08:39 DL Document 11/15/22 08:31 BMF [id number] 11/15/22 08:38 BMF 10/18/22 11/08/22 11/15/22 08:33 08:35 08:31 Wound Center Nurse 1 #1 RLE LAt Cluster -Combined with other wound No -Current Size (cm) - Length 2 2 2 -Current Size (cm) - Width 2.8 2.4 1.6 -Current Size (cm) - Depth 0.1 0.1 0.2 -Total Square Cm 5.6 4.8 3.2 -Photo Taken Yes No No -Epithelialization Small 1-33% -Tunneling No -Undermining/Tunneling No -Circular Undermining No -Exudate Amt Small Small Medium -Exudate Type Serosanguineous Serosanguineous Serosanguineous -Wound Margin Distinct, Distinct, Distinct, Outline Outline Outline Attached Attached Attached -Granulation Amt Large (67-100%) Large (67-100%) Large (67-100%) -Granulation Quality Red [place] Red -Slough/Fibrin Yes -Necrosis Amt Small (1-33%) Small (1-33%) Small (1-33%) -Necrotic Tissue Type Adherent Slough Adherent Slough Adherent Slough -Structure Exposed N/A N/A -Texture (Ashley-wound Skin Appearance) Scarring Scarring Assessed, Scarring -Moisture (Ashley-wound Skin Appearance) Dry/Scaly No Abnormality Assessed,Dry/ Scaly -Color (Ashley-wound Skin Appearance) No Abnormality Hemosiderin Assessed Staining -Temperature (Ashley-wound Skin No Abnormality No Abnormality No Abnormality Appearance) (Pt Warm) (Pt Warm) (Pt Warm) -Tenderness on Palpation (Ashley-wound No No Skin Appearance) -Ulcer Cleansing Soap and Water Soap and Water Soap and Water -Foul Odor after Cleansing No No No -Anesthetic Used 5% Lidocaine 5% Lidocaine 5% Lidocaine Gel Gel Gel Lower Limb Edema Present Yes Right Calf (cm) 45.6 46 46.6 Right Ankle (cm) 26.3 27 26.7 WC - Nurse 2 - General Ulcer CM Notes Start: 10/18/22 08:33 Freq: Status: Active Protocol: Activity Type Activity Date Activity User E-sign Co-sign Detail Recorded Client Recorded Date Recorded By Document 10/18/22 10:12 PL [id number] 10/18/22 10:18 PL Document 10/25/22 08:54 JF [id number] 10/25/22 08:56 JF Edit Result 10/25/22 08:54 JF (1) [id number] 10/26/22 08:07 PL Document 11/01/22 08:59 JF [id number] 11/01/22 09:03 JF Document 11/08/22 08:57 JF [id number] 11/08/22 08:59 JF Document 11/15/22 08:54 JF [id number] 11/15/22 09:01 JF (1) #1 RLE LAt Cluster - Apply Skin Sub - 1st 25 sq cm - Legs => 1 10/18/22 10/25/22 11/01/22 10:12 08:54 08:59 Wound Center Nurse 2 #1 RLE LAt Cluster -Time 08:50 08:54 08:59 -Correct Patient Yes Yes Yes -Correct Side, Site, Position Yes Yes Yes -Correct Procedure Yes Yes Yes -Procedure Performed Yes Yes Yes -Type of Procedure Debridement Debridement Debridement -Clinical Debridement Subcutaneous Subcutaneous Subcutaneous -Tissue Removed Subcutaneous Subcutaneous Subcutaneous -Post Debridement (cm) - Length 2.4 2.2 2.3 -Post Debridement (cm) - Width 2.7 2.8 2.1 -Post Debridement (cm) - Depth 0.1 0.1 0.2 -Total Square (Post) (cm) 6.48 6.16 4.83 -Area of Debridement (cm) - Length 2.4 2.2 2.3 -Area of Debridement (cm) - Width 2.7 2.8 2.1 -Total Square (Area) (cm) 6.48 6.16 4.83 -Tunneling No No No -Undermining/Tunneling No No No -Circular Undermining No No No -Wound/Ulcer Outcome Not Healed Not Healed Not Healed -Ulcer Cleansing Rinsed/ Rinsed/ Rinsed/ Irrigated with Irrigated with Irrigated with Saline Saline Saline -Foul Odor after Cleansing No No -Bioengineered Tissue Yes Yes No -Type of Bioengineered Tissue Epifix Mesh Epifix -Expiration Date 06/18/27 06/18/27 -Product Lot Number [id number] -Percent Used 100 100 -Lot number of Saline Used [id number] -Bleeding Controlled with Pressure Pressure Pressure,Silver Nitrate -Treatment Response Procedure Procedure Procedure Tolerated Well Tolerated Well Tolerated Well -Offloading No No -Debridement - Subq, 1st 20sq cm No No Yes -Apply Skin Sub - 1st 25 sq cm - Legs 1 1 -Epifix (per sq cm) 4 -Epifix Mesh (per sq cm) 11 Pain Scale: 0-10 Numeric Is Patient Pain Free? Yes Yes Yes 11/08/22 11/15/22 08:57 08:54 Wound Center Nurse 2 #1 RLE LAt Cluster -Time 08:57 08:54 -Correct Patient Yes Yes -Correct Side, Site, Position Yes Yes -Correct Procedure Yes Yes -Procedure Performed Yes Yes -Type of Procedure Debridement Debridement -Clinical Debridement Subcutaneous Subcutaneous -Tissue Removed Subcutaneous Subcutaneous -Post Debridement (cm) - Length 2.4 1.9 -Post Debridement (cm) - Width 2.2 0.9 -Post Debridement (cm) - Depth 0.2 0.2 -Total Square (Post) (cm) 5.28 1.71 -Area of Debridement (cm) - Length 2.4 1.9 -Area of Debridement (cm) - Width 2.2 1.9 -Total Square (Area) (cm) 5.28 3.61 -Tunneling No No -Undermining/Tunneling No No -Circular Undermining No No -Wound/Ulcer Outcome Not Healed Not Healed -Ulcer Cleansing Rinsed/ Rinsed/ Irrigated with Irrigated with Saline Saline -Foul Odor after Cleansing No No -Bioengineered Tissue Yes Yes -Type of Bioengineered Tissue Epifix Epifix -Expiration Date 07/18/27 07/18/27 -Product Lot Number [id number] -Percent Used 100 100 -Lot number of Saline Used [id number] -Bleeding Controlled with Pressure Pressure -Treatment Response Procedure Procedure Tolerated Well Tolerated Well -Offloading No No -Debridement - Subq, 1st 20sq cm No No -Apply Skin Sub - 1st 25 sq cm - Legs 1 1 -Epifix (per sq cm) 4 4 -Epifix Mesh (per sq cm) Pain Scale: 0-10 Numeric Is Patient Pain Free? Yes Yes WC - Nurse 3 - General Ulcer D/C NN Start: 10/18/22 08:33 Freq: Status: Active Protocol: Activity Type Activity Date Activity User E-sign Co-sign Detail Recorded Client Recorded Date Recorded By Document 10/18/22 09:10 DL [id number] 10/18/22 09:11 DL Document 10/25/22 09:07 PL [id number] 10/25/22 09:09 PL Document 11/01/22 09:15 DL [id number] 11/01/22 09:17 DL Document 11/08/22 10:03 PL [id number] 11/08/22 10:03 PL Document 11/15/22 09:08 DL [id number] 11/15/22 09:10 DL Edit Result 11/15/22 09:08 DL (1) [id number] 11/15/22 09:11 DL (1) Bilateral - Tubular Bandage => Single Layer - Size of Tubigrip Used => Size F - Size F ($) => 2 10/18/22 10/25/22 11/01/22 09:10 09:07 09:15 Wound Care Center Nurse 3 #1 RLE LAt Cluster -Ulcer Cleansing Not Cleansed Rinsed/ Irrigated with Saline -Foul Odor after Cleansing No No -Primary Dressing Applied Aquacel AG 2x2 -Other Dressing ABD,conform -Primary Dressing Covered/Secured with Dry Gauze & Secured with Dry Gauze & Roll Gauze, Tape Roll Gauze Secured with Tape -Other Covering -Aquacel AG 2x2 1 Bilateral -Tubular Bandage Single Layer -Size of Tubigrip Used Size C -Size C ($) 2 -Size F ($) -Stockings -Other tubigrip/circ aids Right -Tubular Bandage Single Layer -Size of Tubigrip Used Size E -Size E ($) 1 -Other Circ Aid Treatment Response Procedure Procedure Tolerated Well Tolerated Well Pain Scale: 0-10 Numeric Is Patient Pain Free? Yes Yes Yes WC - Visit Discharge Discharge Condition Stable Stable Stable Ambulatory Status Ambulatory Ambulatory Ambulatory Transportation Private Auto [facility] Private Auto Facility Type Home Health Orders Sent Yes 11/08/22 11/15/22 10:03 09:08 Wound Care Center Nurse 3 #1 RLE LAt Cluster -Ulcer Cleansing Not Cleansed -Foul Odor after Cleansing No -Primary Dressing Applied -Other Dressing -Primary Dressing Covered/Secured with Dry Gauze & Dry Gauze & Roll Gauze, Roll Gauze, Secured with Secured with Tape Tape -Other Covering silvercell in one week -Aquacel AG 2x2 Bilateral -Tubular Bandage Single Layer -Size of Tubigrip Used Size F -Size C ($) -Size F ($) 2 -Stockings Yes -Other Right -Tubular Bandage -Size of Tubigrip Used -Size E ($) -Other Treatment Response Procedure Tolerated Well Pain Scale: 0-10 Numeric Is Patient Pain Free? Yes Yes WC - Visit Discharge Discharge Condition Stable Stable Ambulatory Status Ambulatory Ambulatory Transportation Private Auto Facility Type Orders Sent Assessment/Plan Assessment/Plan (1) Ulcer of right lower extremity with fat layer exposed: CODE(S): L97.912 - Non-pressure chronic ulcer of unspecified part of right lower leg with fat layer exposed (2) Ulcer of left lower extremity, limited to breakdown of skin: CODE(S): L97.921 - Non-pressure chronic ulcer of unspecified part of left lower leg limited to breakdown of skin (3) Bilateral edema of lower extremity: CODE(S): R60.0 - Localized edema (4) Lymphedema of both lower extremities: CODE(S): I89.0 - Lymphedema, not elsewhere classified (5) COPD (chronic obstructive pulmonary disease): CODE(S): J44.9 - Chronic obstructive pulmonary disease, unspecified (6) Requires continuous at home supplemental oxygen: CODE(S): Z99.81 - Dependence on supplemental oxygen (7) Former smoker: CODE(S): Z87.891 - Personal history of nicotine dependence PLAN: Plan Patient evaluated at the wound healing center today. Wound care - Epifix #9 placed this week. 100% of the 2 x 2 product was used, skin prep was used around the ashley wound and a wound veil was placed with steri strips to keep in place. Collagen hydrogel placed and then topped with ABD. She was instructed to not get the ulcer wet. She may change the outer dressing as needed, depending on how much drainage she experiences. Place Lac hytrin lotion to non ulcer areas before applying compression. *After 7 days, her wound care will be wash the ulcer with soap and water daily and apply Silvercel covered with gauze daily. Compression - Circaid compression stockings to bilateral lower legs. Discussed low sodium diet that is high in protein to help with edema management and wound healing. Stressed the importance of using her home compression pumps at least for an hour per day, may use twice daily. Instructed her that she does not need to remove her Circaid stockings before using the compression pumps. Encouraged increase activity/walking as tolerated to help with edema/lymphedema, along with foot pumping while sitting. Encouraged patient not to sleep in chair but if she has to because of her COPD/difficult breathing she needs to be propped up. Encouraged leg elevation. Wound culture obtained on 07/12/22 which was positive for Serratia marcescens and Anaerobic cocci. It is resistant to the Doxycycline her PCP placed her on. Instructed her to stop the Doxycycline. Initially ordered Levaquin but patient read all the side effects and she states her father had a seizure while on Levaquin. Changed Levaquin to Bactrim and then added Metronidazole when the Anaerobic culture came back. She has completed the antibiotics. Follow up two weeks, due to her being out of town next week.
== END 2022-11-16 23:59 | disposition home or self-care (01) ==
LOC: WC 08:30
PROVIDERS: PCP Family Medicine; Referring Provider Family Medicine; Visit Provider Nurse Practitioner Family
DX: L97.812 Non-pressure chronic ulcer of other part of right lower leg with fat layer exposed (principal); J44.9 Chronic obstructive pulmonary disease, unspecified; I89.0 Lymphedema, not elsewhere classified; R60.0 Localized edema; W22.8XXS Striking against or struck by other objects, sequela; Z79.82 Long term (current) use of aspirin; Z79.899 Other long term (current) drug therapy; Z99.81 Dependence on supplemental oxygen; Z87.891 Personal history of nicotine dependence
CPT/HCPCS: 11042; 15271; Q4186

== ENCOUNTER 2022-12-13 08:30 | Outpatient (RCR) | payer BC, SELFPAY ==
[2022-11-17 00:30] VITALS: BP 144/72; PULSE 85; RESP 18; TEMP 36.6; BMI 44.0
[2022-11-29 08:31] VITALS: BP 151/92; PULSE 102; RESP 18; TEMP 36.6; BMI 44.0
--- NOTE | 2022-11-29 11:13 | PN.PCM_ITS ---
History of Present Illness Date of Service: 11/29/22 Chief Complaint: Right leg ulcer History of Wound: 62 year old female presents to the wound healing center with ulcers on her right and left legs that started 5 months ago after being hospitalized for pneumonia and COPD exacerbation. She developed worsening edema and her legs have been weeping. She then bumped her right lateral leg and developed an ulcer that she covers during the day with non adherent dressings. She also has several ulcers that are superficial and weep clear drainage due to the amount of edema she is experiencing. She sleeps in a chair due to difficulty breathing. She typically does not elevate her legs. 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 She was being treated with Doxycycline from her PCP due to a cellulitis of her legs. Reviewed notes from her PCP who saw her on 07/03/22 for cellulitis, ulcer right leg and shortness of breath. Wound culture obtained on 07/12/22 which was positive for Serratia marcescens and Anaerobic cocci. She has been started on Bactrim and Metronidazole. Arterial studies performed on 07/13/22 - Right CRISTINA - 1.27 and Left CRISTINA - 1.21. Triphasic Doppler waveforms are noted at ankle level bilaterally. Pulse-volume recordings appear diminished at digital level on the right, but satisfactory at all other levels bilaterally. Resting ankle-brachial indices are normal bilaterally. The right digital-brachial index is normal. The left digital-brachial index is mildly diminished. Arterial flow appears normal at ankle level bilaterally, and at digital level on the right. There is evidence of mild arterial occlusive disease at digital level on the left. 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 The right great saphenous vein appears segmentally incompetent. The right anterior accessory saphenous vein is incompetent. The left anterior accessory saphenous vein is incompetent. She denies fever, chills, nausea or vomiting. Progress of Wound: Right lateral leg ulcer is stable. She is consistently wearing her Circaid compression stockings. She is wearing her compression pumps several times a week. Edema is stable. She has been approved for Epifix and her 10th application applied today. Objective Data Objective Data Vital Signs: Vital Signs Temp Pulse Resp BP O2 Flow Rate 97.8 F 102 H 18 151/92 H 3 11/29/22 08:31 11/29/22 08:31 11/29/22 08:31 11/29/22 08:31 11/17/22 00:30 Oxygen Flow Rate (L/min) 3 Weight: 248 lb 8.668 oz Body Mass Index (BMI) 44.0 Charges/Coding Procedures Integumentary 150xxx-152xx: 81845 Skin sub graft trnk/arm/leg Debridement Note Debridement Note Wound debrided: lateral leg ulcer (#1) Laterality: Right Type of Debridement: Excisional debridement Anesthesia Used: 4% Lidocaine Solution and 5% Lidocaine Gel Depth: Down to and including healthy tissue and in the subcutaneous layer Percentage of wound debrided: 100 Instrument Used: 3mm curette Tissue Removed: devitalized tissue and slough Severity: Fat Layer Exposed Amount of bleeding with debridement: Mild Bleeding Controlled with: Pressure and Compression and gauze Patient tolerated procedure: Patient tolerated procedure well Post-Debridement Measurements and Additional Note: Post-Debridement Measurements/Treatment WC - Nurse 1 - General Ulcer Assessment Start: 11/29/22 08:31 Freq: Status: Active Protocol: TROY Activity Type Activity Date Activity User E-sign Co-sign Detail Recorded Client Recorded Date Recorded By Document 11/29/22 08:31 KESHIA [id number] 11/29/22 08:37 PL 11/29/22 08:31 WC - Today's Visit Information Type of service Follow-up Visit (Physician/INSTALLMENT AGENT ) Arrival Mode Ambulatory Transfer Assistance None Patient Identification Verified (Name & Yes ) Patient Requires Transmission-Based No Precautions Safety Precautions NA Height and Weight Body Mass Index (BMI) 44.0 BMI Classification Obese Vital Signs Temperature (97.8 F-99.1 F) 97.8 F Temperature Source Temporal Pulse Rate (60-100) 102 H Respiratory Rate (12-18) 18 Blood Pressure (90/60-120/80) 151/92 H Blood Pressure Mean (mm Hg) 111 History Since Last Visit- (Skip if this is Patient's initial visit) Have you changed medications since your No last visit? Any new allergies or adverse reactions No Had a fall/change in ADL's that may No increase risk of falls Signs or symptoms of abuse and/or No neglect since last visit Have you been in the hospital since your No last visit? Has dressing in place as prescribed Yes Has compression in place as prescribed Yes Has offloadiing in place as prescribed N/A Experienced any changes in pain level or No management Pain Scale: 0-10 Numeric Is Patient Pain Free? Yes WC - Nurse 2 - General Ulcer CM Notes Start: 11/29/22 08:31 Freq: Status: Active Protocol: Activity Type Activity Date Activity User E-sign Co-sign Detail Recorded Client Recorded Date Recorded By Document 11/29/22 09:04 [id number] 11/29/22 09:07 GIN 11/29/22 09:04 Wound Center Nurse 2 #1 RLE LAt Cluster -Time 09:05 -Correct Patient Yes -Correct Side, Site, Position Yes -Correct Procedure Yes -Procedure Performed Yes -Type of Procedure Debridement -Clinical Debridement Subcutaneous -Tissue Removed Subcutaneous -Post Debridement (cm) - Length 1.2 -Post Debridement (cm) - Width 1.4 -Post Debridement (cm) - Depth 0.1 -Total Square (Post) (cm) 1.68 -Area of Debridement (cm) - Length 1.2 -Area of Debridement (cm) - Width 1.4 -Total Square (Area) (cm) 1.68 -Tunneling No -Undermining/Tunneling No -Circular Undermining No -Wound/Ulcer Outcome Not Healed -Ulcer Cleansing Rinsed/ Irrigated with Saline -Foul Odor after Cleansing No -Bioengineered Tissue Yes -Type of Bioengineered Tissue Epifix 18mm Disc -Expiration Date 08/18/27 -Product Lot Number [id number] -Percent Used 100 -Lot number of Saline Used [id number] -Bleeding Controlled with Pressure -Treatment Response Procedure Tolerated Well -Offloading No -Debridement - Subq, 1st 20sq cm No -Apply Skin Sub - 1st 25 sq cm - Legs 1 -Epifix 18mm Disc 3 Pain Scale: 0-10 Numeric Is Patient Pain Free? Yes Assessment/Plan Assessment/Plan (1) Ulcer of right lower extremity with fat layer exposed: CODE(S): L97.912 - Non-pressure chronic ulcer of unspecified part of right lower leg with fat layer exposed (2) Ulcer of left lower extremity, limited to breakdown of skin: CODE(S): L97.921 - Non-pressure chronic ulcer of unspecified part of left lower leg limited to breakdown of skin (3) Bilateral edema of lower extremity: CODE(S): R60.0 - Localized edema (4) Lymphedema of both lower extremities: CODE(S): I89.0 - Lymphedema, not elsewhere classified (5) COPD (chronic obstructive pulmonary disease): CODE(S): J44.9 - Chronic obstructive pulmonary disease, unspecified (6) Requires continuous at home supplemental oxygen: CODE(S): Z99.81 - Dependence on supplemental oxygen (7) Former smoker: CODE(S): Z87.891 - Personal history of nicotine dependence PLAN: Plan Patient evaluated at the wound healing center today. Wound care - Epifix #10 placed this week. 100% of the 18mm product was used, skin prep was used around the fredo wound and a wound veil was placed with steri strips to keep in place. Topped with [place] SAP. She was instructed to not get the ulcer wet. She may change the outer dressing as needed, depending on how much drainage she experiences. Place Lac hytrin lotion to non ulcer areas before applying compression. Compression - Circaid compression stockings to bilateral lower legs. Discussed low sodium diet that is high in protein to help with edema management and wound healing. Stressed the importance of using her home compression pumps at least for an hour per day, may use twice daily. Instructed her that she does not need to remove her Circaid stockings before using the compression pumps. Encouraged increase activity/walking as tolerated to help with edema/lymphedema, along with foot pumping while sitting. Encouraged patient not to sleep in chair but if she has to because of her COPD/difficult breathing she needs to be propped up. Encouraged leg elevation. Wound culture obtained on 07/12/22 which was positive for Serratia marcescens and Anaerobic cocci. It is resistant to the Doxycycline her PCP placed her on. Instructed her to stop the Doxycycline. Initially ordered Levaquin but patient read all the side effects and she states her father had a seizure while on Levaquin. Changed Levaquin to Bactrim and then added Metronidazole when the Anaerobic culture came back. She has completed the antibiotics. Follow up two weeks.
[2022-12-13 08:40] VITALS: BP 165/79; PULSE 109; RESP 20; TEMP 36.2; BMI 44.0
--- NOTE | 2022-12-13 09:26 | PN.PCM_ITS ---
History of Present Illness Date of Service: 12/13/22 Chief Complaint: Right leg ulcer History of Wound: 62 year old female presents to the wound healing center with ulcers on her right and left legs that started 5 months ago after being hospitalized for pneumonia and COPD exacerbation. She developed worsening edema and her legs have been weeping. She then bumped her right lateral leg and developed an ulcer that she covers during the day with non adherent dressings. She also has several ulcers that are superficial and weep clear drainage due to the amount of edema she is experiencing. She sleeps in a chair due to difficulty breathing. She typically does not elevate her legs. 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 She was being treated with Doxycycline from her PCP due to a cellulitis of her legs. Reviewed notes from her PCP who saw her on 07/03/22 for cellulitis, ulcer right leg and shortness of breath. Wound culture obtained on 07/12/22 which was positive for Serratia marcescens and Anaerobic cocci. She has been started on Bactrim and Metronidazole. Arterial studies performed on 07/13/22 - Right CRISTINA - 1.27 and Left CRISTINA - 1.21. Triphasic Doppler waveforms are noted at ankle level bilaterally. Pulse-volume recordings appear diminished at digital level on the right, but satisfactory at all other levels bilaterally. Resting ankle-brachial indices are normal bilaterally. The right digital-brachial index is normal. The left digital-brachial index is mildly diminished. Arterial flow appears normal at ankle level bilaterally, and at digital level on the right. There is evidence of mild arterial occlusive disease at digital level on the left. 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 The right great saphenous vein appears segmentally incompetent. The right anterior accessory saphenous vein is incompetent. The left anterior accessory saphenous vein is incompetent. She denies fever, chills, nausea or vomiting. Progress of Wound: Right lateral leg ulcer is smaller. She is consistently wearing her Circaid compression stockings. She is wearing her compression pumps several times a week. Edema is stable. She has been approved for 15 applications of Epifix and her 11th application applied today. Objective Data Objective Data Vital Signs: Vital Signs Temp Pulse Resp BP O2 Flow Rate 97.2 F L 109 H 20 H 165/79 H 3 12/13/22 08:40 12/13/22 08:40 12/13/22 08:40 12/13/22 08:40 11/17/22 00:30 Oxygen Flow Rate (L/min) 3 Weight: 248 lb 8.668 oz Body Mass Index (BMI) 44.0 Charges/Coding Procedures Integumentary 150xxx-152xx: 66307 Skin sub graft trnk/arm/leg Debridement Note Debridement Note Wound debrided: lateral leg ulcer (#1) Laterality: Right Type of Debridement: Excisional debridement Anesthesia Used: 4% Lidocaine Solution and 5% Lidocaine Gel Depth: Down to and including healthy tissue and in the subcutaneous layer Percentage of wound debrided: 100 Instrument Used: 3mm curette Tissue Removed: devitalized tissue and slough Severity: Fat Layer Exposed Amount of bleeding with debridement: Mild Bleeding Controlled with: Pressure and Compression and gauze Patient tolerated procedure: Patient tolerated procedure well Post-Debridement Measurements and Additional Note: Post-Debridement Measurements/Treatment - Nurse 1 - General Ulcer Assessment Start: 11/29/22 08:31 Freq: Status: Active Protocol: TROY Activity Type Activity Date Activity User E-sign Co-sign Detail Recorded Client Recorded Date Recorded By Document 11/29/22 08:31 PL [id number] 11/29/22 08:37 PL Document 12/13/22 08:40 DL Desktop 12/13/22 08:45 DL 11/29/22 12/13/22 08:31 08:40 - Today's Visit Information Type of service Follow-up Visit Follow-up Visit (Physician/YARDAGE CONTROL OPERATOR (Physician/YARDAGE CONTROL OPERATOR ) ) Arrival Mode Ambulatory Ambulatory Transfer Assistance None None Patient Identification Verified (Name & Yes Yes ) Patient Requires Transmission-Based No No Precautions Safety Precautions NA Height and Weight Body Mass Index (BMI) 44.0 44.0 BMI Classification Obese Obese Vital Signs Temperature (97.8 F-99.1 F) 97.8 F 97.2 F L Temperature Source Temporal Temporal Pulse Rate (60-100) 102 H 109 H Pulse Location Monitor Respiratory Rate (12-18) 18 20 H Respiratory rate source Observation Blood Pressure (90/60-120/80) 151/92 H 165/79 H Blood Pressure Mean (mm Hg) 111 107 Source Monitor History Since Last Visit- (Skip if this is Patient's initial visit) Have you changed medications since your No No last visit? Any new allergies or adverse reactions No No Had a fall/change in ADL's that may No No increase risk of falls Signs or symptoms of abuse and/or No No neglect since last visit Have you been in the hospital since your No No last visit? Has dressing in place as prescribed Yes Yes Has compression in place as prescribed Yes Yes Has offloadiing in place as prescribed N/A N/A Experienced any changes in pain level or No No management Left Footwear Slipper Pain Scale: 0-10 Numeric Is Patient Pain Free? Yes Yes - Nurse 1 - General Ulcer Measurement Start: 11/29/22 08:31 Freq: Status: Active Protocol: Activity Type Activity Date Activity User E-sign Co-sign Detail Recorded Client Recorded Date Recorded By Document 12/13/22 08:40 DL Desktop 12/13/22 08:45 DL 12/13/22 08:40 Wound Center Nurse 1 #1 RLE LAt Cluster -Current Size (cm) - Length 0.1 -Current Size (cm) - Width 0.1 -Current Size (cm) - Depth 0.1 -Total Square Cm 0.01 -Photo Taken Yes -Exudate Amt None Present -Granulation Amt Large (67-100%) -Granulation Quality [place] -Necrosis Amt None Present (0 %) -Structure Exposed N/A -Texture (Ashley-wound Skin Appearance) Scarring -Moisture (Ashley-wound Skin Appearance) Dry/Scaly -Color (Ashley-wound Skin Appearance) Hemosiderin Staining -Tenderness on Palpation (Ashley-wound No Skin Appearance) -Ulcer Cleansing Soap and Water -Foul Odor after Cleansing No -Anesthetic Used 5% Lidocaine Gel Right Calf (cm) 46 Right Ankle (cm) 27 - Nurse 2 - General Ulcer CM Notes Start: 11/29/22 08:31 Freq: Status: Active Protocol: Activity Type Activity Date Activity User E-sign Co-sign Detail Recorded Client Recorded Date Recorded By Document 11/29/22 09:04 GIN [id number] 11/29/22 09:07 JF Document 12/13/22 09:01 JF Desktop 12/13/22 09:03 JF 11/29/22 12/13/22 09:04 09:01 Wound Center Nurse 2 #1 RLE LAt Cluster -Time 09:05 09:01 -Correct Patient Yes Yes -Correct Side, Site, Position Yes Yes -Correct Procedure Yes Yes -Procedure Performed Yes Yes -Type of Procedure Debridement Debridement -Clinical Debridement Subcutaneous -Tissue Removed Subcutaneous Subcutaneous -Post Debridement (cm) - Length 1.2 1 -Post Debridement (cm) - Width 1.4 1 -Post Debridement (cm) - Depth 0.1 0.1 -Total Square (Post) (cm) 1.68 1 -Area of Debridement (cm) - Length 1.2 1 -Area of Debridement (cm) - Width 1.4 1 -Total Square (Area) (cm) 1.68 1 -Tunneling No No -Undermining/Tunneling No No -Circular Undermining No No -Wound/Ulcer Outcome Not Healed Not Healed -Ulcer Cleansing Rinsed/ Rinsed/ Irrigated with Irrigated with Saline Saline -Foul Odor after Cleansing No No -Bioengineered Tissue Yes Yes -Type of Bioengineered Tissue Epifix 18mm Epifix 18mm Disc Disc -Expiration Date 08/18/27 08/18/27 -Product Lot Number [id number] -Percent Used 100 100 -Lot number of Saline Used [id number] -Bleeding Controlled with Pressure Pressure -Treatment Response Procedure Procedure Tolerated Well Tolerated Well -Offloading No No -Debridement - Subq, 1st 20sq cm No -Apply Skin Sub - 1st 25 sq cm - Legs 1 1 -Epifix 18mm Disc 3 3 Pain Scale: 0-10 Numeric Is Patient Pain Free? Yes Yes - Nurse 3 - General Ulcer D/C NN Start: 11/29/22 08:31 Freq: Status: Active Protocol: Activity Type Activity Date Activity User E-sign Co-sign Detail Recorded Client Recorded Date Recorded By Document 12/13/22 09:08 DL Desktop 12/13/22 09:09 DL 12/13/22 09:08 Wound Care Center Nurse 3 #1 RLE LAt Cluster -Foul Odor after Cleansing No -Primary Dressing Applied Mepilex Border -Other Dressing epifix -Mepilex Border 1 Treatment Response Procedure Tolerated Well Pain Scale: 0-10 Numeric Is Patient Pain Free? Yes - Visit Discharge Discharge Condition Stable Ambulatory Status Ambulatory Transportation Private Auto Assessment/Plan Assessment/Plan (1) Ulcer of right lower extremity with fat layer exposed: CODE(S): L97.912 - Non-pressure chronic ulcer of unspecified part of right lower leg with fat layer exposed (2) Ulcer of left lower extremity, limited to breakdown of skin: CODE(S): L97.921 - Non-pressure chronic ulcer of unspecified part of left lower leg limited to breakdown of skin (3) Bilateral edema of lower extremity: CODE(S): R60.0 - Localized edema (4) Lymphedema of both lower extremities: CODE(S): I89.0 - Lymphedema, not elsewhere classified (5) COPD (chronic obstructive pulmonary disease): CODE(S): J44.9 - Chronic obstructive pulmonary disease, unspecified (6) Requires continuous at home supplemental oxygen: CODE(S): Z99.81 - Dependence on supplemental oxygen (7) Former smoker: CODE(S): Z87.891 - Personal history of nicotine dependence PLAN: Plan Patient evaluated at the wound healing center today. Wound care - Epifix #11 placed this week. 100% of the 18mm product was used, skin prep was used around the ashley wound and a wound veil was placed with steri strips to keep in place. Topped with [place] SAP. She was instructed to not get the ulcer wet. She may change the outer dressing as needed, depending on how much drainage she experiences. Place Lac hytrin lotion to non ulcer areas before applying compression. Compression - Circaid compression stockings to bilateral lower legs. Discussed low sodium diet that is high in protein to help with edema management and wound healing. Stressed the importance of using her home compression pumps at least for an hour per day, may use twice daily. Instructed her that she does not need to remove her Circaid stockings before using the compression pumps. Encouraged increase activity/walking as tolerated to help with edema/lymphedema, along with foot pumping while sitting. Encouraged patient not to sleep in chair but if she has to because of her COPD/difficult breathing she needs to be propped up. Encouraged leg elevation. Wound culture obtained on 07/12/22 which was positive for Serratia marcescens and Anaerobic cocci. It is resistant to the Doxycycline her PCP placed her on. Instructed her to stop the Doxycycline. Initially ordered Levaquin but patient read all the side effects and she states her father had a seizure while on Levaquin. Changed Levaquin to Bactrim and then added Metronidazole when the Anaerobic culture came back. She has completed the antibiotics. Follow up one week.
== END 2022-12-16 23:59 | disposition home or self-care (01) ==
LOC: WC 08:30
PROVIDERS: PCP Family Medicine; Referring Provider Family Medicine; Visit Provider Nurse Practitioner Family
DX: L97.812 Non-pressure chronic ulcer of other part of right lower leg with fat layer exposed (principal); J44.9 Chronic obstructive pulmonary disease, unspecified; R60.0 Localized edema; I89.0 Lymphedema, not elsewhere classified; Z99.81 Dependence on supplemental oxygen; Z79.82 Long term (current) use of aspirin; Z79.899 Other long term (current) drug therapy; Z87.891 Personal history of nicotine dependence
CPT/HCPCS: 15271; Q4186

== ENCOUNTER 2022-12-27 08:30 | Outpatient (RCR) | payer BC, SELFPAY ==
[2022-12-17 00:20] VITALS: BP 165/79; PULSE 109; RESP 20; TEMP 36.2; BMI 44.0
[2022-12-20 08:31] VITALS: BP 145/77; PULSE 85; RESP 18; TEMP 36.7; BMI 44.0
--- NOTE | 2022-12-20 09:21 | PN.PCM_ITS ---
History of Present Illness Date of Service: 12/20/22 Chief Complaint: Right leg ulcer History of Wound: 62 year old female presents to the wound healing center with ulcers on her right and left legs that started 5 months ago after being hospitalized for pneumonia and COPD exacerbation. She developed worsening edema and her legs have been weeping. She then bumped her right lateral leg and developed an ulcer that she covers during the day with non adherent dressings. She also has several ulcers that are superficial and weep clear drainage due to the amount of edema she is experiencing. She sleeps in a chair due to difficulty breathing. She typically does not elevate her legs. 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 She was being treated with Doxycycline from her PCP due to a cellulitis of her legs. Reviewed notes from her PCP who saw her on 07/03/22 for cellulitis, ulcer right leg and shortness of breath. Wound culture obtained on 07/12/22 which was positive for Serratia marcescens and Anaerobic cocci. She has been started on Bactrim and Metronidazole. Arterial studies performed on 07/13/22 - Right CRISTINA - 1.27 and Left CRISTINA - 1.21. Triphasic Doppler waveforms are noted at ankle level bilaterally. Pulse-volume recordings appear diminished at digital level on the right, but satisfactory at all other levels bilaterally. Resting ankle-brachial indices are normal bilaterally. The right digital-brachial index is normal. The left digital-brachial index is mildly diminished. Arterial flow appears normal at ankle level bilaterally, and at digital level on the right. There is evidence of mild arterial occlusive disease at digital level on the left. 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 The right great saphenous vein appears segmentally incompetent. The right anterior accessory saphenous vein is incompetent. The left anterior accessory saphenous vein is incompetent. She denies fever, chills, nausea or vomiting. Progress of Wound: Right lateral leg ulcer is smaller and almost healed. She is consistently wearing her Circaid compression stockings. She is wearing her compression pumps several times a week. Edema is stable.She has had 01/31 applications of Epifix. Objective Data Objective Data Vital Signs: Vital Signs Temp Pulse Resp BP O2 Del Method O2 Flow Rate 98.0 F 85 18 145/77 H Nasal Cannula 3 12/20/22 08:31 12/20/22 08:31 12/20/22 08:31 12/20/22 08:31 12/20/22 08:31 12/17/22 00:20 Oxygen Flow Rate (L/min) 3 Oxygen Delivery Method Nasal Cannula Weight: 248 lb 8.668 oz Body Mass Index (BMI) 44.0 Charges/Coding Procedures Integumentary [id number]: [id number] Eboni subq tissue 20 sq cm/< Debridement Note Debridement Note Wound debrided: lateral leg ulcer (#1) Laterality: Right Type of Debridement: Excisional debridement Anesthesia Used: 4% Lidocaine Solution and 5% Lidocaine Gel Depth: Down to and including healthy tissue and in the subcutaneous layer Percentage of wound debrided: 100 Instrument Used: 3mm curette Tissue Removed: devitalized tissue and slough Severity: Fat Layer Exposed Amount of bleeding with debridement: Mild Bleeding Controlled with: Pressure and Compression and gauze Patient tolerated procedure: Patient tolerated procedure well Post-Debridement Measurements and Additional Note: Post-Debridement Measurements/Treatment - Nurse 1 - General Ulcer Assessment Start: 12/20/22 08:31 Freq: Status: Active Protocol: NINO.VAHE Activity Type Activity Date Activity User E-sign Co-sign Detail Recorded Client Recorded Date Recorded By Document 12/20/22 08:31 KW Desktop 12/20/22 08:36 KW 12/20/22 08:31 - Today's Visit Information Type of service Follow-up Visit (Physician/UMBRELLA FRAME MAKER ) Arrival Mode Ambulatory Accompanied by Height and Weight Body Mass Index (BMI) 44.0 BMI Classification Obese Vital Signs Temperature (97.8 F-99.1 F) 98.0 F Temperature Source Temporal Pulse Rate (60-100) 85 Pulse Location Monitor Respiratory Rate (12-18) 18 Respiratory rate source Observation Oxygen Delivery Method Nasal Cannula Blood Pressure (90/60-120/80) 145/77 H Blood Pressure Mean (mm Hg) 99 Source Monitor Position Semi-Fowlers Blood Pressure Location Left Arm History Since Last Visit- (Skip if this is Patient's initial visit) Have you changed medications since your No last visit? Any new allergies or adverse reactions No Had a fall/change in ADL's that may No increase risk of falls Signs or symptoms of abuse and/or No neglect since last visit Have you been in the hospital since your No last visit? Has dressing in place as prescribed Yes Has compression in place as prescribed Yes Has offloadiing in place as prescribed No Experienced any changes in pain level or No management Left Footwear Regular Shoe Right Footwear Regular Shoe Pain Scale: 0-10 Numeric Is Patient Pain Free? Yes WC - Nurse 1 - General Ulcer Measurement Start: 12/20/22 08:31 Freq: Status: Active Protocol: Activity Type Activity Date Activity User E-sign Co-sign Detail Recorded Client Recorded Date Recorded By Document 12/20/22 08:31 KW Desktop 12/20/22 08:36 KW 12/20/22 08:31 Wound Center Nurse 1 #1 RLE LAt Cluster -Current Size (cm) - Length 1.1 -Current Size (cm) - Width 0.5 -Current Size (cm) - Depth 0.1 -Total Square Cm 0.55 -Exudate Amt None Present -Wound Margin Distinct, Outline Attached -Granulation Amt None Present (0 %) -Necrosis Amt Large (67-100%) -Necrotic Tissue Type Eschar -Texture (Ashley-wound Skin Appearance) Assessed -Moisture (Ashley-wound Skin Appearance) Assessed -Color (Ashley-wound Skin Appearance) Assessed -Ulcer Cleansing Soap and Water -Anesthetic Used 5% Lidocaine Gel -Wound Comment(s) scabbed Right Calf (cm) 46.5 Right Ankle (cm) 26 Assessment/Plan Assessment/Plan (1) Ulcer of right lower extremity with fat layer exposed: CODE(S): L97.912 - Non-pressure chronic ulcer of unspecified part of right lower leg with fat layer exposed (2) Ulcer of left lower extremity, limited to breakdown of skin: CODE(S): L97.921 - Non-pressure chronic ulcer of unspecified part of left lower leg limited to breakdown of skin (3) Bilateral edema of lower extremity: CODE(S): R60.0 - Localized edema (4) Lymphedema of both lower extremities: CODE(S): I89.0 - Lymphedema, not elsewhere classified (5) COPD (chronic obstructive pulmonary disease): CODE(S): J44.9 - Chronic obstructive pulmonary disease, unspecified (6) Requires continuous at home supplemental oxygen: CODE(S): Z99.81 - Dependence on supplemental oxygen (7) Former smoker: CODE(S): Z87.891 - Personal history of nicotine dependence PLAN: Plan Patient evaluated at the wound healing center today. Wound care - She has had 01/31 applications of Epifix that she was approved for. She may wash wound daily with soap and water, place collagen hydrogel covered with adaptic and gauze daily. Place Lac hytrin lotion to non ulcer areas before applying compression. Compression - Circaid compression stockings to bilateral lower legs. Discussed low sodium diet that is high in protein to help with edema management and wound healing. Stressed the importance of using her home compression pumps at least for an hour per day, may use twice daily. Instructed her that she does not need to remove her Circaid stockings before using the compression pumps. Encouraged increase activity/walking as tolerated to help with edema/lymphedema, along with foot pumping while sitting. Encouraged patient not to sleep in chair but if she has to because of her COPD/difficult breathing she needs to be propped up. Encouraged leg elevation. Wound culture obtained on 07/12/22 which was positive for Serratia marcescens and Anaerobic cocci. It is resistant to the Doxycycline her PCP placed her on. Instructed her to stop the Doxycycline. Initially ordered Levaquin but patient read all the side effects and she states her father had a seizure while on Leva jennifer. Changed Levaquin to Bactrim and then added Metronidazole when the Anaerobic culture came back. She has completed the antibiotics. Follow up one week.
[2022-12-27 08:43] VITALS: BP 137/71; PULSE 108; RESP 20; TEMP 36.3; BMI 44.0
--- NOTE | 2022-12-27 09:23 | PCM.WC.PN ---
History of Present Illness Date of Service: 12/27/22 Chief Complaint: Right leg ulcer History of Wound: 62 year old female presents to the wound healing center with ulcers on her right and left legs that started 5 months ago after being hospitalized for pneumonia and COPD exacerbation. She developed worsening edema and her legs have been weeping. She then bumped her right lateral leg and developed an ulcer that she covers during the day with non adherent dressings. She also has several ulcers that are superficial and weep clear drainage due to the amount of edema she is experiencing. She sleeps in a chair due to difficulty breathing. She typically does not elevate her legs. 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 She was being treated with Doxycycline from her PCP due to a cellulitis of her legs. Reviewed notes from her PCP who saw her on 07/03/22 for cellulitis, ulcer right leg and shortness of breath. Wound culture obtained on 07/12/22 which was positive for Serratia marcescens and Anaerobic cocci. She has been started on Bactrim and Metronidazole. Arterial studies performed on 07/13/22 - Right CRISTINA - 1.27 and Left CRISTINA - 1.21. Triphasic Doppler waveforms are noted at ankle level bilaterally. Pulse-volume recordings appear diminished at digital level on the right, but satisfactory at all other levels bilaterally. Resting ankle-brachial indices are normal bilaterally. The right digital-brachial index is normal. The left digital-brachial index is mildly diminished. Arterial flow appears normal at ankle level bilaterally, and at digital level on the right. There is evidence of mild arterial occlusive disease at digital level on the left. 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 The right great saphenous vein appears segmentally incompetent. The right anterior accessory saphenous vein is incompetent. The left anterior accessory saphenous vein is incompetent. She denies fever, chills, nausea or vomiting. Progress of Wound: Right lateral leg ulcer is healed today. Encouraged her to massage the area with lotion to help soften the scarring. Objective Data Objective Data Vital Signs: Vital Signs Temp Pulse Resp BP O2 Del Method O2 Flow Rate 97.4 F L 108 H 20 H 137/71 H Nasal Cannula 3 12/27/22 08:43 12/27/22 08:43 12/27/22 08:43 12/27/22 08:43 12/27/22 08:43 12/17/22 00:20 Oxygen Flow Rate (L/min) 3 Oxygen Delivery Method Nasal Cannula Weight: 248 lb 8.668 oz Body Mass Index (BMI) 44.0 Charges/Coding Visit Charges Office Visits / Consults: 32241 OV L3 Est Physical Exam Const alert and oriented x3 General Appearance: cooperative HEENT normocephalic Eyes General Eye: normal appearance of both eyes Neck full ROM Resp normal respiratory effort Resp Narrative: uses oxygen all the time. Effort and Inspection: able to speak in complete sentences Cardio regular rate GI soft to palpation and non-tender Back/Spine normal ROM Extremity normal capillary refill General Extremity: edema bilateral lower extremity Details: severe Peripheral Pulses: Yes dorsalis pedis pulses present bilateral 2+ Skin Wound Narrative: Right lateral leg ulcer is healed. Her edema is better controlled with compression stockings. Neuro oriented x3 Psych mental status grossly normal, thought process normal and cooperative Debridement Note Debridement Note No debridement was completed: No debridement was completed today Post-Debridement Measurements and Additional Note: Post-Debridement Measurements/Treatment - Nurse 1 - General Ulcer Assessment Start: 12/20/22 08:31 Freq: Status: Active Protocol: WC.LOWMARIANNE Activity Type Activity Date Activity User E-sign Co-sign Detail Recorded Client Recorded Date Recorded By Document 12/20/22 08:31 KW Desktop 12/20/22 08:36 KW Document 12/27/22 08:43 KW Desktop 12/27/22 08:49 KW 12/20/22 12/27/22 08:31 08:43 - Today's Visit Information Type of service Follow-up Visit Follow-up Visit (Physician/DEVELOPING MACHINE TENDER (Physician/DEVELOPING MACHINE TENDER ) ) Arrival Mode Ambulatory Ambulatory Accompanied by Patient Identification Verified (Name & Yes ) Height and Weight Body Mass Index (BMI) 44.0 44.0 BMI Classification Obese Obese Vital Signs Temperature (97.8 F-99.1 F) 98.0 F 97.4 F L Temperature Source Temporal Temporal Pulse Rate (60-100) 85 108 H Pulse Location Monitor Monitor Respiratory Rate (12-18) 18 20 H Respiratory rate source Observation Observation Oxygen Delivery Method Nasal Cannula Nasal Cannula Blood Pressure (90/60-120/80) 145/77 H 137/71 H Blood Pressure Mean (mm Hg) 99 93 Source Monitor Monitor Position Semi-Fowlers Sitting Blood Pressure Location Left Arm Left Arm History Since Last Visit- (Skip if this is Patient's initial visit) Have you changed medications since your No No last visit? Any new allergies or adverse reactions No No Had a fall/change in ADL's that may No No increase risk of falls Signs or symptoms of abuse and/or No No neglect since last visit Have you been in the hospital since your No No last visit? Has dressing in place as prescribed Yes Yes Has compression in place as prescribed Yes Yes Has offloadiing in place as prescribed No No Experienced any changes in pain level or No No management Left Footwear Regular Shoe Regular Shoe Right Footwear Regular Shoe Regular Shoe Pain Scale: 0-10 Numeric Is Patient Pain Free? Yes Yes WC - Nurse 1 - General Ulcer Measurement Start: 12/20/22 08:31 Freq: Status: Active Protocol: Activity Type Activity Date Activity User E-sign Co-sign Detail Recorded Client Recorded Date Recorded By Document 12/20/22 08:31 [employer] Desktop 12/20/22 08:36 KW Document 12/27/22 08:43 [employer] 12/27/22 08:49 KW 12/20/22 12/27/22 08:31 08:43 Wound Center Nurse 1 #1 RLE LAt Cluster -Current Size (cm) - Length 1.1 0 -Current Size (cm) - Width 0.5 0 -Current Size (cm) - Depth 0.1 0 -Total Square Cm 0.55 0 -Exudate Amt None Present -Wound Margin Distinct, Outline Attached -Granulation Amt None Present (0 %) -Necrosis Amt Large (67-100%) -Necrotic Tissue Type Eschar -Texture (Ashley-wound Skin Appearance) Assessed -Moisture (Ashley-wound Skin Appearance) Assessed -Color (Ashley-wound Skin Appearance) Assessed -Ulcer Cleansing Soap and Water -Anesthetic Used 5% Lidocaine Gel -Wound Comment(s) scabbed healed Right Calf (cm) 46.5 Right Ankle (cm) 26 WC - Nurse 2 - General Ulcer CM Notes Start: 12/20/22 08:31 Freq: Status: Active Protocol: Activity Type Activity Date Activity User E-sign Co-sign Detail Recorded Client Recorded Date Recorded By Document 12/20/22 08:50 Laptop 12/22/22 10:26 Document 12/27/22 08:57 Laptop 12/27/22 08:57 12/20/22 12/27/22 08:50 08:57 Wound Center Nurse 2 #1 NURA Cassidy Cluster -Time 10:25 -Correct Patient Yes No -Correct Side, Site, Position Yes No -Correct Procedure Yes No -Procedure Performed Yes No -Type of Procedure Debridement -Clinical Debridement Subcutaneous -Tissue Removed Subcutaneous -Post Debridement (cm) - Length 0.6 0 -Post Debridement (cm) - Width 0.7 0 -Post Debridement (cm) - Depth 0.1 0 -Total Square (Post) (cm) 0.42 0 -Area of Debridement (cm) - Length 0.6 0 -Area of Debridement (cm) - Width 0.7 0 -Total Square (Area) (cm) 0.42 0 -Tunneling No -Undermining/Tunneling No -Circular Undermining No -Wound/Ulcer Outcome Not Healed Healed- Epithelialized -Ulcer Cleansing Rinsed/ Irrigated with Saline -Foul Odor after Cleansing No -Bioengineered Tissue No -Bleeding Controlled with Pressure -Treatment Response Procedure Tolerated Well -Offloading No -Debridement - Subq, 1st 20sq cm Yes Pain Scale: 0-10 Numeric Is Patient Pain Free? Yes Yes - Nurse 3 - General Ulcer D/C NN Start: 12/20/22 08:31 Freq: Status: Active Protocol: Activity Type Activity Date Activity User E-sign Co-sign Detail Recorded Client Recorded Date Recorded By Document 12/20/22 09:05 Desktop 12/20/22 09:38 Document 12/27/22 08:57 Laptop 12/27/22 08:58 12/20/22 12/27/22 09:05 08:57 Wound Care Center Nurse 3 #1 NURA Cassidy Cluster -Ulcer Cleansing Rinsed/ Irrigated with Saline -Primary Dressing Applied C Hydrogel ($) -Primary Dressing Covered/Secured with Dry Gauze, Secured with Tape Right -Lotion applied to leg before Yes compression wrap Pain Scale: 0-10 Numeric Is Patient Pain Free? Yes Yes - Visit Discharge Discharge Condition Stable Stable Ambulatory Status Ambulatory Ambulatory Transportation Private Auto Private Auto Medication Reconcilliation completed & No Yes provided to patient/care provider Clinical Summary of Care Provided Yes Yes Assessment/Plan Assessment/Plan (1) Ulcer of right lower extremity with fat layer exposed: CODE(S): L97.912 - Non-pressure chronic ulcer of unspecified part of right lower leg with fat layer exposed (2) Bilateral edema of lower extremity: CODE(S): R60.0 - Localized edema (3) Lymphedema of both lower extremities: CODE(S): I89.0 - Lymphedema, not elsewhere classified (4) COPD (chronic obstructive pulmonary disease): CODE(S): J44.9 - Chronic obstructive pulmonary disease, unspecified (5) Requires continuous at home supplemental oxygen: CODE(S): Z99.81 - Dependence on supplemental oxygen (6) Former smoker: CODE(S): Z87.891 - Personal history of nicotine dependence PLAN: Plan Patient evaluated at the wound healing center today. Wound care - She has had 01/31 applications of Epifix that she was approved for. She is healed today. Encouraged to massage the healed area with lotion 1-2 times a day to help soften the scarring. Place Lac hytrin lotion to non ulcer areas before applying compression. Compression - Circaid compression stockings to bilateral lower legs. Continue low sodium diet that is high in protein to help with edema management and wound healing. Stressed the importance of using her home compression pumps at least for an hour per day, may use twice daily. Instructed her that she does not need to remove her Circaid stockings before using the compression pumps. Encouraged increase activity/walking as tolerated to help with edema/lymphedema, along with foot pumping while sitting. Encouraged patient not to sleep in chair but if she has to because of her COPD/difficult breathing she needs to be propped up. Encouraged leg elevation. Wound culture obtained on 07/12/22 which was positive for Serratia marcescens and Anaerobic cocci. It is resistant to the Doxycycline her PCP placed her on. Instructed her to stop the Doxycycline. Initially ordered Levaquin but patient read all the side effects and she states her father had a seizure while on Levaquin. Changed Levaquin to Bactrim and then added Metronidazole when the Anaerobic culture came back. She has completed the antibiotics. Follow up as needed.
== END 2022-12-28 15:24 | disposition home or self-care (01) ==
LOC: WC 08:30
PROVIDERS: PCP Family Medicine; Referring Provider Family Medicine; Visit Provider Nurse Practitioner Family
DX: L97.812 Non-pressure chronic ulcer of other part of right lower leg with fat layer exposed (principal); J44.9 Chronic obstructive pulmonary disease, unspecified; I89.0 Lymphedema, not elsewhere classified; R60.0 Localized edema; Z99.81 Dependence on supplemental oxygen; Z79.82 Long term (current) use of aspirin; Z79.899 Other long term (current) drug therapy; Z87.891 Personal history of nicotine dependence
CPT/HCPCS: 11042; 99213; G0463